=== PATIENT | female | born 1940 | race Caucasian/White ===

== ENCOUNTER 2020-11-17 15:59 | Emergency (ER) | payer MEDICARE ==
[2020-11-17] MEDS ORDERED: HYDROmorphone 0.5 MG/0.5 ML SYRINGE IVP STA (16:59)
[2020-11-17] MEDS ORDERED: ONDANSETRON 4 MG/2 ML VIAL IVP STA (16:59)
[2020-11-17] MEDS ORDERED: SODIUM CHLORIDE 0.9% 1,000 ML IV STA (16:59)
--- NOTE | 2020-11-17 16:59 | ED ---
General Adult HPI <Sharita Castro - Last Filed: 11/17/20 16:55> <Mushtaq Kang - Last Filed: 11/17/20 20:00> - General Stated complaint: Left Side/Back Pain Time Seen by Provider: 11/17/20 16:55 - History of Present Illness Initial comments: 80 year-old female patient presents to the emergency department for evaluation of left flank pain. Started this morning and pain worsened throughout the day. Patient believes the pain is in her kidney. Denies any fall or injury. Denies any nausea, vomiting, constipation, or diarrhea. Denies shortness of breath or chest pain. Did try to take aleve and aspirin without relief. Denies any abdom inal pain in the front. Denies history of similar symptoms. Denies fever or chills. (Sharita Castro) Dictation was produced using [employer] dictation software. please excuse any grammatical, word or spelling errors. This patient was cared for during a federal and state declared state of emergency secondary to Covid 19 Chief Complaint: 80-year-old male presents with acute onset left-sided flank pain History of Present Illness: Patient is a 80-year-old. She has past medical history diabetes and hypertension per she woke this morning with severe episodic left-sided flank pain. She states that it's in her mid to lower thoracic area. Denies any radiation down to her groin. States that her symptoms come on and off unexpectedly. No specific exacerbating or mitigating factors. She has not noticed any changes in her urine. She has any constitutional symptoms. Denies any history of kidney stones. No noticed any paresthesias to the lower ext remities. No saddle anesthesia. The ROS documented in this emergency department record has been reviewed and confirmed by me. Those systems with pertinent positive or negative responses have been documented in the HPI. All other systems are other negative and/or noncontributory. PHYSICAL EXAM: General Impression: Alert and oriented x3, acute distress secondary to pain HEENT: Normocephalic atraumatic, extra-ocular movements intact, pupils equal and reactive to light bilaterally, mucous membranes moist. Cardiovascular: Heart regular rate and rhythm Chest: Able to complete full sentences, no retractions, no tachypnea Abdomen: abdomen soft, non-tender, non-distended, no organomegaly Musculoskeletal: Pulses present and equal in all extremities, no peripheral edema, mild tenderness to palpation over the left CVA area Motor: no focal deficits noted Neurological: CN II-XII grossly intact, no focal motor or sensory deficits noted Skin: Intact with no visualized rashes Psych: Normal affect and mood ED course: 80-year-old female presents to the emergency department for left- sided flank pain. Vital signs upon arrival are within acceptable limits. Laboratory evaluation obtained. CBC unremarkable. Metabolic panel shows sodium 132. Glucose 187. Mild lactic acidosis elevation at 2.3. On the elevated liver enzymes. Urinalysis shows dirty catch and 18 white blood cells. Computed tomography scan of the abdomen and pelvis shows hiatal hernia. No other acute processes noted. No evidence of any acute abnormalities. Patient notified of the hiatal hernia found incidentally. She reports improvement of her symptoms. She reevaluated at bedside at approximately 7:50 PM. She states that she has pain to her left lower back. At this point there is strong clinical suspicion that patient's symptoms are secondary to lower back strain. She has no symptoms at rest reports that her symptoms are worse with movement. She is well- appearing at bedside. She is tolerating oral at bedside. She is agreeable for discharge. She is given prescription for analgesics and muscle relaxants. Patient will be discharged patient told to follow-up with her primary care physician. (Mushtaq Kang) - Related Data Previous Rx's Medication Instructions Recorded Cyclobenzaprine [Flexeril] 5 mg PO TID PRN #24 tablet 11/17/20 oxyCODONE HCL/ACETAMINOPHEN 1 tab PO Q6HR PRN 3 Days #12 tab 11/17/20 [Percocet 5-325 mg] Allergies Allergy/AdvReac Type Severity Reaction Status Date / Time No Known Allergies Allergy Verified 11/17/20 17:03 Review of Systems ROS Other: All systems not noted in ROS Statement are negative. <Sharita Castro - Last Filed: 11/17/20 16:55> ROS Other: All systems not noted in ROS Statement are negative. <Mushtaq Kang - Last Filed: 11/17/20 20:00> ROS Statement: Those systems with pertinent positive or pertinent negative responses have been documented in the HPI. Course Vital Signs 11/17/20 11/17/20 16:57 19:00 Temperature 97.6 F 97.7 F Pulse Rate 81 67 Respiratory 20 18 Rate Blood Pressure 182/72 175/71 O2 Sat by Pulse 100 99 Oximetry Medical Decision Making - Lab Data Result diagrams: 11/17/20 17:21 11/17/20 17:21 <Mushtaq Kang - Last Filed: 11/17/20 20:00> - Lab Data Lab Results 11/17/20 11/17/20 11/17/20 Range/Units 17:21 17:21 17:21 WBC 10.6 (3.8-10.6) k/uL RBC 4.92 (3.80-5.40) m/uL Hgb 12.8 (11.4-16.0) gm/dL Hct 40.2 (34.0-46.0) % MCV 81.8 (80.0-100.0) fL MCH 26.1 (25.0-35.0) pg MCHC 31.9 (31.0-37.0) g/dL RDW 14.2 (11.5-15.5) % Plt Count 374 (150-450) k/uL MPV 7.2 Neutrophils % 67 % Lymphocytes % 20 % Monocytes % 6 % Eosinophils % 2 % Basophils % 1 % Neutrophils # 7.1 (1.3-7.7) k/uL Lymphocytes # 2.2 (1.0-4.8) k/uL Monocytes # 0.7 (0-1.0) k/uL Eosinophils # 0.2 (0-0.7) k/uL Basophils # 0.1 (0-0.2) k/uL Sodium 132 L (137-145) mmol/L Potassium 4.2 (3.5-5.1) mmol/L Chloride 99 (98-107) mmol/L Carbon Dioxide 23 (22-30) mmol/L Anion Gap 10 mmol/L BUN 15 (7-17) mg/dL Creatinine 0.53 (0.52-1.04) mg/dL Est GFR (CKD-EPI)AfAm >90 (>60 ml/min/1.73 sqM) Est GFR (CKD-EPI)NonAf 89 (>60 ml/min/1.73 sqM) Glucose 187 H (74-99) mg/dL Lactic Ac Sepsis Rflx Plasma Lactic Acid Hair 2.3 H* (0.7-2.0) mmol/L Calcium 9.6 (8.4-10.2) mg/dL Total Bilirubin 0.4 (0.2-1.3) mg/dL AST 43 H (14-36) U/L ALT 42 H (4-34) U/L Alkaline Phosphatase 157 H (38-126) U/L Total Protein 8.2 (6.3-8.2) g/dL Albumin 4.1 (3.5-5.0) g/dL Lipase 170 (23-300) U/L Urine Color Urine Appearance (Clear) Urine pH (5.0-8.0) Ur Specific Crowell (1.001-1.035) Urine Protein (Negative) Urine Glucose (UA) (Negative) Urine Ketones (Negative) Urine Blood (Negative) Urine Nitrite (Negative) Urine Bilirubin (Negative) Urine Urobilinogen (<2.0) mg/dL Ur Leukocyte Esterase (Negative) Urine WBC (0-5) /hpf Ur Squamous Epith Cells (0-4) /hpf Amorphous Sediment (None) /hpf Urine Bacteria (None) /hpf Urine Mucus (None) /hpf 11/17/20 11/17/20 Range/Units 17:54 19:36 WBC (3.8-10.6) k/uL RBC (3.80-5.40) m/uL Hgb (11.4-16.0) gm/dL Hct (34.0-46.0) % MCV (80.0-100.0) fL MCH (25.0-35.0) pg MCHC (31.0-37.0) g/dL RDW (11.5-15.5) % Plt Count (150-450) k/uL MPV Neutrophils % % Lymphocytes % % Monocytes % % Eosinophils % % Basophils % % Neutrophils # (1.3-7.7) k/uL Lymphocytes # (1.0-4.8) k/uL Monocytes # (0-1.0) k/uL Eosinophils # (0-0.7) k/uL Basophils # (0-0.2) k/uL Sodium (137-145) mmol/L Potassium (3.5-5.1) mmol/L Chloride (98-107) mmol/L Carbon Dioxide (22-30) mmol/L Anion Gap mmol/L BUN (7-17) mg/dL Creatinine (0.52-1.04) mg/dL Est GFR (CKD-EPI)AfAm (>60 ml/min/1.73 sqM) Est GFR (CKD-EPI)NonAf (>60 ml/min/1.73 sqM) Glucose (74-99) mg/dL Lactic Ac Sepsis Rflx Y Plasma Lactic Acid Hair (0.7-2.0) mmol/L Calcium (8.4-10.2) mg/dL Total Bilirubin (0.2-1.3) mg/dL AST (14-36) U/L ALT (4-34) U/L Alkaline Phosphatase (38-126) U/L Total Protein (6.3-8.2) g/dL Albumin (3.5-5.0) g/dL Lipase (23-300) U/L Urine Color Light Yellow Urine Appearance Cloudy H (Clear) Urine pH 6.5 (5.0-8.0) Ur Specific Crowell 1.011 (1.001-1.035) Urine Protein Negative (Negative) Urine Glucose (UA) Negative (Negative) Urine Ketones Negative (Negative) Urine Blood Negative (Negative) Urine Nitrite Negative (Negative) Urine Bilirubin Negative (Negative) Urine Urobilinogen <2.0 (<2.0) mg/dL Ur Leukocyte Esterase Small H (Negative) Urine WBC 18 H (0-5) /hpf Ur Squamous Epith Cells 17 H (0-4) /hpf Amorphous Sediment Rare H (None) /hpf Urine Bacteria Few H (None) /hpf Urine Mucus Occasional H (None) /hpf Disposition <Sharita Castro - Last Filed: 11/17/20 16:55> Is patient prescribed a controlled substance at d/c from ED?: Yes If prescribed controlled substance>3 days was MAPS reviewed?: Prescribed <3 Days Time of Disposition: 19:57 <Mushtaq Kang - Last Filed: 11/17/20 20:00> Clinical Impression: Back strain Disposition: HOME SELF-CARE Condition: Fair Instructions (If sedation given, give patient instructions): Low Back Strain (ED) Prescriptions: Cyclobenzaprine [Flexeril] 5 mg PO TID PRN #24 tablet PRN Reason: back spasms oxyCODONE HCL/ACETAMINOPHEN [Percocet 5-325 mg] 1 tab PO Q6HR PRN 3 Days #12 tab PRN Reason: Pain Referrals: Esteban Denton DO [Primary Care Provider] - 1-2 days
[2020-11-17 17:37] LABS: HCT 40.2 % (34.0-46.0); HGB 12.8 gm/dL (11.4-16.0); MCH 26.1 pg (25.0-35.0); MCV 81.8 fL (80.0-100.0); RBC 4.92 m/uL (3.80-5.40); WBC 10.6 k/uL (3.8-10.6)
[2020-11-17 17:38] LABS: Basophils # (A) 0.1 k/uL (0-0.2); Basophils % (A) 1 %; Eosinophils # (A) 0.2 k/uL (0-0.7); Eosinophils % (A) 2 %; Lymphocytes # (A) 2.2 k/uL (1.0-4.8); Lymphocytes % (A) 20 %; MCHC 31.9 g/dL (31.0-37.0); Mean Platelet Volume 7.2; Monocytes # (A) 0.7 k/uL (0-1.0); Monocytes % (A) 6 %; Neutrophils # (A) 7.1 k/uL (1.3-7.7); Neutrophils % (A) 67 %; Platelet Count 374 k/uL (150-450); RDW 14.2 % (11.5-15.5)
[2020-11-17 17:56] LABS: ALT 42 U/L (4-34); AST 43 U/L (14-36); African American GFR (CKD) >90 (>60 ml/min/1.73 sqM); Albumin 4.1 g/dL (3.5-5.0); Alkaline Phosphatase 157 U/L (38-126); Anion Gap 10 mmol/L; Blood Urea Nitrogen 15 mg/dL (7-17); Calcium 9.6 mg/dL (8.4-10.2); Carbon Dioxide 23 mmol/L (22-30); Chloride 99 mmol/L (98-107); Glucose 187 mg/dL (74-99); Lipase 170 U/L (23-300); Non-African American GFR(CKD) 89 (>60 ml/min/1.73 sqM); Potassium 4.2 mmol/L (3.5-5.1); Sodium 132 mmol/L (137-145); Total Bilirubin 0.4 mg/dL (0.2-1.3); Total Protein 8.2 g/dL (6.3-8.2)
--- NOTE | 2020-11-17 19:00 | CT ---
EXAMINATION TYPE: CT abdomen pelvis wo con DATE OF EXAM: 11/17/2020 COMPARISON: None HISTORY: Left flank pain starting today. CT DLP: 434.3 mGycm Automated exposure control for dose reduction was used. Images obtained from the diaphragm to the floor the pelvis with no contrast. There is moderate hiatal hernia. Heart size is normal. There is no pleural effusion. Liver spleen moran creas appear intact. The bile ducts are nondilated. There are clips from cholecystectomy. There is no adrenal mass. Kidneys show normal size and contour. There is no hydronephrosis. Ureters a re not dilated. There is no retroperitoneal adenopathy. Bladder distends smoothly. There is no inguin al hernia. There is no mesenteric edema. There is no ascites or free air. There is no bowel obstruction. Lumbar vertebra have normal alignment. There is no compression fracture. Bony pelvis is intact. IMPRESSION: No acute abnormality of the abdomen pelvis. Hiatal hernia. No evidence of renal stone or obstruction.
[2020-11-17 19:03] VITALS: BP 175/71; PULSE 67; RESP 18; TEMP 97.7
[2020-11-17] MEDS ORDERED: LIDOCAINE 5% PATCH TOPICAL STA (19:10)
[2020-11-17 19:47] LABS: Amorphous Sediment,Urine Rare /hpf; Appearance,Urine Cloudy (Clear); Bacteria,Urine Few /hpf; Bilirubin,Urine Negative (Negative); Blood,Urine Negative (Negative); Color,Urine Light Yellow; Glucose,Urine (UA) Negative (Negative); Ketones,Urine Negative (Negative); Leukocyte Esterase,Urine Small (Negative); Mucus,Urine Occasional /hpf; Nitrite,Urine Negative (Negative); PH, Urine 6.5 (5.0-8.0); Protein,Urine Negative (Negative); Specific Gravity,Urine 1.011 (1.001-1.035); Squamous Epithelial Cell,Urine 17 /hpf (0-4); Urobilinogen,Urine <2.0 mg/dL (<2.0); WBC,Urine 18 /hpf (0-5)
[2020-11-17] MEDS ORDERED: oxyCODONE-APAP 5-325MG 1 EACH TAB PO STA (19:58)
== END 2020-11-17 20:27 | disposition home or self-care (01) ==
LOC: EC 15:59
DX: S39.012A Strain of muscle, fascia and tendon of lower back, initial encounter (principal); I10 Essential (primary) hypertension; E11.9 Type 2 diabetes mellitus without complications; X58.XXXA Exposure to other specified factors, initial encounter
CPT/HCPCS: 36415; 80053; 83605; 83690; 85025; 81001; 87086; 74176; 99284; 96374; 96375; J2405; J1170

== ENCOUNTER 2021-03-15 12:06 | Observation (INO) | payer MEDICARE ==
[2021-03-15] MEDS ORDERED: HYDROcodone/APAP 5-325MG 1 EACH TAB PO STA (13:05)
--- NOTE | 2021-03-15 13:35 | XR ---
EXAMINATION TYPE: XR tibia fibula RT, XR ankle complete bilateral DATE OF EXAM: 03/15/2021 CLINICAL HISTORY: pain TECHNIQUE: AP and lateral images of the right tibia and fibula are obtained. 3 views of the bilatera l ankles were also submitted. COMPARISON: None. FINDINGS: Right ankle and right tibia and fibula: Displaced fracture noted of the lateral malleolus with displa cement of 4.6 mm. Displaced fracture of the medial malleolus with displacement of 7 mm. There is disr uption of the ankle mortise. Suspect posterior malleolar fracture as well. The remainder of the right tibia and fibula appear unremarkable with this time. Left ankle: Nondisplaced lateral malleolar fracture. Soft tissue swelling noted. No additional fractu res seen. IMPRESSION: 1. Trimalleolar fracture right ankle with disruption of the ankle mortise. 2. Nondisplaced fracture lateral malleolus on the left.
[2021-03-15] MEDS ORDERED: ACETAMINOPHEN TAB 325 MG TAB PO PRN (14:24)
[2021-03-15] MEDS ORDERED: NALOXONE 0.4 MG/ML 1 ML VIAL IV PRN (14:24)
[2021-03-15] MEDS ORDERED: IBUPROFEN 400 MG TAB PO PRN (14:24)
[2021-03-15] MEDS ORDERED: ONDANSETRON ODT 4 MG TAB PO PRN (14:25)
--- NOTE | 2021-03-15 14:33 | ED ---
Fall HPI - General Source: patient Mode of arrival: wheelchair <Elizabeth Cuba - Last Filed: 03/15/21 15:02> <Chiara Baker - Last Filed: 03/15/21 15:35> - General Chief Complaint: Fall Stated Complaint: Fall Time Seen by Provider: 03/15/21 12:46 - History of Present Illness Initial Comments: Patient is a 80-year-old female presenting to the emergency Department with complaints of right and left ankle pain after she fell prior to arrival. Patient states she was at her house, going down the deck stairs when she missed the last 2-3 stairs. Patient is complaining of right ankle pain, left ankle pain and some mild left and right knee discomfort. Patient states she is unable to ambulate after this fall, she called inside to call her son who brought her into the ER. She did not hit her head, she is not on blood thinners. She denies any chest pain or shortness of breath, no abdominal pain or nausea or vomiting. She did not take anything for pain prior to arrival. She denies any previous surgeries of her lower extremities bilaterally. She has no further complaints. (Elizabeth Cuba) - Related Data Previous Rx's Medication Instructions Recorded Cyclobenzaprine [Flexeril] 5 mg PO TID PRN #24 tablet 11/17/20 oxyCODONE HCL/ACETAMINOPHEN 1 tab PO Q6HR PRN 3 Days #12 tab 11/17/20 [Percocet 5-325 mg] Allergies Allergy/AdvReac Type Severity Reaction Status Date / Time Penicillins Allergy Unknown Verified 03/15/21 12:42 Childhood Review of Systems ROS Other: All systems not noted in ROS Statement are negative. <Elizabeth Cuba - Last Filed: 03/15/21 15:02> ROS Other: All systems not noted in ROS Statement are negative. <Chiara Baekr - Last Filed: 03/15/21 15:35> ROS Statement: Those systems with pertinent positive or pertinent negative responses have been documented in the HPI. Past Medical History Past Medical History: Diabetes Mellitus, Hypertension History of Any Multi-Drug Resistant Organisms: None Reported Past Surgical History: Appendectomy Past Psychological History: No Psychological Hx Reported Smoking Status: Never smoker Past Alcohol Use History: Rare Past Drug Use History: None Reported <Elizabeth Cuba - Last Filed: 03/15/21 15:02> General Exam Limitations: no limitations <Rosa ElenaElizabeth Carrion - Last Filed: 03/15/21 15:02> - General Exam Comments Initial Comments: GENERAL: Patient is well-developed and well-nourished. Patient is nontoxic and in mild distress. HEAD: Atraumatic, normocephalic. No hematoma. EYES: Pupils equal round and reactive to light, extraocular movements intact, sclera anicteric, conjunctiva are normal. Eyelids were unremarkable. ENT: Moist mucous membranes. NECK: Normal range of motion, supple without lymphadenopathy or JVD. No midline tenderness. LUNGS: Unlabored respirations. Breath sounds clear to auscultation bilaterally and equal. No wheezes rales or rhonchi. HEART: Regular rate and rhythm without murmurs, rubs or gallops. ABDOMEN: Soft, nontender, normoactive bowel sounds. No guarding, no rebound. No masses appreciated. : Deferred MUSCULOSKELETAL: Patient has a moderate swelling and pain of the right ankle, decreased range of motion secondary to pain. She is neurovascular intact bilateral lower extremities. Patient has pain to the mid tib-fib. Patient also has pain with palpation of lateral malleolus of the left ankle. She has minimal swelling of his ankle, full active range of motion. She is full active range of motion of both bilateral knees, no swelling of the knees, no deformity seen. No clubbing or cyanosis. NEUROLOGICAL: Patient is alert and oriented x 3. PSYCH: Normal mood, normal affect. SKIN: Warm, Dry, normal turgor. Patient has mild abrasions noted to bilateral anterior knees. She also has a minor abrasion to the right ankle. No active bleeding. (Elizabeth Cuba) Course Vital Signs 03/15/21 12:36 Temperature 97.6 F Pulse Rate 61 Respiratory 18 Rate Blood Pressure 131/63 O2 Sat by Pulse 97 Oximetry Medical Decision Making <Elizabeth Cuba - Last Filed: 03/15/21 15:02> - Lab Data Result diagrams: 03/15/21 14:55 03/15/21 14:55 <Chiara Baker - Last Filed: 03/15/21 15:35> - Medical Decision Making Patient is an 80-year-old female here with right and left ankle pain after she fell down 2-3 steps at her house prior to arrival. She was unable to ambulate afterwards, called inside to call her son. She did not hit her head, she is not on blood thinners. X-rays reveal a trimalar fracture of the right ankle and a nondisplaced lateral malleolus fracture of the left ankle. No other fractures seen. I did discuss case with Dr. Hernández, who agrees to admission overnight for boot on left ankle and possible inpatient rehab. Patient was given a Victoria for pain, she has refused an IV and any stronger pain medicines at this time. Nicci Matthews did come down to splint the right ankle. She agrees to admission overnight. I will consult medicine for preop clearance, preop labs, EKG and chest x-ray were also ordered and are pending at this time. Case discussed with Dr. Baker. (Elizabeth Cuba) - EKG Data EKG Comments: EKG done which is normal sinus rhythm with a ventricular rate of 76. TN interval 154. QRS 76. QTC 447. No acute ST segment elevations or depressions concerning for ischemic changes (Chiara Baker) Disposition Decision Date: 03/15/21 Decision Time: 14:33 <Elizabeth Cuba - Last Filed: 03/15/21 15:02> <Chiara Baker - Last Filed: 03/15/21 15:35> Clinical Impression: Fall, Closed right trimalleolar fracture, Closed fracture of left lateral malleolus Disposition: ADMITTED IP TO THIS HOSP Condition: Stable
[2021-03-15 15:07] LABS: Basophils # (A) 0.1 k/uL (0-0.2); Basophils % (A) 1 %; Eosinophils # (A) 0.2 k/uL (0-0.7); Eosinophils % (A) 1 %; HCT 36.5 % (34.0-46.0); HGB 12.1 gm/dL (11.4-16.0); Lymphocytes # (A) 1.9 k/uL (1.0-4.8); Lymphocytes % (A) 13 %; MCHC 33.3 g/dL (31.0-37.0); MCV 81.2 fL (80.0-100.0); Monocytes # (A) 0.8 k/uL (0-1.0); Monocytes % (A) 5 %; Neutrophils # (A) 11.3 k/uL (1.3-7.7); Neutrophils % (A) 76 %; Platelet Count 373 k/uL (150-450); RBC 4.49 m/uL (3.80-5.40); RDW 14.2 % (11.5-15.5); WBC 14.7 k/uL (3.8-10.6)
--- NOTE | 2021-03-15 15:09 | XR ---
EXAMINATION TYPE: XR chest 2V DATE OF EXAM: 03/15/2021 COMPARISON: NONE HISTORY: Fall TECHNIQUE: Frontal and lateral views of the chest are obtained. FINDINGS: There is no focal air space opacity, pleural effusion, or pneumothorax seen. The cardiac silhouette size is within normal limits. The osseous structures are intact. Moderate hiatal hernia with adjac ent atelectasis. IMPRESSION: 1. No acute cardiopulmonary process. 2. Moderate-sized hiatal hernia.
--- NOTE | 2021-03-15 15:12 | XR ---
EXAMINATION TYPE: XR ankle complete RT DATE OF EXAM: 03/15/2021 CLINICAL HISTORY: Fall, pain, post reduction TECHNIQUE: Frontal, lateral, and oblique views of the right ankle COMPARISON: Right ankle radiograph same day. FINDINGS: Interval placement of overlying casting material which obscures fine bony details. Redemonstration o f trimalleolar fracture with improved anatomic alignment. Diffuse soft tissue swelling of the ankle. IMPRESSION: Redemonstration of trimalleolar fracture with improved anatomic alignment.
[2021-03-15 15:16] LABS: ALT 33 U/L (4-34); AST 41 U/L (14-36); African American GFR (CKD) >90 (>60 ml/min/1.73 sqM); Albumin 3.9 g/dL (3.5-5.0); Alkaline Phosphatase 103 U/L (38-126); Anion Gap 10 mmol/L; Blood Urea Nitrogen 14 mg/dL (7-17); Calcium 9.5 mg/dL (8.4-10.2); Carbon Dioxide 20 mmol/L (22-30); Chloride 104 mmol/L (98-107); Glucose 130 mg/dL (74-99); Non-African American GFR(CKD) 89 (>60 ml/min/1.73 sqM); Potassium 4.4 mmol/L (3.5-5.1); Sodium 134 mmol/L (137-145); Total Bilirubin 0.3 mg/dL (0.2-1.3); Total Protein 7.5 g/dL (6.3-8.2)
[2021-03-15 15:22] LABS: Partial Thromboplastin Time 27.8 sec (22.0-30.0); Prothrombin Time 10.7 sec (9.0-12.0)
[2021-03-15] MEDS: LORazepam 2 MG/ML INJ IV PRN (19:20)
[2021-03-15] MEDS: HYDROcodone/APAP 5-325MG 1 EACH TAB PO PRN (22:22)
[2021-03-16 10:01] LABS: Glucose,Whole Blood 279 mg/dL (75-99)
[2021-03-16] MEDS: HYDROcodone/APAP 5-325MG 1 EACH TAB PO PRN ×2 (10:01→13:54)
[2021-03-16 11:21] LABS: Glucose,Whole Blood 215 mg/dL (75-99)
[2021-03-16] MEDS: INSULIN ASPART (NovoLOG) 100 UNIT/ML VIAL SQ SCH ×3 (11:58→21:32)
--- NOTE | 2021-03-16 12:35 | P.HPOR ---
History of Present Illness H&P Date: 03/15/21 Chief Complaint: Bilateral ankle pain This is an 80-year-old female who presents to the emergency department with bilateral ankle pain on 03/15/2021 after missing a step and falling down the stairs. She denies hitting her head or loss of consciousness. She is otherwise healthy and ambulates independently. We are consulted for orthopedic evaluation for bilateral ankle fracture. Past Medical History Past Medical History: Diabetes Mellitus, Hypertension History of Any Multi-Drug Resistant Organisms: None Reported Past Surgical History: Appendectomy, Cholecystectomy Past Psychological History: No Psychological Hx Reported Smoking Status: Never smoker Past Alcohol Use History: Rare Past Drug Use History: None Reported - Past Family History Father Family Medical History: Cancer Mother History Unknown: Yes Medications and Allergies Home Medications Medication Instructions Recorded Confirmed Type Ascorbic Acid [Vitamin C] 1,000 mg PO DAILY 03/15/21 03/15/21 History Zinc 50 mg PO DAILY 03/15/21 03/15/21 History metFORMIN HCL [Glucophage] 1,000 mg PO BID 03/15/21 03/15/21 History ramipriL [Altace] 5 mg PO DAILY 03/15/21 03/15/21 History HYDROcodone/APAP 5-325MG [[place] 1 - 2 tab PO Q6HR PRN #42 tab 03/16/21 Rx 5-325] Allergies Allergy/AdvReac Type Severity Reaction Status Date / Time Penicillins Allergy Unknown Verified 03/15/21 15:36 Childhood Physical Examination This is a pleasant 80-year-old female in no acute distress. She is alert and oriented 3. Her son and [id number] are present at bedside. Exam of the head and neck reveal no obvious deformity. She has full cervical spine motion without difficulty or pain. Exam the upper extremities is unremarkable. She has full shoulder, elbow, wrist and finger motion bilaterally. Neurovascular status to the upper extremities is intact. Exam of the lower extremities reveals significant swelling to the right ankle with slight deformity noted. There are superficial abrasions to the knee and the anterior ankle. No deep abrasions or lacerations noted. Pedal pulse is +2/4. Exam of the left lower extremity reveals minimal soft tissue swelling. There is minimal pain to palpation about the distal fibula. No deformity to the left ankle. There is an abrasion to the left knee. Pedal pulse to left foot is +2/4. Results X-rays of the right ankle reveal a bimalleolar fracture dislocation. There may be a subtle posterior tibial fracture. X-rays of the left ankle reveal a very subtle Nondisplaced distal fibular fracture. - Labs Labs: Abnormal Lab Results - Last 24 Hours (Table) 03/15/21 03/15/21 03/16/21 Range/Units 14:55 14:55 10:00 WBC 14.7 H (3.8-10.6) k/uL Neutrophils # 11.3 H (1.3-7.7) k/uL Sodium 134 L (137-145) mmol/L Carbon Dioxide 20 L (22-30) mmol/L Glucose 130 H (74-99) mg/dL POC Glucose (mg/dL) 279 H (75-99) mg/dL AST 41 H (14-36) U/L 03/16/21 Range/Units 11:19 WBC (3.8-10.6) k/uL Neutrophils # (1.3-7.7) k/uL Sodium (137-145) mmol/L Carbon Dioxide (22-30) mmol/L Glucose (74-99) mg/dL POC Glucose (mg/dL) 215 H (75-99) mg/dL AST (14-36) U/L H & H 03/15/21 Range/Units 14:55 Hgb 12.1 (11.4-16.0) gm/dL Hct 36.5 (34.0-46.0) % Coagulation 03/15/21 Range/Units 14:55 INR 1.0 (<1.2) Result Diagrams: 03/15/21 14:55 03/15/21 14:55 Assessment and Plan (1) Closed fracture of left lateral malleolus Current Visit: Yes Status: Acute Code(s): S82.62XA - DISP FX OF LATERAL MALLEOLUS OF LEFT FIBULA, INIT SNOMED Code(s): 50751507 (2) Closed right trimalleolar fracture Current Visit: Yes Status: Acute Code(s): S82.851A - DISPLACED TRIMALLEOLAR FRACTURE OF RIGHT LOWER LEG, INIT SNOMED Code(s): 7874832 (3) Fall Current Visit: Yes Status: Acute Code(s): W19.XXXA - UNSPECIFIED FALL, INITIAL ENCOUNTER SNOMED Code(s): 8432824 Plan: The clinical and x-ray findings are discussed with the patient and her family. The right ankle and placed in a well-padded short leg splint. He was ordered for the left ankle. She is to be nonweightbearing to the right lower extremity and may bear weight as tolerated on the left in the boot. It is recommended she either discharge home with family or be transferred to inpatient rehabilitation. We will need to see her back in the office later this week to assess for swelling and possible scheduling of surgery. We would like internal medicine to see her while she is in the hospital for preoperative clearance. She will require open reduction internal fixation of the right ankle.
[2021-03-16] MEDS: lisinopriL 20 MG TAB PO SCH (13:34)
[2021-03-16 17:32] LABS: Glucose,Whole Blood 158 mg/dL (75-99)
[2021-03-16 20:46] LABS: Glucose,Whole Blood 216 mg/dL (75-99)
--- NOTE | 2021-03-16 23:30 | P.CON ---
Consult Note - . Consult date: 03/16/21 Assessment/Plan:: Reason for consult -preop clearance for open reduction internal fixation of the right ankle Ms. Bernal is an 80-year-old female with a past medical history of hypertension, diabetes mellitus coming to the emergency department with a chief complaint of right and left ankle pain after she fell. Patient states that she was at her house trying to go down her stairs when she missed the last 2-3 steps and was unable to ambulate after the fall. She started to have pain in both her ankles, she called her son who brought her to the hospital. Patient states that she did not have any chest pain palpitations or loss of consciousness during this episode. Patient does not have any history of cardiac arrhythmias and she is not on blood thinners. Patient denies having any chest pain or palpitations. No cough or difficulty breathing. No abdominal pain, nausea vomiting or diarrhea. No dysuria or hematuria. She denies having any headaches, visual disturbance, hearing loss or speech abnormalities. In the ER patient had x-rays of both her ankles showing trimalleolar fracture of the right ankle with disruption of ankle mortise and nondisplaced fracture of lateral malleolus on the left. Chest x-ray no acute cardiopulmonary process, moderate-sized hiatal hernia. Patient had labs done showing white count of 14.7, hemoglobin 12.1, platelets 373. Sodium 134, potassium 4.4, chloride 104, bicarb 20, BUN 10, creatinine 0.52. REVIEW OF SYSTEMS: CONSTITUTIONAL: No fever, no malaise, no fatigue. HEENT: No headache, no neck stiffness, no blurring of vision CARDIOVASCULAR: No chest pain, no palpitations PULMONARY: No cough or difficulty in breathing GASTROINTESTINAL: No Abdominal pain nausea vomiting or diarrhea NEUROLOGICAL: No weakness of extremities HEMATOLOGICAL: Denies any bleeding or petechiae. GENITOURINARY: Denies any burning micturition, frequency, or urgency. MUSCULOSKELETAL/RHEUMATOLOGICAL: As per HPI ENDOCRINE: Denies polyuria polydipsia or heat or cold intolerance The rest of the 14-point review of systems is negative. Past Medical History Past Medical History: Diabetes Mellitus, Hypertension History of Any Multi-Drug Resistant Organisms: None Reported Past Surgical History: Appendectomy, Cholecystectomy Past Psychological History: No Psychological Hx Reported Smoking Status: Never smoker Past Alcohol Use History: Rare Past Drug Use History: None Reported - Past Family History Father Family Medical History: Cancer Mother History Unknown: Yes Medications and Allergies Home Medications Medication Instructions Recorded Confirmed Type Ascorbic Acid [Vitamin C] 1,000 mg PO DAILY 03/15/21 03/15/21 History Zinc 50 mg PO DAILY 03/15/21 03/15/21 History metFORMIN HCL [Glucophage] 1,000 mg PO BID 03/15/21 03/15/21 History ramipriL [Altace] 5 mg PO DAILY 03/15/21 03/15/21 History HYDROcodone/APAP 5-325MG [[place] 1 - 2 tab PO Q6HR PRN #42 tab 03/16/21 Rx 5-325] Allergies Allergy/AdvReac Type Severity Reaction Status Date / Time Penicillins Allergy Unknown Verified 03/15/21 15:36 Childhood Physical Exam Vitals: Vital Signs Temp Pulse Pulse Resp BP BP BP 03/16/21 19:30 97.7 F 84 20 144/69 03/16/21 15:55 98 F 74 17 119/58 03/16/21 12:50 98.0 F 83 16 130/58 03/16/21 08:12 98.4 F 97 16 160/67 03/16/21 06:52 76 16 121/61 03/16/21 03:00 85 16 123/55 Pulse Ox 03/16/21 19:30 98 03/16/21 15:55 95 03/16/21 12:50 96 03/16/21 08:12 03/16/21 06:52 98 03/16/21 03:00 99 Intake and Output 03/16/21 03/16/21 03/17/21 14:59 22:59 06:59 Intake Total 300 Output Total 250 Balance 50 Intake: Oral 300 Output: Urine 250 Other: Voiding Method Bedpan Diaper # Voids 2 Weight 61.235 kg PHYSICAL EXAMINATION: GENERAL: patient is lying in bed HEENT: Pupils are round and equally reacting to light. EOMI. No scleral icterus. No conjunctival pallor. CARDIOVASCULAR: S1 and S2 present. PULMONARY: Bilateral breath sounds positive. No wheeze or crackles. ABDOMEN: Soft,non -tender, normal bowel sounds. No guarding or rigidity. MUSCULOSKELETAL: _ tenderness in the bilateral ankle joints EXTREMITIES: Mild edema NEUROLOGICAL: Gross neurological examination did not reveal any focal deficits. SKIN:No rash Results CBC & Chem 7: 08/22/21 14:55 03/15/21 14:55 Labs: Abnormal Lab Results - Last 24 Hours (Table) 03/16/21 03/16/21 03/16/21 Range/Units 10:00 11:19 17:31 POC Glucose (mg/dL) 279 H 215 H 158 H (75-99) mg/dL 03/16/21 Range/Units 20:28 POC Glucose (mg/dL) 216 H (75-99) mg/dL ASSESSMENT Closed right trimalleolar fracture Closed fracture of the left lateral malleolus Status post mechanical fall Hypertension Hyperlipidemia Diabetes PLAN: Patient does not have any significant cardiac history, she has risk factors like hypertension and diabetes but no history of any underlying coronary artery disease. Functional status of the patient before the fall more than 3 METS. She would be low risk candidate for the procedure. She has been restarted on her home blood pressure medications. Will follow up closely for further recommendations depending on the progress of the patient. Thank you for the consultation.
[2021-03-17 07:11] LABS: Glucose,Whole Blood 235 mg/dL (75-99)
[2021-03-17] MEDS: ENOXAPARIN 40 MG/0.4 ML SYRINGE SQ SCH (07:53)
[2021-03-17] MEDS: lisinopriL 20 MG TAB PO SCH (07:53)
[2021-03-17] MEDS: INSULIN ASPART (NovoLOG) 100 UNIT/ML VIAL SQ SCH ×4 (07:54→21:25)
[2021-03-17 09:59] LABS: Appearance,Urine Cloudy (Clear); Bacteria,Urine Many /hpf; Bilirubin,Urine Negative (Negative); Blood,Urine Trace (Negative); Color,Urine Light Yellow; Glucose,Urine (UA) Negative (Negative); Ketones,Urine 1+ (Negative); Leukocyte Esterase,Urine Large (Negative); Mucus,Urine Rare /hpf; Nitrite,Urine Positive (Negative); PH, Urine 5.5 (5.0-8.0); Protein,Urine Negative (Negative); RBC,Urine 14 /hpf (0-5); Specific Gravity,Urine 1.008 (1.001-1.035); Squamous Epithelial Cell,Urine <1 /hpf (0-4); Urobilinogen,Urine <2.0 mg/dL (<2.0); WBC,Urine >182 /hpf (0-5)
--- NOTE | 2021-03-17 10:11 | P.PN ---
Subjective Progress Note Date: 03/17/21 This is an 80-year-old female who is admitted for bilateral ankle fractures. Patient is seen and evaluated at bedside today. Patient states that she is not in any pain today and she denies any new complaints. Patient states that she has been tolerating her boot, but has still been using the commode chair to go to the restroom. Patient states that she has not been able to walk to the restroom yet. Patient states that she does live alone and has 3 steps to get into her house. Objective - Vital Signs Vital signs: Vital Signs Temp 98.2 F 03/17/21 04:45 Pulse 76 03/17/21 04:45 Resp 20 03/17/21 04:45 BP 127/69 03/17/21 04:45 Pulse Ox 98 03/17/21 04:45 Intake & Output 03/16/21 03/17/21 03/17/21 18:59 06:59 18:59 Intake Total 300 480 Output Total 250 Balance 300 230 Weight 61.235 kg Intake: Oral 300 480 Output: Urine 250 Other: Voiding Method Bedpan Diaper # Voids 2 3 - Exam On exam patient is resting comfortably in a chair in no acute distress. Patient is alert and oriented 3. Patient has a boot intact to the left lower extremity and a clean and dry splint to the right lower extremity. Sensation intact. Neurovascular status circulatory status are intact. - Labs CBC & Chem 7: 03/15/21 14:55 03/15/21 14:55 Labs: Abnormal Lab Results - Last 24 Hours (Table) 03/16/21 03/16/21 03/16/21 Range/Units 10:00 11:19 17:31 POC Glucose (mg/dL) 279 H 215 H 158 H (75-99) mg/dL Urine Appearance (Clear) Urine Ketones (Negative) Urine Blood (Negative) Urine Nitrite (Negative) Ur Leukocyte Esterase (Negative) Urine RBC (0-5) /hpf Urine WBC (0-5) /hpf Urine Bacteria (None) /hpf Urine Mucus (None) /hpf 03/16/21 03/17/21 03/17/21 Range/Units 20:28 07:09 08:40 POC Glucose (mg/dL) 216 H 235 H (75-99) mg/dL Urine Appearance Cloudy H (Clear) Urine Ketones 1+ H (Negative) Urine Blood Trace H (Negative) Urine Nitrite Positive H (Negative) Ur Leukocyte Esterase Large H (Negative) Urine RBC 14 H (0-5) /hpf Urine WBC >182 H (0-5) /hpf Urine Bacteria Many H (None) /hpf Urine Mucus Rare H (None) /hpf Assessment and Plan (1) Closed fracture of left lateral malleolus Current Visit: Yes Status: Acute Code(s): S82.62XA - DISP FX OF LATERAL MALLEOLUS OF LEFT FIBULA, INIT SNOMED Code(s): 78429604 (2) Closed right trimalleolar fracture Current Visit: Yes Status: Acute Code(s): S82.851A - DISPLACED TRIMALLEOLAR FRACTURE OF RIGHT LOWER LEG, INIT SNOMED Code(s): 8381814 (3) Fall Current Visit: Yes Status: Acute Code(s): W19.XXXA - UNSPECIFIED FALL, INITIAL ENCOUNTER SNOMED Code(s): 3386635 Plan: 1. Patient is to be nonweightbearing to the right lower extremity. Patient is weightbearing as tolerated to the left lower extremity with her boot. 2. It is discussed with the patient at bedside today that rehab or going home with family are her safest options for discharge. Per physical therapy, the patient was not able to ambulate with a walker yesterday and the patient is still using a commode chair with assistance to use the restroom. At this point, patient is refusing discharge home with family and home care and she is refusing inpatient rehab. I discussed with the patient that we will see how she does with physical therapy today. 3. Anticipate discharge in the next 24-48 hours.
[2021-03-17 12:19] LABS: Glucose,Whole Blood 300 mg/dL (75-99)
[2021-03-17] MEDS: LEVOFLOXACIN 750 MG TAB PO SCH (15:02)
[2021-03-17 17:16] LABS: Glucose,Whole Blood 144 mg/dL (75-99)
[2021-03-17] MEDS: metFORMIN 500 MG TAB PO SCH (17:28)
[2021-03-17 20:34] LABS: Glucose,Whole Blood 158 mg/dL (75-99)
[2021-03-17] MEDS: LORazepam 2 MG/ML INJ IV PRN (21:24)
--- NOTE | 2021-03-17 23:59 | P.PN ---
Subjective Progress Note Date: 03/17/21 Principal diagnosis: Bilateral Ankle fracture Ms. Bernal is an 80-year-old female with a past medical history of hypertension, diabetes mellitus coming to the emergency department with a chief complaint of right and left ankle pain after she fell. Patient states that she was at her house trying to go down her stairs when she missed the last 2-3 steps and was unable to ambulate after the fall. She started to have pain in both her ankles, she called her son who brought her to the hospital. Patient states that she did not have any chest pain palpitations or loss of consciousness during this episode. Patient does not have any history of cardiac arrhythmias and she is not on blood thinners.Patient denies having any chest pain or palpitations. No cough or difficulty breathing. No abdominal pain, nausea vomiting or diarrhea. No dysuria or hematuria. She denies having any headaches, visual disturbance, hearing loss or speech abnormalities. In the ER patient had x-rays of both her ankles showing trimalleolar fracture of the right ankle with disruption of ankle mortise and nondisplaced fracture of lateral malleolus on the left. Chest x-ray no acute cardiopulmonary process, moderate-sized hiatal hernia. Patient had labs done showing white count of 14.7, hemoglobin 12.1, platelets 373. Sodium 134, potassium 4.4, chloride 104, bicarb 20, BUN 10, creatinine 0.52. On 03/17/2021 -patient is seen and examined at bedside. She is sitting up in a chair by the bedside. Patient states that she has pain in both her ankle areas, and mentioned that she will need surgery for her right ankle and left ankle is okay so far. She states that she cannot bear weight on her right lower extremity. She denies having any fevers chills or rigors. No chest pain or palpitations. No cough or difficulty in breathing. Patient's vitals reviewed temperature of 97.7, heart rate 80, respiratory rate 18, blood pressure 92/56 saturating at 97% on room air. On reviewing the patient's labs urine analysis was done that was showing positive nitrites, large leukocyte Estrace and more than 182 WBCs with many bacteria. Patient's medications have been reviewed. Objective - Vital Signs Vital signs: Vital Signs Temp 97.7 F 03/17/21 12:16 Pulse 80 03/17/21 12:16 Resp 18 03/17/21 12:16 BP 92/56 03/17/21 12:16 Pulse Ox 97 03/17/21 12:16 Intake & Output 03/16/21 03/17/21 03/17/21 18:59 06:59 18:59 Intake Total 300 480 120 Output Total 250 Balance 300 230 120 Weight 61.235 kg Intake: Oral 300 480 120 Output: Urine 250 Other: Voiding Method Bedpan Diaper Bedside Commode Diaper Incontinent # Voids 2 3 - Exam PHYSICAL EXAMINATION: GENERAL: patient is lying in bed HEENT: No conjunctival pallor. CARDIOVASCULAR: S1 and S2 present. PULMONARY: Bilateral breath sounds positive. No wheeze or crackles. ABDOMEN: Soft,non -tender, normal bowel sounds. No guarding or rigidity. MUSCULOSKELETAL: tenderness in the bilateral ankle joints Right foot is in a boot EXTREMITIES: Mild edema NEUROLOGICAL: Gross neurological examination did not reveal any focal deficits. SKIN:No rash - Labs CBC & Chem 7: 03/15/21 14:55 03/15/21 14:55 Labs: Abnormal Lab Results - Last 24 Hours (Table) 03/16/21 03/16/21 03/17/21 Range/Units 17:31 20:28 07:09 POC Glucose (mg/dL) 158 H 216 H 235 H (75-99) mg/dL Urine Appearance (Clear) Urine Ketones (Negative) Urine Blood (Negative) Urine Nitrite (Negative) Ur Leukocyte Esterase (Negative) Urine RBC (0-5) /hpf Urine WBC (0-5) /hpf Urine Bacteria (None) /hpf Urine Mucus (None) /hpf 03/17/21 03/17/21 Range/Units 08:40 12:04 POC Glucose (mg/dL) 300 H (75-99) mg/dL Urine Appearance Cloudy H (Clear) Urine Ketones 1+ H (Negative) Urine Blood Trace H (Negative) Urine Nitrite Positive H (Negative) Ur Leukocyte Esterase Large H (Negative) Urine RBC 14 H (0-5) /hpf Urine WBC >182 H (0-5) /hpf Urine Bacteria Many H (None) /hpf Urine Mucus Rare H (None) /hpf Assessment and Plan Assessment: ASSESSMENT Closed right trimalleolar fracture Closed fracture of the left lateral malleolus Status post mechanical fall Hypertension Hyperlipidemia Diabetes PLAN: Patient urine analysis came back positive for leukocyte esterase and nitrites and more than 182 WBCs. Will obtain urine culture. Patient has been empirically started on ceftriaxone. Management of ankle fracture as per primary care team. Continue with DVT prophylaxis. Further recommendations depending on the progress patient.
[2021-03-18 06:08] LABS: HCT 31.7 % (34.0-46.0); HGB 10.5 gm/dL (11.4-16.0); MCV 81.8 fL (80.0-100.0); Mean Platelet Volume 7.2; Platelet Count 312 k/uL (150-450); RBC 3.87 m/uL (3.80-5.40); RDW 14.6 % (11.5-15.5); WBC 9.9 k/uL (3.8-10.6)
[2021-03-18 07:23] LABS: Glucose,Whole Blood 146 mg/dL (75-99)
[2021-03-18 08:19] LABS: Lymphocytes # (M) 1.98 k/uL (1.0-4.8); Monocytes # (M) 0.69 k/uL (0-1.0); Neutrophils # (M) 7.13 k/uL (1.3-7.7); Neutrophils % (M) 72 %; Nucleated Red Blood Cells 0 /100 WBC (0-0); Total Cells Counted 100
[2021-03-18] MEDS: INSULIN ASPART (NovoLOG) 100 UNIT/ML VIAL SQ SCH ×4 (08:19→20:28)
[2021-03-18] MEDS: ENOXAPARIN 40 MG/0.4 ML SYRINGE SQ SCH (08:19)
[2021-03-18] MEDS: ASCORBIC ACID 500 MG TAB PO SCH (08:19)
[2021-03-18] MEDS: lisinopriL 20 MG TAB PO SCH (08:20)
[2021-03-18] MEDS: ZINC SULFATE 220 MG CAP PO SCH (08:20)
[2021-03-18] MEDS: metFORMIN 500 MG TAB PO SCH ×2 (08:20→17:59)
[2021-03-18 10:10] LABS: African American GFR (CKD) 79.6 (60.0-200.0); Anion Gap 8.3 mmol/L (4.00-12.00); BUN/Creat Ratio 12.5 Ratio (12.00-20.00); Calcium 8.7 mg/dL (8.7-10.3); Carbon Dioxide 25.7 mmol/L (21.6-31.8); Non-African American GFR(CKD) 68.7 (60.0-200.0); Potassium 4.1 mmol/L (3.5-5.5)
--- NOTE | 2021-03-18 11:28 | P.DS ---
Providers Date of admission: 03/15/21 14:26 Expected date of discharge: 03/18/21 Attending physician: Deangelo Hernández Consults: 03/15/21 14:24 Consult Physician Urgent Consulting Provider: Hamida Bal Consult Reason/Comments: pre-op clearance Do you want consulting provider notified?: Yes Primary care physician: Grey Morrison - Discharge Diagnosis(es) (1) Closed fracture of left lateral malleolus Current Visit: Yes Status: Acute (2) Closed right trimalleolar fracture Current Visit: Yes Status: Acute (3) Fall Current Visit: Yes Status: Acute Hospital Course: This is an 80-year-old female who presents to the emergency department with bilateral ankle pain on 03/15/2021 after missing a step and falling down the stairs. She denies hitting her head or loss of consciousness. She is otherwise healthy and ambulates independently. We are consulted for orthopedic evaluation for bilateral ankle fracture. The patient is admitted to our service for surgical planning and placement. The patient was seen by internal medicine and cleared for surgery. We're waiting for the swelling to come down before taking her to surgery. The patient was unwilling to discuss discharge to rehabilitation or to her son's home initially. After getting up with physical therapy she has agreed to go to inpatient rehabilitation for assistance. She is to follow-up in our office on 03/20/2021 to evaluate her swelling and possibly schedule surgery for next week. Patient Condition at Discharge: Stable Plan - Discharge Summary Discharge Rx Participant: No New Discharge Prescriptions: New HYDROcodone/APAP 5-325MG [[place] 5-325] 1 - 2 tab PO Q6HR PRN #42 tab PRN Reason: Pain No Action ramipriL [Altace] 5 mg PO DAILY Ascorbic Acid [Vitamin C] 1,000 mg PO DAILY metFORMIN HCL [Glucophage] 1,000 mg PO BID Zinc 50 mg PO DAILY Discharge Medication List Ascorbic Acid [Vitamin C] 1,000 mg PO DAILY 03/15/21 [History] Zinc 50 mg PO DAILY 03/15/21 [History] metFORMIN HCL [Glucophage] 1,000 mg PO BID 03/15/21 [History] ramipriL [Altace] 5 mg PO DAILY 03/15/21 [History] HYDROcodone/APAP 5-325MG [[place] 5-325] 1 - 2 tab PO Q6HR PRN #42 tab 03/16/21 [Rx] Follow up Appointment(s)/Referral(s): Grey Morrison MD [Primary Care Provider] - 1-2 days Deangelo Hernández MD [STAFF PHYSICIAN] - 03/20/21 10:20 am Activity/Diet/Wound Care/Special Instructions: Nonweightbearing right lower cavity. Weightbearing as tolerated in the boot left lower extremity. Follow-up with Dr. Hernández on 03/20/2021 to evaluate for surgery. Discharge Disposition: TRANSFER TO SNF/ECF
[2021-03-18 12:03] LABS: Glucose,Whole Blood 187 mg/dL (75-99)
[2021-03-18 17:45] LABS: Glucose,Whole Blood 168 mg/dL (75-99)
[2021-03-18] MEDS: LEVOFLOXACIN 750 MG TAB PO SCH (17:59)
[2021-03-18 20:16] LABS: Glucose,Whole Blood 143 mg/dL (75-99)
[2021-03-19 07:44] LABS: Glucose,Whole Blood 181 mg/dL (75-99)
[2021-03-19] MEDS: lisinopriL 20 MG TAB PO SCH (08:16)
[2021-03-19] MEDS: ENOXAPARIN 40 MG/0.4 ML SYRINGE SQ SCH (08:16)
[2021-03-19] MEDS: ZINC SULFATE 220 MG CAP PO SCH (08:16)
[2021-03-19] MEDS: ASCORBIC ACID 500 MG TAB PO SCH (08:16)
[2021-03-19] MEDS: metFORMIN 500 MG TAB PO SCH (08:16)
[2021-03-19] MEDS: INSULIN ASPART (NovoLOG) 100 UNIT/ML VIAL SQ SCH ×2 (08:16→13:21)
--- NOTE | 2021-03-19 10:21 | P.PN ---
Subjective Progress Note Date: 03/18/21 Bilateral Ankle fracture Ms. Bernal is an 80-year-old female with a past medical history of hypertens ion, diabetes mellitus coming to the emergency department with a chief complaint of right and left ankle pain after she fell. Patient states that she was at her house trying to go down her stairs when she missed the last 2-3 steps and was unable to ambulate after the fall. She started to have pain in both her ankles, she called her son who brought her to the hospital. Patient states that she did not have any chest pain palpitations or loss of consciousness during this episode. Patient does not have any history of cardiac arrhythmias and she is not on blood thinners.Patient denies having any chest pain or palpitations. No cough or difficulty breathing. No abdominal pain, nausea vomiting or diarrhea. No dysuria or hematuria. She denies having any headaches, visual disturbance, hearing loss or speech abnormalities. In the ER patient had x-rays of both her ankles showing trimalleolar fracture of the right ankle with disruption of ankle mortise and nondisplaced fracture of lateral malleolus on the left. Chest x-ray no acute cardiopulmonary process, moderate-sized hiatal hernia. Patient had labs done showing white count of 14.7, hemoglobin 12.1, platelets 373. Sodium 134, potassium 4.4, chloride 104, bicarb 20, BUN 10, creatinine 0.52. On 03/17/2021 -patient is seen and examined at bedside. She is sitting up in a chair by the bedside. Patient states that she has pain in both her ankle areas, and mentioned that she will need surgery for her right ankle and left ankle is okay so far. She states that she cannot bear weight on her right lower extremity. She denies having any fevers chills or rigors. No chest pain or palpitations. No cough or difficulty in breathing. Patient's vitals reviewed temperature of 97.7, heart rate 80, respiratory rate 18, blood pressure 92/56 saturating at 97% on room air. On reviewing the patient's labs urine analysis was done that was showing positive nitrites, large leukocyte Estrace and more than 182 WBCs with many bacteria. 03/18/2021 Patient is seen in follow-up this morning with no acute overnight issues. Following along closely with orthopedic surgery and plan is for outpatient surgical intervention. Patient awaiting to receive authorization to ECF and social work following closely. Patient's urine cultures preliminary showing gram-negative bacilli and is maintained on Levaquin and will continue. Will follow cultures and change antibiotics if needed once sensitivities are available. Patient's white blood count has normalized and is 9.9 and hemoglobin is 10.5. Sodium is 138 with a potassium of 4.1 and current creatinine is 0.8. Blood sugars elevated slightly and will continue with oral antidiabetic agents and monitor closely. She denies any chest pain or shortness of breath. Patient is afebrile. Is tolerating diet with no reports of nausea or vomiting noted. Patient's medications have been reviewed. Objective - Vital Signs Vital signs: Vital Signs Temp 98.9 F 03/18/21 05:00 Pulse 88 03/18/21 05:00 Resp 16 03/18/21 05:00 BP 111/65 03/18/21 05:00 Pulse Ox 98 03/18/21 05:00 Intake & Output 03/17/21 03/18/21 03/18/21 18:59 06:59 18:59 Intake Total 120 Balance 120 Intake: Oral 120 Other: Voiding Method Bedside Commode Bedside Commode Diaper Diaper Incontinent Incontinent # Voids 3 2 - Exam GENERAL: patient is lying in bed HEENT: No conjunctival pallor. CARDIOVASCULAR: S1 and S2 present. PULMONARY: Bilateral breath sounds positive. No wheeze or crackles. ABDOMEN: Soft,non -tender, normal bowel sounds. No guarding or rigidity. MUSCULOSKELETAL: tenderness in the bilateral ankle joints Right foot is in a boot EXTREMITIES: Mild edema NEUROLOGICAL: Gross neurological examination did not reveal any focal deficits. SKIN:No rash - Labs CBC & Chem 7: 03/18/21 05:29 03/18/21 05:29 Labs: Abnormal Lab Results - Last 24 Hours (Table) 03/17/21 03/17/21 03/17/21 Range/Units 12:04 17:10 20:33 Hgb (11.4-16.0) gm/dL Hct (34.0-46.0) % POC Glucose (mg/dL) 300 H 144 H 158 H (75-99) mg/dL 03/18/21 03/18/21 Range/Units 05:29 07:12 Hgb 10.5 L (11.4-16.0) gm/dL Hct 31.7 L (34.0-46.0) % POC Glucose (mg/dL) 146 H (75-99) mg/dL Microbiology - Last 24 Hours (Table) 03/17/21 08:36 Urine Culture - Preliminary Urine,Voided Assessment and Plan Assessment: Closed right trimalleolar fracture Closed fracture of the left lateral malleolus Status post mechanical fall Hypertension Hyperlipidemia Diabetes Full code PLAN: Patient had urinalysis done which was preliminary showing gram-negative bacilli and awaiting finalization. Patient is on Levaquin and will continue with an oral course on discharge and follow-up on the culture sensitivities. Patient is scheduled to go to ECF for continued PT/OT therapy with outpatient follow-up with orthopedics as discussed. Will continue to follow along during h ospitalization. Management of ankle fracture as per primary care team. Continue with DVT prophylaxis. Further recommendations depending on the progress patient.
[2021-03-19 11:27] LABS: Glucose,Whole Blood 176 mg/dL (75-99)
[2021-03-19 12:15] VITALS: BP 101/59; PULSE 100; RESP 17; TEMP 97.9
--- NOTE | 2021-03-19 15:14 | P.PN ---
Subjective Progress Note Date: 03/19/21 Bilateral Ankle fracture Ms. Bernal is an 80-year-old female with a past medical history of hypertens ion, diabetes mellitus coming to the emergency department with a chief complaint of right and left ankle pain after she fell. Patient states that she was at her house trying to go down her stairs when she missed the last 2-3 steps and was unable to ambulate after the fall. She started to have pain in both her ankles, she called her son who brought her to the hospital. Patient states that she did not have any chest pain palpitations or loss of consciousness during this episode. Patient does not have any history of cardiac arrhythmias and she is not on blood thinners.Patient denies having any chest pain or palpitations. No cough or difficulty breathing. No abdominal pain, nausea vomiting or diarrhea. No dysuria or hematuria. She denies having any headaches, visual disturbance, hearing loss or speech abnormalities. In the ER patient had x-rays of both her ankles showing trimalleolar fracture of the right ankle with disruption of ankle mortise and nondisplaced fracture of lateral malleolus on the left. Chest x-ray no acute cardiopulmonary process, moderate-sized hiatal hernia. Patient had labs done showing white count of 14.7, hemoglobin 12.1, platelets 373. Sodium 134, potassium 4.4, chloride 104, bicarb 20, BUN 10, creatinine 0.52. On 03/17/2021 -patient is seen and examined at bedside. She is sitting up in a chair by the bedside. Patient states that she has pain in both her ankle areas, and mentioned that she will need surgery for her right ankle and left ankle is okay so far. She states that she cannot bear weight on her right lower extremity. She denies having any fevers chills or rigors. No chest pain or palpitations. No cough or difficulty in breathing. Patient's vitals reviewed temperature of 97.7, heart rate 80, respiratory rate 18, blood pressure 92/56 saturating at 97% on room air. On reviewing the patient's labs urine analysis was done that was showing positive nitrites, large leukocyte Estrace and more than 182 WBCs with many bacteria. 03/18/2021 Patient is seen in follow-up this morning with no acute overnight issues. Following along closely with orthopedic surgery and plan is for outpatient surgical intervention. Patient awaiting to receive authorization to [facility] and social work following closely. Patient's urine cultures preliminary showing gram-negative bacilli and is maintained on Levaquin and will continue. Will follow cultures and change antibiotics if needed once sensitivities are available. Patient's white blood count has normalized and is 9.9 and hemoglobin is 10.5. Sodium is 138 with a potassium of 4.1 and current creatinine is 0.8. Blood sugars elevated slightly and will continue with oral antidiabetic agents and monitor closely. She denies any chest pain or shortness of breath. Patient is afebrile. Is tolerating diet with no reports of nausea or vomiting noted. 03/19/2021 H and is seen and evaluated in follow-up this morning currently sitting up in the chair with no acute overnight issues noted. Patient has received authorization for [facility] [place] and will be going there today. [facility] services discharging the patient. Patient's urine cultures preliminary showing gram-negative bacilli and will continue with Levaquin and prescription sent with patient to [facility]. Discussed with the patient along with liaison for [facility] and will follow cultures and make adjustments as needed if cultures finalize. Called microbiology lab in [facility] there stated cultures will likely be finalized this evening after 8 PM sometime. Will continue to follow the cultures and make adjustments as needed. Patient denies any burning or dysuria with urination and has been voiding with no difficulties. She remains afebrile and white count has normalized to 9.9. Review of systems: Constitutional: No reports of fatigue, fever, or chills Cardiovascular: No reports of chest pain or palpitations Respiratory: No reports of shortness of breath or cough GI: No reports of nausea, vomiting, or diarrhea : No reports of dysuria or retention Neurovascular: Reports generalized weakness and inability to ambulate given recent fractures Patient's medications have been reviewed. Objective - Vital Signs Vital signs: Vital Signs Temp 97.7 F 03/19/21 05:00 Pulse 92 03/19/21 08:00 Resp 16 03/19/21 08:00 BP 135/54 03/19/21 05:00 Pulse Ox 100 03/19/21 05:00 Intake & Output 03/18/21 03/19/21 03/19/21 18:59 06:59 18:59 Intake Total 840 960 240 Balance 840 960 240 Intake: Oral 840 960 240 Other: Voiding Method Bedside Commode Bedside Commode Bedside Commode Diaper Diaper Diaper Incontinent Incontinent Incontinent # Voids 2 2 - Exam GENERAL: patient is sitting up in the chair with bilateral lower extremities elevated HEENT: No conjunctival pallor. CARDIOVASCULAR: S1 and S2 present. PULMONARY: Bilateral breath sounds positive. No wheeze or crackles. ABDOMEN: Soft, non-tender, normal bowel sounds. No guarding or rigidity. MUSCULOSKELETAL: tenderness in the bilateral ankle joints Right foot is in a boot EXTREMITIES: Mild edema NEUROLOGICAL: Gross neurological examination did not reveal any focal deficits. SKIN:No rash - Labs CBC & Chem 7: 03/18/21 05:29 03/18/21 05:29 Labs: Abnormal Lab Results - Last 24 Hours (Table) 03/18/21 03/18/21 03/18/21 Range/Units 11:45 17:43 20:15 POC Glucose (mg/dL) 187 H 168 H 143 H (75-99) mg/dL 03/19/21 Range/Units 07:43 POC Glucose (mg/dL) 181 H (75-99) mg/dL Microbiology - Last 24 Hours (Table) 03/17/21 08:36 Urine Culture - Preliminary Urine,Voided Gram Neg Bacilli Assessment and Plan Assessment: Closed right trimalleolar fracture Closed fracture of the left lateral malleolus Status post mechanical fall Hypertension Hyperlipidemia Diabetes Full code PLAN: Patient had urinalysis done which was preliminary showing gram-negative bacilli and awaiting finalization. Patient is on Levaquin and will continue with an oral course on discharge and follow-up on the culture sensitivities. Discussed this with the patient along with the liaison for [facility] and will make necessary changes to antibiotics once cultures have finalized this evening. Patient Is going to [facility] [place] today has follow-up appointment with orthopedics outpatient to discuss surgical intervention. Will continue to follow along during hospitalization. Management of ankle fracture as per primary care team. Continue with DVT prophylaxis. Further recommendations depending on the progress patient. Thank you for this consultation.
== END 2021-03-19 14:02 ==
LOC: EC 12:06 → INTOOBSV 14:26 → 6NMEDSUR 14:26 → OBSVTOIN 14:26 → 6NMEDSUR 15:42 → 1SOBS 03-16 07:53 → 5NMEDONC 03-16 15:44 → UNDODISIN 03-19 14:02
PROVIDERS: ADMIT Orthopaedic Surgery; ATTEND Orthopaedic Surgery
DX: S82.65XA Nondisplaced fracture of lateral malleolus of left fibula, initial encounter for closed fracture (principal); S82.851A Displaced trimalleolar fracture of right lower leg, initial encounter for closed fracture; W10.9XXA Fall (on) (from) unspecified stairs and steps, initial encounter; I10 Essential (primary) hypertension; E11.9 Type 2 diabetes mellitus without complications; K44.9 Diaphragmatic hernia without obstruction or gangrene; R32 Unspecified urinary incontinence; E78.5 Hyperlipidemia, unspecified; N39.0 Urinary tract infection, site not specified; B96.20 Unspecified Escherichia coli [E. coli] as the cause of diseases classified elsewhere; Z90.49 Acquired absence of other specified parts of digestive tract; Z98.890 Other specified postprocedural states; Z80.9 Family history of malignant neoplasm, unspecified; Z79.84 Long term (current) use of oral hypoglycemic drugs; Z79.899 Other long term (current) drug therapy; Z88.0 Allergy status to penicillin
CPT/HCPCS: 96376; 96372 ×3; 29515; 96374; 99285; 36415; 93005; 97530; 97162; 97166; 80053; 80048; 85025 ×2; 85610; 85730; 81001; 87086; 87077; 87186; 73610 ×2; 73590; 71046; G0378 ×7; J2060 ×2; J1650 ×3

== ENCOUNTER 2021-03-23 12:39 | Day surgery (SDC) | payer MEDICARE ==
[2021-03-20 13:02] VITALS: BMI 23.0
[2021-03-23 13:33] LABS: Glucose,Whole Blood 139 mg/dL (75-99)
[2021-03-23] MEDS ORDERED: ONDANSETRON 4 MG/2 ML VIAL ONE (13:37)
[2021-03-23] MEDS ORDERED: LACTATED RINGERS 1,000 ML IV ONE ×2 (13:39→16:39)
[2021-03-23] MEDS ORDERED: DEXAMETHASONE SOD PHOSPHATE 4 MG/ML 1 ML VIAL IVP ONE (13:40)
[2021-03-23] MEDS ORDERED: MIDAZOLAM 2 MG/2 ML VIAL IVP ONE (14:06)
[2021-03-23] MEDS ORDERED: SUCCINYLCHOLINE CHLORIDE 100 MG/5 ML SYR IV ONE (14:54)
[2021-03-23] MEDS ORDERED: LIDOCAINE 1% INJ 10MG/ML (20 ML MDV) ONE (14:54)
[2021-03-23] MEDS ORDERED: ROPIVACAINE 5 MG/ML 30 ML VIAL ONE (14:54)
[2021-03-23] MEDS ORDERED: fentaNYL (PF) 50 MCG/ML 2 ML AMP ONE (14:54)
[2021-03-23] MEDS ORDERED: PROPOFOL 10 MG/ML 20 ML VIAL IV ONE (14:54)
[2021-03-23] MEDS ORDERED: ROCURONIUM 10 MG/ML (5 ML VIAL) IV ONE (14:54)
[2021-03-23] MEDS ORDERED: CLINDAMYCIN 600 MG in SODIUM CHLORIDE 0.9% 1,000 ML IRRIGATION ONE (15:47)
--- NOTE | 2021-03-23 16:39 | P.OP ---
Date of Procedure: 03/23/21 Procedure(s) Performed: PREOPERATIVE DIAGNOSES: 1. Right ankle lateral and medial malleolus fracture POSTOPERATIVE DIAGNOSES: 1. Right ankle lateral and medial malleolus fracture; 2. Severe osteoporosis; 3. Poor quality soft tissue PROCEDURES PERFORMED: 1. Right ankle lateral malleolus fracture open reduction and internal fixation. 2. Right ankle medial malleolus fracture open reduction and internal fixation ANESTHESIA: detention deputy: Nicci Matthews PA-C (assistance with exposure, hemostasis, retraction, fixation, closure, dressing, splint) COMPLICATIONS: None ESTIMATED BLOOD LOSS: Less than 10 mL. TOURNIQUET: approximately 70 minutes DISPOSITION: To post-anesthesia care unit INDICATIONS: The patient is a 80-year-old female, who presents to the operating room today for fixation of ankle fracture. The right ankle fracture is a bimalleolar fracture, with a fracture of the lateral malleolus that is high enough to produce talar instability. Her left ankle is also fractured with a Chan A lateral malleolus isolated fracture. Her initial ER xrays of her right ankle show severe displacement of the talus relative to the plafond. The ankle has since been reduced but is still in need of operative fixation. I have discussed these issues with the patient, who wishes to proceed with the operative plan. I have explained the details of this surgery thoroughly and also explained the potential risks and complications. These are inclusive of, but not limited to: bleeding, infection, scarring, discomfort, blood vessel and nerve damage, stiffness, weakness, need for further surgery, failure to relieve symptoms, persistence or worsening of problems, , and other risks. The patient is aware of these risks and agrees to proceed with surgery. The consent form has been signed. PROCEDURE: After appropriate consent was obtained, the patient was taken to the operating room and placed supine on the operating table. General anesthesia was initiated. The ankle was removed from the splint and examined for any signs of significant fracture blisters or swelling that would prevent continuation of the surgery. Skin appeared healthy and intact, swellling was moderate but not excessive. Old healed fracture blister was present medially with no drainage, good skin condition. The limb was prepped and draped in the usual aseptic fashion with ChloraPrep, and the patient was given IV antibiotics. The tourniquet was then inflated to 250 mmHg after careful exsanguination of the limb. Time out was called, confirming patient identity, side, procedure, and administration of antibiotics. Incision was created laterally, centered over the distal fibular fracture site, for a length of approximately 4 inches. The incision was carried down through skin and into subcutaneous tissues, and note was made of poor quality soft tissue. Because of this, sharp dissection creating full-thickness anterior and posterior flaps were created to preserve vascularity of the soft tissues. The peroneal muscles were retracted posteriorly. The fracture site was exposed with subperiosteal dissection for as much exposure of the bone as was necessary. Fracture hematoma was minimally evacuated but preserved as much as possible to enhance fracture healing. The interior of the fracture site was cleansed with irrigation. The fracture was minimally comminuted and oblique in orientation, but of very poor quality such that the bone was spongy to palpation. The fractu re was mobilized using manual manipulation and reduction was accomplished using a bone clamp, which was also used to secure the fracture. Anatomic reduction was accomplished. An interfragmentary screw perpendicular to the oblique fracture site was attempted to be placed but did not have good purchase in the bone and was removed as it did not add to stability of the fracture site. A precontoured fibular plate from [employer] was selected for size and side. The plate was placed laterally on the fibula and C-arm imaging was used to confirm proper placement. The proximal holes were filled with fully threaded 3.5 mm cortical screws. Distal holes were filled with 5 2.7 mm locking screws. No evidence of joint penetration on the C-arm views was noted. Next, the medial malleolus was evaluated and treated. An incision was created for approximately 1.5 inches on the medial aspect of the ankle, and carried down through skin sharply and then bluntly using a dissecting scissor down to fascia and periosteum. Once again, deficient soft tissues of poor quality were noted. The fracture fragment, although comminuted, was able to be mobilized and secured with a [id number] reduction forceps. Subsequently 2 guide pins were placed across the fracture site and several adjustments were made of these guide pins so that the position was perfect on C-arm imaging. The outer cortex was reamed, and appropriately sized 4.0 cannulated cancellous screws with washers and long threads were inserted over the guide pins until they were fully deployed. Final C-arm images were then taken, showing anatomic alignment of the mortise and medial malleolar fracture site. The fracture was noted to be in anatomic position and stress testing under C-arm imaging showed no significant migration, shift, or tilt of the talus with external rotation stress, hindfoot inversion or eversion. Screw lengths were noted to be appropriate and the incision was then irrigated thoroughly using normal saline. Tourniquet was deflated and hemostasis was obtained using electrocautery. The fascia and subcutaneous tissues were closed in one layer closure with 2-0 Vicryl suture. Skin was closed with stu on the lateral side, and with sutures on the medial side. Sterile dressing was applied and well padded, well molded short leg splint was applied with the ankle in neutral. Patient tolerated the procedure well and taken to recovery room in stable condition. Sponge and needle counts were correct.
[2021-03-23] MEDS ORDERED: HYDROmorphone 0.5 MG/0.5 ML SYRINGE IVP PRN ×2 (16:47)
[2021-03-23] MEDS ORDERED: HYDROmorphone 0.2 MG/1 ML SYRINGE IVP PRN (16:47)
[2021-03-23] MEDS ORDERED: SENNOSIDES-DOCUSATE SODIUM 1 EACH TAB PO PRN (16:47)
[2021-03-23 17:17] LABS: Glucose,Whole Blood 129 mg/dL (75-99)
[2021-03-23] MEDS ORDERED: HYDROcodone/APAP 5-325MG 1 EACH TAB PO PRN (18:21)
--- NOTE | 2021-03-23 18:51 | P.ANPRN ---
Procedure Note - Anesthesia - Nerve Block Performed Right Popliteal Single Time Out Performed: Yes Date of Procedure: 03/23/21 Procedure Start Time: 14:06 Procedure Stop Time: 14:14 Location of Patient: PreOp Indication: Acute Post-Operative Pain, Requested by Surgeon Sedation Type: Sedate with meaningful contact maintained Preparation: Sterile Prep Position: Left Lateral Needle Types: Pajunk Needle Gauge: 21 Ultrasound used to visualize needle placement: Yes Ultrasound used to observe medication spread: Yes Blood Aspirated: No Pain Paresthesia on Injection Noted: No Resistance on Injection: Normal Image Stored and Saved: Yes Events: Uneventful and Well Tolerated (Ropivacaine 0.5% 20 mL)
--- NOTE | 2021-03-23 18:52 | P.ANPRN ---
Procedure Note - Anesthesia - Nerve Block Performed Right Adductor Canal Single Time Out Performed: Yes Date of Procedure: 03/23/21 Procedure Start Time: 14:15 Procedure Stop Time: 14:20 Location of Patient: PreOp Indication: Acute Post-Operative Pain, Requested by Surgeon Sedation Type: Sedate with meaningful contact maintained Preparation: Sterile Prep Position: Supine Needle Types: Pajunk Needle Gauge: 21 Ultrasound used to visualize needle placement: Yes Ultrasound used to observe medication spread: Yes Blood Aspirated: No Pain Paresthesia on Injection Noted: No Resistance on Injection: Normal Image Stored and Saved: Yes Events: Uneventful and Well Tolerated (Ropivacaine 0.5% 20 mL)
--- NOTE | 2021-03-23 19:15 | XR ---
EXAMINATION TYPE: XR ankle limited RT DATE OF EXAM: 03/23/2021 COMPARISON: NONE HISTORY: Surgery TECHNIQUE: 3 views FINDINGS: Fluoroscopic images were obtained and show plate with screws fixing the distal fibula. Ther e are 2 screws fixing the medial malleolus. Fragments are in good position. Ankle mortise is anatomic . IMPRESSION: Internal fixation. No complicating process seen.
[2021-03-23 21:56] LABS: Glucose,Whole Blood 211 mg/dL (75-99)
[2021-03-23] MEDS: INSULIN ASPART (NovoLOG) 100 UNIT/ML VIAL SQ SCH (22:15)
[2021-03-23] MEDS: LACTATED RINGERS 1,000 ML IV SCH (22:16)
[2021-03-23] MEDS: HYDROcodone/APAP 5-325MG 1 EACH TAB PO PRN (23:19)
[2021-03-24] MEDS: LACTATED RINGERS 1,000 ML IV SCH ×2 (04:16→15:41)
[2021-03-24 08:33] LABS: Glucose,Whole Blood 176 mg/dL (75-99)
--- NOTE | 2021-03-24 08:46 | FL ---
Fluoroscopy HISTORY: Ankle fracture 14 seconds fluoroscopy time supplied to the referring clinician. 3 intraoperative C-arm images docum ent the procedure. See dictated report from orthopedic surgery.
[2021-03-24] MEDS: ASPIRIN 81 MG PO SCH (08:49)
[2021-03-24] MEDS: ENOXAPARIN 40 MG/0.4 ML SYRINGE SQ SCH (08:49)
[2021-03-24] MEDS: INSULIN ASPART (NovoLOG) 100 UNIT/ML VIAL SQ SCH ×4 (08:49→21:59)
[2021-03-24] MEDS: HYDROcodone/APAP 5-325MG 1 EACH TAB PO PRN ×3 (09:01→21:58)
--- NOTE | 2021-03-24 10:34 | P.CONS ---
History of Present Illness - Reason for Consult Consult date: 03/24/21 Medical management - Chief Complaint Status post right ankle malleus fracture ORIF - History of Present Illness Patient is a 80-year-old female with a known history of hypertension, diabetes type 2 insulin-dependent, and recent fall on 03/13/2021 with a fracture to bilateral ankles and cast to right foot, recent UTI on antibiotics in the form of Levaquin was admitted to the hospital for open reduction internal fixation of the right ankle bimalleolar fracture. Patient tolerated the procedure. Postoperatively blood pressure is in 150s. Otherwise patient denied any complaints of chest pain or shortness of breath. No headache or dizziness or lightheadedness. Review of Systems Constitutional: Patient denies any fever or chills . No generalized weakness or weight loss. Abdomen: Patient denied nausea vomiting and diarrhea and abdominal pain. Cardiovascular: Patient denies any chest pain or short of breath no palpitations. Respiratory: patient denied any cough is from production. No shortness of breath Neurologic: Patient denied any numbness or tingling headache. Musculoskeletal: Patient denies any complaints of joint swelling or deformity. Skin: Negative Psychiatric: Negative Endocrine: No heat or cold intolerance. No recent weight gain. Genitourinary: No dysuria or hematuria. All other 14 point ROS negative except the above Past Medical History Past Medical History: Cancer, Diabetes Mellitus, Hypertension Additional Past Medical History / Comment(s): fall 03/15/21 fx apryl ankles-has cast on rt foot, UTI-on antibiotics, hx skin cancer History of Any Multi-Drug Resistant Organisms: None Reported Past Surgical History: Appendectomy, Cholecystectomy Additional Past Surgical History / Comment(s): removal of skin cancer Past Anesthesia/Blood Transfusion Reactions: No Reported Reaction Past Psychological History: No Psychological Hx Reported Smoking Status: Never smoker Past Alcohol Use History: Rare Past Drug Use History: None Reported - Past Family History Father Family Medical History: Cancer Mother History Unknown: Yes Medications and Allergies Home Medications Medication Instructions Recorded Confirmed Type Ascorbic Acid [Vitamin C] 1,000 mg PO DAILY 03/15/21 03/20/21 History metFORMIN HCL [Glucophage] 1,000 mg PO BID 03/15/21 03/20/21 History Enoxaparin [Lovenox] 40 mg SQ DAILY each 03/19/21 03/20/21 Rx Ibuprofen [Motrin] 400 mg PO Q6HR PRN tab 03/19/21 03/20/21 Rx Acetaminophen [Acetaminophen ER] 650 mg PO Q8HR PRN 03/20/21 03/20/21 History INSULIN ASPART (NovoLOG) [NovoLOG 0 unit SQ ACHS PRN 03/20/21 03/20/21 History (formulary)] Zinc Sulfate [Orazinc] 220 mg PO DAILY 03/20/21 03/20/21 History ramipriL [Altace] 5 mg PO DAILY 03/20/21 03/20/21 History Aspirin [Adult Low Dose Aspirin EC] 81 mg PO DAILY #1 tablet. 03/23/21 Rx HYDROcodone/APAP 5-325MG [Purdy 1 tab PO Q6HR PRN #42 tab 03/23/21 Rx 5-325] Sennosides-Docusate Sodium 1 tab PO BID #60 tablet 03/23/21 Rx [Senokot-S] Cefuroxime Axetil [Ceftin] 500 mg PO BID 6 Days #12 tab 03/24/21 Rx Allergies Allergy/AdvReac Type Severity Reaction Status Date / Time Penicillins Allergy Unknown Verified 03/23/21 13:23 Childhood Physical Exam Vitals: Vital Signs Temp Pulse Pulse Resp BP Pulse Ox 03/24/21 08:00 97.6 F 59 L 18 109/58 97 03/24/21 02:00 98.3 F 68 16 99/48 95 03/23/21 19:34 90 18 109/61 97 03/23/21 19:17 98.2 F 83 18 156/68 97 03/23/21 19:03 79 153/69 03/23/21 18:48 84 149/61 03/23/21 18:34 89 145/80 03/23/21 17:45 68 16 151/67 97 03/23/21 17:32 68 16 152/67 97 03/23/21 17:16 71 16 146/67 96 03/23/21 17:00 71 16 151/69 96 03/23/21 16:48 97.5 F L 83 14 155/68 96 03/23/21 14:21 92 16 145/63 99 03/23/21 13:35 96.9 F L 105 H 16 157/67 96 Intake and Output 03/23/21 03/24/21 03/24/21 22:59 06:59 14:59 Intake Total 101.5 1640 Output Total 10 Balance 91.5 1640 Intake: IV 101.5 Intake, IV Titration 1300 Amount Lactated Ringers 1,000 ml 1200 @ 100 mls/hr IV .Q10H JUAN CARLOS Rx#:[id number] ceFAZolin 2 gm In Sodium 100 Chloride 0.9% 50 ml @ 100 mls/hr IVPB Q8HR JUAN CARLOS Rx# :[id number] Oral 340 Output: Estimated Blood Loss 10 Other: # Voids 3 Weight 58.967 kg PHYSICAL EXAMINATION: Patient is lying in the bed comfortably, no acute distress, awake alert and oriented.. HEENT: Normocephalic. Neck is supple. Pupils reactive. Nostrils clear. Oral cavity is moist. Neck reveals no JVD, carotid bruits, or thyromegaly. CHEST EXAMINATION: Trachea is central. Symmetrical expansion. Lung nogueira clear to auscultation and percussion. CARDIAC: Normal S1, S2 with no gallops. No murmurs ABDOMEN: Soft. Bowel sounds normal. No organomegaly. No abdominal bruits. Extremities: reveal no edema. No clubbing or cyanosis Neurologically awake, alert, oriented x3 with well-coordinated movements. No focal deficits noted Skin: No rash or skin lesions. Psychiatric: Coperative. Nonsuicidal Musculoskeletal: No joint swelling or deformity. RT ankle cast. Results Labs: Abnormal Lab Results - Last 24 Hours (Table) 03/23/21 03/23/21 03/23/21 Range/Units 13:32 17:14 21:55 POC Glucose (mg/dL) 139 H 129 H 211 H (75-99) mg/dL 03/24/21 Range/Units 08:32 POC Glucose (mg/dL) 176 H (75-99) mg/dL Assessment and Plan Assessment: Status post mechanical fall on 03/13/2021 Bimalleolar fracture status post ORIF on 03/23/2021 Hypertension. Currently patient is hypotensive. Diabetes type 2 [id number] A1 C 7.1 History of recent UTI was on Levaquin. DVT prophylaxis on Lovenox Plan: Patient will be continued on current pain management, bowel regimen and limit narcotic pain medication use due to hypotension. Continue with insulin sliding scale for blood sugar control. Blood pressure medications will be on hold. Patient had recent urinary tract infection and cultures growing E. coli resistant to Levaquin. Will add ceftriaxone while in the hospital and can be changed to Ceftin upon discharge. We'll continue to follow closely and further recommendations based on the clinical course. Thank you for your consult. Time with Patient: Greater than 30
[2021-03-24 11:24] LABS: Glucose,Whole Blood 120 mg/dL (75-99)
--- NOTE | 2021-03-24 11:37 | P.DS ---
Providers Expected date of discharge: 03/24/21 Attending physician: Deangelo Hernández Consults: 03/23/21 16:47 Consult Physician Routine Consulting Provider: Hamida Bal Consult Reason/Comments: medical management Do you want consulting provider notified?: Yes Primary care physician: Gery Morrison [facility] Course: This is a 80-year-old female with a history of bimalleolar fracture of the right ankle. After discussion and consideration patient elects to proceed with ORIF of the right ankle. The patient is seen preoperatively by Dr. Hernández and medically cleared for surgery by internal medicine. Patient is admitted to [facility] on 03/23/2021 for ORIF of the right ankle. The procedure is performed without complication or sequelae. The patient is doing well postoperatively. Labs and vital signs are stable on day of discharge. On day of discharge patient's splint is clean, dry and intact. Capillary refill is normal at less than 2 seconds. The toes of the right foot are warm and well perfused. Neurovascular status to the right lower extremity is intact. Patient is discharged to rehab in good condition. Please see med rec for accurate list of home medications. Plan - Discharge Summary Discharge Rx Participant: No New Discharge Prescriptions: New Aspirin [Adult Low Dose Aspirin EC] 81 mg PO DAILY #1 tablet. HYDROcodone/APAP 5-325MG [[place] 5-325] 1 tab PO Q6HR PRN #42 tab PRN Reason: Pain Sennosides-Docusate Sodium [Senokot-S] 1 tab PO BID #60 tablet No Action Ascorbic Acid [Vitamin C] 1,000 mg PO DAILY Levofloxacin [Levaquin] 750 mg PO DAILY@1600 7 Days #7 tab Zinc Sulfate [Orazinc] 220 mg PO DAILY Acetaminophen [Acetaminophen ER] 650 mg PO Q8HR PRN PRN Reason: Pain INSULIN ASPART (NovoLOG) [NovoLOG (formulary)] 0 unit SQ ACHS PRN PRN Reason: Blood Sugar - High metFORMIN HCL [Glucophage] 1,000 mg PO BID Enoxaparin [Lovenox] 40 mg SQ DAILY each Ibuprofen [Motrin] 400 mg PO Q6HR PRN tab PRN Reason: Mild Pain Or Fever > 100.5 HYDROcodone/APAP 5-325MG [[place] 5-325] 1 each PO Q4HR PRN #10 tab PRN Reason: Moderate Pain ramipriL [Altace] 5 mg PO DAILY Discharge Medication List Ascorbic Acid [Vitamin C] 1,000 mg PO DAILY 03/15/21 [History] metFORMIN HCL [Glucophage] 1,000 mg PO BID 03/15/21 [History] Enoxaparin [Lovenox] 40 mg SQ DAILY each 03/19/21 [Rx] HYDROcodone/APAP 5-325MG [[place] 5-325] 1 each PO Q4HR PRN #10 tab 03/19/21 [Rx] Ibuprofen [Motrin] 400 mg PO Q6HR PRN tab 03/19/21 [Rx] Levofloxacin [Levaquin] 750 mg PO DAILY@1600 7 Days #7 tab 03/19/21 [Rx] Acetaminophen [Acetaminophen ER] 650 mg PO Q8HR PRN 03/20/21 [History] INSULIN ASPART (NovoLOG) [NovoLOG (formulary)] 0 unit SQ ACHS PRN 03/20/21 [History] Zinc Sulfate [Orazinc] 220 mg PO DAILY 03/20/21 [History] ramipriL [Altace] 5 mg PO DAILY 03/20/21 [History] Aspirin [Adult Low Dose Aspirin EC] 81 mg PO DAILY #1 tablet. 03/23/21 [Rx] HYDROcodone/APAP 5-325MG [[place] 5-325] 1 tab PO Q6HR PRN #42 tab 03/23/21 [Rx] Sennosides-Docusate Sodium [Senokot-S] 1 tab PO BID #60 tablet 03/23/21 [Rx] Follow up Appointment(s)/Referral(s): Nicci Matthews, RASHARD [PHYSICIAN [employer] OPERATOR] - 04/09/21 1:45 pm [facility] Velasco, [NON-STAFF] - As Needed Activity/Diet/Wound Care/Special Instructions: Keep splint intact RLE, Boot for LLE Toe touch wt bearing RLE, Wt bearing as tolerated LLE in boot w walker. Discharge Disposition: TRANSFER TO SNF/ECF
[2021-03-24 12:53] LABS: Hemoglobin A1C 7.1 % (4.0-6.0)
[2021-03-24 16:53] LABS: Glucose,Whole Blood 166 mg/dL (75-99)
[2021-03-24 20:28] LABS: Glucose,Whole Blood 97 mg/dL (75-99)
[2021-03-24 20:33] VITALS: RESP 16
[2021-03-25] MEDS: LACTATED RINGERS 1,000 ML IV SCH (02:02)
[2021-03-25] MEDS: HYDROcodone/APAP 5-325MG 1 EACH TAB PO PRN (03:17)
[2021-03-25 07:11] LABS: Glucose,Whole Blood 111 mg/dL (75-99)
[2021-03-25] MEDS: INSULIN ASPART (NovoLOG) 100 UNIT/ML VIAL SQ SCH (07:14)
[2021-03-25] MEDS: ENOXAPARIN 40 MG/0.4 ML SYRINGE SQ SCH (08:02)
[2021-03-25] MEDS: ASPIRIN 81 MG PO SCH (08:02)
[2021-03-25 09:18] VITALS: BP 138/62; PULSE 82; TEMP 97.7
== END 2021-03-25 11:10 ==
LOC: OR 12:39 → 4SSUR 16:48 → OR 03-25 11:10
PROVIDERS: ATTEND Orthopaedic Surgery
DX: S82.841A Displaced bimalleolar fracture of right lower leg, initial encounter for closed fracture (principal); W17.89XA Other fall from one level to another, initial encounter; I10 Essential (primary) hypertension; E11.9 Type 2 diabetes mellitus without complications; Z88.0 Allergy status to penicillin; Z79.899 Other long term (current) drug therapy; Z79.4 Long term (current) use of insulin
CPT/HCPCS: 97530 ×2; 97162; 97166; 64447; 64445; 76942; 83036; 73600; 27814; C1713 ×2; J2250; J1100; J0690 ×2; J2405; J2001; J1650 ×2; J0696 ×2; J3010; J2795; J0330; J2704

== ENCOUNTER 2021-11-07 20:55 | Emergency (ER) | payer MEDICARE ==
[2021-11-07 21:48] VITALS: TEMP 97.9
--- NOTE | 2021-11-07 22:39 | ED ---
General Adult HPI - General Chief complaint: Back Pain/Injury Stated complaint: Back Pain Time Seen by Provider: 11/07/21 22:28 Source: patient, RN notes reviewed, old records reviewed Mode of arrival: wheelchair - History of Present Illness Initial comments: 81-year-old female presents emergency room with complaints of left posterior rib pain. Patient states that the wind caught the car door yesterday hitting her in the back causing her to fall forward onto the ground. She denies any other injuries. She states that it is painful to touch but pain is relieved after they gave her Motrin today. She denies any chest pain, no difficulty in breathing, no fevers nausea vomiting or diarrhea. -: days(s) (1) Location: back (left lower back) Severity scale (1-10): 10 Improves with: medication (motrin) Worsens with: movement, other (palpation) Associated Symptoms: denies other symptoms Treatments Prior to Arrival: NSAID - Related Data Home Medications Medication Instructions Recorded Confirmed Ascorbic Acid [Vitamin C] 1,000 mg PO DAILY 03/15/21 03/20/21 metFORMIN HCL [Glucophage] 1,000 mg PO BID 03/15/21 03/20/21 Acetaminophen [Acetaminophen ER] 650 mg PO Q8HR PRN 03/20/21 03/20/21 INSULIN ASPART (NovoLOG) [NovoLOG 0 unit SQ ACHS PRN 03/20/21 03/20/21 (formulary)] Zinc Sulfate [Orazinc] 220 mg PO DAILY 03/20/21 03/20/21 ramipriL [Altace] 5 mg PO DAILY 03/20/21 03/20/21 Previous Rx's Medication Instructions Recorded Enoxaparin [Lovenox] 40 mg SQ DAILY each 03/19/21 Ibuprofen [Motrin] 400 mg PO Q6HR PRN tab 03/19/21 Aspirin [Adult Low Dose Aspirin EC] 81 mg PO DAILY #1 tablet. 03/23/21 HYDROcodone/APAP 5-325MG [[place] 1 tab PO Q6HR PRN #42 tab 03/23/21 5-325] Sennosides-Docusate Sodium 1 tab PO BID #60 tablet 03/23/21 [Senokot-S] Cefuroxime Axetil [Ceftin] 500 mg PO BID 6 Days #12 tab 03/24/21 Allergies Allergy/AdvReac Type Severity Reaction Status Date / Time Penicillins Allergy Unknown Verified 11/07/21 21:49 Childhood Review of Systems ROS Statement: Those systems with pertinent positive or pertinent negative responses have been documented in the HPI. ROS Other: All systems not noted in ROS Statement are negative. Past Medical History Past Medical History: Cancer, Diabetes Mellitus, Hypertension Additional Past Medical History / Comment(s): fall 03/15/21 fx apryl ankles-has cast on rt foot, UTI-on antibiotics, hx skin cancer History of Any Multi-Drug Resistant Organisms: None Reported Past Surgical History: Appendectomy, Cholecystectomy Additional Past Surgical History / Comment(s): removal of skin cancer Past Anesthesia/Blood Transfusion Reactions: No Reported Reaction Past Psychological History: No Psychological Hx Reported Smoking Status: Never smoker Past Alcohol Use History: Rare Past Drug Use History: None Reported - Past Family History Father Family Medical History: Cancer Mother History Unknown: Yes General Exam General appearance: alert, in no apparent distress Head exam: Present: atraumatic Neck exam: Present: full ROM. Absent: tenderness, meningismus Respiratory exam: Present: normal lung sounds bilaterally. Absent: respiratory distress, wheezes, rales, rhonchi, stridor, chest wall tenderness, accessory muscle use, decreased breath sounds Cardiovascular Exam: Present: regular rate. Absent: normal heart sounds Extremities exam: Present: normal capillary refill. Absent: pedal edema Back exam: Present: normal inspection, full ROM, tenderness (Left posterior ribs). Absent: CVA tenderness (R), CVA tenderness (L), vertebral tenderness, rash noted Neurological exam: Present: alert, oriented X3 Psychiatric exam: Present: normal affect, normal mood Skin exam: Present: warm, dry, intact, normal color. Absent: cyanosis, diaphoretic, petechiae, pallor Course Vital Signs 11/07/21 11/08/21 11/08/21 21:42 00:01 00:41 Temperature 97.9 F Pulse Rate 82 84 Respiratory 19 18 Rate Blood Pressure 199/86 192/87 178/84 O2 Sat by Pulse 99 95 Oximetry Medical Decision Making - Medical Decision Making Chest x-ray negative. Lungs sounds to auscultation. Vital signs are stable. This is likely musculoskeletal pain. She was given a Lidoderm patch directed to continue the Motrin as it did relieve her pain today. Patient's family members are agreeable with this plan of care. She was directed to follow up with her primary care doctor and return to the emergency room with any new or concerning symptoms. Disposition Clinical Impression: Musculoskeletal pain Disposition: HOME SELF-CARE Condition: Good Instructions (If sedation given, give patient instructions): Musculoskeletal Pain (ED) Additional Instructions: Continue taking Motrin and/or Tylenol as needed for pain. You can also use warm compresses. Follow-up with the primary care doctor next week. Return to the emergency room with any new or concerning symptoms. Is patient prescribed a controlled substance at d/c from ED?: No Referrals: Grey Morrison MD [Primary Care Provider] - 1-2 days Time of Disposition: 23:53
--- NOTE | 2021-11-07 23:33 | XR ---
EXAMINATION TYPE: XR chest 2V DATE OF EXAM: 11/07/2021 COMPARISON: 03/15/2021 HISTORY: Posterior rib pain TECHNIQUE: 2 views FINDINGS: There is large hiatal hernia. Lungs are clear. No heart failure. Heart and mediastinum are within normal limits. There is no pleural effusion. Bony thorax is intact. IMPRESSION: No active cardiopulmonary disease. Hiatal hernia. No change.
[2021-11-07] MEDS ORDERED: LIDOCAINE 5% PATCH TOPICAL SCH (23:45)
[2021-11-08 00:46] VITALS: BP 178/84; PULSE 84; RESP 18
== END 2021-11-08 00:46 | disposition home or self-care (01) ==
LOC: EC 20:55
DX: R07.81 Pleurodynia (principal); M54.50 Low back pain, unspecified; I10 Essential (primary) hypertension; E11.9 Type 2 diabetes mellitus without complications; Z88.0 Allergy status to penicillin; Z79.899 Other long term (current) drug therapy; Z79.84 Long term (current) use of oral hypoglycemic drugs; Z79.4 Long term (current) use of insulin; W18.30XA Fall on same level, unspecified, initial encounter
CPT/HCPCS: 71046; 99283

== ENCOUNTER 2022-02-05 14:04 | Emergency (ER) | payer MEDICARE ==
[2022-02-05 14:12] VITALS: RESP 18; TEMP 97.9
[2022-02-05] MEDS ORDERED: SODIUM CHLORIDE 0.9% 1,000 ML IV STA (14:35)
[2022-02-05] MEDS ORDERED: PROCHLORPERAZINE INJ 10 MG/2 ML VIAL IVP STA (14:37)
[2022-02-05 14:51] LABS: Basophils # (A) 0.1 k/uL (0-0.2); Basophils % (A) 1 %; Eosinophils # (A) 0.1 k/uL (0-0.7); Eosinophils % (A) 2 %; HCT 36.7 % (34.0-46.0); HGB 11.4 gm/dL (11.4-16.0); Hypochromasia Slight; Lymphocytes # (A) 1.5 k/uL (1.0-4.8); Lymphocytes % (A) 18 %; MCH 24.9 pg (25.0-35.0); MCV 80.2 fL (80.0-100.0); Mean Platelet Volume 7.2; Monocytes # (A) 0.5 k/uL (0-1.0); Monocytes % (A) 5 %; Neutrophils % (A) 71 %; Platelet Count 364 k/uL (150-450); RBC 4.57 m/uL (3.80-5.40); RDW 13.9 % (11.5-15.5); WBC 8.4 k/uL (3.8-10.6)
[2022-02-05 15:16] LABS: ALT 70 U/L (4-34); AST 55 U/L (14-36); African American GFR (CKD) >90 (>60 ml/min/1.73 sqM); Albumin 4.1 g/dL (3.5-5.0); Alkaline Phosphatase 265 U/L (38-126); Anion Gap 10 mmol/L; Blood Urea Nitrogen 15 mg/dL (7-17); Calcium 9.2 mg/dL (8.4-10.2); Carbon Dioxide 23 mmol/L (22-30); Chloride 102 mmol/L (98-107); Glucose 278 mg/dL (74-99); Lipase 228 U/L (23-300); Non-African American GFR(CKD) 83 (>60 ml/min/1.73 sqM); Potassium 4.2 mmol/L (3.5-5.1); Sodium 135 mmol/L (137-145); Total Bilirubin 0.4 mg/dL (0.2-1.3); Total Protein 8.4 g/dL (6.3-8.2)
--- NOTE | 2022-02-05 15:24 | XR ---
EXAMINATION TYPE: XR chest 2V DATE OF EXAM: 02/05/2022 3:15 PM COMPARISON: Chest radiographs from 11/07/2021 TECHNIQUE: XR chest 2V Frontal and lateral views of the chest. CLINICAL INDICATION:Female, 81 years old with history of neck pain, n/v; FINDINGS: Lungs/Pleura: There is no evidence of pleural effusion, focal consolidation, or pneumothorax. Pulmonary vascularity: Unremarkable. Heart/mediastinum: There is a large hiatal hernia. Musculoskeletal: No acute osseous pathology. IMPRESSION: 1. No acute cardiopulmonary disease/process. 2. Large hiatal hernia.
--- NOTE | 2022-02-05 16:27 | CT ---
EXAMINATION TYPE: CT abdomen pelvis w con CT DLP: 977.7 mGycm, Automated exposure control for dose reduction was used. DATE OF EXAM: 02/05/2022 4:15 PM COMPARISON: CT abdomen pelvis 11/17/2020 CLINICAL INDICATION:Female, 81 years old with history of distention, n/v; Abdominal distention, nause a and vomiting. TECHNIQUE: Axial CT of the abdomen and pelvis . Sagittal and coronal reformats were created on a [employer] workstation. Contrast used:100ml mL of Isovue 300 with IV Contrast, Oral contrast used: without Oral Contrast FINDINGS: LOWER CHEST: There is a large hiatal hernia which is similar to prior on 11/17/2020. ABDOMEN LIVER: Unremarkable GALLBLADDER AND BILE DUCTS: Gallbladder is surgically absent with mild intrahepatic and extra hepatic biliary dilatation likely physiologic and a postcholecystectomy change. No evidence of choledocholit hiasis. PANCREAS: Unremarkable. SPLEEN: Unremarkable. ADRENAL GLANDS: Unremarkable. KIDNEYS AND URETERS: No evidence of hydronephrosis or renal calculus. The ureters are unremarkable. PELVIS BLADDER: Unremarkable REPRODUCTIVE: The uterus is surgically absent. ABDOMEN & PELVIS STOMACH AND BOWEL: A forementioned large hiatal hernia with majority of the stomach within the hiatal hernia. Scattered diverticula are noted throughout the colon. No evidence of bowel obstruction. PERITONEUM: No evidence of pneumoperitoneum or free fluid. VASCULATURE: No evidence of aortic aneurysm. Atherosclerosis of the arterial vasculature. MUSCULOSKELETAL: No acute osseous abnormalities. Multilevel disc degeneration changes throughout the spine with mild levoscoliosis. Multilevel disc bulging present. LYMPH NODES: No gross evidence for lymphadenopathy. SOFT TISSUE/ABDOMINAL WALL: Unremarkable IMPRESSION: 1. No evidence for acute abdominal process. 2. Large hiatal hernia with the majority of the stomach and the mediastinum. This is unchanged from p rior. 3. Colonic diverticulosis. 4. Mild biliary ductal dilatation similar to prior likely postcholecystectomy physiology.
--- NOTE | 2022-02-05 16:39 | ED ---
General Adult HPI - General Chief complaint: Nausea/Vomiting/Diarrhea Stated complaint: Neck Pain Time Seen by Provider: 02/05/22 14:07 Source: patient Mode of arrival: EMS Limitations: no limitations - History of Present Illness Initial comments: Patient is an 81-year-old female with a past medical history significant for hypertension and [id number] type 2 diabetes mellitus who presents to the emergency department for evaluation of neck pain, nausea, and vomiting. Patient states after she ate breakfast she experienced left-sided neck pain, nausea, and vomiting. Patient denies injury to the neck and is adamant that she did not wake up with the neck pain. Patient denies any pain, numbness, or tingling down the left arm. Patient states during the first episode of vomiting she experienced sweating. States she has vomited several times since this morning, nonbloody. Reports last bowel movement this morning, normal shape and consistency, nonbloody. She denies back pain, chest pain, palpitations, lightheadedness, dizziness, shortness of breath, abdominal pain, diarrhea, and burning with urination. Patient denies history of hyperlipidemia, coronary artery disease, stroke, and heart attack. She denies family history of cardiac disease. Denies past and current use of tobacco. Patient has history of appendectomy and cholecystectomy. Patient received morphine and Zofran in the ambulance. - Related Data Home Medications Medication Instructions Recorded Confirmed Ascorbic Acid [Vitamin C] 1,000 mg PO DAILY 03/15/21 02/05/22 metFORMIN HCL [Glucophage] 1,000 mg PO BID 03/15/21 02/05/22 Melatonin 1 mg PO HS 02/05/22 02/05/22 Zinc 50 mg PO DAILY 02/05/22 02/05/22 ramipriL [Altace] 2.5 mg PO BID 02/05/22 02/05/22 Previous Rx's Medication Instructions Recorded Ibuprofen [Motrin] 600 mg PO Q8HR PRN #9 tab 02/05/22 Lidocaine 5% Patch [Lidoderm] 1 patch TOPICAL DAILY #7 patch 02/05/22 Ondansetron Odt [Zofran Odt] 4 mg PO Q8HR PRN #12 tab 02/05/22 Allergies Allergy/AdvReac Type Severity Reaction Status Date / Time Penicillins Allergy Unknown Verified 02/05/22 14:37 Childhood Review of Systems ROS Statement: Those systems with pertinent positive or pertinent negative responses have been documented in the HPI. ROS Other: All systems not noted in ROS Statement are negative. Past Medical History Past Medical History: Cancer, Diabetes Mellitus, Hypertension Additional Past Medical History / Comment(s): fall 03/15/21 fx apryl ankles-has cast on rt foot, UTI-on antibiotics, hx skin cancer History of Any Multi-Drug Resistant Organisms: None Reported Past Surgical History: Appendectomy, Cholecystectomy Additional Past Surgical History / Comment(s): removal of skin cancer Past Anesthesia/Blood Transfusion Reactions: No Reported Reaction Past Psychological History: No Psychological Hx Reported Smoking Status: Never smoker Past Alcohol Use History: Rare Past Drug Use History: None Reported - Past Family History Father Family Medical History: Cancer Mother History Unknown: Yes General Exam Limitations: no limitations General appearance: alert, in no apparent distress Eye exam: Present: normal appearance, PERRL, EOMI. Absent: scleral icterus, conjunctival injection, periorbital swelling Neck exam: Present: normal inspection, tenderness (left paravertebral ). Absent: meningismus, lymphadenopathy Respiratory exam: Present: normal lung sounds bilaterally. Absent: respiratory distress, wheezes, rales, rhonchi, stridor GI/Abdominal exam: Present: distended (mild ), normal bowel sounds. Absent: tenderness, guarding, rebound, rigid Neurological exam: Present: alert, oriented X3, CN II-XII intact Psychiatric exam: Present: normal affect, normal mood Skin exam: Present: warm, dry, intact, normal color. Absent: rash Course Vital Signs 02/05/22 02/05/22 14:05 17:57 Temperature 97.9 F Pulse Rate 88 84 Respiratory 18 18 Rate Blood Pressure 134/88 130/81 O2 Sat by Pulse 97 96 Oximetry EKG Findings - EKG Comments: EKG Findings:: EKG taken at 14:08. Sinus rhythm with first-degree AV block, No ST segment or T-wave abnormalities. Ventricular rate 85. NC interval 2:15. QRS duration 82. QTC 428 Medical Decision Making - Medical Decision Making This is an 81-year-old female who presents with neck pain, nausea, and vomiting. Thorough history and examination were performed. Patient is well-appearing. Vitals stable. Patient given morphine and Zofran in the ambulance. States her pain is controlled however she is still very nauseous. The left paravertebral neck muscles are tender to palpation. There is no bony tenderness. The abdomen is mildly distended however there is no tenderness with deep palpation of all 4 quadrants. Patient continues to deny chest pain and shortness of breath. With patient's age and history of hyperlipidemia and diabetes, I will obtain a full cardiac workup as well as CT of the abdomen and pelvis with contrast. Patient given Compazine. Laboratory studies significant for mildly elevated liver enzymes. AST at 55, ALT at 70, alk phos at 265, likely due to consistent vomiting. Troponin is within normal limits. Other laboratory studies are unremarkable. EKG shows sinus rhythm with first-degree AV block, no ST segment or T-wave abnormalities. Chest x-ray is negative for acute cardiopulmonary process. It does show a large hiatal hernia which has been noted on previous imaging. CT of the abdomen and pelvis shows no evidence for acute abdominal process. Patient did not have any episodes of vomiting in the emergency department. Acute coronary process has been ruled out with negative EKG and troponin. On reevaluation patient states her pain and nausea are controlled. At this time there no diagnostic studies to explain patient's symptoms. She will be discharged with a short course of Motrin for her neck pain as well as lidocaine patches. I'll also send her home with Zofran for nausea. She is instructed to follow-up with her primary care provider in one to 2 days. Return parameters discussed. Patient and her daughter verbalize understanding and are agreeable to this plan. Dr. Gonzales is my attending. - Lab Data Result diagrams: 02/05/22 14:40 02/05/22 14:40 Lab Results 02/05/22 02/05/22 02/05/22 Range/Units 14:40 14:40 14:40 WBC 8.4 (3.8-10.6) k/uL RBC 4.57 (3.80-5.40) m/uL Hgb 11.4 (11.4-16.0) gm/dL Hct 36.7 (34.0-46.0) % MCV 80.2 (80.0-100.0) fL MCH 24.9 L (25.0-35.0) pg MCHC 31.0 (31.0-37.0) g/dL RDW 13.9 (11.5-15.5) % Plt Count 364 (150-450) k/uL MPV 7.2 Neutrophils % 71 % Lymphocytes % 18 % Monocytes % 5 % Eosinophils % 2 % Basophils % 1 % Neutrophils # 6.0 (1.3-7.7) k/uL Lymphocytes # 1.5 (1.0-4.8) k/uL Monocytes # 0.5 (0-1.0) k/uL Eosinophils # 0.1 (0-0.7) k/uL Basophils # 0.1 (0-0.2) k/uL Hypochromasia Slight Sodium 135 L (137-145) mmol/L Potassium 4.2 (3.5-5.1) mmol/L Chloride 102 (98-107) mmol/L Carbon Dioxide 23 (22-30) mmol/L Anion Gap 10 mmol/L BUN 15 (7-17) mg/dL Creatinine 0.63 (0.52-1.04) mg/dL Est GFR (CKD-EPI)AfAm >90 (>60 ml/min/1.73 sqM) Est GFR (CKD-EPI)NonAf 83 (>60 ml/min/1.73 sqM) Glucose 278 H (74-99) mg/dL Plasma Lactic Acid Hair (0.7-2.0) mmol/L Calcium 9.2 (8.4-10.2) mg/dL Total Bilirubin 0.4 (0.2-1.3) mg/dL AST 55 H (14-36) U/L ALT 70 H (4-34) U/L Alkaline Phosphatase 265 H (38-126) U/L Troponin I <0.012 (0.000-0.034) ng/mL Total Protein 8.4 H (6.3-8.2) g/dL Albumin 4.1 (3.5-5.0) g/dL Lipase 228 (23-300) U/L 02/05/22 Range/Units 15:00 WBC (3.8-10.6) k/uL RBC (3.80-5.40) m/uL Hgb (11.4-16.0) gm/dL Hct (34.0-46.0) % MCV (80.0-100.0) fL MCH (25.0-35.0) pg MCHC (31.0-37.0) g/dL RDW (11.5-15.5) % Plt Count (150-450) k/uL MPV Neutrophils % % Lymphocytes % % Monocytes % % Eosinophils % % Basophils % % Neutrophils # (1.3-7.7) k/uL Lymphocytes # (1.0-4.8) k/uL Monocytes # (0-1.0) k/uL Eosinophils # (0-0.7) k/uL Basophils # (0-0.2) k/uL Hypochromasia Sodium (137-145) mmol/L Potassium (3.5-5.1) mmol/L Chloride (98-107) mmol/L Carbon Dioxide (22-30) mmol/L Anion Gap mmol/L BUN (7-17) mg/dL Creatinine (0.52-1.04) mg/dL Est GFR (CKD-EPI)AfAm (>60 ml/min/1.73 sqM) Est GFR (CKD-EPI)NonAf (>60 ml/min/1.73 sqM) Glucose (74-99) mg/dL Plasma Lactic Acid Hair 1.5 (0.7-2.0) mmol/L Calcium (8.4-10.2) mg/dL Total Bilirubin (0.2-1.3) mg/dL AST (14-36) U/L ALT (4-34) U/L Alkaline Phosphatase (38-126) U/L Troponin I (0.000-0.034) ng/mL Total Protein (6.3-8.2) g/dL Albumin (3.5-5.0) g/dL Lipase (23-300) U/L Disposition Clinical Impression: Neck pain, Nausea and vomiting Disposition: HOME SELF-CARE Condition: Good Instructions (If sedation given, give patient instructions): Acute Nausea and Vomiting (ED), Acute Neck Pain (ED) Additional Instructions: Take Zofran as directed for nausea. Take Motrin prescribed or [id number] Tylenol for neck pain. You can also apply the lidocaine patches over the left neck. Warm compress will also help symptoms. Follow-up with primary care prov ider in one to 2 days. Return to the emergency department if you experience new, concerning, or worsening symptoms. Prescriptions: Lidocaine 5% Patch [Lidoderm] 1 patch TOPICAL DAILY #7 patch Ibuprofen [Motrin] 600 mg PO Q8HR PRN #9 tab PRN Reason: Pain Ondansetron Odt [Zofran Odt] 4 mg PO Q8HR PRN #12 tab PRN Reason: Nausea Is patient prescribed a controlled substance at d/c from ED?: No Referrals: Grey Morrison MD [Primary Care Provider] - 1-2 days Time of Disposition: 16:42
[2022-02-05 17:58] VITALS: BP 130/81; PULSE 84
== END 2022-02-05 17:59 | disposition home or self-care (01) ==
LOC: EC 14:04
DX: R11.2 Nausea with vomiting, unspecified (principal); M54.2 Cervicalgia; I10 Essential (primary) hypertension; E11.9 Type 2 diabetes mellitus without complications; Z88.0 Allergy status to penicillin; Z79.899 Other long term (current) drug therapy; Z79.84 Long term (current) use of oral hypoglycemic drugs; Z79.82 Long term (current) use of aspirin
CPT/HCPCS: 36415; 93005; 80053; 83605; 83690; 84484; 85025; 71046; 74177; 99284; 96374; 96361; J0780; Q9967

== ENCOUNTER 2022-04-04 21:23 | Observation (INO) | payer MEDICARE ==
[2022-04-04] MEDS ORDERED: MORPHINE SULFATE 4 MG/ML SYRINGE IVP STA (22:29)
[2022-04-04] MEDS ORDERED: SODIUM CHLORIDE 0.9% 500 ML 500 ML IV STA (22:29)
--- NOTE | 2022-04-04 22:29 | ED ---
Fall HPI - General Chief Complaint: Fall Stated Complaint: Fall Time Seen by Provider: 04/04/22 21:36 Source: patient, EMS, RN notes reviewed, old records reviewed Mode of arrival: EMS Limitations: no limitations - History of Present Illness Initial Comments: This is a 81-year-old female to the emergency department for evaluation of fall. Patient had a fall from standing prior to arriving here in the ER. Follows mechanical in nature bedroom she fell backwards hit her head she does have laceration to her head with bleeding. Not really complaining of any current neck pain no loss of consciousness also complaining of some back pain. Patient is on blood thinners. 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 Place Fall Occurred: home Loss of Consciousness: none Prolonged Down Time?: no Symptoms Prior to Fall: none Location: head, back, pelvis Severity: moderate Severity scale (1-10): 3 Quality: sharp Context: tripped/slipped Associated Symptoms: denies - Related Data Home Medications Medication Instructions Recorded Confirmed Ascorbic Acid [Vitamin C] 1,000 mg PO DAILY 03/15/21 02/05/22 metFORMIN HCL [Glucophage] 1,000 mg PO BID 03/15/21 02/05/22 Melatonin 1 mg PO HS 02/05/22 02/05/22 Zinc 50 mg PO DAILY 02/05/22 02/05/22 ramipriL [Altace] 2.5 mg PO BID 02/05/22 02/05/22 Previous Rx's Medication Instructions Recorded Ibuprofen [Motrin] 600 mg PO Q8HR PRN #9 tab 02/05/22 Lidocaine 5% Patch [Lidoderm] 1 patch TOPICAL DAILY #7 patch 02/05/22 Ondansetron Odt [Zofran Odt] 4 mg PO Q8HR PRN #12 tab 02/05/22 Allergies Allergy/AdvReac Type Severity Reaction Status Date / Time No Known Allergies Allergy Verified 04/04/22 22:23 Review of Systems ROS Statement: Those systems with pertinent positive or pertinent negative responses have been documented in the HPI. ROS Other: All systems not noted in ROS Statement are negative. Past Medical History Past Medical History: Cancer, Diabetes Mellitus, Hypertension Additional Past Medical History / Comment(s): fall 03/15/21 fx apryl ankles-has cast on rt foot, UTI-on antibiotics, hx skin cancer History of Any Multi-Drug Resistant Organisms: None Reported Past Surgical History: Appendectomy, Cholecystectomy Additional Past Surgical History / Comment(s): removal of skin cancer Past Anesthesia/Blood Transfusion Reactions: No Reported Reaction Past Psychological History: No Psychological Hx Reported Smoking Status: Never smoker Past Alcohol Use History: Rare Past Drug Use History: None Reported - Past Family History Father Family Medical History: Cancer Mother History Unknown: Yes General Exam Limitations: no limitations General appearance: alert, in no apparent distress Head exam: Present: normocephalic, normal inspection. Absent: atraumatic (Laceration to occiput) Eye exam: Present: normal appearance, PERRL, EOMI. Absent: scleral icterus, conjunctival injection, periorbital swelling ENT exam: Present: normal exam, mucous membranes moist Neck exam: Present: normal inspection. Absent: tenderness, meningismus, lymphadenopathy Respiratory exam: Present: normal lung sounds bilaterally. Absent: respiratory distress, wheezes, rales, rhonchi, stridor Cardiovascular Exam: Present: regular rate, normal rhythm, normal heart sounds. Absent: systolic murmur, diastolic murmur, rubs, gallop, clicks GI/Abdominal exam: Present: soft, normal bowel sounds. Absent: distended, tenderness, guarding, rebound, rigid Extremities exam: Present: normal inspection, full ROM, normal capillary refill. Absent: tenderness, pedal edema, joint swelling, calf tenderness Back exam: Present: normal inspection Neurological exam: Present: alert, oriented X3, CN II-XII intact Psychiatric exam: Present: normal affect, normal mood Skin exam: Present: warm, dry, intact, normal color. Absent: rash Course Vital Signs 04/04/22 04/05/22 04/05/22 21:25 01:36 02:22 Temperature 98.3 F Pulse Rate 96 92 85 Respiratory 16 16 16 Rate Blood Pressure 202/104 164/65 150/65 O2 Sat by Pulse 95 95 96 Oximetry - Reevaluation(s) Reevaluation #1: 04/04/22 22:45 Medical record is reviewed Reevaluation #2: 04/05/22 00:37 Patient family informed results questions answered Reevaluation #3: 04/05/22 00:37 Patient's pain is well-controlled she's having difficulty tolerating cleaning of dried blood in her hair Reevaluation #4: 04/05/22 After clearing of scalp we did found no laceration just abrasion, no laceration for repair - Consultations Consultation #1: Spoke with sound physicians were agree to admission Medical Decision Making - Medical Decision Making 81 female to the emergency department status post fall patient has followed bleeding from posterior occiput. No other acute injury. Patient does not fill comfortable with discharge home and she feels unsteady on her feet. We will send lab tests admission of this patient for monitoring, family does not feel comfortable patient going home alone - Lab Data Result diagrams: 04/05/22 01:36 04/05/22 01:36 - EKG Data -: EKG Interpreted by Me (EKG shows A. fib with RVR 108 QRS 89 QTC 427) - Radiology Data Radiology results: report reviewed (CT brain C-spine chest pelvis and lumbar spine x-ray negative for traumatic injury), image reviewed Disposition Clinical Impression: Fall, Occipital scalp laceration, Weakness, Anxiety Disposition: ADMITTED IP TO THIS HOSP Condition: Fair Is patient prescribed a controlled substance at d/c from ED?: No Time of Disposition: 00:40
--- NOTE | 2022-04-04 22:48 | CT ---
EXAMINATION TYPE: CT brain shasha elizondo DATE OF EXAM: 04/04/2022 COMPARISON: None HISTORY: fall, head & neck pain, lacs to posterior scalp CT DLP: 1361.9 mGycm Automated exposure control for dose reduction was used. Images of the brain and cervical spine obtained with no contrast. There is cerebral cortical atrophy. There is no mass effect or midline shift. No sign of intracranial hemorrhage. There is occipital scalp hematoma on the left side of midline. The calvarium is intact. Skull base is intact. The cervical vertebra have normal alignment. No compression fracture. Disc spaces are fairly normal. Facet joints are intact. There is mild hypertrophic facet arthropathy. Prevertebral soft tissues are intact. The skull base is intact. IMPRESSION: Cerebral atrophy. No acute intracranial abnormality. Occipital scalp hematoma. Negative CT scan cervical spine. No fracture.
--- NOTE | 2022-04-04 22:49 | XR ---
EXAMINATION TYPE: XR chest 1V DATE OF EXAM: 04/04/2022 COMPARISON: 02/05/2022 HISTORY: Fall. Pain TECHNIQUE: FINDINGS: Heart is normal. Lungs are clear of infiltrate. There is large hiatal hernia. Thoracic aort a is atheromatous. No pleural effusion or pneumothorax. There are chest leads. IMPRESSION: No active cardiopulmonary disease. No change.
--- NOTE | 2022-04-04 22:50 | XR ---
EXAMINATION TYPE: XR pelvis AP view DATE OF EXAM: 04/04/2022 COMPARISON: NONE HISTORY: Pain TECHNIQUE: Single view FINDINGS: Pelvic ring is intact. Proximal femurs and hip joints are intact. Sacroiliac joints are nor mal. IMPRESSION: Negative pelvis xray exam. No fracture.
--- NOTE | 2022-04-04 22:51 | XR ---
EXAMINATION TYPE: XR lumbar spine 2 or 3V DATE OF EXAM: 04/04/2022 COMPARISON: NONE HISTORY: Back pain TECHNIQUE: 3 views FINDINGS: There is mild lumbar levoscoliosis. Abdominal aorta is atheromatous. There is some mild vac uum disc and disc space narrowing from L3 to S1. No compression fracture. IMPRESSION: Spondylotic changes. No fracture seen.
[2022-04-05] MEDS ORDERED: diphenhydrAMINE 50 MG/ML 1 ML VIAL IVP STA (00:34)
[2022-04-05] MEDS ORDERED: SODIUM CHLORIDE 0.9% 1,000 ML IV STA (00:34)
[2022-04-05] MEDS ORDERED: LORazepam 2 MG/ML INJ IV STA (00:34)
[2022-04-05] MEDS ORDERED: NALOXONE 0.4 MG/ML 1 ML VIAL IV PRN (00:35)
[2022-04-05] MEDS ORDERED: ONDANSETRON 4 MG/2 ML VIAL IVP PRN (00:35)
[2022-04-05] MEDS ORDERED: KETOROLAC 15 MG/ML 1 ML VIAL IVP STA (00:35)
[2022-04-05] MEDS: SODIUM CHLORIDE 0.9% 1,000 ML IV SCH ×3 (01:30→15:52)
[2022-04-05 01:59] LABS: Basophils # (A) 0.1 k/uL (0-0.2); Basophils % (A) 1 %; Eosinophils # (A) 0.1 k/uL (0-0.7); Eosinophils % (A) 1 %; HCT 32.6 % (34.0-46.0); HGB 10.1 gm/dL (11.4-16.0); Hypochromasia Slight; Lymphocytes % (A) 15 %; MCHC 30.9 g/dL (31.0-37.0); MCV 77.8 fL (80.0-100.0); Mean Platelet Volume 7.4; Monocytes # (A) 0.9 k/uL (0-1.0); Monocytes % (A) 6 %; Neutrophils # (A) 10.4 k/uL (1.3-7.7); Neutrophils % (A) 76 %; Platelet Count 336 k/uL (150-450); RBC 4.19 m/uL (3.80-5.40); RDW 14.2 % (11.5-15.5); WBC 13.7 k/uL (3.8-10.6)
[2022-04-05 02:10] LABS: ALT 45 U/L (4-34); AST 40 U/L (14-36); African American GFR (CKD) >90 (>60 ml/min/1.73 sqM); Albumin 3.7 g/dL (3.5-5.0); Alkaline Phosphatase 247 U/L (38-126); Anion Gap 10 mmol/L; Blood Urea Nitrogen 11 mg/dL (7-17); Calcium 8.9 mg/dL (8.4-10.2); Carbon Dioxide 22 mmol/L (22-30); Chloride 102 mmol/L (98-107); Creatine Kinase 30 U/L (30-135); Glucose 224 mg/dL (74-99); Magnesium 1.8 mg/dL (1.6-2.3); Non-African American GFR(CKD) 82 (>60 ml/min/1.73 sqM); Phosphorus 3.7 mg/dL (2.5-4.5); Sodium 134 mmol/L (137-145); Total Bilirubin 0.3 mg/dL (0.2-1.3); Total Protein 7.6 g/dL (6.3-8.2)
[2022-04-05] MEDS ORDERED: DILTIAZEM 5 MG/ML 5 ML VIAL IVP STA (03:07)
[2022-04-05] MEDS ORDERED: cefTRIAXone IN SWFI 1,000 MG/10 ML SYRINGE IVP STA (03:21)
--- NOTE | 2022-04-05 04:06 | P.HPIM ---
History of Present Illness H&P Date: 04/05/22 The patient is an 81-year-old female with a PMH of type II DM and hypertension, resident of [facility] who was brought into the emergency room after a fall. The patient was reportedly in her usual state of health and was trying to get up from a seated position when she reportedly fell, hitting the back of her head. The patient was given 25 mg of by mouth Benadryl in the emergency room, and at time of interview was somnolent, and unable to answer questions. The patient reportedly was unable to recall the episode and could not state if she may have lost consciousness. She was able to press her medical alert bracelet, at which time the staff came into her room at [facility] and activated EMS. In the emergency room a CT brain revealed an occipital scalp hematoma but chest x-ray unremarkable, pelvis x-ray unremarkable, and lumbar spine x-ray also unremarkable. EKG revealed A. fib with RVR at 108 bpm. Laboratory evaluation was remarkable for WBC count 13.7, hemoglobin 10.1, glucose 224, AST 40, ALT 45, and alkaline phosphatase 247. Attempted to contact family via number provided in the chart with no response. Review of systems: Unable to obtain Physical examination: General: non toxic, no distress, appears at stated age, normal weight Derm: Left occipital laceration 3 cm without active bleeding, warm Head: Normocephalic, symmetric Eyes: EOMI, no lid lag, anicteric sclera, pupils equal round reactive to light ENT: Nose and ears atraumatic Neck: No cervical lymphadenopathy, trachea midline, supple Mouth: no lip lesion, mucus membranes moist Cardiovascular: Irregularly, no murmur, positive dorsalis pedis pulse bilateral, no edema Lungs: CTA bilateral, no rhonchi, no rales, no accessory muscle use Abdominal: soft, nontender to palpation, no guarding Ext: No gross muscle atrophy, no contractures, moving all extremities Neuro: No gross focal neuro deficits strength at least 3 out of 5 in all extremities Psych: Somnolent, not answering any questions but able to follow basic directions with vigorous stimulation Assessment/plan Fall with occipital laceration, unknown loss of consciousness -Cardiac monitoring -Fall precautions -Echocardiogram Newly diagnosed A. fib -Cardiology consult -Cardiac monitoring Leukocytosis -No obvious signs of infection at this time -Follow-up UA -Patient received ceftriaxone 1 g in the emergency room Microcytic anemia, lower than baseline -Check anemia panel studies Abnormal LFTs -Unclear etiology -Monitor for now Chronic conditions: Type II DM, hypertension -Insulin sliding scale and blood glucose monitoring -Continue with home meds once confirmed DVT prophylaxis -Heparin subcu The patient is admitted with an anticipated [] than 2 midnight stay for evaluation of []. CODE STATUS: Full Code Discussed with: Patient Anticipated discharge date: [] Anticipated discharge place: Home Past Medical History Past Medical History: Cancer, Diabetes Mellitus, Hypertension Additional Past Medical History / Comment(s): fall 03/15/21 fx apryl ankles-has cast on rt foot, UTI-on antibiotics, hx skin cancer History of Any Multi-Drug Resistant Organisms: None Reported Past Surgical History: Appendectomy, Cholecystectomy Additional Past Surgical History / Comment(s): removal of skin cancer Past Anesthesia/Blood Transfusion Reactions: No Reported Reaction Past Psychological History: No Psychological Hx Reported Smoking Status: Never smoker Past Alcohol Use History: Rare Past Drug Use History: None Reported - Past Family History Father Family Medical History: Cancer Mother History Unknown: Yes Additional Family Medical History / Comment(s): Unable to obtain due to altered mentation Medications and Allergies Home Medications Medication Instructions Recorded Confirmed Type Ascorbic Acid [Vitamin C] 1,000 mg PO DAILY 03/15/21 02/05/22 History metFORMIN HCL [Glucophage] 1,000 mg PO BID 03/15/21 02/05/22 History Ibuprofen [Motrin] 600 mg PO Q8HR PRN #9 tab 02/05/22 Rx Lidocaine 5% Patch [Lidoderm] 1 patch TOPICAL DAILY #7 patch 02/05/22 Rx Melatonin 1 mg PO HS 02/05/22 02/05/22 History Ondansetron Odt [Zofran Odt] 4 mg PO Q8HR PRN #12 tab 02/05/22 Rx Zinc 50 mg PO DAILY 02/05/22 02/05/22 History ramipriL [Altace] 2.5 mg PO BID 02/05/22 02/05/22 History Allergies Allergy/AdvReac Type Severity Reaction Status Date / Time No Known Allergies Allergy Verified 04/04/22 22:23 Physical Exam Vitals: Vital Signs Temp Pulse Resp BP Pulse Ox 04/05/22 03:36 97.6 F 98 14 151/82 95 04/05/22 02:22 85 16 150/65 96 04/05/22 01:36 92 16 164/65 95 04/04/22 21:25 98.3 F 96 16 202/104 95 Intake and Output 04/04/22 04/04/22 04/05/22 14:59 22:59 06:59 Other: Weight 58.967 kg Results CBC & Chem 7: 04/05/22 01:36 04/05/22 01:36 Labs: Abnormal Lab Results - Last 24 Hours (Table) 04/05/22 04/05/22 Range/Units 01:36 01:36 WBC 13.7 H (3.8-10.6) k/uL Hgb 10.1 L (11.4-16.0) gm/dL Hct 32.6 L (34.0-46.0) % MCV 77.8 L (80.0-100.0) fL MCH 24.0 L (25.0-35.0) pg MCHC 30.9 L (31.0-37.0) g/dL Neutrophils # 10.4 H (1.3-7.7) k/uL Sodium 134 L (137-145) mmol/L Glucose 224 H (74-99) mg/dL AST 40 H (14-36) U/L ALT 45 H (4-34) U/L Alkaline Phosphatase 247 H (38-126) U/L
[2022-04-05 06:16] LABS: Glucose,Whole Blood 176 mg/dL (70-110)
[2022-04-05] MEDS: HEPARIN SODIUM,PORCINE/PF 5,000 UNIT/0.5 ML SYRINGE SQ SCH ×3 (08:04→20:17)
[2022-04-05] MEDS: INSULIN ASPART (NovoLOG) 100 UNIT/ML VIAL SQ SCH ×4 (08:04→20:44)
[2022-04-05] MEDS ORDERED: lisinopriL 20 MG TAB PO SCH (09:00)
[2022-04-05 09:28] LABS: Amorphous Sediment,Urine Many /hpf; Appearance,Urine Cloudy (Clear); Bacteria,Urine Moderate /hpf; Bilirubin,Urine Negative (Negative); Blood,Urine Negative (Negative); Color,Urine Light Yellow; Glucose,Urine (UA) 1+ (Negative); Ketones,Urine Negative (Negative); Leukocyte Esterase,Urine Moderate (Negative); Mucus,Urine Rare /hpf; Nitrite,Urine Negative (Negative); Protein,Urine Negative (Negative); Specific Gravity,Urine 1.008 (1.001-1.035); Squamous Epithelial Cell,Urine 2 /hpf (0-4); Urobilinogen,Urine <2.0 mg/dL (<2.0); WBC,Urine 10 /hpf (0-5)
--- NOTE | 2022-04-05 09:42 | P.CRDCN ---
History of Present Illness Consult date: 04/05/22 History of present illness: HISTORY OF PRESENT ILLNESS: This is a 81-year-old female with a past medical history significant for hypertension and diabetes. 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 We have been asked to see the patient in consultation for atrial fibrillation. Patient examined at the bedside. Patient presented to the emergency room after sustaining a fall at home. According to previous documentation it appears that the patient's fall was mechanical in nature. However the patient states she does not remember falling and it is possible that the patient had a syncopal episode. The patient did have some bleeding to the back of her head. Patient denies chest pain or pressure. She denies shortness of breath. She denies palpitations. She denies dizziness or lightheadedness. Telemetry reveals sinus rhythm with PVCs. * EKG reveals multifocal atrial tachycardia * Chest xray negative for acute process * Laboratory data: WBC 13.7. Hemoglobin 10.1. Platelet count 336. Sodium 134. Potassium 4.0. BUN 11. Creatinine 0.66. Magnesium 1.8. * Current home cardiac medications include ramipril 5 mg daily. REVIEW OF SYSTEMS: At the time of my exam: CONSTITUTIONAL: Denies fever or chills. HEENT: Denies blurred vision, vision changes, or eye pain. Denies hemoptysis CARDIOVASCULAR: Denies chest pain. Denies orthopnea. Denies PND. Denies palpitations RESPIRATORY: Denies shortness of breath. GASTROINTESTINAL: Denies abdominal pain. Denies nausea or vomiting. HEMATOLOGIC: Denies bleeding disorders. GENITOURINARY: Denies any blood in urine. SKIN: Denies pruitis. Denies rash. PHYSICAL EXAM: VITAL SIGNS: Reviewed. GENERAL: Well-developed in no acute distress. HEENT: Head is normocephalic. Pupils are equal, round. Sclerae anicteric. Mucous membranes of the mouth are moist. Neck supple. No JVD or thyromegaly LUNGS: Respirations even and unlabored. Lungs essentially clear to auscultation bilaterally. HEART: Regular rate and rhythm. S1 and S2 heard. ABDOMEN: Soft. Nondistended. Nontender. EXTREMITIES: Normal range of motion. No clubbing or cyanosis. Peripheral pulses intact. No lower extremity edema NEUROLOGIC: Awake and alert. Oriented x 3. ASSESSMENT: S/P fall versus syncope Hypertension Diabetes PLAN: EKG consistent with multifocal atrial tachycardia. Bedside telemetry reveals sinus mechanism with PACs No atrial fibrillation noted Resume home cardiac medications Continue telemetry monitoring Check TSH Obtain 2-D echo to assess cardiac structure and function Further recommendations pain patient's course Nurse practitioner note has been reviewed by physician. Signing provider agrees with the documented findings, assessment, and plan of care. Past Medical History Past Medical History: Cancer, Diabetes Mellitus, Hypertension Additional Past Medical History / Comment(s): fall 03/15/21 fx apryl ankles-has cast on rt foot, UTI-on antibiotics, hx skin cancer History of Any Multi-Drug Resistant Organisms: None Reported Past Surgical History: Appendectomy, Cholecystectomy Additional Past Surgical History / Comment(s): removal of skin cancer Past Anesthesia/Blood Transfusion Reactions: No Reported Reaction Past Psychological History: No Psychological Hx Reported Smoking Status: Never smoker Past Alcohol Use History: Rare Past Drug Use History: None Reported - Past Family History Father Family Medical History: Cancer Mother History Unknown: Yes Additional Family Medical History / Comment(s): Unable to obtain due to altered mentation Medications and Allergies Home Medications Medication Instructions Recorded Confirmed Type Ascorbic Acid [Vitamin C] 1,000 mg PO DAILY 03/15/21 04/05/22 History metFORMIN HCL [Glucophage] 1,000 mg PO BID 03/15/21 04/05/22 History Melatonin 1 mg PO HS 02/05/22 04/05/22 History Zinc 50 mg PO DAILY 02/05/22 04/05/22 History ramipriL 5 mg PO DAILY 04/05/22 04/05/22 History Allergies Allergy/AdvReac Type Severity Reaction Status Date / Time No Known Allergies Allergy Verified 04/05/22 07:20 Physical Exam Vitals: Vital Signs Temp Pulse Resp BP Pulse Ox 04/05/22 06:08 97.9 F 88 17 131/74 95 04/05/22 03:36 97.6 F 98 14 151/82 95 04/05/22 02:22 85 16 150/65 96 04/05/22 01:36 92 16 164/65 95 04/04/22 21:25 98.3 F 96 16 202/104 95 Intake and Output 04/04/22 04/05/22 04/05/22 22:59 06:59 14:59 Other: Weight 58.967 kg Results 04/05/22 01:36 09/12/22 01:36 Cardiac Enzymes 04/05/22 Range/Units 01:36 AST 40 H (14-36) U/L CBC 04/05/22 Range/Units 01:36 WBC 13.7 H (3.8-10.6) k/uL RBC 4.19 (3.80-5.40) m/uL Hgb 10.1 L (11.4-16.0) gm/dL Hct 32.6 L (34.0-46.0) % Plt Count 336 (150-450) k/uL Comprehensive Metabolic Panel 04/05/22 Range/Units 01:36 Sodium 134 L (137-145) mmol/L Potassium 4.0 (3.5-5.1) mmol/L Chloride 102 (98-107) mmol/L Carbon Dioxide 22 (22-30) mmol/L BUN 11 (7-17) mg/dL Creatinine 0.66 (0.52-1.04) mg/dL Glucose 224 H (74-99) mg/dL Calcium 8.9 (8.4-10.2) mg/dL AST 40 H (14-36) U/L ALT 45 H (4-34) U/L Alkaline Phosphatase 247 H (38-126) U/L Total Protein 7.6 (6.3-8.2) g/dL Albumin 3.7 (3.5-5.0) g/dL Current Medications Generic Name Dose Route Start Last Admin Trade Name Freq PRN Reason Stop Dose Admin Heparin Sodium (Porcine) 5,000 unit 04/05/22 08:00 04/05/22 08:04 Heparin Sodium,Porcine/Pf 5,000 Unit/0.5 Ml Syringe SQ 5,000 unit Q8HR JUAN CARLOS Administration Sodium Chloride 1,000 mls @ 130 mls/hr 04/05/22 00:45 04/05/22 09:27 Saline 0.9% IV 130 mls/hr .[id number] JUAN CARLOS Administration Insulin Aspart 0 unit 04/05/22 07:30 04/05/22 08:04 Insulin Aspart (Novolog) 100 Unit/Ml Vial SQ 1 unit ACHS JUAN CARLOS Administration Protocol Lisinopril 20 mg 04/05/22 09:00 04/05/22 09:26 Lisinopril 20 Mg Tab PO 20 mg DAILY JUAN CARLOS Administration Morphine Sulfate 4 mg 04/05/22 00:35 Morphine Sulfate 4 Mg/Ml Syringe IV Q4HR PRN Severe Pain (Scale 7 to 10) Naloxone HCl 0.2 mg 04/05/22 00:35 Naloxone 0.4 Mg/Ml 1 Ml Vial IV Q2M PRN Opioid Reversal Ondansetron HCl 4 mg 04/05/22 00:35 Ondansetron 4 Mg/2 Ml Vial IVP Q8HR PRN Nausea And Vomiting Intake and Output 04/04/22 04/05/22 04/05/22 22:59 06:59 14:59 Other: Weight 58.967 kg 04/05/22 01:36 04/05/22 01:36
[2022-04-05 10:06] LABS: % Iron Saturation 4.34 (12.00-45.00); Ferritin 20.2 ng/mL (10.0-291.0)
--- NOTE | 2022-04-05 12:00 | CA ---
Transthoracic Echo Report Name: Lindsay Bernal Age: 81 Gender: F : 1940 Exam Date: 04/05/2022 09:40 Exam Location: [facility] Ht (in): 62 Wt (lb): 130 Ordering Physician: Jalen Echeverria MD Attending/Referring Phys: Heel Lining Paster Abbie Guerra RDCS Procedure CPT: Indications: Fall, possible LOC Cardiac Hx: Technical Quality: Good Contrast 1: Total Dose (mL): Contrast 2: Total Dose (mL): MEASUREMENTS (Male / Female) Normal Values 2D ECHO LV Diastolic Diameter PLAX 3.6 cm 4.2 - 5.9 / 3.9 - 5.3 cm LV Systolic Diameter PLAX 2.4 cm IVS Diastolic Thickness 0.9 cm 0.6 - 1.0 / 0.6 - 0.9 cm LVPW Diastolic Thickness 1.0 cm 0.6 - 1.0 / 0.6 - 0.9 cm LV Relative Wall Thickness 0.5 RV Internal Dim ED PLAX 2.5 cm LA Systolic Diameter LX 2.7 cm 3.0 - 4.0 / 2.7 - 3.8 cm LA Volume 64.9 cm??? 18 - 58 / 22 - 52 cm??? M-MODE Aortic Root Diameter MM 3.0 cm MV E Point Septal Separation 0.8 cm AV Cusp Separation MM 1.8 cm DOPPLER AV Peak Velocity 128.7 cm/s AV Peak Gradient 6.6 mmHg MV Area PHT 3.4 cm??? Mitral E Point Velocity 123.6 cm/s Mitral A Point Velocity 146.2 cm/s Mitral E to A Ratio 0.8 MV Deceleration Time 220.7 ms MV E' Velocity 4.7 cm/s Mitral E to MV E' Ratio 26.4 FINDINGS Left Ventricle Left ventricular ejection fraction is estimated at 55-60 %. Left ventricular cavity size normal. Left ventricular wall thickness normal. Right Ventricle Normal right ventricular size and function. Unable to estimate the right ventricular systolic pressure no TR Right Atrium Normal right atrial size. Left Atrium Moderately increased left atrial volume. Mildly increased left atrial area. No evidence for an atrial septal defect. Mitral Valve Mitral valve thickened. Mitral annular calcification. Trace to mild mitral regurgitation. Aortic Valve Trileaflet aortic valve. No aortic valve stenosis or regurgitation. Tricuspid Valve Structurally normal tricuspid valve. Pulmonic Valve Structurally normal pulmonic valve. Trace pulmonic regurgitation. Pericardium Normal pericardium. No pericardial effusion. Aorta Normal size aortic root and proximal ascending aorta. CONCLUSIONS Normal LV size with normal LV systolic function, ejection fraction greater than 55% Previewed by: Dr. Vazquez Jeffries MD (Electronically Signed) Final Date: 05 April 2022 11:59
[2022-04-05 12:09] LABS: Glucose,Whole Blood 82 mg/dL (70-110)
[2022-04-05] MEDS: MORPHINE SULFATE 4 MG/ML SYRINGE IV PRN (15:52)
--- NOTE | 2022-04-05 16:53 | P.PN ---
Subjective Progress Note Date: 04/05/22 Hospital course: Patient is a very pleasant 81-year-old female with a past medical history of hypertension and type 2 diabetes mellitus. She resides at [facility] and was brought to the emergency department with reports of weakness and fall. Patient reports that she was feeling a little weak and upon standing fell backward very hard and hit the back of her head and her bottom on her hardwood floors resulting in a small laceration to left occipital region Patient reports she remembers event and remembers trying to get herself up but was unable due to feeling weak. She denies having any dizziness, lightheadedness, changes in vision, palpitations, shortness of breath, or experiencing any numbness/tingling/weakness prior to or after the fall and hitting her head. Patient denies having any loss of consciousness. She reports she wears a medical bracelet and alerted the staff that she needed assistance and EMS was called. Patient underwent full evaluation in the emergency department. CBC revealed mild leukocytosis with WBC count of 13.7 and macrocytic microchromic anemia with hemoglobin at 10.1. CMP revealing hyponatremia with sodium of 134, elevated AST of 40, ALT 45, alkaline phosphatase of 247. CT head and cervical spine were negative. Chest x-ray negative for acute cardiopulmonary process. Pelvis x-ray negative for acute process. X-ray lumbar spine revealing spondylitic changes negative for acute process. An EKG was completed revealing A. fib with RVR at 108 beats per minute. Patient does not have history of atrial fibrillation. Patient was admitted under our services with consultation to cardiology. Urinalysis was completed positive for 10 WBCs, however patient denies any urinary complaints at this time. Physical exam: Vital signs reviewed and stable. General: Nontoxic, no distress and appears stated age. Derm: Skin warm and dry, normal coloration for ethnicity. Head: Atraumatic, normocephalic and symmetric. Eyes: EOMs intact, no lid lag, and anicteric sclera Mouth: no lip lesions, mucus membranes moist Cardiovascular: regular rate and rhythm with normal S1S2, no murmur, positive posterior tibial pulses bilaterally, and cap refill < 2 seconds. Lungs: Respirations even, regular, and unlabored on room air. Lungs CTA apryl aterally, no rhonchi, no rales, no wheezing, and no accessory muscle usage. Abdominal: soft, nontender to palpation, no guarding, no appreciable organomegaly Ext: ROM intact. No gross muscle atrophy, no edema, no contractures Neuro: Speech clear, face symmetrical and CN II-XII grossly intact with no noted focal neuro deficits Psych: Alert and oriented to person, place, time, and situation. Appropriate and pleasant affect. Assessment and Plan of Care: Fall with occipital laceration, patient denies loss of consciousness, however it is on clear -Cardiac monitoring -Fall precautions -Echocardiogram Newly diagnosed A. fib with RVR -Cardiology consult -Echocardiogram -Cardiac monitoring Leukocytosis -No obvious signs of infection at this time -Follow-up UA -Patient received ceftriaxone 1 g in the emergency room Microcytic anemia, lower than baseline -Check anemia panel studies Abnormal LFTs -Unclear etiology -Monitor for now -Family reporting Covid outbreak at patient's living facility, Covid PCR to be obtained Hypertension Monitor vital signs and continue daily medication regimen with Ramipril Diabetes mellitus -Hold metformin in place patient on glycemic protocol with NovoLog sliding scale. CODE STATUS: Full code DVT prophylaxis: Heparin Discussed with: Patient and RN Anticipated discharge date: 1-[address]: Home A total of 33 minutes was spent on the care of this complex patient more than 50% of the time was spent in counseling and care coordination. Objective - Vital Signs Vital signs: Vital Signs Temp 97.9 F 04/05/22 06:08 Pulse 88 04/05/22 06:08 Resp 17 04/05/22 06:08 BP 131/74 04/05/22 06:08 Pulse Ox 95 04/05/22 06:08 FiO2 Intake & Output 04/04/22 04/05/22 04/05/22 18:59 06:59 18:59 Weight 58.967 kg - Labs CBC & Chem 7: 04/05/22 01:36 04/05/22 01:36 Labs: Abnormal Lab Results - Last 24 Hours (Table) 04/05/22 04/05/22 04/05/22 Range/Units 01:36 01:36 06:13 WBC 13.7 H (3.8-10.6) k/uL Hgb 10.1 L (11.4-16.0) gm/dL Hct 32.6 L (34.0-46.0) % MCV 77.8 L (80.0-100.0) fL MCH 24.0 L (25.0-35.0) pg MCHC 30.9 L (31.0-37.0) g/dL Neutrophils # 10.4 H (1.3-7.7) k/uL Sodium 134 L (137-145) mmol/L Glucose 224 H (74-99) mg/dL POC Glucose (mg/dL) 176 H (70-110) mg/dL AST 40 H (14-36) U/L ALT 45 H (4-34) U/L Alkaline Phosphatase 247 H (38-126) U/L
[2022-04-05 17:29] LABS: Glucose,Whole Blood 251 mg/dL (70-110)
[2022-04-05 20:25] LABS: Glucose,Whole Blood 193 mg/dL (70-110)
[2022-04-06] MEDS: SODIUM CHLORIDE 0.9% 1,000 ML IV SCH ×4 (00:45→20:58)
[2022-04-06 07:07] LABS: Glucose,Whole Blood 121 mg/dL (70-110)
[2022-04-06] MEDS: INSULIN ASPART (NovoLOG) 100 UNIT/ML VIAL SQ SCH ×4 (07:11→20:57)
[2022-04-06] MEDS: lisinopriL 20 MG TAB PO SCH ×2 (08:56→21:02)
[2022-04-06] MEDS: HEPARIN SODIUM,PORCINE/PF 5,000 UNIT/0.5 ML SYRINGE SQ SCH ×2 (08:56→16:31)
[2022-04-06] MEDS: MORPHINE SULFATE 4 MG/ML SYRINGE IV PRN ×2 (09:13→16:31)
--- NOTE | 2022-04-06 09:32 | P.PN ---
Subjective Progress Note Date: 04/06/22 HISTORY OF PRESENT ILLNESS: This is a 81-year-old female with a past medical history significant for hypertension and diabetes. 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 We have been asked to see the patient in consultation for atrial fibrillation. Patient examined at the bedside. Patient presented to the emergency room after sustaining a fall at home. According to previous documentation it appears that the patient's fall was mechanical in nature. However the patient states she does not remember falling and it is possible that the patient had a syncopal episode. The patient did have some bleeding to the back of her head. Patient denies chest pain or pressure. She denies shortness of breath. She denies palpitations. She denies dizziness or lightheadedness. Telemetry reveals sinus rhythm with PVCs. * EKG reveals multifocal atrial tachycardia * Chest xray negative for acute process * Laboratory data: WBC 13.7. Hemoglobin 10.1. Platelet count 336. Sodium 134. Potassium 4.0. BUN 11. Creatinine 0.66. Magnesium 1.8. * Current home cardiac medications include ramipril 5 mg daily. 04/06/2022 Patient examined this morning at the bedside. Patient denies chest pain or pressure. She denies shortness of breath. Echocardiogram completed revealing ejection fraction 55-60% with trace to mild mitral regurgitation. Patient's blood pressure this morning 152/56. PHYSICAL EXAM: VITAL SIGNS: Reviewed. GENERAL: Well-developed in no acute distress. HEENT: Head is normocephalic. Pupils are equal, round. Sclerae anicteric. Mucous membranes of the mouth are moist. Neck supple. No JVD or thyromegaly LUNGS: Respirations even and unlabored. Lungs essentially clear to auscultation bilaterally. HEART: Regular rate and rhythm. S1 and S2 heard. ABDOMEN: Soft. Nondistended. Nontender. EXTREMITIES: Normal range of motion. No clubbing or cyanosis. Peripheral pulses intact. No lower extremity edema NEUROLOGIC: Awake and alert. Oriented x 3. ASSESSMENT: S/P fall versus syncope Hypertension Diabetes Multifocal atrial tachycardia PLAN: Continue current cardiac medications Increase lisinopril to 20 mg twice a day while inpatient. Upon discharge, increase patient's ramipril to 10 mg daily Patient is currently stable from a cardiac standpoint with no further inpatient recommendations from a cardiology perspective We will sign off. Please reconsult if needed. Nurse practitioner note has been reviewed by physician. Signing provider agrees with the documented findings, assessment, and plan of care. Objective - Vital Signs Vital signs: Vital Signs Temp 99.1 F 04/06/22 07:43 Pulse 77 04/06/22 07:43 Resp 16 04/06/22 07:43 BP 152/56 04/06/22 07:43 Pulse Ox 96 04/06/22 07:43 FiO2 Intake & Output 04/05/22 04/06/22 04/06/22 18:59 06:59 18:59 Intake Total 498 Balance 498 Weight 58.967 kg Intake: Oral 498 Other: Voiding Method Bedside Commode # Voids 1 3 - Labs CBC & Chem 7: 04/05/22 01:36 04/05/22 01:36 Labs: Abnormal Lab Results - Last 24 Hours (Table) 04/05/22 04/05/22 04/05/22 Range/Units 01:36 17:27 20:23 POC Glucose (mg/dL) 251 H 193 H (70-110) mg/dL Iron 21 L (50-170) ug/dL TIBC 482 H (228-460) ug/dL % Saturation 4.34 L (12.00-45.00) 04/06/22 Range/Units 07:06 POC Glucose (mg/dL) 121 H (70-110) mg/dL Iron (50-170) ug/dL TIBC (228-460) ug/dL % Saturation (12.00-45.00)
[2022-04-06 11:25] LABS: Glucose,Whole Blood 149 mg/dL (70-110)
[2022-04-06] MEDS: FERROUS SULFATE 325 MG TAB PO SCH (12:40)
[2022-04-06 17:32] LABS: Glucose,Whole Blood 120 mg/dL (70-110)
--- NOTE | 2022-04-06 17:32 | P.PN ---
Subjective Progress Note Date: 04/06/22 Hospital course: Patient is a very pleasant 81-year-old female with a past medical history of hypertension and type 2 diabetes mellitus. She resides at [facility] and was brought to the emergency department with reports of weakness and fall. Patient reports that she was feeling a little weak and upon standing fell backward very hard and hit the back of her head and her bottom on her hardwood floors resulting in a small laceration to left occipital region Patient reports she remembers event and remembers trying to get herself up but was unable due to feeling weak. She denies having any dizziness, lightheadedness, changes in vision, palpitations, shortness of breath, or experiencing any numbness/tingling/weakness prior to or after the fall and hitting her head. Patient denies having any loss of consciousness. She reports she wears a medical bracelet and alerted the staff that she needed assistance and EMS was called. Patient underwent full evaluation in the emergency department. CBC revealed mild leukocytosis with WBC count of 13.7 and macrocytic microchromic anemia with hemoglobin at 10.1. CMP revealing hyponatremia with sodium of 134, elevated AST of 40, ALT 45, alkaline phosphatase of 247. CT head and cervical spine were negative. Chest x-ray negative for acute cardiopulmonary process. Pelvis x-ray negative for acute process. X-ray lumbar spine revealing spondylitic changes negative for acute process. An EKG was completed revealing multifocal atrial tachycardia at 108 beats per minute. Patient does not have history of atrial fibrillation. Patient was admitted under our services with consultation to cardiology. Urinalysis was completed positive for 10 WBCs, however patient denies any urinary complaints at this time. Echocardiogram caren wing preserved EF of 55% and no reported structural or valvular abnormalities. Cardiology evaluating and increased patient's lisinopril to 20 mg twice daily otherwise reporting patient medically stable from cardiac standpoint. Patient evaluated by physical therapy and they are recommending patient discharged to subacute rehab as she has a high risk for falls and exhibiting difficulty with transfers requiring assistance for most ADLs. Case management currently working on insurance authorization and placement. Physical exam: Patient seen and fully evaluated at bedside this morning. She remains having difficulties with transfers and generalized weakness with ambulation and completing ADLs. Occupational therapy recommending placement in subacute rehab upon discharge and patient in agreement at this time. Case management was notified in making arrangements for placement in obtaining insurance authorization. Otherwise patient reports mild headache but denies having any other complaints at this time. Vital signs reviewed and stable. General: Nontoxic, no distress and appears stated age. Derm: Skin warm and dry, normal coloration for ethnicity. Small laceration to his sacral region of head, not requiring repair no active bleeding. Head: Atraumatic, normocephalic and symmetric. Eyes: EOMs intact, no lid lag, and anicteric sclera Mouth: no lip lesions, mucus membranes moist Cardiovascular: regular rate and rhythm with normal S1S2, no murmur, positive posterior tibial pulses bilaterally, and cap refill < 2 seconds. Lungs: Respirations even, regular, and unlabored on room air. Lungs CTA bilaterally, no rhonchi, no rales, no wheezing, and no accessory muscle usage. Abdominal: soft, nontender to palpation, no guarding, no appreciable organomegaly Ext: ROM intact. No gross muscle atrophy, no edema, no contractures Neuro: Speech clear, face symmetrical and CN II-XII grossly intact with no noted focal neuro deficits Psych: Alert and oriented to person, place, time, and situation. Appropriate and pleasant affect. Assessment and Plan of Care: Fall with occipital laceration, patient denies loss of consciousness, however it is on clear -Cardiac monitoring -Fall precautions -Echocardiogram Multifocal atrial tachycardia -Cardiology consult -Echocardiogram -Cardiac monitoring Leukocytosis -No obvious signs of infection at this time -Urinalysis positive for 10 WBCs however patient asymptomatic to urinary complaints. -Patient received ceftriaxone 1 g in the emergency room Iron deficiency anemia -Iron 21, TIBC 482, iron saturation 4.34. -Patient started on ferrous sulfate 325 mg daily. Abnormal LFTs -Unclear etiology -Monitor for now Hypertension Monitor vital signs and continue daily medication regimen with Ramipril (ramipril supplemented with lisinopril secondary to hospital availability) Diabetes mellitus -Hold metformin in place patient on glycemic protocol with NovoLog sliding scale. CODE STATUS: Full code DVT prophylaxis: Heparin Discussed with: Patient and RN Anticipated discharge date: Pending insurance authorization and acceptance to facility Anticipated discharge place: half-way facility A total of 35minutes was spent on the care of this complex patient more than 50% of the time was spent in counseling and care coordination. Objective - Vital Signs Vital signs: Vital Signs Temp 98.3 F 04/06/22 11:46 Pulse 67 04/06/22 11:46 Resp 16 04/06/22 13:45 BP 119/64 04/06/22 11:46 Pulse Ox 95 04/06/22 11:46 FiO2 Intake & Output 04/05/22 04/06/22 04/06/22 18:59 06:59 18:59 Intake Total 498 Balance 498 Weight 58.967 kg Intake: Oral 498 Other: Voiding Method Bedside Commode Bedside Commode # Voids 1 3 - Labs CBC & Chem 7: 04/05/22 01:36 04/05/22 01:36 Labs: Abnormal Lab Results - Last 24 Hours (Table) 04/05/22 04/06/22 04/06/22 Range/Units 20:23 07:06 11:24 POC Glucose (mg/dL) 193 H 121 H 149 H (70-110) mg/dL
[2022-04-06 20:53] LABS: Glucose,Whole Blood 118 mg/dL (70-110)
[2022-04-07] MEDS: HEPARIN SODIUM,PORCINE/PF 5,000 UNIT/0.5 ML SYRINGE SQ SCH ×4 (01:12→21:02)
[2022-04-07 07:12] LABS: Glucose,Whole Blood 120 mg/dL (70-110)
[2022-04-07] MEDS: INSULIN ASPART (NovoLOG) 100 UNIT/ML VIAL SQ SCH ×4 (07:19→20:59)
[2022-04-07] MEDS: lisinopriL 20 MG TAB PO SCH ×2 (07:40→20:19)
[2022-04-07] MEDS: SODIUM CHLORIDE 0.9% 1,000 ML IV SCH ×2 (07:46→16:31)
[2022-04-07] MEDS: SODIUM FERRIC GLUCONAT-SUCROSE 125 MG in SODIUM CHLORIDE 0.9% 100 ML IVPB ONE ×2 (08:36→09:56)
[2022-04-07] MEDS: HYDROcodone/APAP 5-325MG 1 EACH TAB PO PRN ×2 (08:40→20:19)
[2022-04-07 10:40] LABS: HGB 8.9 g/dL (12.0-15.0); MCH 24.1 pg (27.0-32.0); MCHC 30.7 g/dL (32.0-37.0); MCV 78.6 fL (80.0-97.0); Mean Platelet Volume 9.9 fL (9.5-12.2); NRBC Per 100 WBC 0 /100 WBCS (0.0-0.0); Platelet Count 284 X 10*3/uL (140-440); RBC 3.69 X 10*6/uL (4.10-5.20); RDW 14.6 % (11.5-14.5); WBC 8.32 X 10*3/uL (4.50-10.00)
[2022-04-07 11:01] LABS: African American GFR (CKD) 97.7 (60.0-200.0); Albumin 3.2 g/dL (3.8-4.9); Albumin/Globulin Ratio 0.91 (1.60-3.17); Blood Urea Nitrogen 9.6 mg/dL (9.0-27.0); Calcium 8.5 mg/dL (8.7-10.3); Globulin 3.5 g/dL (1.6-3.3); Magnesium 2.1 mg/dL (1.5-2.4); Non-African American GFR(CKD) 84.3 (60.0-200.0); Potassium 3.8 mmol/L (3.5-5.5); Total Bilirubin 0.4 mg/dL (0.30-1.20); Total Protein 6.7 g/dL (6.2-8.2)
[2022-04-07 12:19] LABS: Glucose,Whole Blood 149 mg/dL (70-110)
[2022-04-07] MEDS: FERROUS SULFATE 325 MG TAB PO SCH (12:44)
[2022-04-07 17:09] LABS: Glucose,Whole Blood 157 mg/dL (70-110)
--- NOTE | 2022-04-07 18:21 | P.PN ---
Subjective Progress Note Date: 04/07/22 (delayed charting seen at 1030) Patient is an 81-year-old female with hypertension, GERD and type 2 diabetes mellitus who was brought to the emergency department with reports of weakness and fall. In the emergency department she underwent an extensive evaluation. Laboratory analysis revealed white blood cell count 13.7, hemoglobin 10.1, sodium 134, AST 40, ALT 45, alkaline phosphatase 247. CT head and cervical spine were negative. Chest x-ray negative for acute cardiopulmonary process. P kanika x-ray negative for acute process. X-ray lumbar spine revealing spondylitic changes negative for acute process. An EKG demonstrated multifocal atrial tachycardia. He was placed in observation and cardiology was consulted. Echocardiogram showing preserved EF of 55% and no reported structural or valvular abnormalities. Cardiology evaluated the patient and increased her blood pressure medications and felt as this was cardiac stable at this time.. Patient evaluated by physical therapy and they are recommending patient discharged to subacute rehab as she has a high risk for falls and exhibiting difficulty with transfers requiring assistance for most ADLs. Patient did progress well during her hospital stay. Per therapy she seems very apprehensive to walk. Patient seen and examined at bedside. She reports some dizziness when standing up. She overall reports a mild headache and feeling slightly woozy or more confused than baseline. She denies any pain in her lower extremities, chest pain, or shortness of breath. She is scared about falling again. I asked if I could discuss her care with her son and she said of course, "he is my everything." She adamantly denies any blood in her stool or urine. She denies any dark tarry stools. General: nontoxic, no distress, appears at stated age Derm: warm, dry Head: atraumatic, normocephalic, symmetric Eyes: EOMI, no lid lag, anicteric sclera Mouth: no lip lesion, mucus membranes moist Cardiovascular: S1S2 reg, no murmur, positive posterior tibial pulse bilateral, Lungs: CTA bilateral, no rhonchi, no rales , no accessory muscle use Abdominal: soft, nontender to palpation, no guarding, no appreciable organomegaly Ext: no gross muscle atrophy, no edema, no contractures Neuro: CN II-XI grossly intact, no focal neuro deficits Psych: Alert, oriented to self and situation, struggles with date but is oriented to year and month. Assessment and Plan of Care: Recurrent falls with occipital laceration Postconcussive syndrome -Difficult to rule out syncopal event. Echocardiogram within normal limits. Check orthostatic vitals -Fall precautions Multifocal atrial tachycardia -Cardiology recommendations appreciated. No additional workup warranted. Hypertensive urgency on arrival - Blood pressure is better controlled -Continue current therapy Iron deficiency anemia -Iron 21, TIBC 482, iron saturation 4.34. -Due to patient's iron saturation of 4.34% and ferritin of 20.2 I recommended 2 doses of IV iron prior to discharge. Diabetes mellitus -Hold metformin in place patient on glycemic protocol with NovoLog sliding scale. Abnormal LFTs, resolved Leukocytosis, resolved I called her son Esteban who is her decision maker. We had a lengthy discussion. He is increasing care services at [facility] and was like her to go there and not to correction facility. This seems very reasonable she will have 24-hour supervision and be moved into the assisted living side. We discussed having home health and PT and OT come out to the house. He is in agreement with this plan of care. We discussed that she has extremely low ferritin which means iron stores. I discussed that he should follow this up with Dr. Morrison she does not have any current signs of bleeding. CODE STATUS: Full code DVT prophylaxis: Heparin Discussed with: Patient and RN Anticipated discharge date: Pending insurance authorization and acceptance to facility Anticipated discharge place: group home facility A total of 35minutes was spent on the care of this complex patient more than 50% of the time was spent in counseling and care coordination. Objective - Vital Signs Vital signs: Vital Signs Temp 98.3 F 04/07/22 11:27 Pulse 73 04/07/22 11:27 Resp 18 04/07/22 11:27 BP 123/42 04/07/22 11:27 Pulse Ox 97 04/07/22 11:27 FiO2 Intake & Output 04/06/22 04/07/22 04/07/22 18:59 06:59 18:59 Intake Total 236 Balance 236 Intake: Oral 236 Other: Voiding Method Bedside Commode Bedside Commode Bedside Commode # Voids 5 2 1 - Labs CBC & Chem 7: 04/07/22 06:45 04/07/22 06:45 Labs: Abnormal Lab Results - Last 24 Hours (Table) 04/06/22 04/07/22 04/07/22 Range/Units 20:51 06:45 06:45 RBC 3.69 L (4.10-5.20) X 10*6/uL Hgb 8.9 L (12.0-15.0) g/dL Hct 29.0 L (37.2-46.3) % MCV 78.6 L (80.0-97.0) fL MCH 24.1 L (27.0-32.0) pg MCHC 30.7 L (32.0-37.0) g/dL RDW 14.6 H (11.5-14.5) % Sodium 133 L (135-145) mmol/L Glucose 114 H (70-110) mg/dL POC Glucose (mg/dL) 118 H (70-110) mg/dL Calcium 8.5 L (8.7-10.3) mg/dL Alkaline Phosphatase 213 H (41-126) U/L Albumin 3.2 L (3.8-4.9) g/dL Globulin 3.5 H (1.6-3.3) g/dL Albumin/Globulin Ratio 0.91 L (1.60-3.17) g/dL 04/07/22 04/07/22 04/07/22 Range/Units 07:11 12:16 17:07 RBC (4.10-5.20) X 10*6/uL Hgb (12.0-15.0) g/dL Hct (37.2-46.3) % MCV (80.0-97.0) fL MCH (27.0-32.0) pg MCHC (32.0-37.0) g/dL RDW (11.5-14.5) % Sodium (135-145) mmol/L Glucose (70-110) mg/dL POC Glucose (mg/dL) 120 H 149 H 157 H (70-110) mg/dL Calcium (8.7-10.3) mg/dL Alkaline Phosphatase (41-126) U/L Albumin (3.8-4.9) g/dL Globulin (1.6-3.3) g/dL Albumin/Globulin Ratio (1.60-3.17) g/dL
[2022-04-07 20:27] VITALS: RESP 17
[2022-04-07 20:50] LABS: Glucose,Whole Blood 252 mg/dL (70-110)
[2022-04-08] MEDS ORDERED: MELATONIN 5 MG TABLET PO PRN
[2022-04-08] MEDS: lisinopriL 20 MG TAB PO SCH (07:46)
[2022-04-08] MEDS: HEPARIN SODIUM,PORCINE/PF 5,000 UNIT/0.5 ML SYRINGE SQ SCH (07:46)
[2022-04-08 07:48] LABS: Glucose,Whole Blood 170 mg/dL (70-110)
[2022-04-08] MEDS ORDERED: SODIUM FERRIC GLUCONAT-SUCROSE 125 MG in SODIUM CHLORIDE 0.9% 100 ML IVPB ONE (08:00)
[2022-04-08 08:42] VITALS: BP 107/58; PULSE 82; TEMP 97.8
[2022-04-08] MEDS: INSULIN ASPART (NovoLOG) 100 UNIT/ML VIAL SQ SCH ×2 (08:47→13:37)
[2022-04-08 12:29] LABS: Glucose,Whole Blood 159 mg/dL (70-110)
--- NOTE | 2022-04-08 14:31 | P.DS ---
Providers Date of admission: 04/05/22 00:35 Expected date of discharge: 04/08/22 Attending physician: Jalen Echeverria MD Primary care physician: Grey Morrison Hospital Course: Discharge Diagnosis: Recurrent falls with occipital laceration Postconcussive syndrome Multifocal atrial tachycardia Hypertensive urgency on arrival Iron deficiency anemia Diabetes mellitus Abnormal LFTs, resolved Leukocytosis, resolved Hospital Course: Patient is an 81-year-old female with hypertension, GERD and type 2 diabetes mellitus who was brought to the emergency department with reports of weakness and fall. In the emergency department she underwent an extensive evaluation. Laboratory analysis revealed white blood cell count 13.7, hemoglobin 10.1, sodium 134, AST 40, ALT 45, alkaline phosphatase 247. CT head and cervical spine were negative. Chest x-ray negative for acute cardiopulmonary process. Pelvis x-ray negative for acute process. X-ray lumbar spine revealing spondylitic changes negative for acute process. An EKG demonstrated multifocal atrial tachycardia. He was placed in observation and cardiology was consulted. Echocardiogram showing preserved EF of 55% and no reported structural or valvular abnormalities. Cardiology evaluated the patient and increased her blood pressure medications and felt as this was cardiac stable at this time. Patient evaluated by physical therapy and they recommneded 24/7 care. Patient did progress well during her hospital stay. Per therapy she seems very apprehensive to walk. I spoke with her son Esteban and he increased care services at [facility]. She will have 24-hour supervision and be moved into the assisted living side. She will have home PT and OT. I discussed that he should follow this up with Dr. Morrison as she has severe iron deficiency anemia and does not have any current signs of bleeding. She received IV iron X 2 during her hospital stay. She will follow-up with Dr. Morrison next week. Patient seen and examined at bedside. She is worried about falling at home. Her daughter in law is at bedside. We went over her home plan, and it appears that patient feels better about this plan. She does have some mild back pain and some COTTER and difficult sleeping. Vital signs reviewed and stable. General: nontoxic, no distress, appears at stated age Derm: warm, dry Head: atraumatic, normocephalic, symmetric Eyes: EOMI, no lid lag, anicteric sclera Mouth: no lip lesion, mucus membranes moist Cardiovascular: S1S2 reg, no murmur, positive posterior tibial pulse bilateral, Lungs: CTA bilateral, no rhonchi, no rales , no accessory muscle use Ext: no gross muscle atrophy, trace edema, no contractures Neuro: CN II-XI grossly intact, no focal neuro deficits Psych: Alert, oriented, appropriate affect A total of 45 minutes of time were spent preparing this complex discharge summary. Patient was discharged on 04/07/22. Patient Condition at Discharge: Fair Plan - Discharge Summary Discharge Rx Participant: No New Discharge Prescriptions: New Ferrous Sulfate [Iron (65 MG Elemental)] 325 mg PO W/LUNCH #30 tab ramipriL 10 mg PO DAILY #30 cap Continue Ascorbic Acid [Vitamin C] 1,000 mg PO DAILY Melatonin 1 mg PO HS metFORMIN HCL [Glucophage] 1,000 mg PO BID Zinc 50 mg PO DAILY Discontinued ramipriL 5 mg PO DAILY Discharge Medication List Ascorbic Acid [Vitamin C] 1,000 mg PO DAILY 03/15/21 [History] metFORMIN HCL [Glucophage] 1,000 mg PO BID 03/15/21 [History] Melatonin 1 mg PO HS 02/05/22 [History] Zinc 50 mg PO DAILY 02/05/22 [History] Ferrous Sulfate [Iron (65 MG Elemental)] 325 mg PO W/LUNCH #30 tab 04/08/22 [Rx] ramipriL 10 mg PO DAILY #30 cap 04/08/22 [Rx] Follow up Appointment(s)/Referral(s): Grey Morrison MD [Primary Care Provider] - 1-2 days [facility] [REFERRING] - 1 Week Patient Instructions/Handouts: Fall Prevention for Older Adults (ED), Head Injury (ED), Abrasion (ED) Activity/Diet/Wound Care/Special Instructions: Activity: as tolerated Diet: Carb consistent Wound Care: [] Special Instructions: I recommend repeat ferritin level in 6 week (Iron stores lab) Discharge Disposition: HOME WITH HOME HEALTH SERVICES
== END 2022-04-08 13:58 | disposition home health service (06) ==
LOC: EC 21:23 → EEVIPCON 04-05 00:35 → 6NMEDSUR 04-05 00:35
PROVIDERS: ADMIT Internal Medicine; ATTEND Internal Medicine
DX: S01.01XA Laceration without foreign body of scalp, initial encounter (principal); W18.30XA Fall on same level, unspecified, initial encounter; Y92.009 Unspecified place in unspecified non-institutional (private) residence as the place of occurrence of the external cause; F41.9 Anxiety disorder, unspecified; R53.1 Weakness; E11.9 Type 2 diabetes mellitus without complications; I10 Essential (primary) hypertension; I48.91 Unspecified atrial fibrillation; D72.829 Elevated white blood cell count, unspecified; D50.9 Iron deficiency anemia, unspecified; R94.5 Abnormal results of liver function studies; I47.1 Supraventricular tachycardia; F07.81 Postconcussional syndrome; R29.6 Repeated falls; I16.0 Hypertensive urgency; Z85.828 Personal history of other malignant neoplasm of skin; Z90.49 Acquired absence of other specified parts of digestive tract; Z79.84 Long term (current) use of oral hypoglycemic drugs; Z79.899 Other long term (current) drug therapy; Z20.822 Contact with and (suspected) exposure to COVID-19
CPT/HCPCS: 96365; 96366; 96372 ×5; 96361; 96375 ×2; 99285; 93005; 93306; 97116; 97530 ×2; 97163; 97535; 97166; 80053 ×2; 84443; 82728; 82550; 83540; 83550; 83735 ×2; 84100; 85025; 85027; 81001; 87635; 72100; 72170; 71045; 72125; 70450; G0378 ×4; J2270 ×3; J1200; J0696; J2916 ×2; J1885; J1644 ×4

== ENCOUNTER 2022-04-25 08:39 | Emergency (ER) | payer MEDICARE ==
[2022-04-25] MEDS ORDERED: SODIUM CHLORIDE 0.9% 1,000 ML IV STA (08:51)
[2022-04-25 08:52] VITALS: RESP 18; TEMP 97.9
[2022-04-25] MEDS ORDERED: DIPH,PERTUS(ACELL)TETVAC-LF 0.5 ML VIAL IM ONE (08:55)
[2022-04-25] MEDS ORDERED: ACETAMINOPHEN TAB 500 MG TAB PO STA (08:55)
--- NOTE | 2022-04-25 09:21 | ED ---
General Adult HPI - General Chief complaint: Syncope Stated complaint: Fall Time Seen by Provider: 04/25/22 08:43 Source: patient, EMS, RN notes reviewed, old records reviewed Mode of arrival: EMS Limitations: no limitations - History of Present Illness Initial comments: 81-year-old female with fall, likely syncopal episode. Patient was in her chair, stood and momentarily passed out. She did hit the left side of her head and had a ear injury according to EMS. The patient denies anticoagulation. She denies any preceding symptoms. She complains only of pain in the left ear. No extremity pain. No chest pain. No abdominal pain. - Related Data Home Medications Medication Instructions Recorded Confirmed Ascorbic Acid [Vitamin C] 1,000 mg PO DAILY 03/15/21 04/05/22 metFORMIN HCL [Glucophage] 1,000 mg PO BID 03/15/21 04/05/22 Melatonin 1 mg PO HS 02/05/22 04/05/22 Zinc 50 mg PO DAILY 02/05/22 04/05/22 Previous Rx's Medication Instructions Recorded Ferrous Sulfate [Iron (65 MG 325 mg PO W/LUNCH #30 tab 04/08/22 Elemental)] ramipriL 10 mg PO DAILY #30 cap 04/08/22 Cephalexin [Keflex] 500 mg PO QID 5 Days #20 cap 04/25/22 Allergies Allergy/AdvReac Type Severity Reaction Status Date / Time No Known Allergies Allergy Verified 04/25/22 08:52 Review of Systems ROS Statement: Those systems with pertinent positive or pertinent negative responses have been documented in the HPI. ROS Other: All systems not noted in ROS Statement are negative. Past Medical History Past Medical History: Cancer, Diabetes Mellitus, GERD/Reflux, Hypertension Additional Past Medical History / Comment(s): NIDDM type II, skin cancer with removal, UTIs. History of Any Multi-Drug Resistant Organisms: None Reported Past Surgical History: Appendectomy, Cholecystectomy, Orthopedic Surgery Additional Past Surgical History / Comment(s): R ankle ORIF, removal of skin cancer Past Anesthesia/Blood Transfusion Reactions: No Reported Reaction Past Psychological History: No Psychological Hx Reported Smoking Status: Never smoker Past Alcohol Use History: None Reported Past Drug Use History: None Reported - Past Family History Father Family Medical History: Cancer Additional Family Medical History / Comment(s): Myasthenia gravis Mother History Unknown: Yes Family Medical History: No Reported History Additional Family Medical History / Comment(s): Mother was healthy General Exam Limitations: no limitations General appearance: alert, in no apparent distress Head exam: Present: atraumatic, normocephalic Eye exam: Present: normal appearance, PERRL ENT exam: Present: other (Left ear superficial laceration 1 cm in length) Neck exam: Present: normal inspection. Absent: tenderness, meningismus Respiratory exam: Present: normal lung sounds bilaterally. Absent: respiratory distress, wheezes Cardiovascular Exam: Present: regular rate, normal rhythm GI/Abdominal exam: Present: soft. Absent: distended, tenderness Extremities exam: Present: normal inspection, normal capillary refill Neurological exam: Present: alert, oriented X3. Absent: motor sensory deficit Psychiatric exam: Present: normal affect, normal mood Skin exam: Present: warm, dry Course Vital Signs 04/25/22 04/25/22 08:44 11:53 Temperature 97.9 F Pulse Rate 76 64 Respiratory 18 18 Rate Blood Pressure 136/68 139/60 O2 Sat by Pulse 100 98 Oximetry EKG Findings - EKG Comments: EKG Findings:: EKG: Sinus rhythm rate of 78, CA interval 197, QRS duration 82, QTC 42, and no ST segment elevation. Procedures - Laceration Laceration #1 Consent Obtained: verbal consent Indication: laceration Site: other Size (cm): 1 Description: linear, avulsion Depth: [id number] Anesthetic Used: lidocaine 1% Anesthesia Technique: local infiltration Amount (mls): 3 Pre-repair: wound explored, irrigated extensively Type of Sutures: nylon Size of Sutures: 6-0 Number of Sutures: 3 Technique: simple, interrupted Patient Tolerated Procedure: well Additional Comments: 1 cm laceration on the left ear which does have involvement in the auricular cartilage Laceration #2 Consent Obtained: verbal consent Indication: laceration Site: scalp Size (cm): 1 Description: stellate Depth: simple, single layer Anesthetic Used: lidocaine 1% Anesthesia Technique: local infiltration Amount (mls): 2 Pre-repair: wound explored Type of Sutures: nylon Size of Sutures: 6-0 Number of Sutures: 1 Technique: simple, interrupted Patient Tolerated Procedure: well Additional Comments: 1 cm stellate laceration on the mastoid process left side Medical Decision Making - Medical Decision Making 81-year-old female from the assisted living facility status post fall likely syncopal episode. Patient is in sinus rhythm. She has stable vitals upon arrival. She has IVs head trauma with laceration to the left ear. Her tetanus is updated. Her laceration is repaired including both the left year and mastoid process. Head CT is negative for intracranial hemorrhage. Her laboratory testing is stable. She'll be covered on prophylactic antibiotics for the laceration. She is very eager for discharge. - Lab Data Result diagrams: 04/25/22 09:41 04/25/22 09:41 Lab Results 04/25/22 04/25/22 04/25/22 Range/Units 09:41 09:41 09:41 WBC 6.6 (3.8-10.6) k/uL RBC 4.41 (3.80-5.40) m/uL Hgb 11.6 (11.4-16.0) gm/dL Hct 35.1 (34.0-46.0) % MCV 79.5 L (80.0-100.0) fL MCH 26.2 (25.0-35.0) pg MCHC 33.0 (31.0-37.0) g/dL RDW 16.5 H (11.5-15.5) % Plt Count 320 (150-450) k/uL MPV 7.5 Neutrophils % 58 % Lymphocytes % 28 % Monocytes % 7 % Eosinophils % 3 % Basophils % 1 % Neutrophils # 3.8 (1.3-7.7) k/uL Lymphocytes # 1.8 (1.0-4.8) k/uL Monocytes # 0.5 (0-1.0) k/uL Eosinophils # 0.2 (0-0.7) k/uL Basophils # 0.1 (0-0.2) k/uL Anisocytosis Slight PT 11.1 (9.0-12.0) sec INR 1.0 (<1.2) APTT 31.1 H (22.0-30.0) sec Sodium 130 L (137-145) mmol/L Potassium 4.7 (3.5-5.1) mmol/L Chloride 97 L (98-107) mmol/L Carbon Dioxide 21 L (22-30) mmol/L Anion Gap 12 mmol/L BUN 16 (7-17) mg/dL Creatinine 0.78 (0.52-1.04) mg/dL Est GFR (CKD-EPI)AfAm 82 (>60 ml/min/1.73 sqM) Est GFR (CKD-EPI)NonAf 71 (>60 ml/min/1.73 sqM) Glucose 120 H (74-99) mg/dL Calcium 9.2 (8.4-10.2) mg/dL Magnesium 1.6 (1.6-2.3) mg/dL Total Bilirubin 0.7 (0.2-1.3) mg/dL AST 44 H (14-36) U/L ALT 29 (4-34) U/L Alkaline Phosphatase 189 H (38-126) U/L Troponin I (0.000-0.034) ng/mL Total Protein 7.9 (6.3-8.2) g/dL Albumin 4.1 (3.5-5.0) g/dL 04/25/22 Range/Units 09:41 WBC (3.8-10.6) k/uL RBC (3.80-5.40) m/uL Hgb (11.4-16.0) gm/dL Hct (34.0-46.0) % MCV (80.0-100.0) fL MCH (25.0-35.0) pg MCHC (31.0-37.0) g/dL RDW (11.5-15.5) % Plt Count (150-450) k/uL MPV Neutrophils % % Lymphocytes % % Monocytes % % Eosinophils % % Basophils % % Neutrophils # (1.3-7.7) k/uL Lymphocytes # (1.0-4.8) k/uL Monocytes # (0-1.0) k/uL Eosinophils # (0-0.7) k/uL Basophils # (0-0.2) k/uL Anisocytosis PT (9.0-12.0) sec INR (<1.2) APTT (22.0-30.0) sec Sodium (137-145) mmol/L Potassium (3.5-5.1) mmol/L Chloride (98-107) mmol/L Carbon Dioxide (22-30) mmol/L Anion Gap mmol/L BUN (7-17) mg/dL Creatinine (0.52-1.04) mg/dL Est GFR (CKD-EPI)AfAm (>60 ml/min/1.73 sqM) Est GFR (CKD-EPI)NonAf (>60 ml/min/1.73 sqM) Glucose (74-99) mg/dL Calcium (8.4-10.2) mg/dL Magnesium (1.6-2.3) mg/dL Total Bilirubin (0.2-1.3) mg/dL AST (14-36) U/L ALT (4-34) U/L Alkaline Phosphatase (38-126) U/L Troponin I <0.012 (0.000-0.034) ng/mL Total Protein (6.3-8.2) g/dL Albumin (3.5-5.0) g/dL Disposition Clinical Impression: Fall, Laceration, Syncope due to orthostatic hypotension Disposition: HOME SELF-CARE Condition: Fair Instructions (If sedation given, give patient instructions): Laceration (ED), Care For Your Stitches (DC), Concussion (ED) Additional Instructions: Please have sutures removed in approximately 7 days. Prescriptions: Cephalexin [Keflex] 500 mg PO QID 5 Days #20 cap Is patient prescribed a controlled substance at d/c from ED?: No Referrals: Grey Morrison MD [Primary Care Provider] - 1-2 days Time of Disposition: 12:30
[2022-04-25 09:49] LABS: Anisocytosis Slight; Basophils # (A) 0.1 k/uL (0-0.2); Basophils % (A) 1 %; Eosinophils # (A) 0.2 k/uL (0-0.7); Eosinophils % (A) 3 %; HCT 35.1 % (34.0-46.0); HGB 11.6 gm/dL (11.4-16.0); Lymphocytes # (A) 1.8 k/uL (1.0-4.8); Lymphocytes % (A) 28 %; MCH 26.2 pg (25.0-35.0); MCV 79.5 fL (80.0-100.0); Mean Platelet Volume 7.5; Monocytes # (A) 0.5 k/uL (0-1.0); Monocytes % (A) 7 %; Neutrophils # (A) 3.8 k/uL (1.3-7.7); Neutrophils % (A) 58 %; Platelet Count 320 k/uL (150-450); RBC 4.41 m/uL (3.80-5.40); RDW 16.5 % (11.5-15.5); WBC 6.6 k/uL (3.8-10.6)
[2022-04-25 10:02] LABS: Calcium 9.2 mg/dL (8.4-10.2); Total Bilirubin 0.7 mg/dL (0.2-1.3)
[2022-04-25 10:04] LABS: Potassium 4.7 mmol/L (3.5-5.1)
[2022-04-25 10:05] LABS: Albumin 4.1 g/dL (3.5-5.0); Magnesium 1.6 mg/dL (1.6-2.3); Total Protein 7.9 g/dL (6.3-8.2)
[2022-04-25 10:12] LABS: Partial Thromboplastin Time 31.1 sec (22.0-30.0); Prothrombin Time 11.1 sec (9.0-12.0)
--- NOTE | 2022-04-25 10:49 | XR ---
EXAMINATION TYPE: XR chest 2V DATE OF EXAM: 04/25/2022 10:20 AM COMPARISON: Chest radiographs from 04/05/2022 TECHNIQUE: XR chest 2V Frontal and lateral views of the chest. CLINICAL INDICATION:Female, 81 years old with history of syncope; FINDINGS: Lungs/Pleura: There is no evidence of pleural effusion, focal consolidation, or pneumothorax. Pulmonary vascularity: Unremarkable. Heart/mediastinum: Cardiomediastinal silhouette is unremarkable. Musculoskeletal: No acute osseous pathology. Other: Hiatal hernia present. IMPRESSION: No acute cardiopulmonary disease/process. No significant change from prior.
--- NOTE | 2022-04-25 11:18 | CT ---
EXAMINATION TYPE: CT brain cspine wo con CT DLP: 1239.2 mGycm, Automated exposure control for dose reduction was used. DATE OF EXAM: 04/25/2022 10:20 AM COMPARISON: CT C-spine 04/04/2022. CLINICAL INDICATION:Female, 81 years old with history of fall; Fall TECHNIQUE: Brain: Multiple axial CT images of the brain were obtained without IV contrast. Cspine: Axial CT images from the skull base to the inferior aspect of T2 we obtained without intraven ous contrast. Coronal and sagittal reformatted images were also reviewed. FINDINGS: Brain: Extra-axial spaces: No abnormal extra-axial fluid collections. Ventricular system: Within normal limits Cerebral parenchyma: No acute intraparenchymal hemorrhage or mass effect. The cruz-white junction is well differentiated. Scattered hypoattenuating areas are seen within the white matter. Cerebellum: Unremarkable. Mass effect: No evidence of midline shift. Intracranial vasculature: Atherosclerotic calcifications of the intracranial vessels. Soft tissues: Normal. Calvarium/osseous structures: No depressed skull fracture. Paranasal sinuses and mastoid air cells: Clear. Visualized orbits: Orbital contents are intact. Cervical spine: Fracture: Irregular contour to the T1 superior endplate anteriorly may be new. Osseous structures: Multilevel degenerative disc disease changes with endplate spurring and disc oste ophyte complex's. Vertebral alignment: Within normal limits. Spinal canal/Neural Foramina: No evidence of significant spinal canal narrowing. No evidence for sign ificant neural foraminal stenosis. Neck soft tissues: Prevertebral soft tissues are within normal limits. Other: The airway is patent. The lung apices are clear. IMPRESSION: 1. No acute intracranial process. 2. Irregular contour to T1 superior endplate pronounced anteriorly. Correlate with point tenderness and MRI for acute fracture. 3. Mild multilevel degenerative disc disease. 4. Scattered nonspecific white matter changes.
[2022-04-25 11:54] VITALS: BP 139/60; PULSE 64
[2022-04-25] MEDS ORDERED: LIDOCAINE 1% INJ 10MG/ML (20 ML MDV) SQ ONE (12:03)
== END 2022-04-25 12:58 | disposition home or self-care (01) ==
LOC: EC 08:39
DX: S01.312A Laceration without foreign body of left ear, initial encounter (principal); E11.9 Type 2 diabetes mellitus without complications; I10 Essential (primary) hypertension; I95.1 Orthostatic hypotension; W19.XXXA Unspecified fall, initial encounter
CPT/HCPCS: 36415; 93005; 80053; 83735; 84484; 85025; 85610; 85730; 71046; 72125; 70450; 12013; 99285; 96360; J2001

== ENCOUNTER 2022-05-20 19:50 | Observation (INO) | payer MEDICARE ==
--- NOTE | 2022-05-20 20:34 | ED ---
General Adult HPI - General Chief complaint: Chest Pain Stated complaint: Chest Pain Time Seen by Provider: 05/20/22 19:58 Source: patient, EMS, RN notes reviewed, old records reviewed Mode of arrival: EMS Limitations: no limitations - History of Present Illness Initial comments: 81-year-old female presents for evaluation of shoulder pain, jaw pain and vomiting. Patient had apparently left dinner at a restaurant and became acutely ill, vomiting multiple times. She had pain radiating to her jaw and bilateral shoulders. There was some burning right upper chest pain as well. Patient's symptoms have completely resolved at the time my evaluation. No chest pain, no abdominal pain, no nausea. She has no prior history of cardiac disease. No preceding symptoms. - Related Data Home Medications Medication Instructions Recorded Confirmed metFORMIN HCL [Glucophage] 1,000 mg PO BID@0800,199903/15/21 05/20/22 Cholecalciferol [Vitamin D3 (25 25 mcg PO DAILY@0800 05/20/22 05/20/22 Mcg = 1000 Iu)] Cyanocobalamin/Cobamamide [Vitamin 1 tab SUBLINGUAL DAILY@0805/20/22 05/20/22 B-12 5,000 Mcg Tab Sl] Ferrous Sulfate [Iron (65 MG 325 mg PO DAILY@0800 05/20/22 05/20/22 Elemental)] Ibuprofen [Motrin] 600 mg PO Q8HR PRN 05/20/22 05/20/22 Melatonin 2mg Gummies 4 mg PO HS@0800 05/20/22 05/20/22 ramipriL 10 mg PO DAILY@0800 05/20/22 05/20/22 Allergies Allergy/AdvReac Type Severity Reaction Status Date / Time No Known Allergies Allergy Verified 05/20/22 22:41 Review of Systems ROS Statement: Those systems with pertinent positive or pertinent negative responses have been documented in the HPI. ROS Other: All systems not noted in ROS Statement are negative. Past Medical History Past Medical History: Cancer, Diabetes Mellitus, GERD/Reflux, Hypertension Additional Past Medical History / Comment(s): NIDDM type II, skin cancer with removal, UTIs. History of Any Multi-Drug Resistant Organisms: None Reported Past Surgical History: Appendectomy, Cholecystectomy, Orthopedic Surgery Additional Past Surgical History / Comment(s): R ankle ORIF, removal of skin cancer Past Anesthesia/Blood Transfusion Reactions: No Reported Reaction Past Psychological History: No Psychological Hx Reported Smoking Status: Never smoker Past Alcohol Use History: None Reported Past Drug Use History: None Reported - Past Family History Father Family Medical History: Cancer Additional Family Medical History / Comment(s): Myasthenia gravis Mother History Unknown: Yes Family Medical History: No Reported History Additional Family Medical History / Comment(s): Mother was healthy General Exam Limitations: no limitations General appearance: alert, in no apparent distress Head exam: Present: atraumatic, normocephalic Eye exam: Present: normal appearance, PERRL ENT exam: Present: normal exam Neck exam: Present: normal inspection. Absent: tenderness, meningismus Respiratory exam: Present: normal lung sounds bilaterally. Absent: respiratory distress, wheezes Cardiovascular Exam: Present: regular rate, normal rhythm GI/Abdominal exam: Present: soft. Absent: distended, tenderness, guarding Extremities exam: Present: normal inspection, normal capillary refill Neurological exam: Present: alert. Absent: motor sensory deficit Psychiatric exam: Present: normal affect, normal mood Skin exam: Present: warm, dry, intact. Absent: cyanosis, diaphoretic Course Vital Signs 05/20/22 05/20/22 05/21/22 19:52 23:42 04:00 Temperature 97.0 F L 97.0 F L 97.7 F Pulse Rate 100 87 75 Respiratory 18 18 14 Rate Blood Pressure 174/65 164/70 131/56 O2 Sat by Pulse 98 99 96 Oximetry 05/21/22 06:27 Temperature Pulse Rate 67 Respiratory 16 Rate Blood Pressure 173/69 O2 Sat by Pulse 97 Oximetry - Reevaluation(s) Reevaluation #1: 05/20/22 22:09 Patient chest pain-free. EKG Findings - EKG Comments: EKG Findings:: EKG: Sinus rhythm rate of 94, DE interval 179, QRS duration 77, QTC [address] segment elevation. Medical Decision Making - Medical Decision Making 81 yo female presenting for evaluation of chest pain. Patient had typical features. No prior history of ACS. EKG is sinus rhythm. Chest x-ray is clear. There was difficulty establishing IV and laboratory testing is delayed. Given the patient's risk factors she will be kept in observation. Laboratory testing will be followed up by the admitting physician Dr. Echeverria who is aware. - Lab Data Result diagrams: 05/21/22 08:42 05/21/22 08:42 Lab Results 05/20/22 05/20/22 05/20/22 Range/Units 21:45 21:47 21:47 WBC 14.3 H (3.8-10.6) k/uL RBC 4.10 (3.80-5.40) m/uL Hgb 11.1 L (11.4-16.0) gm/dL Hct 34.1 (34.0-46.0) % MCV 83.3 (80.0-100.0) fL MCH 27.0 (25.0-35.0) pg MCHC 32.4 (31.0-37.0) g/dL RDW 16.5 H (11.5-15.5) % Plt Count 304 (150-450) k/uL MPV 8.7 Neutrophils % 84 % Lymphocytes % 8 % Monocytes % 5 % Eosinophils % 0 % Basophils % 1 % Neutrophils # 12.1 H (1.3-7.7) k/uL Lymphocytes # 1.2 (1.0-4.8) k/uL Monocytes # 0.6 (0-1.0) k/uL Eosinophils # 0.1 (0-0.7) k/uL Basophils # 0.1 (0-0.2) k/uL Anisocytosis Slight Sodium 137 (137-145) mmol/L Potassium 3.7 (3.5-5.1) mmol/L Chloride 107 (98-107) mmol/L Carbon Dioxide 18 L (22-30) mmol/L Anion Gap 12 mmol/L BUN 26 H (7-17) mg/dL Creatinine 0.80 (0.52-1.04) mg/dL Est GFR (CKD-EPI)AfAm 79 (>60 ml/min/1.73 sqM) Est GFR (CKD-EPI)NonAf 69 (>60 ml/min/1.73 sqM) Glucose 270 H (74-99) mg/dL Calcium 8.6 (8.4-10.2) mg/dL Magnesium 1.6 (1.6-2.3) mg/dL Total Bilirubin 0.3 (0.2-1.3) mg/dL AST 45 H (14-36) U/L ALT 42 H (4-34) U/L Alkaline Phosphatase 138 H (38-126) U/L Troponin I <0.012 (0.000-0.034) ng/mL Total Protein 6.6 (6.3-8.2) g/dL Albumin 3.4 L (3.5-5.0) g/dL Lipase 247 (23-300) U/L Disposition Clinical Impression: Chest pain Disposition: ADMITTED IP TO THIS HOSP Condition: Stable Is patient prescribed a controlled substance at d/c from ED?: No Time of Disposition: 22:09
--- NOTE | 2022-05-20 20:58 | XR ---
EXAMINATION: XR chest 2V DATE AND TIME: 05/20/2022 8:28 PM CLINICAL INDICATION: PHH; Chest Pain TECHNIQUE: Departmental protocol COMPARISON: 04/25/2022 FINDINGS: Lungs: The lungs are clear. Pleural spaces: The pleural spaces are negative. Mediastinum: The cardiac silhouette is not enlarged. The intrathoracic stomach is redemonstrated, sli ghtly larger than the prior study. Other: The The skeletal structures and soft tissues are negative for acute findings. IMPRESSION: 1. No definite acute process. 2. Intrathoracic stomach.
[2022-05-20] MEDS ORDERED: SODIUM CHLORIDE 0.9% 1,000 ML IV ONE (21:55)
[2022-05-20] MEDS ORDERED: NALOXONE 0.4 MG/ML 1 ML VIAL IV PRN (22:06)
[2022-05-20 22:07] LABS: Anisocytosis Slight; Basophils # (A) 0.1 k/uL (0-0.2); Basophils % (A) 1 %; Eosinophils # (A) 0.1 k/uL (0-0.7); Eosinophils % (A) 0 %; HCT 34.1 % (34.0-46.0); HGB 11.1 gm/dL (11.4-16.0); Lymphocytes # (A) 1.2 k/uL (1.0-4.8); Lymphocytes % (A) 8 %; MCHC 32.4 g/dL (31.0-37.0); MCV 83.3 fL (80.0-100.0); Mean Platelet Volume 8.7; Monocytes # (A) 0.6 k/uL (0-1.0); Monocytes % (A) 5 %; Neutrophils # (A) 12.1 k/uL (1.3-7.7); Neutrophils % (A) 84 %; Platelet Count 304 k/uL (150-450); RDW 16.5 % (11.5-15.5); WBC 14.3 k/uL (3.8-10.6)
[2022-05-20 22:16] LABS: Albumin 3.4 g/dL (3.5-5.0); Calcium 8.6 mg/dL (8.4-10.2); Magnesium 1.6 mg/dL (1.6-2.3); Potassium 3.7 mmol/L (3.5-5.1); Total Bilirubin 0.3 mg/dL (0.2-1.3); Total Protein 6.6 g/dL (6.3-8.2)
[2022-05-20 23:11] LABS: Partial Thromboplastin Time 26.3 sec (22.0-30.0)
[2022-05-20] MEDS: SODIUM CHLORIDE 0.9% 1,000 ML IV SCH (23:30)
--- NOTE | 2022-05-21 01:29 | P.HPIM ---
History of Present Illness H&P Date: 05/20/22 The patient is an 81-year-old female with a PMH of hypertension and type II DM, resident of [facility] who presents to the emergency room with complaints of chest discomfort. The patient reports that earlier tonight after she had dinner at a local restaurant, she developed severe nausea with 15-20 episodes of nonbloody emesis. She reports that at around the same time, she also discomfort involving her chest, bilateral shoulders, and up into her neck and jaw, burning and sharp in nature, 5 out of 10 on maximal intensity, lasting for up to an hour, with some associated shortness of breath. She reports that the pain had resolved by the time she arrived at the emergency room. She reported feeling at her baseline at the time of interview. She denied fever, chills, lower extremity swelling, or lower extremity pain. Chest x-ray in the emergency room revealed an intrathoracic stomach, slightly larger than prior study. EKG reveals sinus rhythm with PVCs at 94 bpm. laboratory evaluation was remarkable for leukocytosis of 14.3, troponin less than 0.012, AST 45, ALT 40, alk phos 138, glucose 270. Review of systems: Pertinent positives and negatives as discussed in HPI, a complete review of systems was performed and all other systems are negative. Physical examination: General: non toxic, no distress, appears at stated age, normal weight Derm: no unusual rashes/lesions, warm Head: atraumatic, normocephalic, symmetric Eyes: EOMI, no lid lag, anicteric sclera, pupils equal round reactive to light ENT: Nose and ears atraumatic Neck: No cervical lymphadenopathy, trachea midline, supple Mouth: no lip lesion, mucus membranes moist Cardiovascular: S1S2 reg, no murmur, positive dorsalis pedis pulse bilateral, no edema Lungs: CTA bilateral, no rhonchi, no rales, no accessory muscle use Abdominal: soft, nontender to palpation, no guarding Ext: muscle strength 5 out of 5 in all 4 extremities grossly, no gross muscle atrophy, no contractures, Neuro: CN II-XI grossly intact, no gross focal neuro deficits Psych: Alert, oriented, appropriate affect Assessment/plan Chest, shoulder, and neck discomfort following emesis -Likely secondary to multiple episodes of vomiting in setting of severe hiatal hernia -Symptoms resolved -Conservative measures with PPIs and antacids as needed Abnormal LFTs -Likely secondary to multiple episodes of vomiting -Monitor for now Leukocytosis -No signs of active infection at this time -Likely secondary to acute distress or Chronic conditions: Type II DM, hypertension -Continue with home meds DVT prophylaxis -Heparin subcu The patient is admitted with an anticipated less than 2 midnight stay for evaluation of chest pain CODE STATUS: Full Code Discussed with: Patient Anticipated discharge date: in am Anticipated discharge place: Home Past Medical History Past Medical History: Cancer, Diabetes Mellitus, GERD/Reflux, Hypertension Additional Past Medical History / Comment(s): NIDDM type II, skin cancer with removal, UTIs. History of Any Multi-Drug Resistant Organisms: None Reported Past Surgical History: Appendectomy, Cholecystectomy, Orthopedic Surgery Additional Past Surgical History / Comment(s): R ankle ORIF, removal of skin cancer Past Anesthesia/Blood Transfusion Reactions: No Reported Reaction Past Psychological History: No Psychological Hx Reported Smoking Status: Never smoker Past Alcohol Use History: None Reported Past Drug Use History: None Reported - Past Family History Father Family Medical History: Cancer Additional Family Medical History / Comment(s): Myasthenia gravis Mother History Unknown: Yes Family Medical History: No Reported History Additional Family Medical History / Comment(s): Mother was healthy Medications and Allergies Home Medications Medication Instructions Recorded Confirmed Type metFORMIN HCL [Glucophage] 1,000 mg PO BID@08,199903/15/21 05/20/22 History Cholecalciferol [Vitamin D3 (25 25 mcg PO DAILY@0800 05/20/22 05/20/22 History Mcg = 1000 Iu)] Cyanocobalamin/Cobamamide [Vitamin 1 tab SUBLINGUAL DAILY@0805/20/22 05/20/22 History B-12 5,000 Mcg Tab Sl] Ferrous Sulfate [Iron (65 MG 325 mg PO DAILY@0800 05/20/22 05/20/22 History Elemental)] Ibuprofen [Motrin] 600 mg PO Q8HR PRN 05/20/22 05/20/22 History Melatonin 2mg Gummies 4 mg PO HS@0800 05/20/22 05/20/22 History ramipriL 10 mg PO DAILY@0800 05/20/22 05/20/22 History Allergies Allergy/AdvReac Type Severity Reaction Status Date / Time No Known Allergies Allergy Verified 05/20/22 22:41 Physical Exam Vitals: Vital Signs Temp Pulse Resp BP Pulse Ox 05/20/22 19:52 97.0 F L 100 18 174/65 98 Intake and Output 05/20/22 05/20/22 05/21/22 14:59 22:59 06:59 Other: Weight 56.699 kg Results CBC & Chem 7: 05/20/22 21:47 05/20/22 21:47 Labs: Abnormal Lab Results - Last 24 Hours (Table) 05/20/22 05/20/22 Range/Units 21:47 21:47 WBC 14.3 H (3.8-10.6) k/uL Hgb 11.1 L (11.4-16.0) gm/dL RDW 16.5 H (11.5-15.5) % Neutrophils # 12.1 H (1.3-7.7) k/uL Carbon Dioxide 18 L (22-30) mmol/L BUN 26 H (7-17) mg/dL Glucose 270 H (74-99) mg/dL AST 45 H (14-36) U/L ALT 42 H (4-34) U/L Alkaline Phosphatase 138 H (38-126) U/L Albumin 3.4 L (3.5-5.0) g/dL
[2022-05-21] MEDS ORDERED: PANTOPRAZOLE 40 MG TABLET PO STA (07:48)
[2022-05-21 07:52] LABS: Glucose,Whole Blood 112 mg/dL (70-110)
[2022-05-21] MEDS ORDERED: lisinopriL 20 MG TAB PO SCH (08:00)
[2022-05-21] MEDS ORDERED: HEPARIN SODIUM,PORCINE/PF 5,000 UNIT/0.5 ML SYRINGE SQ SCH (08:00)
[2022-05-21 08:44] VITALS: BP 142/63; PULSE 66; RESP 14; TEMP 98
[2022-05-21 09:02] LABS: Anisocytosis Slight; HCT 34.5 % (34.0-46.0); HGB 11.2 gm/dL (11.4-16.0); Hypochromasia Slight; MCH 27.4 pg (25.0-35.0); MCHC 32.6 g/dL (31.0-37.0); Mean Platelet Volume 7.8; Platelet Count 280 k/uL (150-450); RDW 16.5 % (11.5-15.5); WBC 6.6 k/uL (3.8-10.6)
[2022-05-21 09:10] LABS: AST 43 U/L (14-36); African American GFR (CKD) 84 (>60 ml/min/1.73 sqM); Albumin 3.7 g/dL (3.5-5.0); Albumin/Globulin Ratio 1.1; Anion Gap 9 mmol/L; Blood Urea Nitrogen 22 mg/dL (7-17); Calcium 8.8 mg/dL (8.4-10.2); Carbon Dioxide 23 mmol/L (22-30); Chloride 107 mmol/L (98-107); Globulin 3.4 g/dL; Glucose 148 mg/dL (74-99); Non-African American GFR(CKD) 73 (>60 ml/min/1.73 sqM); Potassium 3.6 mmol/L (3.5-5.1); Sodium 139 mmol/L (137-145); Total Bilirubin 0.5 mg/dL (0.2-1.3); Total Protein 7.1 g/dL (6.3-8.2)
[2022-05-21 09:15] LABS: ALT 47 U/L (4-34); Alkaline Phosphatase 143 U/L (38-126)
[2022-05-21] MEDS: INSULIN ASPART (NovoLOG) 100 UNIT/ML VIAL SQ SCH ×2 (09:31→12:55)
--- NOTE | 2022-05-21 09:55 | P.DS ---
Providers Date of admission: 05/20/22 22:06 Expected date of discharge: 05/21/22 Attending physician: Jalen Echeverria MD Primary care physician: Grey Morrison Hospital Course: Discharge Diagnosis: Noncardiac chest discomfort related to emesis Gastroenteritis, suspect food related Abnormal LFTs Leukocytosis, resolved Type II DM, hypertension Hospital Course: The patient is an 81-year-old female with hypertension, GERD and type II DM, resident of [facility] who presented to the emergency room with complaints of chest discomfort and several episode of vomiting. Chest x-ray in the emergency room revealed an intrathoracic stomach, slightly larger than prior study. EKG reveals sinus rhythm with PVCs at 94 bpm. laboratory evaluation was remarkable for leukocytosis of 14.3, troponin less than 0.012, AST 45, ALT 40, alk phos 138, glucose 270. She was monitored overnight. Her troponins remained negative. Her nausea and vomiting remained abated. She was able to tolerate a diet. She is determined stable for discharge home. Follow-up: Dr. Fermin in 1-2 days. She was told to use [id number] Tums or Pepcid should she have acid reflux after this event. We discussed that she has a hiatal hernia which may need to be followed. Patient seen and examined at bedside. No additional chest pain, nausea, vomiting, tolerating diet. Vital signs reviewed and stable. General: nontoxic, no distress, appears at stated age Derm: warm, dry Head: atraumatic, normocephalic, symmetric Eyes: EOMI, no lid lag, anicteric sclera Mouth: no lip lesion, mucus membranes moist Cardiovascular: S1S2 reg, no murmur, positive posterior tibial pulse bilateral, Lungs: CTA bilateral, no rhonchi, no rales , no accessory muscle use Abdominal: soft, nontender to palpation, no guarding, no appreciable organomegaly Ext: no gross muscle atrophy, no edema, no contractures Neuro: CN II-XI grossly intact, no focal neuro deficits Psych: Alert, oriented, appropriate affect A total of 25 minutes of time were spent preparing this complex discharge summary. Patient was discharged on 05/21/22. Patient Condition at Discharge: Stable Plan - Discharge Summary New Discharge Prescriptions: Continue Ibuprofen [Motrin] 600 mg PO Q8HR PRN PRN Reason: Pain Or Fever > 100.5 Melatonin 2mg Gummies 4 mg PO HS@0800 Ferrous Sulfate [Iron (65 MG Elemental)] 325 mg PO DAILY@0800 Cyanocobalamin/Cobamamide [Vitamin B-12 5,000 Mcg Tab Sl] 1 tab SUBLINGUAL DAILY@0800 metFORMIN HCL [Glucophage] 1,000 mg PO BID@ Cholecalciferol [Vitamin D3 (25 Mcg = 1000 Iu)] 25 mcg PO DAILY@0800 ramipriL 10 mg PO DAILY@0800 Discharge Medication List metFORMIN HCL [Glucophage] 1,000 mg PO BID@799,199903/15/21 [History] Cholecalciferol [Vitamin D3 (25 Mcg = 1000 Iu)] 25 mcg PO DAILY@0800 05/20/22 [History] Cyanocobalamin/Cobamamide [Vitamin B-12 5,000 Mcg Tab Sl] 1 tab SUBLINGUAL DAILY@0800 05/20/22 [History] Ferrous Sulfate [Iron (65 MG Elemental)] 325 mg PO DAILY@0800 05/20/22 [History] Ibuprofen [Motrin] 600 mg PO Q8HR PRN 05/20/22 [History] Melatonin 2mg Gummies 4 mg PO HS@0800 05/20/22 [History] ramipriL 10 mg PO DAILY@0800 05/20/22 [History] Follow up Appointment(s)/Referral(s): Grey Morrison MD [Primary Care Provider] - 1-2 days Patient Instructions/Handouts: Hiatal Hernia (DC) Activity/Diet/Wound Care/Special Instructions: Activity: as tolerated Diet: regular Special Instructions: You may have some heartburn for a few days after this episode. You can take over the counter tums or pepcid to help if needed. You do have a hiatal hernia which can be monitored with your primary doctor (a hernia where some of your stomach elevates into the area that contains your lungs). Discharge Disposition: HOME SELF-CARE
[2022-05-21] MEDS: SODIUM CHLORIDE 0.9% 1,000 ML IV SCH (12:33)
== END 2022-05-21 13:00 | disposition home or self-care (01) ==
LOC: EC 19:50 → 6NMEDSUR 22:06
PROVIDERS: ADMIT Internal Medicine; ATTEND Internal Medicine
DX: R07.89 Other chest pain (principal); K52.9 Noninfective gastroenteritis and colitis, unspecified; R79.89 Other specified abnormal findings of blood chemistry; E11.9 Type 2 diabetes mellitus without complications; K21.9 Gastro-esophageal reflux disease without esophagitis; I10 Essential (primary) hypertension; K44.9 Diaphragmatic hernia without obstruction or gangrene; Z90.49 Acquired absence of other specified parts of digestive tract; Z79.84 Long term (current) use of oral hypoglycemic drugs; Z79.899 Other long term (current) drug therapy; Z80.9 Family history of malignant neoplasm, unspecified; Z85.828 Personal history of other malignant neoplasm of skin
CPT/HCPCS: 96360; 99285; 36415; 93005; 80053 ×2; 83690; 83735; 84484 ×2; 85025; 85027; 85610; 85730; 71046; G0378 ×2

== ENCOUNTER 2023-03-27 12:17 | Inpatient (IN) | payer MEDICARE ==
[2023-03-27] MEDS ORDERED: SODIUM CHLORIDE 0.9% 1,000 ML IV STA (12:25)
[2023-03-27] MEDS ORDERED: KETOROLAC 15 MG/ML 1 ML VIAL IVP STA (12:26)
--- NOTE | 2023-03-27 12:44 | ED ---
Weakness HPI - General Chief complaint: Weakness Stated complaint: Weakness Time Seen by Provider: 03/27/23 12:19 Source: patient, family, EMS, RN notes reviewed Mode of arrival: EMS Limitations: physical limitation - History of Present Illness Initial comments: This is an 82-year-old female who presents to the emergency department for generalized weakness. Patient states that she feels generally ill and unwell, and has so for the last 1-2 days. Describes generalized body aches and weakness as being her most prominent symptoms. When asked about chest pain, she states that she does have chest pain, however she has pain everywhere and does not bel ieve that this is specific to her chest. She does report associated coughing and congestion as well. Unsure if there have been any sick contacts. Her family states that she is usually unhappy about going to the hospital, but was willing to this time. She is somewhat slow to respond, but is alert and oriented 4. After her family arrived, they said that she's been having frequent falls over the last couple of weeks as well. They also state that she seems to have declined by about 25% just from yesterday to today, which greatly concerned them. Patient has been continuing to refuse to go to the hospital until today, at which time she put up less of a fight and her son subsequently called EMS. Her son does note that she was recently treated for a UTI, but cannot recall which antibiotic she was on. She did require 2 antibiotics, as the first one was not shown to be strong enough, and the patient refused to go in for a recheck after completion of the second antibiotic. MD Complaint: generalized weakness - Related Data Home Medications Medication Instructions Recorded Confirmed metFORMIN HCL [Glucophage] 1,000 mg PO BID 03/15/21 03/27/23 Cholecalciferol [Vitamin D3 (25 25 mcg PO DAILY 05/20/22 03/27/23 Mcg = 1000 Iu)] Ferrous Sulfate [Iron (65 MG 325 mg PO DAILY 05/20/22 03/27/23 Elemental)] Ibuprofen [Motrin] 600 mg PO BID PRN 05/20/22 03/27/23 ramipriL 10 mg PO DAILY 05/20/22 03/27/23 Allergies Allergy/AdvReac Type Severity Reaction Status Date / Time Penicillins Allergy Unknown Verified 03/27/23 14:02 Childhood Review of Systems ROS Statement: Those systems with pertinent positive or pertinent negative responses have been documented in the HPI. ROS Other: All systems not noted in ROS Statement are negative. Past Medical History Past Medical History: Cancer, Diabetes Mellitus, GERD/Reflux, Hypertension Additional Past Medical History / Comment(s): NIDDM type II, skin cancer with removal, UTIs. History of Any Multi-Drug Resistant Organisms: None Reported Past Surgical History: Appendectomy, Cholecystectomy, Orthopedic Surgery Additional Past Surgical History / Comment(s): R ankle ORIF, removal of skin cancer Past Anesthesia/Blood Transfusion Reactions: No Reported Reaction Past Psychological History: No Psychological Hx Reported Smoking Status: Never smoker Past Alcohol Use History: None Reported Past Drug Use History: None Reported - Past Family History Father Family Medical History: Cancer Additional Family Medical History / Comment(s): Myasthenia gravis Mother History Unknown: Yes Family Medical History: No Reported History Additional Family Medical History / Comment(s): Mother was healthy General Exam Limitations: physical limitation General appearance: alert, in no apparent distress Head exam: Present: atraumatic, normocephalic, normal inspection Respiratory exam: Present: normal lung sounds bilaterally. Absent: respiratory distress, wheezes, rales, rhonchi, stridor Cardiovascular Exam: Present: regular rate, normal rhythm, normal heart sounds. Absent: systolic murmur, diastolic murmur, rubs, gallop, clicks Neurological exam: Present: alert, oriented X3, CN II-XII intact Psychiatric exam: Present: normal affect, normal mood Skin exam: Present: warm, dry, intact, normal color. Absent: rash Course Vital Signs 03/27/23 03/27/23 03/27/23 12:22 13:30 14:34 Temperature 96.6 F L Pulse Rate 84 80 82 Respiratory 18 18 18 Rate Blood Pressure 128/54 142/49 152/53 O2 Sat by Pulse 97 98 98 Oximetry 03/27/23 03/27/23 16:00 17:00 Temperature Pulse Rate 87 86 Respiratory 18 18 Rate Blood Pressure 110/73 113/41 O2 Sat by Pulse 97 98 Oximetry Medical Decision Making - Medical Decision Making This is an 82-year-old female who presents to the emergency department for generalized weakness. Was pt. sent in by a medical professional or institution? @ -No Did you speak to anyone other than the patient for history? @ -EMS provided the information with regards to the weakness, and that she usually does not like to come to hospitals. Her family provided the information about frequent falls and recently being treated for a UTI. Did you review nursing and triage notes? @ -Yes, and I agree, it is accurate with regards to the patient's symptoms. Were old charts reviewed? @ -No Differential Diagnosis? @ -Differential Weakness: Hypoglycemia, shock, sepsis, hyponatremia, anemia, infection, NC, ETOH, adverse medicine reaction, overdose, stroke, this is not meant to be an all-inclusive list. EKG interpreted by me (3pts min.)? @ -EKG interpreted by me demonstrating the following: Sinus rhythm. Ventricular rate 83 beats per minute, UT interval 201 ms, QRS duration 98 ms, QTC 392 ms. -EKG was repeated at 1455 due to the sueding machine tender reading possible atrial fibrillation, this revealed sinus tachycardia with frequent PVCs. Ventricular rate 100 beats per minute, UT interval 181 ms, QRS duration 87 ms, QTC 380 ms. X-rays interpreted by me (1pt min.)? @ -Chest x-ray obtained, my interpretation identifies no localized consolidations or infiltrates. CT interpreted by me (1pt min.)? @ -Not obtained U/S interpreted by me (1pt. min.)? @ -Not obtained What testing was considered but not performed? (CT, X-rays, U/S, labs)? Why? @ -None What meds were considered but not given? Why? @ -None Did you discuss the management of the patient with other professionals? @ -Yes, Dr. Barreto, nephrology, who advised 1g of calcium gluconate, an additional ampule of bicarb, and starting a D5 drip with 150mL of sodium bicarb (3 amps) at a rate of 150 mL/hr. I then spoke with Dr. Cadet, who accepts the patient for admission. Did you reconcile home meds? @ -No Was smoking cessation discussed for >3mins.? @ -No Was critical care preformed (if so, how long)? @ -No Were there social determinants of health that impacted care today? How? (Homelessness, low income, unemployed, alcoholism, drug addiction, transportation, low edu. Level, literacy, decrease access to med. care, senior care, rehab)? @ -No Was there de-escalation of care discussed even if they declined? (Discuss DNR or withdrawal of care, Hospice)? @ -No What co-morbidities impacted this encounter? (DM, HTN, Smoking, COPD, CAD, Cancer, CVA, Hep., AIDS, mental health diagnosis, sleep apnea, morbid obesity)? @ -DM, HTN Was patient admitted / discharged? @ -Admitted. Lab work obtained revealing leukocytosis and multiple electrolyte irregularities including hyperkalemia with a potassium of 6.3, Na of 124, and a CO2 <5. Patient is also in acute renal failure with a creatinine of 5.72. Patient has no history of renal failure in the past. Troponin is also elevated, likely secondary to the findings above. Chest x-ray reveals no acute process. Of note, patient had been given 15mg of Toradol for body aches, which was administered before blood work returned. This would not have been given had her blood work resulted beforehand. After receiving these results, venous blood gas, a serum osmolality, and creatinine kinase were added onto her blood work and the CK and serum osmolality were found to be only mildly elevated. Harper catheter was also initiated and urinalysis was suggestive of infection. 1g of Ceftriaxone was administered. Urine and blood cultures were obtained. Per nursing staff, her urine had the appearance of "pea soup". Patient initially given a hyperkalemia cocktail consisting of insulin, sodium bicarb, and Lokelma. I spoke with nephrology, who also advised 1gm of calcium gluconate, an additional ampule of bicarb, and starting her on a D5 drip with 150 mL of sodium bicarb at a rate of 150 mL/hr, with plan to repeat her BMP 2 hours after medication is administered. The medications were subsequently ordered along with a repeat BMP ordered for 2 hours later. Patient admitted to medicine for further management. Nephrology listed as consult. Undiagnosed new problem with uncertain prognosis? @ -None Drug Therapy requiring intensive monitoring for toxicity (Heparin, Nitro, Insulin, Cardizem)? @ -None Were any procedures done? @ -None Diagnosis/symptom? @ -Hyperkalemia, hypocarbia, weakness, acute renal failure, UTI Acute, or Chronic, or Acute on Chronic? @ -Acute Uncomplicated (without systemic symptoms) or Complicated (systemic symptoms)? @ -Complicated Side effects of treatment? @ -None Exacerbation, Progression, or Severe Exacerbation] @ -Not applicable Poses a threat to life or bodily function? @ -Yes This case was discussed in detail with the attending ED physician, Dr. Kang. Presentation, findings, and treatment plan discussed in detail as well. - Lab Data Result diagrams: 03/27/23 12:41 03/27/23 16:43 Lab Results 03/27/23 03/27/23 03/27/23 Range/Units 12:25 12:41 12:41 WBC 13.7 H (3.8-10.6) k/uL RBC 4.65 (3.80-5.40) m/uL Hgb 13.4 (11.4-16.0) gm/dL Hct 39.6 (34.0-46.0) % MCV 85.2 (80.0-100.0) fL MCH 28.7 (25.0-35.0) pg MCHC 33.7 (31.0-37.0) g/dL RDW 13.1 (11.5-15.5) % Plt Count 328 (150-450) k/uL MPV 8.0 Neutrophils % 85 % Lymphocytes % 9 % Monocytes % 4 % Eosinophils % 0 % Basophils % 0 % Neutrophils # 11.6 H (1.3-7.7) k/uL Lymphocytes # 1.2 (1.0-4.8) k/uL Monocytes # 0.5 (0-1.0) k/uL Eosinophils # 0.0 (0-0.7) k/uL Basophils # 0.1 (0-0.2) k/uL PT 10.2 (9.0-12.0) sec INR 1.0 (<1.2) APTT 34.3 H (22.0-30.0) sec VBG pH (7.31-7.41) VBG pCO2 (37-51) mmHg VBG HCO3 (24-28) mmol/L Sodium (137-145) mmol/L Potassium (3.5-5.1) mmol/L Chloride (98-107) mmol/L Carbon Dioxide (22-30) mmol/L Anion Gap mmol/L BUN (7-17) mg/dL Creatinine (0.52-1.04) mg/dL Est GFR (CKD-EPI)AfAm (>60 ml/min/1.73 sqM) Est GFR (CKD-EPI)NonAf (>60 ml/min/1.73 sqM) Glucose (74-99) mg/dL Osmolality (280-301) mosm/kg Plasma Lactic Acid Hair (0.7-2.0) mmol/L Calcium (8.4-10.2) mg/dL Magnesium (1.6-2.3) mg/dL Total Bilirubin (0.2-1.3) mg/dL AST (14-36) U/L ALT (4-34) U/L Alkaline Phosphatase (38-126) U/L Creatine Kinase (30-135) U/L Troponin I (0.000-0.034) ng/mL Total Protein (6.3-8.2) g/dL Albumin (3.5-5.0) g/dL Urine Appearance Turbid H (Clear) Urine RBC >182 H (0-5) /hpf Urine WBC >182 H (0-5) /hpf Urine WBC Clumps Many H (None) /hpf Urine Bacteria Few H (None) /hpf Influenza Type A (PCR) (Not Detectd) Influenza Type B (PCR) (Not Detectd) RSV (PCR) (Not Detectd) SARS-CoV-2 (PCR) (Not Detectd) 03/27/23 03/27/23 03/27/23 Range/Units 12:41 12:41 12:41 WBC (3.8-10.6) k/uL RBC (3.80-5.40) m/uL Hgb (11.4-16.0) gm/dL Hct (34.0-46.0) % MCV (80.0-100.0) fL MCH (25.0-35.0) pg MCHC (31.0-37.0) g/dL RDW (11.5-15.5) % Plt Count (150-450) k/uL MPV Neutrophils % % Lymphocytes % % Monocytes % % Eosinophils % % Basophils % % Neutrophils # (1.3-7.7) k/uL Lymphocytes # (1.0-4.8) k/uL Monocytes # (0-1.0) k/uL Eosinophils # (0-0.7) k/uL Basophils # (0-0.2) k/uL PT (9.0-12.0) sec INR (<1.2) APTT (22.0-30.0) sec VBG pH (7.31-7.41) VBG pCO2 (37-51) mmHg VBG HCO3 (24-28) mmol/L Sodium 124 L (137-145) mmol/L Potassium 6.3 H* (3.5-5.1) mmol/L Chloride 99 (98-107) mmol/L Carbon Dioxide <5 L* (22-30) mmol/L Anion Gap mmol/L BUN 92 H (7-17) mg/dL Creatinine 5.72 H (0.52-1.04) mg/dL Est GFR (CKD-EPI)AfAm 7 (>60 ml/min/1.73 sqM) Est GFR (CKD-EPI)NonAf 6 (>60 ml/min/1.73 sqM) Glucose 185 H (74-99) mg/dL Osmolality (280-301) mosm/kg Plasma Lactic Acid Hair 2.0 (0.7-2.0) mmol/L Calcium 9.0 (8.4-10.2) mg/dL Magnesium 2.0 (1.6-2.3) mg/dL Total Bilirubin 0.4 (0.2-1.3) mg/dL AST 25 (14-36) U/L ALT 16 (4-34) U/L Alkaline Phosphatase 111 (38-126) U/L Creatine Kinase (30-135) U/L Troponin I 0.067 H* (0.000-0.034) ng/mL Total Protein 7.6 (6.3-8.2) g/dL Albumin 3.8 (3.5-5.0) g/dL Urine Appearance (Clear) Urine RBC (0-5) /hpf Urine WBC (0-5) /hpf Urine WBC Clumps (None) /hpf Urine Bacteria (None) /hpf Influenza Type A (PCR) (Not Detectd) Influenza Type B (PCR) (Not Detectd) RSV (PCR) (Not Detectd) SARS-CoV-2 (PCR) (Not Detectd) 03/27/23 03/27/23 03/27/23 Range/Units 12:41 12:48 16:43 WBC (3.8-10.6) k/uL RBC (3.80-5.40) m/uL Hgb (11.4-16.0) gm/dL Hct (34.0-46.0) % MCV (80.0-100.0) fL MCH (25.0-35.0) pg MCHC (31.0-37.0) g/dL RDW (11.5-15.5) % Plt Count (150-450) k/uL MPV Neutrophils % % Lymphocytes % % Monocytes % % Eosinophils % % Basophils % % Neutrophils # (1.3-7.7) k/uL Lymphocytes # (1.0-4.8) k/uL Monocytes # (0-1.0) k/uL Eosinophils # (0-0.7) k/uL Basophils # (0-0.2) k/uL PT (9.0-12.0) sec INR (<1.2) APTT (22.0-30.0) sec VBG pH (7.31-7.41) VBG pCO2 (37-51) mmHg VBG HCO3 (24-28) mmol/L Sodium 129 L (137-145) mmol/L Potassium 4.9 (3.5-5.1) mmol/L Chloride 98 (98-107) mmol/L Carbon Dioxide 12 L (22-30) mmol/L Anion Gap 19 mmol/L BUN 93 H (7-17) mg/dL Creatinine 4.99 H (0.52-1.04) mg/dL Est GFR (CKD-EPI)AfAm 9 (>60 ml/min/1.73 sqM) Est GFR (CKD-EPI)NonAf 7 (>60 ml/min/1.73 sqM) Glucose 62 L (74-99) mg/dL Osmolality 302 H (280-301) mosm/kg Plasma Lactic Acid Hair (0.7-2.0) mmol/L Calcium 8.7 (8.4-10.2) mg/dL Magnesium 1.8 (1.6-2.3) mg/dL Total Bilirubin (0.2-1.3) mg/dL AST (14-36) U/L ALT (4-34) U/L Alkaline Phosphatase (38-126) U/L Creatine Kinase 172 H (30-135) U/L Troponin I (0.000-0.034) ng/mL Total Protein (6.3-8.2) g/dL Albumin (3.5-5.0) g/dL Urine Appearance (Clear) Urine RBC (0-5) /hpf Urine WBC (0-5) /hpf Urine WBC Clumps (None) /hpf Urine Bacteria (None) /hpf Influenza Type A (PCR) Not Detected (Not Detectd) Influenza Type B (PCR) Not Detected (Not Detectd) RSV (PCR) Not Detected (Not Detectd) SARS-CoV-2 (PCR) Not Detected (Not Detectd) 03/27/23 Range/Units 17:30 WBC (3.8-10.6) k/uL RBC (3.80-5.40) m/uL Hgb (11.4-16.0) gm/dL Hct (34.0-46.0) % MCV (80.0-100.0) fL MCH (25.0-35.0) pg MCHC (31.0-37.0) g/dL RDW (11.5-15.5) % Plt Count (150-450) k/uL MPV Neutrophils % % Lymphocytes % % Monocytes % % Eosinophils % % Basophils % % Neutrophils # (1.3-7.7) k/uL Lymphocytes # (1.0-4.8) k/uL Monocytes # (0-1.0) k/uL Eosinophils # (0-0.7) k/uL Basophils # (0-0.2) k/uL PT (9.0-12.0) sec INR (<1.2) APTT (22.0-30.0) sec VBG pH 7.48 H (7.31-7.41) VBG pCO2 15 L* (37-51) mmHg VBG HCO3 11 L (24-28) mmol/L Sodium (137-145) mmol/L Potassium (3.5-5.1) mmol/L Chloride (98-107) mmol/L Carbon Dioxide (22-30) mmol/L Anion Gap mmol/L BUN (7-17) mg/dL Creatinine (0.52-1.04) mg/dL Est GFR (CKD-EPI)AfAm (>60 ml/min/1.73 sqM) Est GFR (CKD-EPI)NonAf (>60 ml/min/1.73 sqM) Glucose (74-99) mg/dL Osmolality (280-301) mosm/kg Plasma Lactic Acid Hair (0.7-2.0) mmol/L Calcium (8.4-10.2) mg/dL Magnesium (1.6-2.3) mg/dL Total Bilirubin (0.2-1.3) mg/dL AST (14-36) U/L ALT (4-34) U/L Alkaline Phosphatase (38-126) U/L Creatine Kinase (30-135) U/L Troponin I (0.000-0.034) ng/mL Total Protein (6.3-8.2) g/dL Albumin (3.5-5.0) g/dL Urine Appearance (Clear) Urine RBC (0-5) /hpf Urine WBC (0-5) /hpf Urine WBC Clumps (None) /hpf Urine Bacteria (None) /hpf Influenza Type A (PCR) (Not Detectd) Influenza Type B (PCR) (Not Detectd) RSV (PCR) (Not Detectd) SARS-CoV-2 (PCR) (Not Detectd) - Radiology Data Radiology results: report reviewed, image reviewed Disposition Clinical Impression: Hyperkalemia, Hypocarbia, Weakness, Acute kidney failure, UTI (urinary tract infection) Disposition: ADMITTED IP TO THIS HOSP
[2023-03-27 12:54] LABS: Basophils # (A) 0.1 k/uL (0-0.2); Basophils % (A) 0 %; Eosinophils % (A) 0 %; HCT 39.6 % (34.0-46.0); HGB 13.4 gm/dL (11.4-16.0); Lymphocytes # (A) 1.2 k/uL (1.0-4.8); Lymphocytes % (A) 9 %; MCH 28.7 pg (25.0-35.0); MCHC 33.7 g/dL (31.0-37.0); MCV 85.2 fL (80.0-100.0); Monocytes # (A) 0.5 k/uL (0-1.0); Monocytes % (A) 4 %; Neutrophils # (A) 11.6 k/uL (1.3-7.7); Neutrophils % (A) 85 %; Platelet Count 328 k/uL (150-450); RBC 4.65 m/uL (3.80-5.40); RDW 13.1 % (11.5-15.5); WBC 13.7 k/uL (3.8-10.6)
[2023-03-27 13:09] LABS: Partial Thromboplastin Time 34.3 sec (22.0-30.0); Prothrombin Time 10.2 sec (9.0-12.0)
[2023-03-27 13:10] LABS: ALT 16 U/L (4-34); AST 25 U/L (14-36); African American GFR (CKD) 7 (>60 ml/min/1.73 sqM); Albumin 3.8 g/dL (3.5-5.0); Alkaline Phosphatase 111 U/L (38-126); Blood Urea Nitrogen 92 mg/dL (7-17); Chloride 99 mmol/L (98-107); Glucose 185 mg/dL (74-99); Non-African American GFR(CKD) 6 (>60 ml/min/1.73 sqM); Sodium 124 mmol/L (137-145); Total Bilirubin 0.4 mg/dL (0.2-1.3); Total Protein 7.6 g/dL (6.3-8.2)
--- NOTE | 2023-03-27 13:26 | XR ---
EXAMINATION TYPE: XR chest 2V DATE OF EXAM: 03/27/2023 1:21 PM COMPARISON: Chest radiographs from 05/20/2022 TECHNIQUE: XR chest 2V Frontal and lateral views of the chest. CLINICAL INDICATION:Female, 82 years old with history of Weakness; FINDINGS: Lungs/Pleura: There is flattening of the diaphragm with increased lucency of the lungs. No evidence o f pneumothorax, pleural effusion or focal consolidation. Pulmonary vascularity: Unremarkable. Heart/mediastinum: Cardiomediastinal silhouette is unremarkable. Atherosclerotic calcifications are seen in the aorta. Musculoskeletal: No acute osseous pathology. Other findings: Large hiatal hernia. IMPRESSION: 1. No acute cardiopulmonary disease/process. 2. COPD changes. 3. Large hiatal hernia.
[2023-03-27 13:28] LABS: Potassium 6.3 mmol/L (3.5-5.1)
[2023-03-27 13:29] LABS: Carbon Dioxide <5 mmol/L (22-30)
[2023-03-27] MEDS ORDERED: INSULIN REGULAR 100 UNIT/ML VIAL (IV) IV ONE (13:40)
[2023-03-27] MEDS ORDERED: SODIUM ZIRCONIUM CYCLOSILICATE 10 GM PACKET PO ONE (13:40)
[2023-03-27] MEDS ORDERED: SODIUM BICARB 8.4% 50 ML SYR (1 MEQ/ML) IV ONE (13:40)
[2023-03-27] MEDS ORDERED: DEXTROSE 50% SYRINGE 50 ML IVP ONE (13:40)
[2023-03-27] MEDS ORDERED: DEXTROSE 10% IN WATER 500 ML in EMPTY BAG 1 BAG IV SCH (13:45)
[2023-03-27] MEDS ORDERED: CALCIUM GLUCONATE IN NACL 1 GM in SALINE 1 100ML.BAG IVPB ONE (13:51)
[2023-03-27] MEDS ORDERED: SODIUM BICARB 8.4% 50 ML SYR (1 MEQ/ML) IV STA (13:51)
[2023-03-27] MEDS ORDERED: ACETAMINOPHEN TAB 325 MG TAB PO PRN (14:15)
[2023-03-27] MEDS ORDERED: ONDANSETRON 4 MG/2 ML VIAL IVP PRN (14:15)
[2023-03-27] MEDS ORDERED: NALOXONE 0.4 MG/ML 1 ML VIAL IV PRN (14:15)
[2023-03-27 14:43] LABS: Bacteria,Urine Few /hpf; RBC,Urine >182 /hpf (0-5); WBC,Urine >182 /hpf (0-5)
[2023-03-27 14:45] LABS: Appearance,Urine Turbid (Clear)
[2023-03-27] MEDS: DEXTROSE 5% IN WATER 1,000 ML with SODIUM BICARB (1 MEQ/ML) 150 ML IV SCH ×2 (15:16→23:01)
[2023-03-27 15:27] LABS: Creatine Kinase 172 U/L (30-135)
[2023-03-27] MEDS ORDERED: cefTRIAXone IN SWFI 1,000 MG/10 ML SYRINGE IVP STA (15:31)
[2023-03-27 17:24] LABS: African American GFR (CKD) 9 (>60 ml/min/1.73 sqM); Anion Gap 19 mmol/L; Blood Urea Nitrogen 93 mg/dL (7-17); Calcium 8.7 mg/dL (8.4-10.2); Carbon Dioxide 12 mmol/L (22-30); Chloride 98 mmol/L (98-107); Glucose 62 mg/dL (74-99); Magnesium 1.8 mg/dL (1.6-2.3); Non-African American GFR(CKD) 7 (>60 ml/min/1.73 sqM); Potassium 4.9 mmol/L (3.5-5.1); Sodium 129 mmol/L (137-145)
[2023-03-27] MEDS: HYDROcodone/APAP 5-325MG 1 EACH TAB PO PRN (17:24)
[2023-03-27 17:56] LABS: VBG PH 7.48 (7.31-7.41)
[2023-03-27 18:49] LABS: Glucose,Whole Blood 118 mg/dL (70-110)
[2023-03-27 20:09] LABS: Glucose,Whole Blood 97 mg/dL (70-110)
--- NOTE | 2023-03-27 20:38 | P.HPIM ---
History of Present Illness H&P Date: 03/27/23 Chief Complaint: Weakness 82-year-old female who presents to the emergency department for generalized weakness. Patient states that she feels generally ill and unwell, and has so for the last 1-2 days. Describes generalized body aches and weakness as being her most prominent symptoms. When asked about chest pain, she states that she does have chest pain, however she has pain everywhere and does not believe that this is specific to her chest. She does report associated coughing and congestion as well. Unsure if there have been any sick contacts. Her family states that she is usually unhappy about going to the hospital, but was willing to this time. She is somewhat slow to respond, but is alert and oriented 4. After her family arrived, they said that she's been having frequent falls over the last couple of weeks as well. They also state that she seems to have declined by about 25% just from yesterday to today, which greatly concerned them. Patient has been continuing to refuse to go to the hospital until today, at which time she put up less of a fight and her son subsequently called EMS. Her son does note that she was recently treated for a UTI, but cannot recall which antibiotic she was on. She did require 2 antibiotics, as the first one was not shown to be strong enough, and the patient refused to go in for a recheck after completion of the second antibiotic. EKG interpreted by me demonstrating the following: Sinus rhythm. Ventricular ra te 83 beats per minute, CT interval 201 ms, QRS duration 98 ms, QTC 392 ms. EKG was repeated at 1455 due to the monitor and storage bin tender reading possible atrial fibrillation, this revealed sinus tachycardia with frequent PVCs. Ventricular rate 100 beats per minute, CT interval 181 ms, QRS duration 87 ms, QTC 380 ms. Chest x-ray obtained- no localized consolidations or infiltrates. Lab work obtained revealing leukocytosis and multiple electrolyte irregularities including hyperkalemia with a potassium of 6.3, Na of 124, and a CO2 <5. Patient is also in acute renal failure with a creatinine of 5.72. Troponin is also elevated, likely secondary to the findings above. CK and serum osmolality were found to be only mildly elevated. Harper catheter was also initiated and urinalysis was suggestive of infection. 1g of Ceftriaxone was administered. Urine and blood cultures were obtained. Per nursing staff, her urine had the appearance of "pea soup". Patient initially given a hyperkalemia cocktail consisting of insulin, sodium bicarb, and Lokelma; nephrology, also advised 1gm of calcium gluconate, an additional ampule of bicarb, and starting her on a D5 drip with 150 mL of sodium bicarb at a rate of 150 mL/hr, with plan to repeat her BMP 2 hours after medication is administered. Review of Systems REVIEW OF SYSTEMS: CONSTITUTIONAL: No fever, no malaise, no fatigue. HEENT: No recent visual problems or hearing problems. Denied any sore throat. CARDIOVASCULAR: No chest pain, orthopnea, PND, no palpitations, no syncope. PULMONARY: No shortness of breath, no cough, no hemoptysis. GASTROINTESTINAL: No diarrhea, no nausea, no vomiting, no abdominal pain. NEUROLOGICAL: No headaches, no weakness, no numbness. HEMATOLOGICAL: Denies any bleeding or petechiae. GENITOURINARY: Denies any burning micturition, frequency, or urgency. MUSCULOSKELETAL/RHEUMATOLOGICAL: Denies any joint pain, swelling, or any muscle pain. ENDOCRINE: Denies any polyuria or polydipsia. The rest of the 14-point review of systems is negative. ROS unobtainable: due to mental status Past Medical History Past Medical History: Cancer, Diabetes Mellitus, GERD/Reflux, Hypertension Additional Past Medical History / Comment(s): NIDDM type II, skin cancer with removal, UTIs. History of Any Multi-Drug Resistant Organisms: None Reported Past Surgical History: Appendectomy, Cholecystectomy, Orthopedic Surgery Additional Past Surgical History / Comment(s): R ankle ORIF, removal of skin cancer Past Anesthesia/Blood Transfusion Reactions: No Reported Reaction Past Psychological History: No Psychological Hx Reported Smoking Status: Never smoker Past Alcohol Use History: None Reported Past Drug Use History: None Reported - Past Family History Father Family Medical History: Cancer Additional Family Medical History / Comment(s): Myasthenia gravis Mother History Unknown: Yes Family Medical History: No Reported History Additional Family Medical History / Comment(s): Mother was healthy Medications and Allergies Home Medications Medication Instructions Recorded Confirmed Type metFORMIN HCL [Glucophage] 1,000 mg PO BID 03/15/21 03/27/23 History Cholecalciferol [Vitamin D3 (25 25 mcg PO DAILY 05/20/22 03/27/23 History Mcg = 1000 Iu)] Ferrous Sulfate [Iron (65 MG 325 mg PO DAILY 05/20/22 03/27/23 History Elemental)] Ibuprofen [Motrin] 600 mg PO BID PRN 05/20/22 03/27/23 History ramipriL 10 mg PO DAILY 05/20/22 03/27/23 History Allergies Allergy/AdvReac Type Severity Reaction Status Date / Time Penicillins Allergy Unknown Verified 03/27/23 14:02 Childhood Physical Exam Vitals: Vital Signs Temp Pulse Resp BP Pulse Ox 03/27/23 12:22 96.6 F L 84 18 128/54 97 Intake and Output 03/26/23 03/27/23 03/27/23 22:59 06:59 14:59 Other: Weight 51.71 kg General appearance: alert, in no apparent distress Head exam: Present: atraumatic, normocephalic, normal inspection Respiratory exam: Present: normal lung sounds bilaterally. Absent: respiratory distress, wheezes, rales, rhonchi, stridor Cardiovascular Exam: Present: regular rate, normal rhythm, normal heart sounds. Absent: systolic murmur, diastolic murmur, rubs, gallop, clicks Neurological exam: Present: alert, oriented X3, CN II-XII intact Psychiatric exam: Present: normal affect, normal mood Skin exam: Present: warm, dry, intact, normal color. Absent: rash Results CBC & Chem 7: 03/27/23 12:41 03/27/23 17:26 Labs: Abnormal Lab Results - Last 24 Hours (Table) 03/27/23 03/27/23 03/27/23 Range/Units 12:41 12:41 12:41 WBC 13.7 H (3.8-10.6) k/uL Neutrophils # 11.6 H (1.3-7.7) k/uL APTT 34.3 H (22.0-30.0) sec Sodium 124 L (137-145) mmol/L Potassium 6.3 H* (3.5-5.1) mmol/L Carbon Dioxide <5 L* (22-30) mmol/L BUN 92 H (7-17) mg/dL Creatinine 5.72 H (0.52-1.04) mg/dL Glucose 185 H (74-99) mg/dL Troponin I (0.000-0.034) ng/mL 03/27/23 Range/Units 12:41 WBC (3.8-10.6) k/uL Neutrophils # (1.3-7.7) k/uL APTT (22.0-30.0) sec Sodium (137-145) mmol/L Potassium (3.5-5.1) mmol/L Carbon Dioxide (22-30) mmol/L BUN (7-17) mg/dL Creatinine (0.52-1.04) mg/dL Glucose (74-99) mg/dL Troponin I 0.067 H* (0.000-0.034) ng/mL Assessment and Plan Assessment: 1. Acute renal failure; patient has been placed on IV fluid hydration with D5 water with 1 50 mL of sodium bicarbonate at a rate of 1 50 mL an hour; and a strict MISAEL's, daily weights, renal function and electrolytes; avoid nephrotoxins and hypotension 2. Critical hyperkalemia; hyperkalemia cocktail consisting of insulin, sodium bicarbonate, calcium gluconate envelope, was administered in ED; we will monitor electrolytes closely 3. UTI; patient received Rocephin 1 g IV in ED; we will continue current dose; further recommendations once urine and blood cultures are available 4. Metabolic acidosis; patient received 1 amp of bicarbonate and has been placed on D5 drip with 150 mils of sodium bicarbonate at rate of 1 50 mL per hour; monitor basic metabolic panel closely 5. Elevated troponin; likely related to acute renal failure/UTI/sepsis; we will trend troponin and monitor EKG 6. Diabetes mellitus type 2; patient takes Glucophage 1000 mg twice a day; we will place on hold and start patient on Accu-Cheks every before meals and at bedtime with insulin sliding scale while inpatient 7. Hypertension; patient takes ramipril 10 mg daily; we will hold given acute renal failure; add IV hydralazine to be used when necessary DVT prophylaxis; SCDs/subcu heparin CODE STATUS; full code
[2023-03-27] MEDS: INSULIN ASPART (NovoLOG) 100 UNIT/ML VIAL SQ SCH (23:01)
[2023-03-28 01:48] LABS: Glucose,Whole Blood 127 mg/dL (70-110)
[2023-03-28 06:11] LABS: Glucose,Whole Blood 171 mg/dL (70-110)
[2023-03-28] MEDS: INSULIN ASPART (NovoLOG) 100 UNIT/ML VIAL SQ SCH ×4 (06:33→20:20)
[2023-03-28] MEDS: DEXTROSE 5% IN WATER 1,000 ML with SODIUM BICARB (1 MEQ/ML) 150 ML IV SCH (06:34)
[2023-03-28 10:04] LABS: Basophils % (A) 1 %; Eosinophils # (A) 0.1 k/uL (0-0.7); Eosinophils % (A) 2 %; HCT 31.2 % (34.0-46.0); HGB 11.1 gm/dL (11.4-16.0); Lymphocytes # (A) 1.5 k/uL (1.0-4.8); Lymphocytes % (A) 18 %; MCH 28.9 pg (25.0-35.0); MCHC 35.5 g/dL (31.0-37.0); MCV 81.3 fL (80.0-100.0); Mean Platelet Volume 7.9; Monocytes # (A) 0.6 k/uL (0-1.0); Monocytes % (A) 7 %; Neutrophils # (A) 5.6 k/uL (1.3-7.7); Neutrophils % (A) 70 %; Platelet Count 256 k/uL (150-450); RBC 3.83 m/uL (3.80-5.40); RDW 12.8 % (11.5-15.5); WBC 8.1 k/uL (3.8-10.6)
[2023-03-28 10:20] LABS: African American GFR (CKD) 11 (>60 ml/min/1.73 sqM); Anion Gap 11 mmol/L; Blood Urea Nitrogen 88 mg/dL (7-17); Calcium 7.8 mg/dL (8.4-10.2); Carbon Dioxide 23 mmol/L (22-30); Chloride 93 mmol/L (98-107); Glucose 144 mg/dL (74-99); Magnesium 1.6 mg/dL (1.6-2.3); Non-African American GFR(CKD) 10 (>60 ml/min/1.73 sqM); Potassium 3.5 mmol/L (3.5-5.1); Sodium 127 mmol/L (137-145)
[2023-03-28 10:21] LABS: African American GFR (CKD) 12 (>60 ml/min/1.73 sqM); Anion Gap 11 mmol/L; Blood Urea Nitrogen 89 mg/dL (7-17); Calcium 7.8 mg/dL (8.4-10.2); Carbon Dioxide 23 mmol/L (22-30); Chloride 93 mmol/L (98-107); Glucose 142 mg/dL (74-99); Magnesium 1.6 mg/dL (1.6-2.3); Non-African American GFR(CKD) 10 (>60 ml/min/1.73 sqM); Potassium 3.5 mmol/L (3.5-5.1); Sodium 127 mmol/L (137-145)
[2023-03-28] MEDS ORDERED: POTASSIUM CHLORIDE ER 20 MEQ TAB.ER PO STA (10:32)
--- NOTE | 2023-03-28 10:35 | P.NPCON ---
History of Present Illness - Reason for Consult acute renal failure - History of Present Illness Reason for consultation: Acute kidney injury History of present illness: Patient is a 82-year-old female seen in consultation for acute kidney injury. Patient's baseline creatinine is near 0.8 from April 2022 and was elevated at 5.7 to this admission. It is down to 3.83 today. Potassium was elevated at 6.3 and is down to 3.5 today. Patient was severely acidotic with bicarb level of less than 5 and is up to 23 today. She is currently maintained on bicarb drip. Urine output documented as 550 mL. Patient is a poor historian. She doesn't really recall why she is in the hospital. States oral intake has been poor. She does admit to taking Motrin as needed for pain. She was also on lisinopril as well as metformin which are both currently held. Blood pressures controlled. She denies vomiting or diarrhea. No edema. No chest pain or shortness of breath. Chest x-ray showed large hiatal hernia no acute cardiopulmonary process. Vital signs are stable. General: No acute distress. HEENT: Head exam is unremarkable. LUNGS: No audible rhonchi or wheezes. HEART: Rate and Rhythm are regular. ABDOMEN: Nontender. EXTREMITITES: No edema. Past Medical History Past Medical History: Cancer, Diabetes Mellitus, GERD/Reflux, Hypertension Additional Past Medical History / Comment(s): NIDDM type II, skin cancer with removal, UTIs. History of Any Multi-Drug Resistant Organisms: None Reported Past Surgical History: Appendectomy, Cholecystectomy, Orthopedic Surgery Additional Past Surgical History / Comment(s): R ankle ORIF, removal of skin cancer Past Anesthesia/Blood Transfusion Reactions: No Reported Reaction Smoking Status: Never smoker - Past Family History Father Family Medical History: Cancer Additional Family Medical History / Comment(s): Myasthenia gravis Mother History Unknown: Yes Family Medical History: No Reported History Additional Family Medical History / Comment(s): Mother was healthy Medications and Allergies Home Medications Medication Instructions Recorded Confirmed Type metFORMIN HCL [Glucophage] 1,000 mg PO BID 03/15/21 03/27/23 History Cholecalciferol [Vitamin D3 (25 25 mcg PO DAILY 05/20/22 03/27/23 History Mcg = 1000 Iu)] Ferrous Sulfate [Iron (65 MG 325 mg PO DAILY 05/20/22 03/27/23 History Elemental)] Ibuprofen [Motrin] 600 mg PO BID PRN 05/20/22 03/27/23 History ramipriL 10 mg PO DAILY 05/20/22 03/27/23 History Allergies Allergy/AdvReac Type Severity Reaction Status Date / Time Penicillins Allergy Unknown Verified 03/27/23 14:02 Childhood Physical Exam Vitals: Vital Signs Temp Pulse Pulse Pulse Resp BP BP 03/28/23 08:15 97.8 F 78 18 102/46 03/28/23 04:00 97.9 F 66 18 113/66 03/28/23 02:00 71 16 03/27/23 23:20 71 16 104/56 03/27/23 20:00 98.2 F 84 18 101/47 03/27/23 18:20 97.5 F L 76 16 94/36 03/27/23 17:00 86 18 113/41 03/27/23 16:00 87 18 110/73 03/27/23 14:34 82 18 152/53 03/27/23 13:30 80 18 142/49 03/27/23 12:22 96.6 F L 84 18 128/54 Pulse Ox 03/28/23 08:15 98 03/28/23 04:00 97 03/28/23 02:00 03/27/23 23:20 97 03/27/23 20:00 99 03/27/23 18:20 99 03/27/23 17:00 98 03/27/23 16:00 97 03/27/23 14:34 98 03/27/23 13:30 98 03/27/23 12:22 97 Intake and Output 03/27/23 03/28/23 03/28/23 22:59 06:59 14:59 Intake Total 110 Output Total 300 250 Balance -300 -250 110 Intake: Oral 110 Output: Urine 300 250 Other: Voiding Method Indwelling Catheter Indwelling Catheter Weight 51.71 kg 52.163 kg Results - Lab Results Most recent lab results Calcium 7.8 mg/dL (8.4-10.2) L 03/28/23 09:24 Calcium 7.8 mg/dL (8.4-10.2) L 03/28/23 09:24 Magnesium 1.6 mg/dL (1.6-2.3) 03/28/23 09:24 Magnesium 1.6 mg/dL (1.6-2.3) 03/28/23 09:24 03/28/23 09:24 03/28/23 09:24 Assessment and Plan Plan: Assessment: 1. Acute kidney injury secondary to ATN secondary to hypovolemia, further worsened with the use of NSAIDs and MICHELLE inhibitor. Creatinine 5.7-1 admission and is 3.83 today. Recent creatinine near 0.8 from April 2022. 2. Metabolic acidosis secondary to acute kidney injury and metformin. Improved. 3. Hyponatremia, hypovolemic and also component of poor solute intake. 4. Hyperkalemia secondary to acute kidney injury, acidosis, NSAIDs and MICHELLE inhibitor. Improved. 5. Diabetes mellitus. 6. UTI on antibiotics. Plan: Stop bicarb drip. Start normal saline at 75 mL an hour. 1200 mL free water restriction. Encourage oral intake. Check renal ultrasound. Avoid nephrotoxins. Follow cultures. Continue to monitor renal function and urine output. Thank you for the consultation. I will continue to follow the patient with you during her hospital stay.
[2023-03-28 11:20] LABS: Glucose,Whole Blood 177 mg/dL (70-110)
--- NOTE | 2023-03-28 11:48 | US ---
EXAMINATION TYPE: US kidneys/renal and bladder DATE OF EXAM: 03/28/2023 COMPARISON: NONE CLINICAL INDICATION: Female, 82 years old with history of fuentes; EXAM MEASUREMENTS: Right Kidney: 9.2 x 5.5 x 5.2 cm Left Kidney: 11.0 x 5.7 x 3.9 cm Right Kidney: No obstructive uropathy or renal contrast. Cortical medullary definition maintained. Left Kidney: No obstructive uropathy or renal contrast. Cortical medullary Bladder: Harper catheter in place. IMPRESSION: 1. No evidence for obstructive uropathy. 2. Cortical medullary differentiation is maintained.
[2023-03-28] MEDS: SODIUM CHLORIDE 0.9% 1,000 ML IV SCH (12:22)
--- NOTE | 2023-03-28 14:51 | P.CRDCN ---
History of Present Illness Consult date: 03/28/23 History of present illness: History of Present Illness: The patient is an 82-year-old female who presented with symptoms of progressive weakness, nausea and vomiting and not feeling well. Cardiology consultation was requested for evidence of atrial fibrillation. I am not able to the dictated history from the patient but she says that she's feeling ill. She has some vague symptoms of chest discomfort as well as dyspnea. She has occasional palpitation. On presentation she was noted to have significant worsening of her renal function. Apparently she has not been doing well for the last few weeks until she came into the hospital. On presentation she was in sinus mechanism subsequently sinus mechanism with PACs and now in atrial fibrillation with rapid ventricle response. She had mild troponin elevation. She has a prior history of hypertension and diabetes. During an admission in March [id number] she was in sinus mechanism with multifocal atrial tachycardia but not atrial fibrillation. On admission her potassium was 6.3, creatinine 5.72 and her troponin 0.067. Her peak troponin is 0.088 and her most recent creatinine is 3.83. Medications: Ramipril 10 mg daily, metformin 1 g twice a day, ibuprofen, iron Review of Systems: Respiratory: She has dyspnea on exertion but no recent wheezing GI: She has nausea and vomiting but no abdominal pain : No hematuria or dysuria. Nervous System: No stroke or seizure. Physical Examination: 82-year-old female with appears to be acutely ill ,Blood pressure 102/50, Heart rate 70 Head: Normocephalic. Eyes: Sclerae nonicteric. Neck: Good carotid upstroke, no bruit, no jugular venous distention. Lungs: Clear to auscultation. Heart: Irregular rate and rhythm, S1-S2, no S3, no rub. Systolic ejection murmur. Abdomen: Soft nontender, positive bowel sounds no organomegaly. Extremities: No edema, intact distal pulses. Labs: Today potassium 3.5, hemoglobin 11.1, BUN 89, creatinine 3.83, troponin 0.088. Pro-calcitonin 0.27 chest x-ray with evidence of large hiatal hernia with no infiltrate EKG: Sinus mechanism rate of 83 with early repolarization changes, EKG daily shows atrial fibrillation with rapid ventricular response Impression: 1. Acute renal injury, patient had normal renal function in April 2022 2. Atrial fibrillation, new onset, could be related to the electrolytes and metabolic imbalance 3. Troponin elevation, probably representing type II event in the setting of acute renal failure 4. History of hypertension 5. History of diabetes Plan: 1. Start IV heparin 2. IV Cardizem 3. Obtain an echocardiogram with Doppler 4. Obtain TSH 5. Follow renal functions 6. Depending on her progress further recommendations will be made, thank you for this consult we will follow with you. Past Medical History Past Medical History: Cancer, Diabetes Mellitus, GERD/Reflux, Hypertension Additional Past Medical History / Comment(s): NIDDM type II, skin cancer with removal, UTIs. History of Any Multi-Drug Resistant Organisms: None Reported Past Surgical History: Appendectomy, Cholecystectomy, Orthopedic Surgery Additional Past Surgical History / Comment(s): R ankle ORIF, removal of skin cancer Past Anesthesia/Blood Transfusion Reactions: No Reported Reaction Smoking Status: Never smoker - Past Family History Father Family Medical History: Cancer Additional Family Medical History / Comment(s): Myasthenia gravis Mother History Unknown: Yes Family Medical History: No Reported History Additional Family Medical History / Comment(s): Mother was healthy Medications and Allergies Home Medications Medication Instructions Recorded Confirmed Type metFORMIN HCL [Glucophage] 1,000 mg PO BID 03/15/21 03/27/23 History Cholecalciferol [Vitamin D3 (25 25 mcg PO DAILY 05/20/22 03/27/23 History Mcg = 1000 Iu)] Ferrous Sulfate [Iron (65 MG 325 mg PO DAILY 05/20/22 03/27/23 History Elemental)] Ibuprofen [Motrin] 600 mg PO BID PRN 05/20/22 03/27/23 History ramipriL 10 mg PO DAILY 05/20/22 03/27/23 History Allergies Allergy/AdvReac Type Severity Reaction Status Date / Time Penicillins Allergy Unknown Verified 03/27/23 14:02 Childhood Physical Exam Vitals: Vital Signs Temp Pulse Pulse Pulse Resp BP BP 03/28/23 08:15 97.8 F 78 18 102/46 03/28/23 04:00 97.9 F 66 18 113/66 03/28/23 02:00 71 16 03/27/23 23:20 71 16 104/56 03/27/23 20:00 98.2 F 84 18 101/47 03/27/23 18:20 97.5 F L 76 16 94/36 03/27/23 17:00 86 18 113/41 03/27/23 16:00 87 18 110/73 Pulse Ox 03/28/23 08:15 98 03/28/23 04:00 97 03/28/23 02:00 03/27/23 23:20 97 03/27/23 20:00 99 03/27/23 18:20 99 03/27/23 17:00 98 03/27/23 16:00 97 Intake and Output 03/27/23 03/28/23 03/28/23 22:59 06:59 14:59 Intake Total 110 Output Total 300 250 200 Balance -300 -250 -90 Intake: Oral 110 Output: Urine 300 250 200 Other: Voiding Method Indwelling Catheter Indwelling Catheter Indwelling Catheter Weight 51.71 kg 52.163 kg Results 03/28/23 09:24 03/28/23 09:24 Cardiac Enzymes 03/28/23 Range/Units 09:24 Troponin I 0.088 H* (0.000-0.034) ng/mL CBC 03/28/23 Range/Units 09:24 WBC 8.1 (3.8-10.6) k/uL RBC 3.83 (3.80-5.40) m/uL Hgb 11.1 L (11.4-16.0) gm/dL Hct 31.2 L (34.0-46.0) % Plt Count 256 (150-450) k/uL Comprehensive Metabolic Panel 03/27/23 03/27/23 03/28/23 Range/Units 16:43 17:26 09:24 Sodium 129 L 127 L (137-145) mmol/L Potassium 4.9 4.9 3.5 (3.5-5.1) mmol/L Chloride 98 93 L (98-107) mmol/L Carbon Dioxide 12 L 23 (22-30) mmol/L BUN 93 H 88 H (7-17) mg/dL Creatinine 4.99 H 3.99 H (0.52-1.04) mg/dL Glucose 62 L 144 H (74-99) mg/dL Calcium 8.7 7.8 L (8.4-10.2) mg/dL 03/28/23 Range/Units 09:24 Sodium 127 L (137-145) mmol/L Potassium 3.5 (3.5-5.1) mmol/L Chloride 93 L (98-107) mmol/L Carbon Dioxide 23 (22-30) mmol/L BUN 89 H (7-17) mg/dL Creatinine 3.83 H (0.52-1.04) mg/dL Glucose 142 H (74-99) mg/dL Calcium 7.8 L (8.4-10.2) mg/dL Current Medications Generic Name Dose Route Start Last Admin Trade Name Freq PRN Reason Stop Dose Admin Acetaminophen 650 mg 03/27/23 14:15 Acetaminophen Tab 325 Mg Tab PO Q6HR PRN Mild Pain or Fever > 100.5 Hydrocodone Bitart/Acetaminophen 1 each 03/27/23 14:15 03/27/23 17:24 Hydrocodone/Apap 5-325mg 1 Each Tab PO 1 each Q4HR PRN Administration Moderate Pain (Scale 4 to 6) Heparin Sodium (Porcine) 5,000 unit 03/28/23 21:00 Heparin Sodium,Porcine 5,000 Unit/Ml 1 Ml Vial SQ Q12HR JUAN CARLOS Sodium Chloride 1,000 mls @ 75 mls/hr 03/28/23 10:45 03/28/23 12:22 Saline 0.9% IV 75 mls/hr .[id number] JUAN CARLOS Administration Ceftriaxone Sodium 1 gm/ 50 mls @ 100 mls/hr 03/28/23 13:00 Sodium Chloride IVPB Q12HR JUAN CARLOS Protocol Insulin Aspart 0 unit 03/27/23 21:00 03/28/23 12:22 Insulin Aspart (Novolog) 100 Unit/Ml Vial SQ 04/03/23 21:01 1 unit ACHS JUAN CARLOS Administration Protocol Loratadine 10 mg 03/28/23 13:00 Loratadine 10 Mg Tab PO DAILY JUAN CARLOS Naloxone HCl 0.2 mg 03/27/23 14:15 Naloxone 0.4 Mg/Ml 1 Ml Vial IV Q2M PRN Opioid Reversal Ondansetron HCl 4 mg 03/27/23 14:15 Ondansetron 4 Mg/2 Ml Vial IVP Q8HR PRN Nausea And Vomiting Intake and Output 03/27/23 03/28/23 03/28/23 22:59 06:59 14:59 Intake Total 110 Output Total 300 250 200 Balance -300 -250 -90 Intake: Oral 110 Output: Urine 300 250 200 Other: Voiding Method Indwelling Catheter Indwelling Catheter Indwelling Catheter Weight 51.71 kg 52.163 kg 03/28/23 09:24 03/28/23 09:24
[2023-03-28] MEDS ORDERED: HEPARIN SODIUM 1,000 UN/ML (10ML VL) IV ONE (14:52)
[2023-03-28] MEDS ORDERED: HEPARIN SODIUM 1,000 UN/ML (10ML VL) IV PRN (14:52)
[2023-03-28] MEDS ORDERED: DILTIAZEM DRIP BOLUS FROM BAG 1 MG SOLN IV ONE (14:54)
[2023-03-28] MEDS ORDERED: HEPARIN SOD,PORK IN 0.45% NACL 25,000 UNIT in 0.45% NACL 1 250ML.BAG IV SCH (15:00)
[2023-03-28] MEDS ORDERED: DILTIAZEM 125 MG in SODIUM CHLORIDE 0.9% 100 ML IV SCH (15:00)
[2023-03-28] MEDS: METOPROLOL TARTRATE 25 MG TAB PO SCH ×2 (16:10→20:23)
[2023-03-28] MEDS: LORATADINE 10 MG TAB PO SCH (16:12)
[2023-03-28 16:18] LABS: Basophils # (A) 0.1 k/uL (0-0.2); Basophils % (A) 1 %; Eosinophils # (A) 0.1 k/uL (0-0.7); Eosinophils % (A) 1 %; HCT 33.3 % (34.0-46.0); HGB 11.8 gm/dL (11.4-16.0); Lymphocytes % (A) 11 %; MCHC 35.5 g/dL (31.0-37.0); MCV 81.8 fL (80.0-100.0); Mean Platelet Volume 8.2; Monocytes # (A) 0.6 k/uL (0-1.0); Monocytes % (A) 6 %; Neutrophils # (A) 7.9 k/uL (1.3-7.7); Neutrophils % (A) 81 %; Platelet Count 252 k/uL (150-450); RBC 4.07 m/uL (3.80-5.40); RDW 12.7 % (11.5-15.5); WBC 9.8 k/uL (3.8-10.6)
[2023-03-28 16:23] LABS: Partial Thromboplastin Time 29.4 sec (22.0-30.0); Prothrombin Time 10.3 sec (9.0-12.0)
[2023-03-28 16:26] LABS: Magnesium 1.6 mg/dL (1.6-2.3)
[2023-03-28 16:32] LABS: Glucose,Whole Blood 145 mg/dL (70-110)
[2023-03-28 19:56] LABS: Glucose,Whole Blood 126 mg/dL (70-110)
[2023-03-28] MEDS ORDERED: HEPARIN SODIUM,PORCINE 5,000 UNIT/ML 1 ML VIAL SQ SCH (21:00)
--- NOTE | 2023-03-28 23:19 | P.CONS ---
History of Present Illness - Reason for Consult Consult date: 03/28/23 - History of Present Illness Patient is a 82-year-old female with a past medical history significant for diabetes mellitus reflux hypertension history of skin cancer and UTI presenting to the hospital yesterday afternoon for evaluation of generalized weakness apparently the patient has not been feeling well for the last day or 2 before presentation to the hospital and has been complaining of generalized body aches and weakness patient denies having any headache no chest pain shortness of breath or cough no nausea no vomiting no abdominal pain or any diarrhea patient on presentation to the hospital was afebrile and a fever has been recorded subsequently patient did have a white count of 13.7 with a left shift BUN/creatinine has been elevated liver enzymes are normal urine has been positive influenza RSV and COVID testing was negative patient did have a chest x-ray no acute cardiopulmonary disease process COPD changes patient did have a abdominal bladder ultrasound no evidence for obstructive uropathy patient currently on ceftriaxone infectious disease was consulted for further management of antibiotic therapy Past Medical History Past Medical History: Cancer, Diabetes Mellitus, GERD/Reflux, Hypertension Additional Past Medical History / Comment(s): NIDDM type II, skin cancer with removal, UTIs. History of Any Multi-Drug Resistant Organisms: None Reported Past Surgical History: Appendectomy, Cholecystectomy, Orthopedic Surgery Additional Past Surgical History / Comment(s): R ankle ORIF, removal of skin cancer Past Anesthesia/Blood Transfusion Reactions: No Reported Reaction Smoking Status: Never smoker - Past Family History Father Family Medical History: Cancer Additional Family Medical History / Comment(s): Myasthenia gravis Mother History Unknown: Yes Family Medical History: No Reported History Additional Family Medical History / Comment(s): Mother was healthy Medications and Allergies Home Medications Medication Instructions Recorded Confirmed Type metFORMIN HCL [Glucophage] 1,000 mg PO BID 03/15/21 03/27/23 History Cholecalciferol [Vitamin D3 (25 25 mcg PO DAILY 05/20/22 03/27/23 History Mcg = 1000 Iu)] Ferrous Sulfate [Iron (65 MG 325 mg PO DAILY 05/20/22 03/27/23 History Elemental)] Ibuprofen [Motrin] 600 mg PO BID PRN 05/20/22 03/27/23 History ramipriL 10 mg PO DAILY 05/20/22 03/27/23 History Allergies Allergy/AdvReac Type Severity Reaction Status Date / Time Penicillins Allergy Unknown Verified 03/27/23 14:02 Childhood Physical Exam Vitals: Vital Signs Temp Pulse Pulse Pulse Resp BP BP 03/28/23 12:20 97.9 F 89 16 93/52 03/28/23 08:15 97.8 F 78 18 102/46 03/28/23 04:00 97.9 F 66 18 113/66 03/28/23 02:00 71 16 03/27/23 23:20 71 16 104/56 03/27/23 20:00 98.2 F 84 18 101/47 03/27/23 18:20 97.5 F L 76 16 94/36 03/27/23 17:00 86 18 113/41 03/27/23 16:00 87 18 110/73 Pulse Ox 03/28/23 12:20 96 03/28/23 08:15 98 03/28/23 04:00 97 03/28/23 02:00 03/27/23 23:20 97 03/27/23 20:00 99 03/27/23 18:20 99 03/27/23 17:00 98 03/27/23 16:00 97 Intake and Output 03/28/23 03/28/23 03/28/23 06:59 14:59 22:59 Intake Total 110 Output Total 250 200 Balance -250 -90 Intake: Oral 110 Output: Urine 250 200 Other: Voiding Method Indwelling Catheter Indwelling Catheter Weight 52.163 kg Results CBC & Chem 7: 03/29/23 03:23 03/29/23 03:23 Labs: Abnormal Lab Results - Last 24 Hours (Table) 03/27/23 03/27/23 03/27/23 Range/Units 12:41 16:43 17:30 Hgb (11.4-16.0) gm/dL Hct (34.0-46.0) % VBG pH 7.48 H (7.31-7.41) VBG pCO2 15 L* (37-51) mmHg VBG HCO3 11 L (24-28) mmol/L Sodium 129 L (137-145) mmol/L Chloride (98-107) mmol/L Carbon Dioxide 12 L (22-30) mmol/L BUN 93 H (7-17) mg/dL Creatinine 4.99 H (0.52-1.04) mg/dL Glucose 62 L (74-99) mg/dL POC Glucose (mg/dL) (70-110) mg/dL Osmolality 302 H (280-301) mosm/kg Calcium (8.4-10.2) mg/dL Troponin I (0.000-0.034) ng/mL Procalcitonin (0.02-0.09) ng/mL 03/27/23 03/28/23 03/28/23 Range/Units 18:47 01:47 06:10 Hgb (11.4-16.0) gm/dL Hct (34.0-46.0) % VBG pH (7.31-7.41) VBG pCO2 (37-51) mmHg VBG HCO3 (24-28) mmol/L Sodium (137-145) mmol/L Chloride (98-107) mmol/L Carbon Dioxide (22-30) mmol/L BUN (7-17) mg/dL Creatinine (0.52-1.04) mg/dL Glucose (74-99) mg/dL POC Glucose (mg/dL) 118 H 127 H 171 H (70-110) mg/dL Osmolality (280-301) mosm/kg Calcium (8.4-10.2) mg/dL Troponin I (0.000-0.034) ng/mL Procalcitonin (0.02-0.09) ng/mL 03/28/23 03/28/23 03/28/23 Range/Units 09:24 09:24 09:24 Hgb 11.1 L (11.4-16.0) gm/dL Hct 31.2 L (34.0-46.0) % VBG pH (7.31-7.41) VBG pCO2 (37-51) mmHg VBG HCO3 (24-28) mmol/L Sodium (137-145) mmol/L Chloride (98-107) mmol/L Carbon Dioxide (22-30) mmol/L BUN (7-17) mg/dL Creatinine (0.52-1.04) mg/dL Glucose (74-99) mg/dL POC Glucose (mg/dL) (70-110) mg/dL Osmolality (280-301) mosm/kg Calcium (8.4-10.2) mg/dL Troponin I 0.088 H* (0.000-0.034) ng/mL Procalcitonin 0.27 H (0.02-0.09) ng/mL 03/28/23 03/28/23 03/28/23 Range/Units 09:24 09:24 11:16 Hgb (11.4-16.0) gm/dL Hct (34.0-46.0) % VBG pH (7.31-7.41) VBG pCO2 (37-51) mmHg VBG HCO3 (24-28) mmol/L Sodium 127 L 127 L (137-145) mmol/L Chloride 93 L 93 L (98-107) mmol/L Carbon Dioxide (22-30) mmol/L BUN 88 H 89 H (7-17) mg/dL Creatinine 3.99 H 3.83 H (0.52-1.04) mg/dL Glucose 144 H 142 H (74-99) mg/dL POC Glucose (mg/dL) 177 H (70-110) mg/dL Osmolality (280-301) mosm/kg Calcium 7.8 L 7.8 L (8.4-10.2) mg/dL Troponin I (0.000-0.034) ng/mL Procalcitonin (0.02-0.09) ng/mL Assessment and Plan Plan: 1patient present hospitalized weakness no energy did have some urinary symptoms of decreased urine output along with some burning positive UA concerning for symptomatic UTI likely from middle gram-negative pathogen. 2patient with renal insufficiency and high risk of nephrotoxicity ultrasound was negative for any obstructive uropathy. 3patient to continue Rocephin 1 g daily while waiting for the culture to finalize. We will follow on clinical condition and cultures to further adjust medication if needed Thank you for this consultation we will follow the patient along with you Dictation was produced using [employer] dictation software. please excuse any grammatical, word or spelling errors. Time with Patient: Greater than 30
[2023-03-29] MEDS: SODIUM CHLORIDE 0.9% 1,000 ML IV SCH ×3 (00:01→21:49)
[2023-03-29 03:39] LABS: Basophils % (A) 0 %; Eosinophils % (A) 0 %; HCT 30.9 % (34.0-46.0); HGB 10.5 gm/dL (11.4-16.0); Lymphocytes # (A) 2.1 k/uL (1.0-4.8); Lymphocytes % (A) 28 %; MCH 28.5 pg (25.0-35.0); MCV 83.8 fL (80.0-100.0); Mean Platelet Volume 8.1; Monocytes # (A) 0.6 k/uL (0-1.0); Monocytes % (A) 9 %; Neutrophils # (A) 4.5 k/uL (1.3-7.7); Neutrophils % (A) 60 %; Platelet Count 208 k/uL (150-450); RBC 3.69 m/uL (3.80-5.40); WBC 7.5 k/uL (3.8-10.6)
[2023-03-29 03:47] LABS: Prothrombin Time 10.7 sec (9.0-12.0)
[2023-03-29 03:52] LABS: African American GFR (CKD) 22 (>60 ml/min/1.73 sqM); Anion Gap 8 mmol/L; Blood Urea Nitrogen 73 mg/dL (7-17); Calcium 7.9 mg/dL (8.4-10.2); Carbon Dioxide 23 mmol/L (22-30); Chloride 97 mmol/L (98-107); Glucose 101 mg/dL (74-99); Magnesium 1.5 mg/dL (1.6-2.3); Non-African American GFR(CKD) 19 (>60 ml/min/1.73 sqM); Potassium 3.2 mmol/L (3.5-5.1); Sodium 128 mmol/L (137-145)
[2023-03-29 06:32] LABS: Glucose,Whole Blood 118 mg/dL (70-110)
[2023-03-29] MEDS: INSULIN ASPART (NovoLOG) 100 UNIT/ML VIAL SQ SCH ×4 (06:32→21:13)
[2023-03-29] MEDS: METOPROLOL TARTRATE 25 MG TAB PO SCH ×2 (08:10→19:37)
[2023-03-29] MEDS: LORATADINE 10 MG TAB PO SCH (08:10)
[2023-03-29] MEDS ORDERED: POTASSIUM CHLORIDE ER 20 MEQ TAB.ER PO STA (09:26)
--- NOTE | 2023-03-29 09:28 | P.PN ---
Subjective Patient is seen in follow-up for acute kidney injury. Renal function is improving. Receiving IV fluids. Oral intake fair. No vomiting or diarrhea. Hemodynamic is stable. Vital signs are stable. General: No acute distress. HEENT: Head exam is unremarkable. LUNGS: No rhonchi or wheezes. HEART: Rate and Rhythm are regular. ABDOMEN: Nontender. EXTREMITITES: No edema. Objective - Vital Signs Vital signs: Vital Signs Temp 97.9 F 03/29/23 03:48 Pulse 60 03/29/23 08:18 Resp 19 03/29/23 03:48 BP 131/56 03/29/23 03:48 Pulse Ox 96 03/29/23 03:48 FiO2 Intake & Output 03/28/23 03/29/23 03/29/23 18:59 06:59 18:59 Intake Total 110 51.435 240 Output Total 200 825 Balance -90 -773.565 240 Intake: Intake, IV Titration 51.435 Amount Heparin Sod,Pork in 0.45% 51.435 NaCl 25,000 unit In 0.45 % NaCl 1 250ml.bag @ 12 UNITS/KG/HR 6.26 mls/hr IV .Q24H [facility] Rx#: [id number] Oral 110 240 Output: Urine 200 825 Other: Voiding Method Indwelling Catheter Indwelling Catheter Indwelling Catheter - Labs CBC & Chem 7: 03/29/23 03:23 03/29/23 03:23 Labs: Abnormal Lab Results - Last 24 Hours (Table) 03/28/23 03/28/23 03/28/23 Range/Units 09:24 09:24 09:24 RBC (3.80-5.40) m/uL Hgb 11.1 L (11.4-16.0) gm/dL Hct 31.2 L (34.0-46.0) % Neutrophils # (1.3-7.7) k/uL APTT (22.0-30.0) sec Sodium (137-145) mmol/L Potassium (3.5-5.1) mmol/L Chloride (98-107) mmol/L BUN (7-17) mg/dL Creatinine (0.52-1.04) mg/dL Glucose (74-99) mg/dL POC Glucose (mg/dL) (70-110) mg/dL Calcium (8.4-10.2) mg/dL Magnesium (1.6-2.3) mg/dL Troponin I 0.088 H* (0.000-0.034) ng/mL Procalcitonin 0.27 H (0.02-0.09) ng/mL 03/28/23 03/28/23 03/28/23 Range/Units 09:24 09:24 11:16 RBC (3.80-5.40) m/uL Hgb (11.4-16.0) gm/dL Hct (34.0-46.0) % Neutrophils # (1.3-7.7) k/uL APTT (22.0-30.0) sec Sodium 127 L 127 L (137-145) mmol/L Potassium (3.5-5.1) mmol/L Chloride 93 L 93 L (98-107) mmol/L BUN 88 H 89 H (7-17) mg/dL Creatinine 3.99 H 3.83 H (0.52-1.04) mg/dL Glucose 144 H 142 H (74-99) mg/dL POC Glucose (mg/dL) 177 H (70-110) mg/dL Calcium 7.8 L 7.8 L (8.4-10.2) mg/dL Magnesium (1.6-2.3) mg/dL Troponin I (0.000-0.034) ng/mL Procalcitonin (0.02-0.09) ng/mL 03/28/23 03/28/23 03/28/23 Range/Units 15:16 16:31 19:54 RBC (3.80-5.40) m/uL Hgb (11.4-16.0) gm/dL Hct 33.3 L (34.0-46.0) % Neutrophils # 7.9 H (1.3-7.7) k/uL APTT (22.0-30.0) sec Sodium (137-145) mmol/L Potassium (3.5-5.1) mmol/L Chloride (98-107) mmol/L BUN (7-17) mg/dL Creatinine (0.52-1.04) mg/dL Glucose (74-99) mg/dL POC Glucose (mg/dL) 145 H 126 H (70-110) mg/dL Calcium (8.4-10.2) mg/dL Magnesium (1.6-2.3) mg/dL Troponin I (0.000-0.034) ng/mL Procalcitonin (0.02-0.09) ng/mL 03/28/23 03/29/23 03/29/23 Range/Units 20:29 03:23 03:23 RBC 3.69 L (3.80-5.40) m/uL Hgb 10.5 L (11.4-16.0) gm/dL Hct 30.9 L (34.0-46.0) % Neutrophils # (1.3-7.7) k/uL APTT >200.0 H* (22.0-30.0) sec Sodium 128 L (137-145) mmol/L Potassium 3.2 L (3.5-5.1) mmol/L Chloride 97 L (98-107) mmol/L BUN 73 H (7-17) mg/dL Creatinine 2.29 H (0.52-1.04) mg/dL Glucose 101 H (74-99) mg/dL POC Glucose (mg/dL) (70-110) mg/dL Calcium 7.9 L (8.4-10.2) mg/dL Magnesium 1.5 L (1.6-2.3) mg/dL Troponin I (0.000-0.034) ng/mL Procalcitonin (0.02-0.09) ng/mL 03/29/23 03/29/23 Range/Units 03:23 06:30 RBC (3.80-5.40) m/uL Hgb (11.4-16.0) gm/dL Hct (34.0-46.0) % Neutrophils # (1.3-7.7) k/uL APTT 41.0 H (22.0-30.0) sec Sodium (137-145) mmol/L Potassium (3.5-5.1) mmol/L Chloride (98-107) mmol/L BUN (7-17) mg/dL Creatinine (0.52-1.04) mg/dL Glucose (74-99) mg/dL POC Glucose (mg/dL) 118 H (70-110) mg/dL Calcium (8.4-10.2) mg/dL Magnesium (1.6-2.3) mg/dL Troponin I (0.000-0.034) ng/mL Procalcitonin (0.02-0.09) ng/mL Microbiology - Last 24 Hours (Table) 03/27/23 16:40 Blood Culture - Preliminary Blood 03/27/23 16:55 Blood Culture - Preliminary Blood Assessment and Plan Plan: Assessment: 1. Acute kidney injury secondary to ATN secondary to hypovolemia, further worsened with the use of NSAIDs and MICHELLE inhibitor. Creatinine 5.72 admission and is 2.29 today. Recent creatinine near 0.8 from April 2022. No hydronephrosis noted on kidney ultrasound. 2. Metabolic acidosis secondary to acute kidney injury and metformin. Improved. 3. Hyponatremia, hypovolemic and also component of poor solute intake. 4. Hyperkalemia secondary to acute kidney injury, acidosis, NSAIDs and MCIHELLE inhibitor. Resolved. Now hypokalemic. 5. Diabetes mellitus. 6. UTI on antibiotics. 7. A. fib with RVR. On IV heparin. On metoprolol. Cardiology following. Plan: Maintain IV fluids. Replace potassium. Replace magnesium. 1200 mL free water restriction. Encourage oral intake. Avoid nephrotoxins. Follow-up cultures. Continue to monitor renal function and urine output. Follow-up echocardiogram.
[2023-03-29] MEDS: MAGNESIUM SULFATE-D5W PMX 1 GM in DEXTROSE/WATER 1 100ML.BAG IVPB SCH ×2 (09:40→10:54)
[2023-03-29] MEDS: APIXABAN 2.5 MG TABLET PO SCH ×2 (10:53→19:37)
[2023-03-29 11:53] LABS: Glucose,Whole Blood 162 mg/dL (70-110)
--- NOTE | 2023-03-29 12:19 | CDI ---
Documentation Clarification Form Date: 03/29/2023 12:00:41 PM From: Johana Ken RN CCDS Phone: [phone] Admit Date: 03/27/2023 05:42:00 PM Patient Name: Lindsay Bernal Visit Number: [id number] Discharge Date: ATTENTION: The Clinical Documentation Specialists (CDI) and [facility] Coding Staff appreciate your assistance in clarifying documentation. Please respond to the clarification below the line at the bottom and electronically sign. The CDI & [facility] Coding staff will review the response and follow-up if needed. Please note: Queries are made part of the Legal Health Record. If you have any questions, please contact the author of this message via ITS. Dr. Sheldon Beltran MD Type 2 Event is documented 03/28/2023, Cardiology consult. Additional clarification is requested. Patient History/Risk Factors: 82-year-old female presents to the ED with progressive weakness, nausea and vomiting. The patient has vague symptoms of chest discomfort as well as dyspnea. Medical History: DM2, HTN and skin cancer. 03/28, Cardiology consult. Clinical Indicators: Cardiology consult, 03/28: Troponin elevation, probably representing type II event in the setting of acute renal failure. Troponin, 03/27: 0.067 Creatinine, 03/27: 5.72 EKG Results, 03/27: Sinus Tachycardia with Frequent Supraventricular premature Complexes, ST Deviation and moderate T-wave abnormality, consider lateral ischemia. ST Deviation and Moderate T wave Abnormality, consider inferior ischemia Treatment: 03/27 0.9NS 1L bolus; 03/27 Sodium Bicarbonate IV 50ml x 2; 03/28 0.9NS IV 75cc/hr; 1200ml free water restriction; Avoid nephrotoxins; Renal ultrasound, monitor renal function and urine output and discontinue Sodium Bicarbonate Please clarify the Type 2 Event, if known: [xx ] Type 2 SD in the setting of acute renal failure [ ] Type 2 SD due to other (please specify ) [ ] Unable to determine [ ] Other Condition, please specify (Template Last Revised: September 2020) MTDD
[2023-03-29] MEDS ORDERED: Magnesium Replacement Protocol 1 EACH MISC MISCELLANE PRN (13:32)
--- NOTE | 2023-03-29 13:36 | P.PN ---
Subjective Progress Note Date: 03/29/23 82-year-old female who presents to the emergency department for generalized weakness. Patient states that she feels generally ill and unwell, and has so for the last 1-2 days. Describes generalized body aches and weakness as being her most prominent symptoms. When asked about chest pain, she states that she does have chest pain, however she has pain everywhere and does not believe that this is specific to her chest. She does report associated coughing and congestion as well. Unsure if there have been any sick contacts. Her family states that she is usually unhappy about going to the hospital, but was willing to this time. She is somewhat slow to respond, but is alert and oriented 4. After her family arrived, they said that she's been having frequent falls over the last couple of weeks as well. They also state that she seems to have declined by about 25% just from yesterday to today, which greatly concerned them. Patient has been continuing to refuse to go to the hospital until today, at which time she put up less of a fight and her son subsequently called EMS. Her son does note that she was recently treated for a UTI, but cannot recall which antibiotic she was on. She did require 2 antibiotics, as the first one was not shown to be strong enough, and the patient refused to go in for a recheck after completion of the second antibiotic. EKG interpreted by me demonstrating the following: Sinus rhythm. Ventricular rate 83 beats per minute, TX interval 201 ms, QRS duration 98 ms, QTC 392 ms. EKG was repeated at 1455 due to the monitor technician reading possible atrial fibrillation, this revealed sinus tachycardia with frequent PVCs. Ventricular rate 100 beats per minute, TX interval 181 ms, QRS duration 87 ms, QTC 380 ms. Chest x-ray obtained- no localized consolidations or infiltrates. Lab work obtained revealing leukocytosis and multiple electrolyte irregularities including hyperkalemia with a potassium of 6.3, Na of 124, and a CO2 <5. Patient is also in acute renal failure with a creatinine of 5.72. Troponin is also elevated, likely secondary to the findings above. CK and serum osmolality were found to be only mildly elevated. Harper catheter was also initiated and urinalysis was suggestive of infection. 1g of Ceftriaxone was administered. Urine and blood cultures were obtained. Per nursing staff, her urine had the appearance of "pea soup". Patient initially given a hyperkalemia cocktail consisting of insulin, sodium bicarb, and Lokelma; nephrology, also advised 1gm of calcium gluconate, an additional ampule of bicarb, and starting her on a D5 drip with 150 mL of sodium bicarb at a rate of 150 mL/hr, with plan to repeat her BMP 2 hours after medication is administered. 03/29. Patient seen and examined. Patient complaining of lethargy. Potassium 3.2, magnesium 1.5, replacement ordered REVIEW OF SYSTEMS: CONSTITUTIONAL: No fever, no malaise,. CARDIOVASCULAR: No chest pain, no palpitations, no syncope. PULMONARY: No shortness of breath, no cough, GASTROINTESTINAL: No diarrhea, no nausea, no vomiting, no abdominal pain. NEUROLOGICAL: No headaches, no weakness, PHYSICAL EXAMINATION: GENERAL: The patient is alert and oriented x3, not in any acute distress. Ill- looking HEENT: Pupils are round and equally reacting to light. EOMI. No scleral icterus. No conjunctival pallor. Normocephalic, atraumatic. No pharyngeal erythema. No thyromegaly. CARDIOVASCULAR: S1 and S2 present. No murmurs, rubs, or gallops. PULMONARY: Chest is clear to auscultation, no wheezing or crackles. ABDOMEN: Soft, nontender, nondistended, normoactive bowel sounds. No palpable organomegaly. MUSCULOSKELETAL: No joint swelling or deformity. EXTREMITIES: No cyanosis, clubbing, or pedal edema. NEUROLOGICAL: Gross neurological examination did not reveal any focal deficits. SKIN: No rashes. Assessment and plan Acute renal failure Critical hyperkalemia UTI Metabolic acidosis Elevated troponin Diabetes mellitus type 2 Hypertension Monitor vital signs Monitor CBC Monitor CMP Follow-up blood cultures follow-up urine cultures Continue IV fluids Replace electrolytes. Continue IV Rocephin ID following Nephrology following Labs and medication were reviewed.. Continue same treatment. Continue with symptomatic treatment. Resume home medication. Monitor labs and vitals. DVT and GI prophylaxis. Further recommendations as per clinical course of the patient Dictation was produced using [employer] dictation software. please excuse any grammatical, word or spelling errors. Objective - Vital Signs Vital signs: Vital Signs Temp 97.3 F L 03/29/23 11:32 Pulse 52 L 03/29/23 11:32 Resp 16 03/29/23 11:32 BP 112/62 03/29/23 11:32 Pulse Ox 98 03/29/23 11:32 FiO2 Intake & Output 03/28/23 03/29/23 03/29/23 18:59 06:59 18:59 Intake Total 110 51.435 1003.727 Output Total 200 825 Balance -90 -307.794 6581.727 Intake: Intake, IV Titration 51.435 43.727 Amount Heparin Sod,Pork in 0.45% 51.435 43.727 NaCl 25,000 unit In 0.45 % NaCl 1 250ml.bag @ 12 UNITS/KG/HR 6.26 mls/hr IV .Q24H [facility] Rx#: [id number] Oral 110 960 Output: Urine 200 825 Other: Voiding Method Indwelling Catheter Indwelling Catheter Indwelling Catheter - Labs CBC & Chem 7: 03/29/23 03:23 03/29/23 03:23 Labs: Abnormal Lab Results - Last 24 Hours (Table) 03/28/23 03/28/23 03/28/23 Range/Units 09:24 15:16 16:31 RBC (3.80-5.40) m/uL Hgb (11.4-16.0) gm/dL Hct 33.3 L (34.0-46.0) % Neutrophils # 7.9 H (1.3-7.7) k/uL APTT (22.0-30.0) sec Sodium (137-145) mmol/L Potassium (3.5-5.1) mmol/L Chloride (98-107) mmol/L BUN (7-17) mg/dL Creatinine (0.52-1.04) mg/dL Glucose (74-99) mg/dL POC Glucose (mg/dL) 145 H (70-110) mg/dL Calcium (8.4-10.2) mg/dL Magnesium (1.6-2.3) mg/dL Procalcitonin 0.27 H (0.02-0.09) ng/mL 03/28/23 03/28/23 03/29/23 Range/Units 19:54 20:29 03:23 RBC (3.80-5.40) m/uL Hgb (11.4-16.0) gm/dL Hct (34.0-46.0) % Neutrophils # (1.3-7.7) k/uL APTT >200.0 H* (22.0-30.0) sec Sodium 128 L (137-145) mmol/L Potassium 3.2 L (3.5-5.1) mmol/L Chloride 97 L (98-107) mmol/L BUN 73 H (7-17) mg/dL Creatinine 2.29 H (0.52-1.04) mg/dL Glucose 101 H (74-99) mg/dL POC Glucose (mg/dL) 126 H (70-110) mg/dL Calcium 7.9 L (8.4-10.2) mg/dL Magnesium 1.5 L (1.6-2.3) mg/dL Procalcitonin (0.02-0.09) ng/mL 03/29/23 03/29/23 03/29/23 Range/Units 03:23 03:23 06:30 RBC 3.69 L (3.80-5.40) m/uL Hgb 10.5 L (11.4-16.0) gm/dL Hct 30.9 L (34.0-46.0) % Neutrophils # (1.3-7.7) k/uL APTT 41.0 H (22.0-30.0) sec Sodium (137-145) mmol/L Potassium (3.5-5.1) mmol/L Chloride (98-107) mmol/L BUN (7-17) mg/dL Creatinine (0.52-1.04) mg/dL Glucose (74-99) mg/dL POC Glucose (mg/dL) 118 H (70-110) mg/dL Calcium (8.4-10.2) mg/dL Magnesium (1.6-2.3) mg/dL Procalcitonin (0.02-0.09) ng/mL 03/29/23 03/29/23 Range/Units 11:32 11:50 RBC (3.80-5.40) m/uL Hgb (11.4-16.0) gm/dL Hct (34.0-46.0) % Neutrophils # (1.3-7.7) k/uL APTT 83.2 H (22.0-30.0) sec Sodium (137-145) mmol/L Potassium (3.5-5.1) mmol/L Chloride (98-107) mmol/L BUN (7-17) mg/dL Creatinine (0.52-1.04) mg/dL Glucose (74-99) mg/dL POC Glucose (mg/dL) 162 H (70-110) mg/dL Calcium (8.4-10.2) mg/dL Magnesium (1.6-2.3) mg/dL Procalcitonin (0.02-0.09) ng/mL Microbiology - Last 24 Hours (Table) 03/27/23 16:40 Blood Culture - Preliminary Blood 03/27/23 16:55 Blood Culture - Preliminary Blood
[2023-03-29] MEDS ORDERED: MAGNESIUM SULFATE-D5W PMX 1 GM in DEXTROSE/WATER 1 100ML.BAG IVPB SCH (13:45)
--- NOTE | 2023-03-29 14:05 | P.PN ---
Subjective HISTORY OF PRESENT ILLNESS: The patient is an 82-year-old female who presented with symptoms of progressive weakness, nausea and vomiting and not feeling well. Cardiology consultation was requested for evidence of atrial fibrillation. I am not able to the dictated history from the patient but she says that she's feeling ill. She has some vague symptoms of chest discomfort as well as dyspnea. She has occasional palpi tation. On presentation she was noted to have significant worsening of her renal function. Apparently she has not been doing well for the last few weeks until she came into the hospital. On presentation she was in sinus mechanism subsequently sinus mechanism with PACs and now in atrial fibrillation with rapid ventricle response. She had mild troponin elevation. She has a prior history of hypertension and diabetes. During an admission in March [id number] she was in sinus mechanism with multifocal atrial tachycardia but not atrial fibrillation. On admission her potassium was 6.3, creatinine 5.72 and her troponin 0.067. Her peak troponin is 0.088 and her most recent creatinine is 3.83. Medications: Ramipril 10 mg daily, metformin 1 g twice a day, ibuprofen, iron 03/29/2023 Patient examined this morning at the bedside. Patient denies chest pain or pressure. She denies shortness of breath. She still continues to report weakness. Telemetry reveals sinus mechanism with a heart rate in the 50s. She remains on IV heparin. Blood pressure is stable. Creatinine today 2.29. PHYSICAL EXAM: VITAL SIGNS: Reviewed. GENERAL: Well-developed in no acute distress. NECK: Supple. No JVD or thyromegaly LUNGS: Respirations even and unlabored. Lungs essentially clear to auscultation bilaterally. HEART: Regular rate and rhythm. S1 and S2 heard. EXTREMITIES: Normal range of motion. No clubbing or cyanosis. Peripheral pulses intact. No lower extremity edema ASSESSMENT: Generalized weakness, nausea, and vomiting New-onset paroxysmal atrial for relation, currently maintaining sinus mechanism Abnormal troponins, likely secondary to acute kidney injury, no evidence of acute coronary syndrome Hypertension Diabetes PLAN: Discontinue IV heparin Begin Eliquis 2.5mg BID Continue current dose of metoprolol tartrate Continue telemetry monitoring Patient is currently stable from a cardiac perspective 2-D echo has been ordered. Await results. If no significant abnormalities noted on echocardiogram, no further workup from a cardiology standpoint is necessary Further recommendations pending patient course Nurse practitioner note has been reviewed by physician. Signing provider agrees with the documented findings, assessment, and plan of care. Objective - Vital Signs Vital signs: Vital Signs Temp 97.3 F L 03/29/23 11:32 Pulse 52 L 03/29/23 11:32 Resp 16 03/29/23 11:32 BP 112/62 03/29/23 11:32 Pulse Ox 98 03/29/23 11:32 FiO2 Intake & Output 03/28/23 03/29/23 03/29/23 18:59 06:59 18:59 Intake Total 110 51.435 1123.727 Output Total 200 825 Balance -90 -925.042 8438.727 Intake: Intake, IV Titration 51.435 43.727 Amount Heparin Sod,Pork in 0.45% 51.435 43.727 NaCl 25,000 unit In 0.45 % NaCl 1 250ml.bag @ 12 UNITS/KG/HR 6.26 mls/hr IV .Q24H [facility] Rx#: [id number] Oral 110 1080 Output: Urine 200 825 Other: Voiding Method Indwelling Catheter Indwelling Catheter Indwelling Catheter - Labs CBC & Chem 7: 03/29/23 03:23 03/29/23 03:23 Labs: Abnormal Lab Results - Last 24 Hours (Table) 03/28/23 03/28/23 03/28/23 Range/Units 15:16 16:31 19:54 RBC (3.80-5.40) m/uL Hgb (11.4-16.0) gm/dL Hct 33.3 L (34.0-46.0) % Neutrophils # 7.9 H (1.3-7.7) k/uL APTT (22.0-30.0) sec Sodium (137-145) mmol/L Potassium (3.5-5.1) mmol/L Chloride (98-107) mmol/L BUN (7-17) mg/dL Creatinine (0.52-1.04) mg/dL Glucose (74-99) mg/dL POC Glucose (mg/dL) 145 H 126 H (70-110) mg/dL Calcium (8.4-10.2) mg/dL Magnesium (1.6-2.3) mg/dL 03/28/23 03/29/23 03/29/23 Range/Units 20:29 03: 03:23 RBC 3.69 L (3.80-5.40) m/uL Hgb 10.5 L (11.4-16.0) gm/dL Hct 30.9 L (34.0-46.0) % Neutrophils # (1.3-7.7) k/uL APTT >200.0 H* (22.0-30.0) sec Sodium 128 L (137-145) mmol/L Potassium 3.2 L (3.5-5.1) mmol/L Chloride 97 L (98-107) mmol/L BUN 73 H (7-17) mg/dL Creatinine 2.29 H (0.52-1.04) mg/dL Glucose 101 H (74-99) mg/dL POC Glucose (mg/dL) (70-110) mg/dL Calcium 7.9 L (8.4-10.2) mg/dL Magnesium 1.5 L (1.6-2.3) mg/dL 03/29/23 03/29/23 03/29/23 Range/Units 03:23 06:30 11:32 RBC (3.80-5.40) m/uL Hgb (11.4-16.0) gm/dL Hct (34.0-46.0) % Neutrophils # (1.3-7.7) k/uL APTT 41.0 H 83.2 H (22.0-30.0) sec Sodium (137-145) mmol/L Potassium (3.5-5.1) mmol/L Chloride (98-107) mmol/L BUN (7-17) mg/dL Creatinine (0.52-1.04) mg/dL Glucose (74-99) mg/dL POC Glucose (mg/dL) 118 H (70-110) mg/dL Calcium (8.4-10.2) mg/dL Magnesium (1.6-2.3) mg/dL 03/29/23 Range/Units 11:50 RBC (3.80-5.40) m/uL Hgb (11.4-16.0) gm/dL Hct (34.0-46.0) % Neutrophils # (1.3-7.7) k/uL APTT (22.0-30.0) sec Sodium (137-145) mmol/L Potassium (3.5-5.1) mmol/L Chloride (98-107) mmol/L BUN (7-17) mg/dL Creatinine (0.52-1.04) mg/dL Glucose (74-99) mg/dL POC Glucose (mg/dL) 162 H (70-110) mg/dL Calcium (8.4-10.2) mg/dL Magnesium (1.6-2.3) mg/dL Microbiology - Last 24 Hours (Table) 03/27/23 16:40 Blood Culture - Preliminary Blood 03/27/23 16:55 Blood Culture - Preliminary Blood
[2023-03-29 16:10] LABS: Glucose,Whole Blood 172 mg/dL (70-110)
[2023-03-29 20:07] LABS: Glucose,Whole Blood 98 mg/dL (70-110)
[2023-03-29] MEDS: HYDROcodone/APAP 5-325MG 1 EACH TAB PO PRN (21:49)
[2023-03-30 06:03] LABS: Glucose,Whole Blood 113 mg/dL (70-110)
[2023-03-30] MEDS: INSULIN ASPART (NovoLOG) 100 UNIT/ML VIAL SQ SCH ×4 (06:07→20:55)
--- NOTE | 2023-03-30 08:19 | P.PN ---
Subjective Progress Note Date: 03/29/23 Principal diagnosis: UTI Patient is a 82-year-old female with a past medical history significant for diabetes mellitus reflux hypertension history of skin cancer and UTI presenting to the hospital for evaluation of generalized weakness, patient also have a positive UA urinary symptoms concerning for symptomatic aortic infection. On today's evaluation that is 03/29/2023, patient is afebrile she is breathing comfortably on room air denies any chest pain shortness of breath cough abdominal pain or diarrhea feeling slightly better. Patient was normalized to 7.5 creatinine is 2.29 abdominal ultrasound was negative for obstructive uropathy blood cultures pending unfortunately no urine culture ordered. Objective - Vital Signs Vital signs: Vital Signs Temp 97.9 F 03/29/23 03:48 Pulse 60 03/29/23 08:18 Resp 19 03/29/23 03:48 BP 131/56 03/29/23 03:48 Pulse Ox 96 03/29/23 03:48 FiO2 Intake & Output 03/28/23 03/29/23 03/29/23 18:59 06:59 18:59 Intake Total 110 51.435 960 Output Total 200 825 Balance -90 -773.565 960 Intake: Intake, IV Titration 51.435 Amount Heparin Sod,Pork in 0.45% 51.435 NaCl 25,000 unit In 0.45 % NaCl 1 250ml.bag @ 12 UNITS/KG/HR 6.26 mls/hr IV .Q24H [facility] Rx#: [id number] Oral 110 960 Output: Urine 200 825 Other: Voiding Method Indwelling Catheter Indwelling Catheter Indwelling Catheter - Exam GENERAL DESCRIPTION: Elderly female lying in bed in no distress RESPIRATORY SYSTEM: Unlabored breathing , decreased breath sounds at bases HEART: S1 S2 regular rate and rhythm ,no loud murmurs ABDOMEN: Soft , no tenderness EXTREMITIES: No edema feet - Labs CBC & Chem 7: 03/29/23 03:23 03/29/23 03:23 Labs: Abnormal Lab Results - Last 24 Hours (Table) 03/28/23 03/28/23 03/28/23 Range/Units 09:24 11:16 15:16 RBC (3.80-5.40) m/uL Hgb (11.4-16.0) gm/dL Hct 33.3 L (34.0-46.0) % Neutrophils # 7.9 H (1.3-7.7) k/uL APTT (22.0-30.0) sec Sodium (137-145) mmol/L Potassium (3.5-5.1) mmol/L Chloride (98-107) mmol/L BUN (7-17) mg/dL Creatinine (0.52-1.04) mg/dL Glucose (74-99) mg/dL POC Glucose (mg/dL) 177 H (70-110) mg/dL Calcium (8.4-10.2) mg/dL Magnesium (1.6-2.3) mg/dL Procalcitonin 0.27 H (0.02-0.09) ng/mL 03/28/23 03/28/23 03/28/23 Range/Units 16:31 19:54 20:29 RBC (3.80-5.40) m/uL Hgb (11.4-16.0) gm/dL Hct (34.0-46.0) % Neutrophils # (1.3-7.7) k/uL APTT >200.0 H* (22.0-30.0) sec Sodium (137-145) mmol/L Potassium (3.5-5.1) mmol/L Chloride (98-107) mmol/L BUN (7-17) mg/dL Creatinine (0.52-1.04) mg/dL Glucose (74-99) mg/dL POC Glucose (mg/dL) 145 H 126 H (70-110) mg/dL Calcium (8.4-10.2) mg/dL Magnesium (1.6-2.3) mg/dL Procalcitonin (0.02-0.09) ng/mL 03/29/23 03/29/23 03/29/23 Range/Units 03:23 03:23 03:23 RBC 3.69 L (3.80-5.40) m/uL Hgb 10.5 L (11.4-16.0) gm/dL Hct 30.9 L (34.0-46.0) % Neutrophils # (1.3-7.7) k/uL APTT 41.0 H (22.0-30.0) sec Sodium 128 L (137-145) mmol/L Potassium 3.2 L (3.5-5.1) mmol/L Chloride 97 L (98-107) mmol/L BUN 73 H (7-17) mg/dL Creatinine 2.29 H (0.52-1.04) mg/dL Glucose 101 H (74-99) mg/dL POC Glucose (mg/dL) (70-110) mg/dL Calcium 7.9 L (8.4-10.2) mg/dL Magnesium 1.5 L (1.6-2.3) mg/dL Procalcitonin (0.02-0.09) ng/mL 03/29/23 Range/Units 06:30 RBC (3.80-5.40) m/uL Hgb (11.4-16.0) gm/dL Hct (34.0-46.0) % Neutrophils # (1.3-7.7) k/uL APTT (22.0-30.0) sec Sodium (137-145) mmol/L Potassium (3.5-5.1) mmol/L Chloride (98-107) mmol/L BUN (7-17) mg/dL Creatinine (0.52-1.04) mg/dL Glucose (74-99) mg/dL POC Glucose (mg/dL) 118 H (70-110) mg/dL Calcium (8.4-10.2) mg/dL Magnesium (1.6-2.3) mg/dL Procalcitonin (0.02-0.09) ng/mL Microbiology - Last 24 Hours (Table) 03/27/23 16:40 Blood Culture - Preliminary Blood 03/27/23 16:55 Blood Culture - Preliminary Blood Assessment and Plan (1) UTI (urinary tract infection) Current Visit: Yes Status: Acute Code(s): N39.0 - URINARY TRACT INFECTION, SITE NOT SPECIFIED SNOMED Code(s): 39115077 Plan: 1patient present hospitalized weakness no energy did have some urinary symptoms of decreased urine output along with some burning positive UA concerning for symptomatic UTI likely from middle gram-negative pathogen. 2patient with renal insufficiency and high risk of nephrotoxicity ultrasound was negative for any obstructive uropathy. 3we will repeat a UA and culture. 4patient to continue with the Rocephin 1 g daily and monitor clinical course closely Dictation was produced using [employer] software. please excuse any grammatical, word or spelling errors.
[2023-03-30 08:46] LABS: HCT 34.5 % (34.0-46.0); HGB 11.4 gm/dL (11.4-16.0); MCH 28.6 pg (25.0-35.0); MCV 86.6 fL (80.0-100.0); Mean Platelet Volume 8.1; Platelet Count 194 k/uL (150-450); RBC 3.98 m/uL (3.80-5.40); WBC 12.4 k/uL (3.8-10.6)
[2023-03-30] MEDS: MAGNESIUM OXIDE 400 MG TAB PO SCH (09:16)
[2023-03-30] MEDS: HYDROcodone/APAP 5-325MG 1 EACH TAB PO PRN (09:16)
[2023-03-30] MEDS: LORATADINE 10 MG TAB PO SCH (09:16)
[2023-03-30] MEDS: METOPROLOL TARTRATE 25 MG TAB PO SCH ×2 (09:16→21:04)
[2023-03-30] MEDS: APIXABAN 2.5 MG TABLET PO SCH ×2 (09:16→21:04)
[2023-03-30 09:46] LABS: ALT 14 U/L (4-34); AST 24 U/L (14-36); African American GFR (CKD) 57 (>60 ml/min/1.73 sqM); Albumin 2.7 g/dL (3.5-5.0); Alkaline Phosphatase 97 U/L (38-126); Anion Gap 6 mmol/L; Blood Urea Nitrogen 43 mg/dL (7-17); Calcium 8.3 mg/dL (8.4-10.2); Carbon Dioxide 21 mmol/L (22-30); Chloride 104 mmol/L (98-107); Glucose 111 mg/dL (74-99); Magnesium 1.8 mg/dL (1.6-2.3); Non-African American GFR(CKD) 50 (>60 ml/min/1.73 sqM); Potassium 3.5 mmol/L (3.5-5.1); Sodium 131 mmol/L (137-145); Total Bilirubin 0.4 mg/dL (0.2-1.3); Total Protein 5.9 g/dL (6.3-8.2)
[2023-03-30] MEDS ORDERED: POTASSIUM CHLORIDE ER 20 MEQ TAB.ER PO STA (11:06)
--- NOTE | 2023-03-30 11:07 | P.PN ---
Subjective Patient is seen in follow-up for acute kidney injury. Renal function is improving. Receiving IV fluids. Oral intake fair. No vomiting or diarrhea. Hemodynamically stable. On room air. Vital signs are stable. General: No acute distress. HEENT: Head exam is unremarkable. LUNGS: No rhonchi or wheezes. HEART: Rate and Rhythm are regular. ABDOMEN: Nontender. EXTREMITITES: No edema. Objective - Vital Signs Vital signs: Vital Signs Temp 97.3 F L 03/30/23 07:35 Pulse 63 03/30/23 07:35 Resp 18 03/30/23 07:35 BP 157/66 03/30/23 07:35 Pulse Ox 97 03/30/23 07:35 FiO2 Intake & Output 03/29/23 03/30/23 03/30/23 18:59 06:59 18:59 Intake Total 1523.727 240 Output Total 450 475 Balance 1073.727 -475 240 Intake: Intake, IV Titration 43.727 Amount Heparin Sod,Pork in 0.45% 43.727 NaCl 25,000 unit In 0.45 % NaCl 1 250ml.bag @ 12 UNITS/KG/HR 6.26 mls/hr IV .Q24H [facility] Rx#: [id number] Oral 1480 240 Output: Urine 450 475 Other: Voiding Method Indwelling Catheter Indwelling Catheter Indwelling Catheter - Labs CBC & Chem 7: 03/30/23 08:16 03/30/23 08:16 Labs: Abnormal Lab Results - Last 24 Hours (Table) 03/29/23 03/29/23 03/29/23 Range/Units 11:32 11:50 16:09 WBC (3.8-10.6) k/uL APTT 83.2 H (22.0-30.0) sec Sodium (137-145) mmol/L Carbon Dioxide (22-30) mmol/L BUN (7-17) mg/dL Glucose (74-99) mg/dL POC Glucose (mg/dL) 162 H 172 H (70-110) mg/dL Calcium (8.4-10.2) mg/dL Total Protein (6.3-8.2) g/dL Albumin (3.5-5.0) g/dL 03/30/23 03/30/23 03/30/23 Range/Units 06:02 08:16 08:16 WBC 12.4 H (3.8-10.6) k/uL APTT (22.0-30.0) sec Sodium 131 L (137-145) mmol/L Carbon Dioxide 21 L (22-30) mmol/L BUN 43 H (7-17) mg/dL Glucose 111 H (74-99) mg/dL POC Glucose (mg/dL) 113 H (70-110) mg/dL Calcium 8.3 L (8.4-10.2) mg/dL Total Protein 5.9 L (6.3-8.2) g/dL Albumin 2.7 L (3.5-5.0) g/dL Microbiology - Last 24 Hours (Table) 03/27/23 16:40 Blood Culture - Preliminary Blood 03/27/23 16:55 Blood Culture - Preliminary Blood Assessment and Plan Plan: Assessment: 1. Acute kidney injury secondary to ATN secondary to hypovolemia, further worsened with the use of NSAIDs and MICHELLE inhibitor. Creatinine 5.72 admission and is 1.04 today. Recent creatinine near 0.8 from April 2022. No hydronephrosis noted on kidney ultrasound. 2. Metabolic acidosis secondary to acute kidney injury and metformin. Improved. 3. Hyponatremia, hypovolemic and also component of poor solute intake. Better. 4. Hyperkalemia secondary to acute kidney injury, acidosis, NSAIDs and MICHELLE inhibitor. Resolved. Now hypokalemic. 5. Diabetes mellitus. 6. UTI on antibiotics. 7. A. fib with RVR. On anticoagulation and metoprolol. Cardiology following. Plan: Maintain IV fluids. 1200 mL free water restriction. Encouraged oral intake. Avoid nephrotoxins. Follow-up cultures. Continue to monitor renal function and urine output. Follow-up echocardiogram.
[2023-03-30 11:26] LABS: Glucose,Whole Blood 120 mg/dL (70-110)
[2023-03-30] MEDS: SODIUM CHLORIDE 0.9% 1,000 ML IV SCH (11:43)
[2023-03-30 11:44] LABS: Appearance,Urine Turbid (Clear); Bilirubin,Urine Negative (Negative); Blood,Urine Large (Negative); Color,Urine Yellow; Glucose,Urine (UA) Trace (Negative); Hyaline Casts,Urine 60 /lpf (0-2); Ketones,Urine 1+ (Negative); Leukocyte Esterase,Urine Large (Negative); Nitrite,Urine Negative (Negative); PH, Urine 5.5 (5.0-8.0); Protein,Urine 2+ (Negative); RBC,Urine 165 /hpf (0-5); Urobilinogen,Urine <2.0 mg/dL (<2.0); WBC,Urine >182 /hpf (0-5)
[2023-03-30 12:04] LABS: Specific Gravity,Urine 1.014 (1.001-1.035)
--- NOTE | 2023-03-30 12:28 | P.PN ---
Subjective HISTORY OF PRESENT ILLNESS: The patient is an 82-year-old female who presented with symptoms of progressive weakness, nausea and vomiting and not feeling well. Cardiology consultation was requested for evidence of atrial fibrillation. I am not able to the dictated history from the patient but she says that she's feeling ill. She has some vague symptoms of chest discomfort as well as dyspnea. She has occasional palpi tation. On presentation she was noted to have significant worsening of her renal function. Apparently she has not been doing well for the last few weeks until she came into the hospital. On presentation she was in sinus mechanism subsequently sinus mechanism with PACs and now in atrial fibrillation with rapid ventricle response. She had mild troponin elevation. She has a prior history of hypertension and diabetes. During an admission in March [id number] she was in sinus mechanism with multifocal atrial tachycardia but not atrial fibrillation. On admission her potassium was 6.3, creatinine 5.72 and her troponin 0.067. Her peak troponin is 0.088 and her most recent creatinine is 3.83. Medications: Ramipril 10 mg daily, metformin 1 g twice a day, ibuprofen, iron 03/29/2023 Patient examined this morning at the bedside. Patient denies chest pain or pressure. She denies shortness of breath. She still continues to report weakness. Telemetry reveals sinus mechanism with a heart rate in the 50s. She remains on IV heparin. Blood pressure is stable. Creatinine today 2.29. 03/30/2023 Patient examined this morning at the bedside. Patient states she is feeling unwell this morning. She reports having some epigastric pain. Patient also reports generalized weakness. She has not been out of bed yet. She continues to have an indwelling urinary catheter. Telemetry reveals sinus mechanism with a rate in the 60s. Dr. Bernal looked at preliminary echo which revealed preserved LV systolic function. PHYSICAL EXAM: VITAL SIGNS: Reviewed. GENERAL: Well-developed in no acute distress. NECK: Supple. No JVD or thyromegaly LUNGS: Respirations even and unlabored. Lungs essentially clear to auscultation bilaterally. HEART: Regular rate and rhythm. S1 and S2 heard. EXTREMITIES: Normal range of motion. No clubbing or cyanosis. Peripheral pulses intact. No lower extremity edema ASSESSMENT: Generalized weakness, nausea, and vomiting New-onset paroxysmal atrial fibrillation, currently maintaining sinus mechanism Abnormal troponins, likely secondary to acute kidney injury, no evidence of acute coronary syndrome Hypertension Diabetes PLAN: Recommend PT/OT eval and discontinuing indwelling urinary catheter Continue current cardiac medications Patient is currently stable from a cardiac perspective with no further inpatient recommendations We will sign off. Please reconsult if needed. Nurse practitioner note has been reviewed by physician. Signing provider agrees with the documented findings, assessment, and plan of care. Objective - Vital Signs Vital signs: Vital Signs Temp 97.3 F L 03/30/23 11:14 Pulse 51 L 03/30/23 11:14 Resp 18 03/30/23 11:14 BP 111/49 03/30/23 11:14 Pulse Ox 96 03/30/23 11:14 FiO2 Intake & Output 03/29/23 03/30/23 03/30/23 18:59 06:59 18:59 Intake Total 1523.727 240 Output Total 450 475 250 Balance 1073.727 -475 -10 Intake: Intake, IV Titration 43.727 Amount Heparin Sod,Pork in 0.45% 43.727 NaCl 25,000 unit In 0.45 % NaCl 1 250ml.bag @ 12 UNITS/KG/HR 6.26 mls/hr IV .Q24H [facility] Rx#: [id number] Oral 1480 240 Output: Urine 450 475 250 Other: Voiding Method Indwelling Catheter Indwelling Catheter Indwelling Catheter - Labs CBC & Chem 7: 03/30/23 08:16 03/30/23 08:16 Labs: Abnormal Lab Results - Last 24 Hours (Table) 03/29/23 03/30/23 03/30/23 Range/Units 16:09 06:02 08:16 WBC (3.8-10.6) k/uL Sodium 131 L (137-145) mmol/L Carbon Dioxide 21 L (22-30) mmol/L BUN 43 H (7-17) mg/dL Glucose 111 H (74-99) mg/dL POC Glucose (mg/dL) 172 H 113 H (70-110) mg/dL Calcium 8.3 L (8.4-10.2) mg/dL Total Protein 5.9 L (6.3-8.2) g/dL Albumin 2.7 L (3.5-5.0) g/dL Urine Appearance (Clear) Urine Protein (Negative) Urine Glucose (UA) (Negative) Urine Ketones (Negative) Urine Blood (Negative) Ur Leukocyte Esterase (Negative) Urine RBC (0-5) /hpf Urine WBC (0-5) /hpf Urine WBC Clumps (None) /hpf Hyaline Casts (0-2) /lpf 03/30/23 03/30/23 03/30/23 Range/Units 08:16 10:55 11:24 WBC 12.4 H (3.8-10.6) k/uL Sodium (137-145) mmol/L Carbon Dioxide (22-30) mmol/L BUN (7-17) mg/dL Glucose (74-99) mg/dL POC Glucose (mg/dL) 120 H (70-110) mg/dL Calcium (8.4-10.2) mg/dL Total Protein (6.3-8.2) g/dL Albumin (3.5-5.0) g/dL Urine Appearance Turbid H (Clear) Urine Protein 2+ H (Negative) Urine Glucose (UA) Trace H (Negative) Urine Ketones 1+ H (Negative) Urine Blood Large H (Negative) Ur Leukocyte Esterase Large H (Negative) Urine RBC 165 H (0-5) /hpf Urine WBC >182 H (0-5) /hpf Urine WBC Clumps Many H (None) /hpf Hyaline Casts 60 H (0-2) /lpf Microbiology - Last 24 Hours (Table) 03/27/23 16:40 Blood Culture - Preliminary Blood 03/27/23 16:55 Blood Culture - Preliminary Blood
--- NOTE | 2023-03-30 12:33 | P.PN ---
Subjective Progress Note Date: 03/30/23 82-year-old female who presents to the emergency department for generalized weakness. Patient states that she feels generally ill and unwell, and has so for the last 1-2 days. Describes generalized body aches and weakness as being her most prominent symptoms. When asked about chest pain, she states that she does have chest pain, however she has pain everywhere and does not believe that this is specific to her chest. She does report associated coughing and congestion as well. Unsure if there have been any sick contacts. Her family states that she is usually unhappy about going to the hospital, but was willing to this time. She is somewhat slow to respond, but is alert and oriented 4. After her family arrived, they said that she's been having frequent falls over the last couple of weeks as well. They also state that she seems to have declined by about 25% just from yesterday to today, which greatly concerned them. Patient has been continuing to refuse to go to the hospital until today, at which time she put up less of a fight and her son subsequently called EMS. Her son does note that she was recently treated for a UTI, but cannot recall which antibiotic she was on. She did require 2 antibiotics, as the first one was not shown to be strong enough, and the patient refused to go in for a recheck after completion of the second antibiotic. EKG interpreted by me demonstrating the following: Sinus rhythm. Ventricular rate 83 beats per minute, ME interval 201 ms, QRS duration 98 ms, QTC 392 ms. EKG was repeated at 1455 due to the surveillance monitor reading possible atrial fibrillation, this revealed sinus tachycardia with frequent PVCs. Ventricular rate 100 beats per minute, ME interval 181 ms, QRS duration 87 ms, QTC 380 ms. Chest x-ray obtained- no localized consolidations or infiltrates. Lab work obtained revealing leukocytosis and multiple electrolyte irregularities including hyperkalemia with a potassium of 6.3, Na of 124, and a CO2 <5. Patient is also in acute renal failure with a creatinine of 5.72. Troponin is also elevated, likely secondary to the findings above. CK and serum osmolality were found to be only mildly elevated. Harper catheter was also initiated and urinalysis was suggestive of infection. 1g of Ceftriaxone was administered. Urine and blood cultures were obtained. Per nursing staff, her urine had the appearance of "pea soup". Patient initially given a hyperkalemia cocktail consisting of insulin, sodium bicarb, and Lokelma; nephrology, also advised 1gm of calcium gluconate, an additional ampule of bicarb, and starting her on a D5 drip with 150 mL of sodium bicarb at a rate of 150 mL/hr, with plan to repeat her BMP 2 hours after medication is administered. 03/29. Patient seen and examined. Patient complaining of lethargy. Potassium 3.2, magnesium 1.5, replacement ordered 03/30. Patient seen and examined. Blood work labs showed WBC 12.4, hemoglobin 11.4, platelet count 194, sodium 139, BUN 43, creatinine 1.04. Vital signs stable REVIEW OF SYSTEMS: CONSTITUTIONAL: No fever, no malaise,. Complaining of lethargy and weakness CARDIOVASCULAR: No chest pain, no palpitations, no syncope. PULMONARY: No shortness of breath, no cough, GASTROINTESTINAL: No diarrhea, no nausea, no vomiting, no abdominal pain. NEUROLOGICAL: No headaches, no weakness, PHYSICAL EXAMINATION: GENERAL: The patient is alert and oriented x3, not in any acute distress. Ill- looking HEENT: Pupils are round and equally reacting to light. EOMI. No scleral icterus. No conjunctival pallor. Normocephalic, atraumatic. No pharyngeal erythema. No thyromegaly. CARDIOVASCULAR: S1 and S2 present. No murmurs, rubs, or gallops. PULMONARY: Chest is clear to auscultation, no wheezing or crackles. ABDOMEN: Soft, nontender, nondistended, normoactive bowel sounds. No palpable organomegaly. MUSCULOSKELETAL: No joint swelling or deformity. EXTREMITIES: No cyanosis, clubbing, or pedal edema. NEUROLOGICAL: Gross neurological examination did not reveal any focal deficits. SKIN: No rashes. Assessment and plan Acute renal failure Critical hyperkalemia UTI Metabolic acidosis Elevated troponin Diabetes mellitus type 2 Hypertension Monitor vital signs Monitor CBC Monitor CMP Follow-up blood cultures follow-up urine cultures Continue IV fluids Started on Eliquis Continue IV Rocephin ID following Nephrology following Cardiology signed off PT and OT following Labs and medication were reviewed.. Continue same treatment. Continue with symptomatic treatment. Resume home medication. Monitor labs and vitals. DVT and GI prophylaxis. Further recommendations as per clinical course of the patient Dictation was produced using dragon dictation software. please excuse any grammatical, word or spelling errors. Objective - Vital Signs Vital signs: Vital Signs Temp 97.3 F L 03/30/23 07:35 Pulse 63 03/30/23 07:35 Resp 18 03/30/23 07:35 BP 157/66 03/30/23 07:35 Pulse Ox 97 03/30/23 07:35 FiO2 Intake & Output 03/29/23 03/30/23 03/30/23 18:59 06:59 18:59 Intake Total 1523.727 240 Output Total 450 475 Balance 1073.727 -475 240 Intake: Intake, IV Titration 43.727 Amount Heparin Sod,Pork in 0.45% 43.727 NaCl 25,000 unit In 0.45 % NaCl 1 250ml.bag @ 12 UNITS/KG/HR 6.26 mls/hr IV .[facility] Rx#: [id number] Oral 1480 240 Output: Urine 450 475 Other: Voiding Method Indwelling Catheter Indwelling Catheter Indwelling Catheter - Labs CBC & Chem 7: 03/30/23 08:16 03/30/23 08:16 Labs: Abnormal Lab Results - Last 24 Hours (Table) 03/29/23 03/29/23 03/29/23 Range/Units 11:32 11:50 16:09 WBC (3.8-10.6) k/uL APTT 83.2 H (22.0-30.0) sec Sodium (137-145) mmol/L Carbon Dioxide (22-30) mmol/L BUN (7-17) mg/dL Glucose (74-99) mg/dL POC Glucose (mg/dL) 162 H 172 H (70-110) mg/dL Calcium (8.4-10.2) mg/dL Total Protein (6.3-8.2) g/dL Albumin (3.5-5.0) g/dL 03/30/23 03/30/23 03/30/23 Range/Units 06:02 08:16 08:16 WBC 12.4 H (3.8-10.6) k/uL APTT (22.0-30.0) sec Sodium 131 L (137-145) mmol/L Carbon Dioxide 21 L (22-30) mmol/L BUN 43 H (7-17) mg/dL Glucose 111 H (74-99) mg/dL POC Glucose (mg/dL) 113 H (70-110) mg/dL Calcium 8.3 L (8.4-10.2) mg/dL Total Protein 5.9 L (6.3-8.2) g/dL Albumin 2.7 L (3.5-5.0) g/dL Microbiology - Last 24 Hours (Table) 03/27/23 16:40 Blood Culture - Preliminary Blood 03/27/23 16:55 Blood Culture - Preliminary Blood
--- NOTE | 2023-03-30 12:47 | CT ---
EXAMINATION TYPE: CT cervical spine wo con CT DLP: 350.2 mGycm, Automated exposure control for dose reduction was used. DATE OF EXAM: 03/30/2023 12:36 PM COMPARISON: CT brain C-spine 04/25/2022, 04/04/2022. CLINICAL INDICATION:Female, 82 years old with history of Neck pain;recent fall; PHH, Neck pain, recen t fall TECHNIQUE: Axial CT images from the skull base to the inferior aspect of T2 we obtained without intra venous contrast. Coronal and sagittal reformatted images were also reviewed. FINDINGS: Fracture: No acute fracture. Increased sclerosis with vertebral body height loss centrally of previou sly seen T3 vertebral body compression fracture. No retropulsion. There is approximately 20% height l oss centrally. Osseous structures: Multilevel degenerative disc disease with disc space narrowing and endplate scler osis. Multilevel facet arthropathy. Vertebral alignment: Stable grade 1 anterolisthesis of C3 and C4. Spinal canal/Neural Foramina: Eccentric left disc bulge at C5-C6 with mild effacement of the anterior thecal sac and mild left neural foraminal stenosis. Facet joint uncovertebral joint arthropathy scat tered throughout the cervical spine with varying degrees of neural foraminal stenosis. Neck soft tissues: Prevertebral soft tissues are within normal limits. Other: The airway is patent. Partial visualization of bilateral pleural effusions with associated ate lectasis. Mild bilateral carotid bulb calcifications. IMPRESSION: 1. No evidence of acute cervical spine fracture. 2. Increase sclerosis and vertebral body central height loss of the T3 vertebral body from prior comp ression fracture with approximately 20% height loss centrally. No retropulsion. 3. Mild multilevel degenerative disease most pronounced at C5-C6 with mild central canal and left rea ral foraminal stenosis. 4. Partial visualization of bilateral pleural effusions.
--- NOTE | 2023-03-30 12:57 | CA ---
Transthoracic Echo Report Name: Lindsay Bernal Age: 82 Gender: F : 1940 Exam Date: 03/29/2023 14:33 Exam Location: [facility] Ht (in): 64 Wt (lb): 115 Ordering Physician: Sheldon Beltran MD ([id number]) Attending/Referring Phys: Bridge Attacher Mary Wall [facility] Procedure CPT: Indications: afib Cardiac Hx: Technical Quality: Fair Contrast 1: Total Dose (mL): Contrast 2: Total Dose (mL): MEASUREMENTS (Male / Female) Normal Values 2D ECHO LV Diastolic Diameter PLAX 3.8 cm 4.2 - 5.9 / 3.9 - 5.3 cm LV Systolic Diameter PLAX 2.8 cm IVS Diastolic Thickness 1.0 cm 0.6 - 1.0 / 0.6 - 0.9 cm LVPW Diastolic Thickness 0.8 cm 0.6 - 1.0 / 0.6 - 0.9 cm LV Relative Wall Thickness 0.5 LVOT Diameter 2.0 cm M-MODE Aortic Root Diameter MM 2.6 cm LA Systolic Diameter MM 3.8 cm LA Ao Ratio MM 1.4 AV Cusp Separation MM 1.4 cm DOPPLER AV Peak Velocity 124.9 cm/s AV Peak Gradient 6.2 mmHg AV Mean Velocity 96.3 cm/s AV Mean Gradient 3.9 mmHg AV Velocity Time Integral 32.4 cm LVOT Peak Velocity 102.9 cm/s LVOT Peak Gradient 4.2 mmHg LVOT Velocity Time Integral 25.6 cm LVOT Stroke Volume 83.9 cm??? LVOT Stroke Volume Index 54.2 ml/m??? LVOT Cardiac Index 2793.5 cm???/min???m??? AV Area Cont Eq vti 2.6 cm??? AV Area Cont Eq pk 2.7 cm??? Mitral E Point Velocity 103.1 cm/s Mitral A Point Velocity 113.9 cm/s Mitral E to A Ratio 0.9 MV Deceleration Time 246.1 ms LV E' Lateral Velocity 4.2 cm/s Mitral E to LV E' Lateral Ratio 24.5 LV E' Septal Velocity 5.1 cm/s Mitral E to LV E' Septal Ratio 20.4 Right Atrial Pressure 3.0 mmHg FINDINGS Left Ventricle Normal Left ventricular size, wall thickness, systolic function with no obvious regional wall motion abnormalities. Left ventricular ejection fraction is estimated at 60-65%. Right Ventricle Normal right ventricular size. Right Atrium Normal right atrial size. Left Atrium Severe left atrial dilatation. Mitral Valve Mitral valve thickened. Moderate mitral annular calcification. Mild mitral regurgitation. Aortic Valve Trileaflet aortic valve. Aortic valve sclerosis. No aortic valve stenosis or regurgitation. Tricuspid Valve Structurally normal tricuspid valve. No tricuspid regurgitation. Pulmonic Valve Pulmonic valve not well visualized. No pulmonic regurgitation. Pericardium No pericardial effusion. Echo free space anterior to the right ventricle likely represents a fat pad. Aorta Normal size aortic root. CONCLUSIONS Left ventricular ejection fraction is estimated at 60-65%. No obvious regional wall motion abnormalities. No significant valvular heart disease No significant difference when compared to prior echo from 2021 Previewed by: Dr Alfa Vora (Electronically Signed) Final Date: 30 March 2023 12:56
[2023-03-30 16:43] LABS: Glucose,Whole Blood 121 mg/dL (70-110)
[2023-03-30 20:41] LABS: Glucose,Whole Blood 142 mg/dL (70-110)
--- NOTE | 2023-03-30 21:26 | P.PN ---
Subjective Progress Note Date: 03/28/23 82-year-old female who presents to the emergency department for generalized weakness. Patient states that she feels generally ill and unwell, and has so for the last 1-2 days. Describes generalized body aches and weakness as being her most prominent symptoms. When asked about chest pain, she states that she does have chest pain, however she has pain everywhere and does not believe that this is specific to her chest. She does report associated coughing and congestion as well. Unsure if there have been any sick contacts. Her family states that she is usually unhappy about going to the hospital, but was willing to this time. She is somewhat slow to respond, but is alert and oriented 4. After her family arrived, they said that she's been having frequent falls over the last couple of weeks as well. They also state that she seems to have declined by about 25% just from yesterday to today, which greatly concerned them. Patient has been continuing to refuse to go to the hospital until today, at which time she put up less of a fight and her son subsequently called EMS. Her son does note that she was recently treated for a UTI, but cannot recall which antibiotic she was on. She did require 2 antibiotics, as the first one was not shown to be strong enough, and the patient refused to go in for a recheck after completion of the second antibiotic. EKG interpreted by me demonstrating the following: Sinus rhythm. Ventricular rate 83 beats per minute, MD interval 201 ms, QRS duration 98 ms, QTC 392 ms. EKG was repeated at 1455 due to the hospital monitor reading possible atrial fibrillation, this revealed sinus tachycardia with frequent PVCs. Ventricular rate 100 beats per minute, MD interval 181 ms, QRS duration 87 ms, QTC 380 ms. Chest x-ray obtained- no localized consolidations or infiltrates. Lab work obtained revealing leukocytosis and multiple electrolyte irregularities including hyperkalemia with a potassium of 6.3, Na of 124, and a CO2 <5. Patient is also in acute renal failure with a creatinine of 5.72. Troponin is also elevated, likely secondary to the findings above. CK and serum osmolality were found to be only mildly elevated. Harper catheter was also initiated and urinalysis was suggestive of infection. 1g of Ceftriaxone was administered. Urine and blood cultures were obtained. Per nursing staff, her urine had the appearance of "pea soup". Patient initially given a hyperkalemia cocktail consisting of insulin, sodium bicarb, and Lokelma; nephrology, also advised 1gm of calcium gluconate, an additional ampule of bicarb, and starting her on a D5 drip with 150 mL of sodium bicarb at a rate of 150 mL/hr, with plan to repeat her BMP 2 hours after medication is administered. Objective - Vital Signs Vital signs: Vital Signs Temp 97.8 F 03/28/23 08:15 Pulse 78 03/28/23 08:15 Resp 18 03/28/23 08:15 BP 102/46 03/28/23 08:15 Pulse Ox 98 03/28/23 08:15 FiO2 Intake & Output 03/27/23 03/28/23 03/28/23 18:59 06:59 18:59 Intake Total 110 Output Total 550 200 Balance -550 -90 Weight 51.71 kg 52.163 kg Intake: Oral 110 Output: Urine 550 200 Other: Voiding Method Indwelling Catheter Indwelling Catheter - Exam General appearance: alert, in no apparent distress Head exam: Present: atraumatic, normocephalic, normal inspection Respiratory exam: Present: normal lung sounds bilaterally. Absent: respiratory distress, wheezes, rales, rhonchi, stridor Cardiovascular Exam: Present: regular rate, normal rhythm, normal heart sounds. Absent: systolic murmur, diastolic murmur, rubs, gallop, clicks Neurological exam: Present: alert, oriented X3, CN II-XII intact Psychiatric exam: Present: normal affect, normal mood Skin exam: Present: warm, dry, intact, normal color. Absent: rash - Labs CBC & Chem 7: 03/30/23 08:16 03/30/23 08:16 Labs: Abnormal Lab Results - Last 24 Hours (Table) 03/27/23 03/27/23 03/27/23 Range/Units 12:41 16:43 17:30 Hgb (11.4-16.0) gm/dL Hct (34.0-46.0) % VBG pH 7.48 H (7.31-7.41) VBG pCO2 15 L* (37-51) mmHg VBG HCO3 11 L (24-28) mmol/L Sodium 129 L (137-145) mmol/L Chloride (98-107) mmol/L Carbon Dioxide 12 L (22-30) mmol/L BUN 93 H (7-17) mg/dL Creatinine 4.99 H (0.52-1.04) mg/dL Glucose 62 L (74-99) mg/dL POC Glucose (mg/dL) (70-110) mg/dL Osmolality 302 H (280-301) mosm/kg Calcium (8.4-10.2) mg/dL Creatine Kinase 172 H (30-135) U/L Troponin I (0.000-0.034) ng/mL Procalcitonin (0.02-0.09) ng/mL 03/27/23 03/28/23 03/28/23 Range/Units 18:47 01:47 06:10 Hgb (11.4-16.0) gm/dL Hct (34.0-46.0) % VBG pH (7.31-7.41) VBG pCO2 (37-51) mmHg VBG HCO3 (24-28) mmol/L Sodium (137-145) mmol/L Chloride (98-107) mmol/L Carbon Dioxide (22-30) mmol/L BUN (7-17) mg/dL Creatinine (0.52-1.04) mg/dL Glucose (74-99) mg/dL POC Glucose (mg/dL) 118 H 127 H 171 H (70-110) mg/dL Osmolality (280-301) mosm/kg Calcium (8.4-10.2) mg/dL Creatine Kinase (30-135) U/L Troponin I (0.000-0.034) ng/mL Procalcitonin (0.02-0.09) ng/mL 03/28/23 03/28/23 03/28/23 Range/Units 09:24 09:24 09:24 Hgb 11.1 L (11.4-16.0) gm/dL Hct 31.2 L (34.0-46.0) % VBG pH (7.31-7.41) VBG pCO2 (37-51) mmHg VBG HCO3 (24-28) mmol/L Sodium (137-145) mmol/L Chloride (98-107) mmol/L Carbon Dioxide (22-30) mmol/L BUN (7-17) mg/dL Creatinine (0.52-1.04) mg/dL Glucose (74-99) mg/dL POC Glucose (mg/dL) (70-110) mg/dL Osmolality (280-301) mosm/kg Calcium (8.4-10.2) mg/dL Creatine Kinase (30-135) U/L Troponin I 0.088 H* (0.000-0.034) ng/mL Procalcitonin 0.27 H (0.02-0.09) ng/mL 03/28/23 03/28/23 03/28/23 Range/Units 09:24 09:24 11:16 Hgb (11.4-16.0) gm/dL Hct (34.0-46.0) % VBG pH (7.31-7.41) VBG pCO2 (37-51) mmHg VBG HCO3 (24-28) mmol/L Sodium 127 L 127 L (137-145) mmol/L Chloride 93 L 93 L (98-107) mmol/L Carbon Dioxide (22-30) mmol/L BUN 88 H 89 H (7-17) mg/dL Creatinine 3.99 H 3.83 H (0.52-1.04) mg/dL Glucose 144 H 142 H (74-99) mg/dL POC Glucose (mg/dL) 177 H (70-110) mg/dL Osmolality (280-301) mosm/kg Calcium 7.8 L 7.8 L (8.4-10.2) mg/dL Creatine Kinase (30-135) U/L Troponin I (0.000-0.034) ng/mL Procalcitonin (0.02-0.09) ng/mL Assessment and Plan Assessment: 1. Acute renal failure; patient has been placed on IV fluid hydration with D5 water with 1 50 mL of sodium bicarbonate at a rate of 1 50 mL an hour; and a strict MISAEL's, daily weights, renal function and electrolytes; avoid nephrotoxins and hypotension 2. Critical hyperkalemia; hyperkalemia cocktail consisting of insulin, sodium bicarbonate, calcium gluconate envelope, was administered in ED; we will monitor electrolytes closely 3. UTI; patient received Rocephin 1 g IV in ED; we will continue current dose; further recommendations once urine and blood cultures are available 4. Metabolic acidosis; patient received 1 amp of bicarbonate and has been placed on D5 drip with 150 mils of sodium bicarbonate at rate of 1 50 mL per hour; monitor basic metabolic panel closely 5. Elevated troponin; likely related to acute renal failure/UTI/sepsis; we will trend troponin and monitor EKG 6. Diabetes mellitus type 2; patient takes Glucophage 1000 mg twice a day; we will place on hold and start patient on Accu-Cheks every before meals and at bedtime with insulin sliding scale while inpatient 7. Hypertension; patient takes ramipril 10 mg daily; we will hold given acute renal failure; add IV hydralazine to be used when necessary DVT prophylaxis; SCDs/subcu heparin CODE STATUS; full code
[2023-03-31] MEDS: HYDROcodone/APAP 5-325MG 1 EACH TAB PO PRN ×2 (01:48→21:13)
[2023-03-31] MEDS: SODIUM CHLORIDE 0.9% 1,000 ML IV SCH (03:51)
[2023-03-31] MEDS: METOPROLOL TARTRATE 25 MG TAB PO SCH ×2 (05:48→20:44)
[2023-03-31 06:23] LABS: Glucose,Whole Blood 105 mg/dL (70-110)
[2023-03-31] MEDS: INSULIN ASPART (NovoLOG) 100 UNIT/ML VIAL SQ SCH ×4 (06:23→20:41)
[2023-03-31] MEDS ORDERED: DILTIAZEM ORAL 60 MG TAB PO STA (07:02)
[2023-03-31] MEDS: APIXABAN 2.5 MG TABLET PO SCH ×2 (08:27→20:44)
[2023-03-31] MEDS: MAGNESIUM OXIDE 400 MG TAB PO SCH (08:27)
[2023-03-31] MEDS: LORATADINE 10 MG TAB PO SCH (08:27)
[2023-03-31 09:26] LABS: HCT 35.2 % (34.0-46.0); HGB 11.8 gm/dL (11.4-16.0); MCH 28.9 pg (25.0-35.0); MCHC 33.4 g/dL (31.0-37.0); MCV 86.4 fL (80.0-100.0); Mean Platelet Volume 9.6; Platelet Count 196 k/uL (150-450); RBC 4.08 m/uL (3.80-5.40); RDW 12.8 % (11.5-15.5); WBC 13.3 k/uL (3.8-10.6)
[2023-03-31 09:35] LABS: ALT 16 U/L (4-34); AST 23 U/L (14-36); African American GFR (CKD) 84 (>60 ml/min/1.73 sqM); Albumin 2.6 g/dL (3.5-5.0); Alkaline Phosphatase 111 U/L (38-126); Anion Gap 8 mmol/L; Blood Urea Nitrogen 31 mg/dL (7-17); Calcium 8.6 mg/dL (8.4-10.2); Carbon Dioxide 21 mmol/L (22-30); Chloride 106 mmol/L (98-107); Glucose 119 mg/dL (74-99); Non-African American GFR(CKD) 73 (>60 ml/min/1.73 sqM); Potassium 3.7 mmol/L (3.5-5.1); Sodium 135 mmol/L (137-145); Total Bilirubin 0.5 mg/dL (0.2-1.3); Total Protein 5.6 g/dL (6.3-8.2)
--- NOTE | 2023-03-31 10:26 | P.PN ---
Subjective Patient is seen in follow-up for acute kidney injury. Renal function is back to baseline. Receiving IV fluids. Oral intake fair. No vomiting or diarrhea. Hemodynamically stable. On room air. Family present at bedside. Vital signs are stable. General: No acute distress. HEENT: Head exam is unremarkable. LUNGS: No rhonchi or wheezes. HEART: Rate and Rhythm are regular. ABDOMEN: Nontender. EXTREMITITES: No edema. Objective - Vital Signs Vital signs: Vital Signs Temp 98.0 F 03/31/23 08:26 Pulse 74 03/31/23 08:26 Resp 16 03/31/23 08:26 BP 131/60 03/31/23 03:56 Pulse Ox 95 03/31/23 08:26 FiO2 Intake & Output 03/30/23 03/31/23 03/31/23 18:59 06:59 18:59 Intake Total 240 180 Output Total 250 400 Balance -10 -400 180 Intake: Oral 240 180 Output: Urine 250 400 Other: Voiding Method Indwelling Catheter Indwelling Catheter - Labs CBC & Chem 7: 03/31/23 08:00 03/31/23 08:00 Labs: Abnormal Lab Results - Last 24 Hours (Table) 03/30/23 03/30/23 03/30/23 Range/Units 10:55 11:24 16:42 WBC (3.8-10.6) k/uL Sodium (137-145) mmol/L Carbon Dioxide (22-30) mmol/L BUN (7-17) mg/dL Glucose (74-99) mg/dL POC Glucose (mg/dL) 120 H 121 H (70-110) mg/dL Total Protein (6.3-8.2) g/dL Albumin (3.5-5.0) g/dL Urine Appearance Turbid H (Clear) Urine Protein 2+ H (Negative) Urine Glucose (UA) Trace H (Negative) Urine Ketones 1+ H (Negative) Urine Blood Large H (Negative) Ur Leukocyte Esterase Large H (Negative) Urine RBC 165 H (0-5) /hpf Urine WBC >182 H (0-5) /hpf Urine WBC Clumps Many H (None) /hpf Hyaline Casts 60 H (0-2) /lpf 03/30/23 03/31/23 03/31/23 Range/Units 20:40 08:00 08:00 WBC 13.3 H (3.8-10.6) k/uL Sodium 135 L (137-145) mmol/L Carbon Dioxide 21 L (22-30) mmol/L BUN 31 H (7-17) mg/dL Glucose 119 H (74-99) mg/dL POC Glucose (mg/dL) 142 H (70-110) mg/dL Total Protein 5.6 L (6.3-8.2) g/dL Albumin 2.6 L (3.5-5.0) g/dL Urine Appearance (Clear) Urine Protein (Negative) Urine Glucose (UA) (Negative) Urine Ketones (Negative) Urine Blood (Negative) Ur Leukocyte Esterase (Negative) Urine RBC (0-5) /hpf Urine WBC (0-5) /hpf Urine WBC Clumps (None) /hpf Hyaline Casts (0-2) /lpf Microbiology - Last 24 Hours (Table) 03/27/23 16:40 Blood Culture - Preliminary Blood 03/27/23 16:55 Blood Culture - Preliminary Blood Assessment and Plan Plan: Assessment: 1. Acute kidney injury secondary to ATN secondary to hypovolemia, further worsened with the use of NSAIDs and MICHELLE inhibitor. Creatinine 5.72 admission and is 0.76 today. No hydronephrosis noted on kidney ultrasound. 2. Metabolic acidosis secondary to acute kidney injury and metformin. Also from IVFs. 3. Hyponatremia, hypovolemic and also component of poor solute intake. Better. 4. Hyperkalemia secondary to acute kidney injury, acidosis, NSAIDs and MICHELLE inhibitor. Resolved. Became hypokalemic and potassium was replaced. 5. Diabetes mellitus. 6. UTI on antibiotics. 7. A. fib with RVR. On anticoagulation and metoprolol. Cardiology following. Plan: Maintain free water restriction. Encouraged oral intake. Avoid nephrotoxins. Continue to monitor renal function and urine output. Preserved EF noted on Echo. Hep-Lock IV fluids. Check chest x-ray.
--- NOTE | 2023-03-31 10:57 | P.PN ---
Subjective HISTORY OF PRESENT ILLNESS: The patient is an 82-year-old female who presented with symptoms of progressive weakness, nausea and vomiting and not feeling well. Cardiology consultation was requested for evidence of atrial fibrillation. I am not able to the dictated history from the patient but she says that she's feeling ill. She has some vague symptoms of chest discomfort as well as dyspnea. She has occasional palpi tation. On presentation she was noted to have significant worsening of her renal function. Apparently she has not been doing well for the last few weeks until she came into the hospital. On presentation she was in sinus mechanism subsequently sinus mechanism with PACs and now in atrial fibrillation with rapid ventricle response. She had mild troponin elevation. She has a prior history of hypertension and diabetes. During an admission in March [id number] she was in sinus mechanism with multifocal atrial tachycardia but not atrial fibrillation. On admission her potassium was 6.3, creatinine 5.72 and her troponin 0.067. Her peak troponin is 0.088 and her most recent creatinine is 3.83. Medications: Ramipril 10 mg daily, metformin 1 g twice a day, ibuprofen, iron 03/29/2023 Patient examined this morning at the bedside. Patient denies chest pain or pressure. She denies shortness of breath. She still continues to report weakness. Telemetry reveals sinus mechanism with a heart rate in the 50s. She remains on IV heparin. Blood pressure is stable. Creatinine today 2.29. 03/30/2023 Patient examined this morning at the bedside. Patient states she is feeling unwell this morning. She reports having some epigastric pain. Patient also reports generalized weakness. She has not been out of bed yet. She continues to have an indwelling urinary catheter. Telemetry reveals sinus mechanism with a rate in the 60s. Dr. Bernal looked at preliminary echo which revealed preserved LV systolic function. 03/31/2023 Cardiology was reconsulted secondary to patient going into A. fib with RVR this morning. Patient was given a one-time dose of oral Cardizem. She has converted to sinus mechanism this morning. The patient denies feeling any palpitations. She denies chest pain or pressure. She denies shortness of breath. She states that she feels "blah" today. PHYSICAL EXAM: VITAL SIGNS: Reviewed. GENERAL: Well-developed in no acute distress. NECK: Supple. No JVD or thyromegaly LUNGS: Respirations even and unlabored. Lungs essentially clear to auscultation bilaterally. HEART: Regular rate and rhythm. S1 and S2 heard. EXTREMITIES: Normal range of motion. No clubbing or cyanosis. Peripheral pulses intact. No lower extremity edema ASSESSMENT: Generalized weakness, nausea, and vomiting New-onset paroxysmal atrial fibrillation, currently maintaining sinus mechanism Abnormal troponins, likely secondary to acute kidney injury, no evidence of acute coronary syndrome Hypertension Diabetes PLAN: Continue current cardiac medications Continue current dose of metoprolol as patient is mildly bradycardic when she is in sinus mechanism Add amiodarone 400 mg twice a day. Decrease to 200 mg twice a day after 1 week. Further recommendations pending patient's course Nurse practitioner note has been reviewed by physician. Signing provider agrees with the documented findings, assessment, and plan of care. Objective - Vital Signs Vital signs: Vital Signs Temp 98.0 F 03/31/23 08:26 Pulse 74 03/31/23 08:26 Resp 16 03/31/23 08:26 BP 131/60 03/31/23 03:56 Pulse Ox 95 03/31/23 08:26 FiO2 Intake & Output 03/30/23 03/31/23 03/31/23 18:59 06:59 18:59 Intake Total 240 180 Output Total 250 400 Balance -10 -400 180 Intake: Oral 240 180 Output: Urine 250 400 Other: Voiding Method Indwelling Catheter Indwelling Catheter - Labs CBC & Chem 7: 03/31/23 08:00 03/31/23 08:00 Labs: Abnormal Lab Results - Last 24 Hours (Table) 03/30/23 03/30/23 03/30/23 Range/Units 10:55 11:24 16:42 WBC (3.8-10.6) k/uL Sodium (137-145) mmol/L Carbon Dioxide (22-30) mmol/L BUN (7-17) mg/dL Glucose (74-99) mg/dL POC Glucose (mg/dL) 120 H 121 H (70-110) mg/dL Total Protein (6.3-8.2) g/dL Albumin (3.5-5.0) g/dL Urine Appearance Turbid H (Clear) Urine Protein 2+ H (Negative) Urine Glucose (UA) Trace H (Negative) Urine Ketones 1+ H (Negative) Urine Blood Large H (Negative) Ur Leukocyte Esterase Large H (Negative) Urine RBC 165 H (0-5) /hpf Urine WBC >182 H (0-5) /hpf Urine WBC Clumps Many H (None) /hpf Hyaline Casts 60 H (0-2) /lpf 03/30/23 03/31/23 03/31/23 Range/Units 20:40 08:00 08:00 WBC 13.3 H (3.8-10.6) k/uL Sodium 135 L (137-145) mmol/L Carbon Dioxide 21 L (22-30) mmol/L BUN 31 H (7-17) mg/dL Glucose 119 H (74-99) mg/dL POC Glucose (mg/dL) 142 H (70-110) mg/dL Total Protein 5.6 L (6.3-8.2) g/dL Albumin 2.6 L (3.5-5.0) g/dL Urine Appearance (Clear) Urine Protein (Negative) Urine Glucose (UA) (Negative) Urine Ketones (Negative) Urine Blood (Negative) Ur Leukocyte Esterase (Negative) Urine RBC (0-5) /hpf Urine WBC (0-5) /hpf Urine WBC Clumps (None) /hpf Hyaline Casts (0-2) /lpf Microbiology - Last 24 Hours (Table) 03/27/23 16:40 Blood Culture - Preliminary Blood 03/27/23 16:55 Blood Culture - Preliminary Blood
[2023-03-31 11:30] LABS: Glucose,Whole Blood 203 mg/dL (70-110)
--- NOTE | 2023-03-31 11:55 | CDI ---
Documentation Clarification Form Date: 03/31/2023 11:17:58 AM From: Johana Ken RN CCDS Phone: [phone] Admit Date: 03/27/2023 05:42:00 PM Patient Name: Lindsay Bernal Visit Number: [id number] Discharge Date: ATTENTION: The Clinical Documentation Specialists (CDI) and [facility] Coding Staff appreciate your assistance in clarifying documentation. Please respond to the clarification below the line at the bottom and electronically sign. The CDI & [facility] Coding staff will review the response and follow-up if needed. Please note: Queries are made part of the Legal Health Record. If you have any questions, please contact the author of this message via ITS. Dr. Bernarda Flores, Sepsis is documented in the H&P, 03/27 and Medicine note 03/28, but is not noted in subsequent documentation. Clarification is requested. History/Risk Factors: 82-year-old female presents to the ED with generalized weakness, body aches and frequent falls. The patient was recently treated for UTI. Was treated with two rounds of antibiotics, unsure of which antibiotics. 03/27, H&P. Clinical Indicators: VSS: B/P 128/54; HR 84; Temp 96.6 F Axillary; RR 18; SpO2 97% room air LABS, 03/27: Wbc 13.7; Neutrophils 11.6 UA, 03/27: Appearance Turbid; RBC >182; WBC >182; WBC Clumps - many; Bacteria - few 03/27, H&P: Urinalysis was suggestive of infection. Treatment: IV fluids: 03/27 0.9ns 1L IV; Antibiotics: 03/27 Rocephin IVP x 1; 03/28 Ceftriaxone IVPB Q12HR Please clarify if the Sepsis is: [ y ] Sepsis confirmed, remains under treatment [ ] Sepsis confirmed, resolved [ ] Sepsis ruled out [ ] Other condition, please specify [ ] Unable to determine SIRS Criteria: 2 or more of the following may indicate SIRS Temperature < 96.8F (36C) or > 101.0F (38.3C) Heart Rate > 90 bpm Respiratory Rate > 20 breaths/min or PaCO2 < 32 mmHg White Blood Cell Count > 12,000 or < 4,000 cells/mm3 or > 10% bands (Template Last Revised: September 2020) MTDD
[2023-03-31] MEDS: AMIODARONE 200 MG TAB PO SCH ×2 (11:56→20:44)
--- NOTE | 2023-03-31 12:53 | P.PN ---
Subjective Progress Note Date: 03/31/23 82-year-old female who presents to the emergency department for generalized weakness. Patient states that she feels generally ill and unwell, and has so for the last 1-2 days. Describes generalized body aches and weakness as being her most prominent symptoms. When asked about chest pain, she states that she does have chest pain, however she has pain everywhere and does not believe that this is specific to her chest. She does report associated coughing and congestion as well. Unsure if there have been any sick contacts. Her family states that she is usually unhappy about going to the hospital, but was willing to this time. She is somewhat slow to respond, but is alert and oriented 4. After her family arrived, they said that she's been having frequent falls over the last couple of weeks as well. They also state that she seems to have declined by about 25% just from yesterday to today, which greatly concerned them. Patient has been continuing to refuse to go to the hospital until today, at which time she put up less of a fight and her son subsequently called EMS. Her son does note that she was recently treated for a UTI, but cannot recall which antibiotic she was on. She did require 2 antibiotics, as the first one was not shown to be strong enough, and the patient refused to go in for a recheck after completion of the second antibiotic. EKG interpreted by me demonstrating the following: Sinus rhythm. Ventricular rate 83 beats per minute, OK interval 201 ms, QRS duration 98 ms, QTC 392 ms. EKG was repeated at 1455 due to the clinical research monitor reading possible atrial fibrillation, this revealed sinus tachycardia with frequent PVCs. Ventricular rate 100 beats per minute, OK interval 181 ms, QRS duration 87 ms, QTC 380 ms. Chest x-ray obtained- no localized consolidations or infiltrates. Lab work obtained revealing leukocytosis and multiple electrolyte irregularities including hyperkalemia with a potassium of 6.3, Na of 124, and a CO2 <5. Patient is also in acute renal failure with a creatinine of 5.72. Troponin is also elevated, likely secondary to the findings above. CK and serum osmolality were found to be only mildly elevated. Harper catheter was also initiated and urinalysis was suggestive of infection. 1g of Ceftriaxone was administered. Urine and blood cultures were obtained. Per nursing staff, her urine had the appearance of "pea soup". Patient initially given a hyperkalemia cocktail consisting of insulin, sodium bicarb, and Lokelma; nephrology, also advised 1gm of calcium gluconate, an additional ampule of bicarb, and starting her on a D5 drip with 150 mL of sodium bicarb at a rate of 150 mL/hr, with plan to repeat her BMP 2 hours after medication is administered. 03/29. Patient seen and examined. Patient complaining of lethargy. Potassium 3.2, magnesium 1.5, replacement ordered 03/30. Patient seen and examined. Blood work labs showed WBC 12.4, hemoglobin 11.4, platelet count 194, sodium 139, BUN 43, creatinine 1.04. Vital signs stable 03/31: Patient seen and evaluated bedside, continue patient on antibiotics. Continue to monitor renal function Objective - Vital Signs Vital signs: Vital Signs Temp 98.0 F 03/31/23 08:26 Pulse 91 03/31/23 11:57 Resp 18 03/31/23 11:57 BP 128/62 03/31/23 11:57 Pulse Ox 97 03/31/23 11:57 FiO2 Intake & Output 03/30/23 03/31/23 03/31/23 18:59 06:59 18:59 Intake Total 240 180 Output Total 250 400 650 Balance -10 -400 -470 Intake: Oral 240 180 Output: Urine 250 400 650 Other: Voiding Method Indwelling Catheter Indwelling Catheter Indwelling Catheter - Exam REVIEW OF SYSTEMS: CONSTITUTIONAL: No fever, no malaise,. Complaining of lethargy and weakness CARDIOVASCULAR: No chest pain, no palpitations, no syncope. PULMONARY: No shortness of breath, no cough, GASTROINTESTINAL: No diarrhea, no nausea, no vomiting, no abdominal pain. NEUROLOGICAL: No headaches, no weakness, PHYSICAL EXAMINATION: GENERAL: The patient is alert and oriented x3, not in any acute distress. Ill- looking HEENT: Pupils are round and equally reacting to light. EOMI. No scleral icterus. No conjunctival pallor. Normocephalic, atraumatic. No pharyngeal erythema. No thyromegaly. CARDIOVASCULAR: S1 and S2 present. No murmurs, rubs, or gallops. PULMONARY: Chest is clear to auscultation, no wheezing or crackles. ABDOMEN: Soft, nontender, nondistended, normoactive bowel sounds. No palpable organomegaly. MUSCULOSKELETAL: No joint swelling or deformity. EXTREMITIES: No cyanosis, clubbing, or pedal edema. NEUROLOGICAL: Gross neurological examination did not reveal any focal deficits. SKIN: No rashes. - Labs CBC & Chem 7: 03/31/23 08:00 03/31/23 08:00 Labs: Abnormal Lab Results - Last 24 Hours (Table) 03/30/23 03/30/23 03/31/23 Range/Units 16:42 20:40 08:00 WBC 13.3 H (3.8-10.6) k/uL Sodium (137-145) mmol/L Carbon Dioxide (22-30) mmol/L BUN (7-17) mg/dL Glucose (74-99) mg/dL POC Glucose (mg/dL) 121 H 142 H (70-110) mg/dL Total Protein (6.3-8.2) g/dL Albumin (3.5-5.0) g/dL 03/31/23 03/31/23 Range/Units 08:00 11:28 WBC (3.8-10.6) k/uL Sodium 135 L (137-145) mmol/L Carbon Dioxide 21 L (22-30) mmol/L BUN 31 H (7-17) mg/dL Glucose 119 H (74-99) mg/dL POC Glucose (mg/dL) 203 H (70-110) mg/dL Total Protein 5.6 L (6.3-8.2) g/dL Albumin 2.6 L (3.5-5.0) g/dL Microbiology - Last 24 Hours (Table) 03/30/23 10:55 Urine Culture - Final Urine,Voided 03/27/23 16:40 Blood Culture - Preliminary Blood 03/27/23 16:55 Blood Culture - Preliminary Blood Assessment and Plan Assessment: Assessment and plan Acute renal failure Critical hyperkalemia Urinary tract infection Metabolic acidosis Elevated troponin Diabetes mellitus type 2 Hypertension * Continue patient on IV antibioticsr Rocephin day 4 * CBC and basic metabolic panel * Blood cultures and urine cultures negative * Consultation obtained from cardiology, infectious disease and nephrology * In regards to diabetes mellitus continue patient on NovoLog
[2023-03-31 13:28] VITALS: BMI 19.7
--- NOTE | 2023-03-31 13:28 | P.PN ---
Subjective Progress Note Date: 03/30/23 Principal diagnosis: UTI Patient is a 82-year-old female with a past medical history significant for diabetes mellitus reflux hypertension history of skin cancer and UTI presenting to the hospital for evaluation of generalized weakness, patient also have a positive UA urinary symptoms concerning for symptomatic aortic infection. On today's evaluation that is 03/30/2023, patient remains to be afebrile, the patient is breathing comfortably on room air , the patient denies any chest pain shortness of breath cough abdominal pain or diarrhea feeling slightly better. PaWhite count is slightly up at 12.4 today, creatinine has normalized to 1.04 abdominal ultrasound was negative for obstructive uropathy blood cultures pending unfortunately no urine culture ordered. Objective - Vital Signs Vital signs: Vital Signs Temp 97.3 F L 03/30/23 11:14 Pulse 51 L 03/30/23 11:14 Resp 18 03/30/23 11:14 BP 111/49 03/30/23 11:14 Pulse Ox 96 03/30/23 11:14 FiO2 Intake & Output 03/29/23 03/30/23 03/30/23 18:59 06:59 18:59 Intake Total 1523.727 240 Output Total 450 475 250 Balance 1073.727 -475 -10 Intake: Intake, IV Titration 43.727 Amount Heparin Sod,Pork in 0.45% 43.727 NaCl 25,000 unit In 0.45 % NaCl 1 250ml.bag @ 12 UNITS/KG/HR 6.26 mls/hr IV .Q24H [facility] Rx#: [id number] Oral 1480 240 Output: Urine 450 475 250 Other: Voiding Method Indwelling Catheter Indwelling Catheter Indwelling Catheter - Exam GENERAL DESCRIPTION: Elderly female lying in bed in no distress RESPIRATORY SYSTEM: Unlabored breathing , decreased breath sounds at bases HEART: S1 S2 regular rate and rhythm ,no loud murmurs ABDOMEN: Soft , no tenderness EXTREMITIES: No edema feet - Labs CBC & Chem 7: 03/31/23 08:00 03/31/23 08:00 Labs: Abnormal Lab Results - Last 24 Hours (Table) 03/29/23 03/29/23 03/30/23 Range/Units 11:32 16:09 06:02 WBC (3.8-10.6) k/uL APTT 83.2 H (22.0-30.0) sec Sodium (137-145) mmol/L Carbon Dioxide (22-30) mmol/L BUN (7-17) mg/dL Glucose (74-99) mg/dL POC Glucose (mg/dL) 172 H 113 H (70-110) mg/dL Calcium (8.4-10.2) mg/dL Total Protein (6.3-8.2) g/dL Albumin (3.5-5.0) g/dL Urine Appearance (Clear) Urine Protein (Negative) Urine Glucose (UA) (Negative) Urine Ketones (Negative) Urine Blood (Negative) Ur Leukocyte Esterase (Negative) Urine RBC (0-5) /hpf Urine WBC (0-5) /hpf Urine WBC Clumps (None) /hpf Hyaline Casts (0-2) /lpf 03/30/23 03/30/23 03/30/23 Range/Units 08:16 08:16 10:55 WBC 12.4 H (3.8-10.6) k/uL APTT (22.0-30.0) sec Sodium 131 L (137-145) mmol/L Carbon Dioxide 21 L (22-30) mmol/L BUN 43 H (7-17) mg/dL Glucose 111 H (74-99) mg/dL POC Glucose (mg/dL) (70-110) mg/dL Calcium 8.3 L (8.4-10.2) mg/dL Total Protein 5.9 L (6.3-8.2) g/dL Albumin 2.7 L (3.5-5.0) g/dL Urine Appearance Turbid H (Clear) Urine Protein 2+ H (Negative) Urine Glucose (UA) Trace H (Negative) Urine Ketones 1+ H (Negative) Urine Blood Large H (Negative) Ur Leukocyte Esterase Large H (Negative) Urine RBC 165 H (0-5) /hpf Urine WBC >182 H (0-5) /hpf Urine WBC Clumps Many H (None) /hpf Hyaline Casts 60 H (0-2) /lpf 03/30/23 Range/Units 11:24 WBC (3.8-10.6) k/uL APTT (22.0-30.0) sec Sodium (137-145) mmol/L Carbon Dioxide (22-30) mmol/L BUN (7-17) mg/dL Glucose (74-99) mg/dL POC Glucose (mg/dL) 120 H (70-110) mg/dL Calcium (8.4-10.2) mg/dL Total Protein (6.3-8.2) g/dL Albumin (3.5-5.0) g/dL Urine Appearance (Clear) Urine Protein (Negative) Urine Glucose (UA) (Negative) Urine Ketones (Negative) Urine Blood (Negative) Ur Leukocyte Esterase (Negative) Urine RBC (0-5) /hpf Urine WBC (0-5) /hpf Urine WBC Clumps (None) /hpf Hyaline Casts (0-2) /lpf Microbiology - Last 24 Hours (Table) 03/27/23 16:40 Blood Culture - Preliminary Blood 03/27/23 16:55 Blood Culture - Preliminary Blood Assessment and Plan (1) UTI (urinary tract infection) Current Visit: Yes Status: Acute Code(s): N39.0 - URINARY TRACT INFECTION, SITE NOT SPECIFIED SNOMED Code(s): 63382493 Plan: 1patient present hospitalized weakness no energy did have some urinary symptoms of decreased urine output along with some burning positive UA concerning for symptomatic UTI likely from middle gram-negative pathogen. 2patient with renal insufficiency and high risk of nephrotoxicity ultrasound was negative for any obstructive uropathy. 3 repeat a UA is positive and culture are currently pending. 4patient to continue with the Rocephin 1 g daily and will waiting for repeat urine culture to be finalize Dictation was produced using [employer] dictation software. please excuse any grammatical, word or spelling errors. Time with Patient: Less than 30
--- NOTE | 2023-03-31 13:31 | P.PN ---
Subjective Progress Note Date: 03/31/23 Principal diagnosis: UTI Patient is a 82-year-old female with a past medical history significant for diabetes mellitus reflux hypertension history of skin cancer and UTI presenting to the hospital for evaluation of generalized weakness, patient also have a positive UA urinary symptoms concerning for symptomatic aortic infection. On today's evaluation that is 03/31/2023, patient continues to be afebrile, the patient is breathing comfortably on room air , the patient denies any chest pain shortness of breath and no cough, the patient denies abdominal pain or diarrhea, no new symptoms Patient white count is slightly up at 13.3 today, creatinine has normalized to 0 .76, abdominal ultrasound was negative for obstructive uropathy blood cultures negative, repeat urine was positive cultures are pending Objective - Vital Signs Vital signs: Vital Signs Temp 98.0 F 03/31/23 08:26 Pulse 91 03/31/23 11:57 Resp 18 03/31/23 11:57 BP 128/62 03/31/23 11:57 Pulse Ox 97 03/31/23 11:57 FiO2 Intake & Output 03/30/23 03/31/23 03/31/23 18:59 06:59 18:59 Intake Total 240 180 Output Total 250 400 650 Balance -10 -400 -664 Intake: Oral 240 180 Output: Urine 250 400 650 Other: Voiding Method Indwelling Catheter Indwelling Catheter Indwelling Catheter - Exam GENERAL DESCRIPTION: Elderly female lying in bed in no distress RESPIRATORY SYSTEM: Unlabored breathing , decreased breath sounds at bases HEART: S1 S2 regular rate and rhythm ,no loud murmurs ABDOMEN: Soft , no tenderness EXTREMITIES: No edema feet - Labs CBC & Chem 7: 03/31/23 08:00 03/31/23 08:00 Labs: Abnormal Lab Results - Last 24 Hours (Table) 03/30/23 03/30/23 03/31/23 Range/Units 16:42 20:40 08:00 WBC 13.3 H (3.8-10.6) k/uL Sodium (137-145) mmol/L Carbon Dioxide (22-30) mmol/L BUN (7-17) mg/dL Glucose (74-99) mg/dL POC Glucose (mg/dL) 121 H 142 H (70-110) mg/dL Total Protein (6.3-8.2) g/dL Albumin (3.5-5.0) g/dL 03/31/23 03/31/23 Range/Units 08:00 11:28 WBC (3.8-10.6) k/uL Sodium 135 L (137-145) mmol/L Carbon Dioxide 21 L (22-30) mmol/L BUN 31 H (7-17) mg/dL Glucose 119 H (74-99) mg/dL POC Glucose (mg/dL) 203 H (70-110) mg/dL Total Protein 5.6 L (6.3-8.2) g/dL Albumin 2.6 L (3.5-5.0) g/dL Microbiology - Last 24 Hours (Table) 03/30/23 10:55 Urine Culture - Final Urine,Voided 03/27/23 16:40 Blood Culture - Preliminary Blood 03/27/23 16:55 Blood Culture - Preliminary Blood Assessment and Plan (1) UTI (urinary tract infection) Current Visit: Yes Status: Acute Code(s): N39.0 - URINARY TRACT INFECTION, SITE NOT SPECIFIED SNOMED Code(s): 04918997 Plan: 1patient present hospitalized weakness no energy did have some urinary symptoms of decreased urine output along with some burning positive UA concerning for symptomatic UTI likely from middle gram-negative pathogen. 2patient with renal insufficiency and high risk of nephrotoxicity ultrasound was negative for any obstructive uropathy. 3 repeat a UA is positive and culture are currently pending. 4patient to continue with the Rocephin 1 g daily with slight worsening of the white count will add Diflucan and repeat a CBC with a.m. lab Dictation was produced using [employer] dictation software. please excuse any grammatical, word or spelling errors. Time with Patient: Less than 30
[2023-03-31 16:47] LABS: Glucose,Whole Blood 195 mg/dL (70-110)
--- NOTE | 2023-03-31 17:44 | XR ---
EXAMINATION TYPE: XR chest 1V DATE OF EXAM: 03/31/2023 COMPARISON: 03/27/2023 HISTORY: 82 year-old female shortness of breath TECHNIQUE: Single frontal view of the chest is obtained. FINDINGS: Heart upper limits of normal in size. Hyperinflation. There is redemonstration of a sizable hiatal he rnia with gastric lucency at the left base. There is adjacent opacity present. IMPRESSION: COPD with known large hiatal hernia projecting at the left base. There is new atelectasis or airspace disease at the left base just adjacent.
[2023-03-31 20:35] LABS: Glucose,Whole Blood 143 mg/dL (70-110)
[2023-04-01 06:14] LABS: Glucose,Whole Blood 127 mg/dL (70-110)
[2023-04-01] MEDS: INSULIN ASPART (NovoLOG) 100 UNIT/ML VIAL SQ SCH ×4 (06:17→20:55)
[2023-04-01] MEDS: AMIODARONE 200 MG TAB PO SCH ×2 (08:40→20:55)
[2023-04-01] MEDS: MAGNESIUM OXIDE 400 MG TAB PO SCH (08:40)
[2023-04-01] MEDS: APIXABAN 2.5 MG TABLET PO SCH ×2 (08:40→20:54)
[2023-04-01] MEDS: LORATADINE 10 MG TAB PO SCH (08:40)
[2023-04-01] MEDS: METOPROLOL TARTRATE 25 MG TAB PO SCH ×2 (08:40→20:54)
[2023-04-01 09:19] LABS: HGB 10.6 gm/dL (11.4-16.0); MCH 29.3 pg (25.0-35.0); MCV 86.1 fL (80.0-100.0); Mean Platelet Volume 8.6; Platelet Count 197 k/uL (150-450); RBC 3.61 m/uL (3.80-5.40); WBC 12.9 k/uL (3.8-10.6)
[2023-04-01 09:49] LABS: African American GFR (CKD) >90 (>60 ml/min/1.73 sqM); Anion Gap 6 mmol/L; Blood Urea Nitrogen 20 mg/dL (7-17); Calcium 7.9 mg/dL (8.4-10.2); Carbon Dioxide 20 mmol/L (22-30); Chloride 105 mmol/L (98-107); Glucose 133 mg/dL (74-99); Non-African American GFR(CKD) 84 (>60 ml/min/1.73 sqM); Potassium 3.2 mmol/L (3.5-5.1); Sodium 131 mmol/L (137-145)
[2023-04-01] MEDS ORDERED: POTASSIUM CHLORIDE ER 20 MEQ TAB.ER PO STA (10:29)
--- NOTE | 2023-04-01 10:31 | P.PN ---
Subjective Patient is seen in follow-up for acute kidney injury. Renal function is back to baseline. Off IV fluids. Oral intake fair. No vomiting or diarrhea. Hemodynamically stable. On room air. Family present at bedside. Vital signs are stable. General: No acute distress. HEENT: Head exam is unremarkable. LUNGS: No rhonchi or wheezes. HEART: Rate and Rhythm are regular. ABDOMEN: Nontender. EXTREMITITES: No edema. Objective - Vital Signs Vital signs: Vital Signs Temp 98 F 03/31/23 20:00 Pulse 84 04/01/23 04:00 Resp 16 04/01/23 04:00 BP 128/57 04/01/23 04:00 Pulse Ox 97 04/01/23 04:00 FiO2 Intake & Output 03/31/23 04/01/23 04/01/23 18:59 06:59 18:59 Intake Total 720 200 Output Total 650 725 Balance 70 -725 200 Weight 52.163 kg Intake: Oral 720 200 Output: Urine 650 725 Other: Voiding Method Indwelling Catheter Indwelling Catheter - Labs CBC & Chem 7: 04/01/23 08:35 04/01/23 08:35 Labs: Abnormal Lab Results - Last 24 Hours (Table) 03/31/23 03/31/23 03/31/23 Range/Units 11:28 16:44 20:34 WBC (3.8-10.6) k/uL RBC (3.80-5.40) m/uL Hgb (11.4-16.0) gm/dL Hct (34.0-46.0) % Sodium (137-145) mmol/L Potassium (3.5-5.1) mmol/L Carbon Dioxide (22-30) mmol/L BUN (7-17) mg/dL Glucose (74-99) mg/dL POC Glucose (mg/dL) 203 H 195 H 143 H (70-110) mg/dL Calcium (8.4-10.2) mg/dL 04/01/23 04/01/23 04/01/23 Range/Units 06:13 08:35 08:35 WBC 12.9 H (3.8-10.6) k/uL RBC 3.61 L (3.80-5.40) m/uL Hgb 10.6 L (11.4-16.0) gm/dL Hct 31.0 L (34.0-46.0) % Sodium 131 L (137-145) mmol/L Potassium 3.2 L (3.5-5.1) mmol/L Carbon Dioxide 20 L (22-30) mmol/L BUN 20 H (7-17) mg/dL Glucose 133 H (74-99) mg/dL POC Glucose (mg/dL) 127 H (70-110) mg/dL Calcium 7.9 L (8.4-10.2) mg/dL Microbiology - Last 24 Hours (Table) 03/30/23 10:55 Urine Culture - Final Urine,Voided Assessment and Plan Plan: Assessment: 1. Acute kidney injury secondary to ATN secondary to hypovolemia, further worse kaur with the use of NSAIDs and MICHELLE inhibitor. Creatinine 5.72 admission and is 0.6 today. No hydronephrosis noted on kidney ultrasound. 2. Metabolic acidosis secondary to acute kidney injury and metformin. Also from IVFs. 3. Hyponatremia, hypovolemic and also component of poor solute intake. 4. Hyperkalemia secondary to acute kidney injury, acidosis, NSAIDs and MICHELLE inhibitor. Resolved. Became hypokalemic and potassium was replaced. 5. Diabetes mellitus. 6. UTI on antibiotics. 7. A. fib with RVR. On anticoagulation and metoprolol. Cardiology following. 8. Hypokalemia from poor intake. Plan: Maintain free water restriction. Encouraged oral intake. Avoid nephrotoxins. Continue to monitor renal function and urine output. Preserved EF noted on Echo. Replace potassium.
[2023-04-01 10:37] LABS: C Reactive Protein 15.8 mg/dL (<1.0)
[2023-04-01 11:32] LABS: Glucose,Whole Blood 127 mg/dL (70-110)
--- NOTE | 2023-04-01 12:39 | P.PN ---
Subjective Progress Note Date: 04/01/23 82-year-old female who presents to the emergency department for generalized weakness. Patient states that she feels generally ill and unwell, and has so for the last 1-2 days. Describes generalized body aches and weakness as being her most prominent symptoms. When asked about chest pain, she states that she does have chest pain, however she has pain everywhere and does not believe that this is specific to her chest. She does report associated coughing and congestion as well. Unsure if there have been any sick contacts. Her family states that she is usually unhappy about going to the hospital, but was willing to this time. She is somewhat slow to respond, but is alert and oriented 4. After her family arrived, they said that she's been having frequent falls over the last couple of weeks as well. They also state that she seems to have declined by about 25% just from yesterday to today, which greatly concerned them. Patient has been continuing to refuse to go to the hospital until today, at which time she put up less of a fight and her son subsequently called EMS. Her son does note that she was recently treated for a UTI, but cannot recall which antibiotic she was on. She did require 2 antibiotics, as the first one was not shown to be strong enough, and the patient refused to go in for a recheck after completion of the second antibiotic. EKG interpreted by me demonstrating the following: Sinus rhythm. Ventricular rate 83 beats per minute, SD interval 201 ms, QRS duration 98 ms, QTC 392 ms. EKG was repeated at 1455 due to the air conditioning technician reading possible atrial fibrillation, this revealed sinus tachycardia with frequent PVCs. Ventricular rate 100 beats per minute, SD interval 181 ms, QRS duration 87 ms, QTC 380 ms. Chest x-ray obtained- no localized consolidations or infiltrates. Lab work obtained revealing leukocytosis and multiple electrolyte irregularities including hyperkalemia with a potassium of 6.3, Na of 124, and a CO2 <5. Patient is also in acute renal failure with a creatinine of 5.72. Troponin is also elevated, likely secondary to the findings above. CK and serum osmolality were found to be only mildly elevated. Harper catheter was also initiated and urinalysis was suggestive of infection. 1g of Ceftriaxone was administered. Urine and blood cultures were obtained. Per nursing staff, her urine had the appearance of "pea soup". Patient initially given a hyperkalemia cocktail consisting of insulin, sodium bicarb, and Lokelma; nephrology, also advised 1gm of calcium gluconate, an additional ampule of bicarb, and starting her on a D5 drip with 150 mL of sodium bicarb at a rate of 150 mL/hr, with plan to repeat her BMP 2 hours after medication is administered. 03/29. Patient seen and examined. Patient complaining of lethargy. Potassium 3.2, magnesium 1.5, replacement ordered 03/30. Patient seen and examined. Blood work labs showed WBC 12.4, hemoglobin 11.4, platelet count 194, sodium 139, BUN 43, creatinine 1.04. Vital signs stable 03/31: Patient seen and evaluated bedside, continue patient on antibiotics. Continue to monitor renal function 04/01: Patient seen and evaluated bedside, she complains of lethargic, tachycardia noted earlier today heart rate better after metoprolol white cell count trending down Objective - Vital Signs Vital signs: Vital Signs Temp 97.6 F 04/01/23 08:00 Pulse 144 H 04/01/23 08:00 Resp 18 04/01/23 08:00 BP 101/65 04/01/23 08:00 Pulse Ox 95 04/01/23 08:00 FiO2 Intake & Output 03/31/23 04/01/23 04/01/23 18:59 06:59 18:59 Intake Total 720 200 Output Total 650 725 Balance 70 -725 200 Weight 52.163 kg Intake: Oral 720 200 Output: Urine 650 725 Other: Voiding Method Indwelling Catheter Indwelling Catheter Indwelling Catheter - Exam REVIEW OF SYSTEMS: CONSTITUTIONAL: No fever, no malaise,. Complaining of lethargy and weakness CARDIOVASCULAR: No chest pain, no palpitations, no syncope. PULMONARY: No shortness of breath, no cough, GASTROINTESTINAL: No diarrhea, no nausea, no vomiting, no abdominal pain. NEUROLOGICAL: No headaches, no weakness, PHYSICAL EXAMINATION: GENERAL: The patient is alert and oriented x3, not in any acute distress. Ill- looking HEENT: Pupils are round and equally reacting to light. EOMI. No scleral icterus. No conjunctival pallor. Normocephalic, atraumatic. No pharyngeal erythema. No thyromegaly. CARDIOVASCULAR: S1 and S2 present. Irregular rhythm tachycardia noted PULMONARY: Chest is clear to auscultation, no wheezing or crackles. ABDOMEN: Soft, nontender, nondistended, normoactive bowel sounds. No palpable organomegaly. MUSCULOSKELETAL: No joint swelling or deformity. EXTREMITIES: No cyanosis, clubbing, or pedal edema. NEUROLOGICAL: Gross neurological examination did not reveal any focal deficits. SKIN: No rashes. - Labs CBC & Chem 7: 04/01/23 08:35 04/01/23 08:35 Labs: Abnormal Lab Results - Last 24 Hours (Table) 03/31/23 03/31/23 04/01/23 Range/Units 16:44 20:34 06:13 WBC (3.8-10.6) k/uL RBC (3.80-5.40) m/uL Hgb (11.4-16.0) gm/dL Hct (34.0-46.0) % Sodium (137-145) mmol/L Potassium (3.5-5.1) mmol/L Carbon Dioxide (22-30) mmol/L BUN (7-17) mg/dL Glucose (74-99) mg/dL POC Glucose (mg/dL) 195 H 143 H 127 H (70-110) mg/dL Calcium (8.4-10.2) mg/dL C-Reactive Protein (<1.0) mg/dL 04/01/23 04/01/23 04/01/23 Range/Units 08:35 08:35 11:30 WBC 12.9 H (3.8-10.6) k/uL RBC 3.61 L (3.80-5.40) m/uL Hgb 10.6 L (11.4-16.0) gm/dL Hct 31.0 L (34.0-46.0) % Sodium 131 L (137-145) mmol/L Potassium 3.2 L (3.5-5.1) mmol/L Carbon Dioxide 20 L (22-30) mmol/L BUN 20 H (7-17) mg/dL Glucose 133 H (74-99) mg/dL POC Glucose (mg/dL) 127 H (70-110) mg/dL Calcium 7.9 L (8.4-10.2) mg/dL C-Reactive Protein 15.8 H (<1.0) mg/dL Microbiology - Last 24 Hours (Table) 03/30/23 10:55 Urine Culture - Final Urine,Voided Assessment and Plan Assessment: Assessment and plan Acute renal failure New-onset atrial fibrillation Critical hyperkalemia corrected Urinary tract infection Metabolic acidosis Elevated troponin Diabetes mellitus type 2 Hypertension * Continue patient on IV antibioticsr Rocephin day 5 * In regards to rate of progression continue metoprolol and Eliquis, continue Benadryl * CBC and basic metabolic panel * Blood cultures and urine cultures negative * Consultation obtained from cardiology, infectious disease and nephrology * In regards to diabetes mellitus continue patient on NovoLog
[2023-04-01] MEDS: POTASSIUM CHLORIDE 10 MEQ in WATER FOR INJECTION 1 100ML.BAG IVPB SCH (13:06)
--- NOTE | 2023-04-01 14:40 | P.PN ---
Subjective HISTORY OF PRESENT ILLNESS: The patient is an 82-year-old female who presented with symptoms of progressive weakness, nausea and vomiting and not feeling well. Cardiology consultation was requested for evidence of atrial fibrillation. I am not able to the dictated history from the patient but she says that she's feeling ill. She has some vague symptoms of chest discomfort as well as dyspnea. She has occasional palpi tation. On presentation she was noted to have significant worsening of her renal function. Apparently she has not been doing well for the last few weeks until she came into the hospital. On presentation she was in sinus mechanism subsequently sinus mechanism with PACs and now in atrial fibrillation with rapid ventricle response. She had mild troponin elevation. She has a prior history of hypertension and diabetes. During an admission in March [id number] she was in sinus mechanism with multifocal atrial tachycardia but not atrial fibrillation. On admission her potassium was 6.3, creatinine 5.72 and her troponin 0.067. Her peak troponin is 0.088 and her most recent creatinine is 3.83. Medications: Ramipril 10 mg daily, metformin 1 g twice a day, ibuprofen, iron 03/29/2023 Patient examined this morning at the bedside. Patient denies chest pain or pressure. She denies shortness of breath. She still continues to report weakness. Telemetry reveals sinus mechanism with a heart rate in the 50s. She remains on IV heparin. Blood pressure is stable. Creatinine today 2.29. 03/30/2023 Patient examined this morning at the bedside. Patient states she is feeling unwell this morning. She reports having some epigastric pain. Patient also reports generalized weakness. She has not been out of bed yet. She continues to have an indwelling urinary catheter. Telemetry reveals sinus mechanism with a rate in the 60s. Dr. Bernal looked at preliminary echo which revealed preserved LV systolic function. 03/31/2023 Cardiology was reconsulted secondary to patient going into A. fib with RVR this morning. Patient was given a one-time dose of oral Cardizem. She has converted to sinus mechanism this morning. The patient denies feeling any palpitations. She denies chest pain or pressure. She denies shortness of breath. She states that she feels "blah" today. 04/01 Pt seen and examined. Patient denies any chest pain or pressure. She is still feeling fatigued. He still has been having frequent runs of atrial fibrillation with RVR however less events since been on amiodarone. PHYSICAL EXAM: VITAL SIGNS: Reviewed. GENERAL: Well-developed in no acute distress. NECK: Supple. No JVD or thyromegaly LUNGS: Respirations even and unlabored. Lungs essentially clear to auscultation bilaterally. HEART: Regular rate and rhythm. S1 and S2 heard. EXTREMITIES: Normal range of motion. No clubbing or cyanosis. Peripheral pulses intact. No lower extremity edema ASSESSMENT: Generalized weakness, nausea, and vomiting New-onset paroxysmal atrial fibrillation, currently maintaining sinus mechanism Abnormal troponins, likely secondary to acute kidney injury, no evidence of acute coronary syndrome Hypertension Diabetes PLAN: Continue current cardiac medications Continue current dose of metoprolol as patient is mildly bradycardic when she is in sinus mechanism Continue amiodarone 400 mg twice a day. Decrease to 200 mg twice a day after 1 week. Further recommendations pending patient's course Objective - Vital Signs Vital signs: Vital Signs Temp 97.6 F 04/01/23 12:00 Pulse 86 04/01/23 12:00 Resp 16 04/01/23 12:00 BP 117/71 04/01/23 12:00 Pulse Ox 97 04/01/23 12:00 FiO2 Intake & Output 03/31/23 04/01/23 04/01/23 18:59 06:59 18:59 Intake Total 720 440 Output Total 650 725 300 Balance 70 -725 140 Weight 52.163 kg Intake: Oral 720 440 Output: Urine 650 725 300 Other: Voiding Method Indwelling Catheter Indwelling Catheter Indwelling Catheter - Labs CBC & Chem 7: 04/01/23 08:35 04/01/23 08:35 Labs: Abnormal Lab Results - Last 24 Hours (Table) 03/31/23 03/31/23 04/01/23 Range/Units 16:44 20:34 06:13 WBC (3.8-10.6) k/uL RBC (3.80-5.40) m/uL Hgb (11.4-16.0) gm/dL Hct (34.0-46.0) % Sodium (137-145) mmol/L Potassium (3.5-5.1) mmol/L Carbon Dioxide (22-30) mmol/L BUN (7-17) mg/dL Glucose (74-99) mg/dL POC Glucose (mg/dL) 195 H 143 H 127 H (70-110) mg/dL Calcium (8.4-10.2) mg/dL C-Reactive Protein (<1.0) mg/dL 04/01/23 04/01/23 04/01/23 Range/Units 08:35 08:35 11:30 WBC 12.9 H (3.8-10.6) k/uL RBC 3.61 L (3.80-5.40) m/uL Hgb 10.6 L (11.4-16.0) gm/dL Hct 31.0 L (34.0-46.0) % Sodium 131 L (137-145) mmol/L Potassium 3.2 L (3.5-5.1) mmol/L Carbon Dioxide 20 L (22-30) mmol/L BUN 20 H (7-17) mg/dL Glucose 133 H (74-99) mg/dL POC Glucose (mg/dL) 127 H (70-110) mg/dL Calcium 7.9 L (8.4-10.2) mg/dL C-Reactive Protein 15.8 H (<1.0) mg/dL Microbiology - Last 24 Hours (Table) 03/30/23 10:55 Urine Culture - Final Urine,Voided
--- NOTE | 2023-04-01 16:09 | P.PN ---
Subjective Progress Note Date: 04/01/23 Principal diagnosis: UTI Patient is a 82-year-old female with a past medical history significant for diabetes mellitus reflux hypertension history of skin cancer and UTI presenting to the hospital for evaluation of generalized weakness, patient also have a positive UA urinary symptoms concerning for symptomatic aortic infection. On today's evaluation that is 04/01/2023, the patient denies having any fever or any chills, the patient is breathing comfortably on room air, the patient denies having any chest pain, no nausea no vomiting no abdominal pain and no diarrhea has been reported. Patient white count is down to 12.9 today, creatinine is normal at 0.60, abdo chantal ultrasound was negative for obstructive uropathy blood cultures negative, repeat urine was positive cultures are pending Objective - Vital Signs Vital signs: Vital Signs Temp 97.6 F 04/01/23 08:00 Pulse 144 H 04/01/23 08:00 Resp 18 04/01/23 08:00 BP 101/65 04/01/23 08:00 Pulse Ox 95 04/01/23 08:00 FiO2 Intake & Output 03/31/23 04/01/23 04/01/23 18:59 06:59 18:59 Intake Total 720 200 Output Total 650 725 Balance 70 -725 200 Weight 52.163 kg Intake: Oral 720 200 Output: Urine 650 725 Other: Voiding Method Indwelling Catheter Indwelling Catheter Indwelling Catheter - Exam GENERAL DESCRIPTION: Elderly female lying in bed in no distress RESPIRATORY SYSTEM: Unlabored breathing , decreased breath sounds at bases HEART: S1 S2 regular rate and rhythm ,no loud murmurs ABDOMEN: Soft , no tenderness EXTREMITIES: No edema feet - Labs CBC & Chem 7: 04/01/23 08:35 04/01/23 08:35 Labs: Abnormal Lab Results - Last 24 Hours (Table) 03/31/23 03/31/23 04/01/23 Range/Units 16:44 20:34 06:13 WBC (3.8-10.6) k/uL RBC (3.80-5.40) m/uL Hgb (11.4-16.0) gm/dL Hct (34.0-46.0) % Sodium (137-145) mmol/L Potassium (3.5-5.1) mmol/L Carbon Dioxide (22-30) mmol/L BUN (7-17) mg/dL Glucose (74-99) mg/dL POC Glucose (mg/dL) 195 H 143 H 127 H (70-110) mg/dL Calcium (8.4-10.2) mg/dL C-Reactive Protein (<1.0) mg/dL 04/01/23 04/01/23 04/01/23 Range/Units 08:35 08:35 11:30 WBC 12.9 H (3.8-10.6) k/uL RBC 3.61 L (3.80-5.40) m/uL Hgb 10.6 L (11.4-16.0) gm/dL Hct 31.0 L (34.0-46.0) % Sodium 131 L (137-145) mmol/L Potassium 3.2 L (3.5-5.1) mmol/L Carbon Dioxide 20 L (22-30) mmol/L BUN 20 H (7-17) mg/dL Glucose 133 H (74-99) mg/dL POC Glucose (mg/dL) 127 H (70-110) mg/dL Calcium 7.9 L (8.4-10.2) mg/dL C-Reactive Protein 15.8 H (<1.0) mg/dL Microbiology - Last 24 Hours (Table) 03/30/23 10:55 Urine Culture - Final Urine,Voided Assessment and Plan (1) UTI (urinary tract infection) Current Visit: Yes Status: Acute Code(s): N39.0 - URINARY TRACT INFECTION, SITE NOT SPECIFIED SNOMED Code(s): 25683330 Plan: 1patient present hospitalized weakness no energy did have some urinary symptoms of decreased urine output along with some burning positive UA concerning for sy mptomatic UTI likely from middle gram-negative pathogen. 2patient with renal insufficiency and high risk of nephrotoxicity ultrasound was negative for any obstructive uropathy. 3 repeat a UA is positive and culture are currently pending. 4patient to continue with the Rocephin 1 g daily was unable to add Diflucan as the patient was on amiodarone however the patient white count is trending down a nd will be monitored closely Dictation was produced using smartclip dictation software. please excuse any grammatical, word or spelling errors. Time with Patient: Less than 30
[2023-04-01 16:27] LABS: Glucose,Whole Blood 219 mg/dL (70-110)
[2023-04-01 19:32] LABS: Glucose,Whole Blood 192 mg/dL (70-110)
[2023-04-01] MEDS: HYDROcodone/APAP 5-325MG 1 EACH TAB PO PRN (20:55)
[2023-04-02 06:03] LABS: Glucose,Whole Blood 110 mg/dL (70-110)
[2023-04-02] MEDS: INSULIN ASPART (NovoLOG) 100 UNIT/ML VIAL SQ SCH ×4 (06:47→20:37)
[2023-04-02] MEDS ORDERED: METOPROLOL TARTRATE 50 MG TAB PO SCH (09:00)
[2023-04-02 09:13] LABS: HCT 31.9 % (34.0-46.0); HGB 10.6 gm/dL (11.4-16.0); MCH 28.8 pg (25.0-35.0); MCHC 33.1 g/dL (31.0-37.0); MCV 87.2 fL (80.0-100.0); Mean Platelet Volume 8.4; Platelet Count 235 k/uL (150-450); RBC 3.66 m/uL (3.80-5.40); RDW 12.9 % (11.5-15.5); WBC 8.9 k/uL (3.8-10.6)
[2023-04-02] MEDS: LORATADINE 10 MG TAB PO SCH (09:21)
[2023-04-02] MEDS: MAGNESIUM OXIDE 400 MG TAB PO SCH ×4 (09:21→20:39)
[2023-04-02] MEDS: APIXABAN 2.5 MG TABLET PO SCH ×2 (09:21→20:36)
[2023-04-02] MEDS: AMIODARONE 200 MG TAB PO SCH ×2 (09:21→20:36)
[2023-04-02 09:37] LABS: African American GFR (CKD) >90 (>60 ml/min/1.73 sqM); Anion Gap 5 mmol/L; Blood Urea Nitrogen 19 mg/dL (7-17); Carbon Dioxide 22 mmol/L (22-30); Chloride 106 mmol/L (98-107); Glucose 123 mg/dL (74-99); Magnesium 1.2 mg/dL (1.6-2.3); Non-African American GFR(CKD) 84 (>60 ml/min/1.73 sqM); Potassium 3.4 mmol/L (3.5-5.1); Sodium 133 mmol/L (137-145)
[2023-04-02 11:38] LABS: Glucose,Whole Blood 205 mg/dL (70-110)
[2023-04-02] MEDS: CEFDINIR 300 MG CAP PO SCH ×2 (12:02→20:39)
[2023-04-02] MEDS ORDERED: POTASSIUM CHLORIDE ER 20 MEQ TAB.ER PO STA (12:03)
--- NOTE | 2023-04-02 12:03 | P.PN ---
Subjective Progress Note Date: 04/02/23 82-year-old female who presents to the emergency department for generalized weakness. Patient states that she feels generally ill and unwell, and has so for the last 1-2 days. Describes generalized body aches and weakness as being her most prominent symptoms. When asked about chest pain, she states that she does have chest pain, however she has pain everywhere and does not believe that this is specific to her chest. She does report associated coughing and congestion as well. Unsure if there have been any sick contacts. Her family states that she is usually unhappy about going to the hospital, but was willing to this time. She is somewhat slow to respond, but is alert and oriented 4. After her family arrived, they said that she's been having frequent falls over the last couple of weeks as well. They also state that she seems to have declined by about 25% just from yesterday to today, which greatly concerned them. Patient has been continuing to refuse to go to the hospital until today, at which time she put up less of a fight and her son subsequently called EMS. Her son does note that she was recently treated for a UTI, but cannot recall which antibiotic she was on. She did require 2 antibiotics, as the first one was not shown to be strong enough, and the patient refused to go in for a recheck after completion of the second antibiotic. EKG interpreted by me demonstrating the following: Sinus rhythm. Ventricular rate 83 beats per minute, HI interval 201 ms, QRS duration 98 ms, QTC 392 ms. EKG was repeated at 1455 due to the awake overnight monitor reading possible atrial fibrillation, this revealed sinus tachycardia with frequent PVCs. Ventricular rate 100 beats per minute, HI interval 181 ms, QRS duration 87 ms, QTC 380 ms. Chest x-ray obtained- no localized consolidations or infiltrates. Lab work obtained revealing leukocytosis and multiple electrolyte irregularities including hyperkalemia with a potassium of 6.3, Na of 124, and a CO2 <5. Patient is also in acute renal failure with a creatinine of 5.72. Troponin is also elevated, likely secondary to the findings above. CK and serum osmolality were found to be only mildly elevated. Harper catheter was also initiated and urinalysis was suggestive of infection. 1g of Ceftriaxone was administered. Urine and blood cultures were obtained. Per nursing staff, her urine had the appearance of "pea soup". Patient initially given a hyperkalemia cocktail consisting of insulin, sodium bicarb, and Lokelma; nephrology, also advised 1gm of calcium gluconate, an additional ampule of bicarb, and starting her on a D5 drip with 150 mL of sodium bicarb at a rate of 150 mL/hr, with plan to repeat her BMP 2 hours after medication is administered. 03/29. Patient seen and examined. Patient complaining of lethargy. Potassium 3.2, magnesium 1.5, replacement ordered 03/30. Patient seen and examined. Blood work labs showed WBC 12.4, hemoglobin 11.4, platelet count 194, sodium 139, BUN 43, creatinine 1.04. Vital signs stable 03/31: Patient seen and evaluated bedside, continue patient on antibiotics. Continue to monitor renal function 04/01: Patient seen and evaluated bedside, she complains of lethargic, tachycardia noted earlier today heart rate better after metoprolol white cell count trending down 04/02: Patient seen and evaluated bedside, antibiotic changed to oral. Noted to have tachycardia given metoprolol 50 mg however patient was hypertensive and stays back to 25 mg twice a day we'll continue to follow up on CBC will replace magnesium and potassium Objective - Vital Signs Vital signs: Vital Signs Temp 97.9 F 04/02/23 11:57 Pulse 56 L 04/02/23 11:57 Resp 16 04/02/23 11:57 BP 96/57 04/02/23 11:57 Pulse Ox 94 L 04/02/23 11:57 FiO2 Intake & Output 04/01/23 04/02/23 04/02/23 18:59 06:59 18:59 Intake Total 1160 240 Output Total 500 300 Balance 660 -300 240 Intake: Intake, IV Titration 0 Amount cefTRIAXone 1 gm In 0 Sodium Chloride 0.9% 50 ml @ 100 mls/hr IVPB Q24HR [facility] Rx#:[id number] Oral 1160 240 Output: Urine 500 300 Other: Voiding Method Indwelling Catheter Indwelling Catheter Indwelling Catheter - Exam REVIEW OF SYSTEMS: CONSTITUTIONAL: No fever, no malaise,. Complaining of lethargy and weakness CARDIOVASCULAR: No chest pain, no palpitations, no syncope. PULMONARY: No shortness of breath, no cough, GASTROINTESTINAL: No diarrhea, no nausea, no vomiting, no abdominal pain. NEUROLOGICAL: No headaches, no weakness, PHYSICAL EXAMINATION: GENERAL: The patient is alert and oriented x3, not in any acute distress. Ill- looking HEENT: Pupils are round and equally reacting to light. EOMI. No scleral icterus. No conjunctival pallor. Normocephalic, atraumatic. No pharyngeal erythema. No thyromegaly. CARDIOVASCULAR: S1 and S2 present. Irregular rhythm tachycardia noted PULMONARY: Chest is clear to auscultation, no wheezing or crackles. ABDOMEN: Soft, nontender, nondistended, normoactive bowel sounds. No palpable organomegaly. MUSCULOSKELETAL: No joint swelling or deformity. EXTREMITIES: No cyanosis, clubbing, or pedal edema. NEUROLOGICAL: Gross neurological examination did not reveal any focal deficits. SKIN: No rashes. - Labs CBC & Chem 7: 04/02/23 08:13 04/02/23 08:13 Labs: Abnormal Lab Results - Last 24 Hours (Table) 04/01/23 04/01/23 04/02/23 Range/Units 16:26 19:31 08:13 RBC 3.66 L (3.80-5.40) m/uL Hgb 10.6 L (11.4-16.0) gm/dL Hct 31.9 L (34.0-46.0) % Sodium (137-145) mmol/L Potassium (3.5-5.1) mmol/L BUN (7-17) mg/dL Glucose (74-99) mg/dL POC Glucose (mg/dL) 219 H 192 H (70-110) mg/dL Calcium (8.4-10.2) mg/dL Magnesium (1.6-2.3) mg/dL 04/02/23 04/02/23 Range/Units 08:13 11:36 RBC (3.80-5.40) m/uL Hgb (11.4-16.0) gm/dL Hct (34.0-46.0) % Sodium 133 L (137-145) mmol/L Potassium 3.4 L (3.5-5.1) mmol/L BUN 19 H (7-17) mg/dL Glucose 123 H (74-99) mg/dL POC Glucose (mg/dL) 205 H (70-110) mg/dL Calcium 8.0 L (8.4-10.2) mg/dL Magnesium 1.2 L (1.6-2.3) mg/dL Microbiology - Last 24 Hours (Table) 03/27/23 16:40 Blood Culture - Final Blood 03/27/23 16:55 Blood Culture - Final Blood Assessment and Plan Assessment: Assessment and plan Acute renal failure RESOLVED New-onset atrial fibrillation Critical hyperkalemia corrected Urinary tract infection Metabolic acidosis Elevated troponin Diabetes mellitus type 2 Hypertension * Continue patient on IV antibioticsr Rocephin day 5>> switched to cefdinir * In regards to rate of progression continue metoprolol and Eliquis, continue amiodarone * CBC and basic metabolic panel * Blood cultures and urine cultures negative * Consultation obtained from cardiology, infectious disease and nephrology * In regards to diabetes mellitus continue patient on NovoLog
--- NOTE | 2023-04-02 12:24 | P.PN ---
Subjective Progress Note Date: 04/02/23 Follow-up for acute kidney injury. Objective - Vital Signs Vital signs: Vital Signs Temp 97.9 F 04/02/23 11:57 Pulse 56 L 04/02/23 11:57 Resp 16 04/02/23 11:57 BP 96/57 04/02/23 11:57 Pulse Ox 94 L 04/02/23 11:57 FiO2 Intake & Output 04/01/23 04/02/23 04/02/23 18:59 06:59 18:59 Intake Total 1160 240 Output Total 500 300 Balance 660 -300 240 Intake: Intake, IV Titration 0 Amount cefTRIAXone 1 gm In 0 Sodium Chloride 0.9% 50 ml @ 100 mls/hr IVPB Q24HR [facility] Rx#:[id number] Oral 1160 240 Output: Urine 500 300 Other: Voiding Method Indwelling Catheter Indwelling Catheter Indwelling Catheter - Exam No acute distress S1-S2 heard Lungs clear No edema - Labs CBC & Chem 7: 04/02/23 08:13 04/02/23 08:13 Labs: Abnormal Lab Results - Last 24 Hours (Table) 04/01/23 04/01/23 04/02/23 Range/Units 16:26 19:31 08:13 RBC 3.66 L (3.80-5.40) m/uL Hgb 10.6 L (11.4-16.0) gm/dL Hct 31.9 L (34.0-46.0) % Sodium (137-145) mmol/L Potassium (3.5-5.1) mmol/L BUN (7-17) mg/dL Glucose (74-99) mg/dL POC Glucose (mg/dL) 219 H 192 H (70-110) mg/dL Calcium (8.4-10.2) mg/dL Magnesium (1.6-2.3) mg/dL 04/02/23 04/02/23 Range/Units 08:13 11:36 RBC (3.80-5.40) m/uL Hgb (11.4-16.0) gm/dL Hct (34.0-46.0) % Sodium 133 L (137-145) mmol/L Potassium 3.4 L (3.5-5.1) mmol/L BUN 19 H (7-17) mg/dL Glucose 123 H (74-99) mg/dL POC Glucose (mg/dL) 205 H (70-110) mg/dL Calcium 8.0 L (8.4-10.2) mg/dL Magnesium 1.2 L (1.6-2.3) mg/dL Microbiology - Last 24 Hours (Table) 03/27/23 16:40 Blood Culture - Final Blood 03/27/23 16:55 Blood Culture - Final Blood Assessment and Plan Assessment: #1 acute kidney injury secondary to hemodynamic ATN. -Baseline creatinine 0.6 MG per DL. Peak creatinine of 5.7 MG per DL. #2 hypokalemia #3 urinary tract infection #4 atrial fibrillation Plan: #1 renal function back to baseline #2 replace KCl, continue to hold antihypertensive medications at this time blood pressures stable without medications #3 avoid nephrotoxic agents and hypotensive episodes
[2023-04-02 16:32] LABS: Glucose,Whole Blood 189 mg/dL (70-110)
--- NOTE | 2023-04-02 16:39 | P.PN ---
Subjective HISTORY OF PRESENT ILLNESS: The patient is an 82-year-old female who presented with symptoms of progressive weakness, nausea and vomiting and not feeling well. Cardiology consultation was requested for evidence of atrial fibrillation. I am not able to the dictated history from the patient but she says that she's feeling ill. She has some vag ue symptoms of chest discomfort as well as dyspnea. She has occasional palpitation. On presentation she was noted to have significant worsening of her renal function. Apparently she has not been doing well for the last few weeks until she came into the hospital. On presentation she was in sinus mechanism subsequently sinus mechanism with PACs and now in atrial fibrillation with rapid ventricle response. She had mild troponin elevation. She has a prior history of hypertension and diabetes. During an admission in March [id number] she was in sinus mechanism with multifocal atrial tachycardia but not atrial fibrillation. On admission her potassium was 6.3, creatinine 5.72 and her trop onin 0.067. Her peak troponin is 0.088 and her most recent creatinine is 3.83. Medications: Ramipril 10 mg daily, metformin 1 g twice a day, ibuprofen, iron 03/29/2023 Patient examined this morning at the bedside. Patient denies chest pain or pressure. She denies shortness of breath. She still continues to report weakness. Telemetry reveals sinus mechanism with a heart rate in the 50s. She remains on IV heparin. Blood pressure is stable. Creatinine today 2.29. 03/30/2023 Patient examined this morning at the bedside. Patient states she is feeling unwell this morning. She reports having some epigastric pain. Patient also reports generalized weakness. She has not been out of bed yet. She continues to have an indwelling urinary catheter. Telemetry reveals sinus mechanism with a rate in the 60s. Dr. Bernal looked at preliminary echo which revealed preserved LV systolic function. 03/31/2023 Cardiology was reconsulted secondary to patient going into A. fib with RVR this morning. Patient was given a one-time dose of oral Cardizem. She has converted to sinus mechanism this morning. The patient denies feeling any palpitations. She denies chest pain or pressure. She denies shortness of breath. She states that she feels "blah" today. 04/01 Pt seen and examined. Patient denies any chest pain or pressure. She is still feeling fatigued. He still has been having frequent runs of atrial fibrillation with RVR however less events since been on amiodarone. 04/02 Patient seen and examined. Patient states she feels "blah". Denies any chest pain or pressure. Has been maintained on amiodarone and no further significant episodes of A. fib since yesterday morning. PHYSICAL EXAM: VITAL SIGNS: Reviewed. GENERAL: Well-developed in no acute distress. NECK: Supple. No JVD or thyromegaly LUNGS: Respirations even and unlabored. Lungs essentially clear to auscultation bilaterally. HEART: Regular rate and rhythm. S1 and S2 heard. EXTREMITIES: Normal range of motion. No clubbing or cyanosis. Peripheral pulses intact. No lower extremity edema ASSESSMENT: Generalized weakness, nausea, and vomiting New-onset paroxysmal atrial fibrillation, currently maintaining sinus mechanism Abnormal troponins, likely secondary to acute kidney injury, no evidence of acute coronary syndrome Hypertension Diabetes PLAN: Continue current cardiac medications Continue current dose of metoprolol as patient is mildly bradycardic when she is in sinus mechanism Continue amiodarone 400 mg twice a day. Decrease to 200 mg twice a day after 1 week. His to be having decreased A. fib burden on the amiodarone and we will continue. Objective - Vital Signs Vital signs: Vital Signs Temp 97.9 F 04/02/23 11:57 Pulse 56 L 04/02/23 11:57 Resp 16 04/02/23 11:57 BP 96/57 04/02/23 11:57 Pulse Ox 94 L 04/02/23 11:57 FiO2 Intake & Output 04/01/23 04/02/23 04/02/23 18:59 06:59 18:59 Intake Total 1160 480 Output Total 500 300 Balance 660 -300 480 Intake: Intake, IV Titration 0 Amount cefTRIAXone 1 gm In 0 Sodium Chloride 0.9% 50 ml @ 100 mls/hr IVPB Q24HR [facility] Rx#:[id number] Oral 1160 480 Output: Urine 500 300 Other: Voiding Method Indwelling Catheter Indwelling Catheter Indwelling Catheter - Labs CBC & Chem 7: 04/02/23 08:13 04/02/23 08:13 Labs: Abnormal Lab Results - Last 24 Hours (Table) 04/01/23 04/02/23 04/02/23 Range/Units 19:31 08:13 08:13 RBC 3.66 L (3.80-5.40) m/uL Hgb 10.6 L (11.4-16.0) gm/dL Hct 31.9 L (34.0-46.0) % Sodium 133 L (137-145) mmol/L Potassium 3.4 L (3.5-5.1) mmol/L BUN 19 H (7-17) mg/dL Glucose 123 H (74-99) mg/dL POC Glucose (mg/dL) 192 H (70-110) mg/dL Calcium 8.0 L (8.4-10.2) mg/dL Magnesium 1.2 L (1.6-2.3) mg/dL 04/02/23 04/02/23 Range/Units 11:36 16:31 RBC (3.80-5.40) m/uL Hgb (11.4-16.0) gm/dL Hct (34.0-46.0) % Sodium (137-145) mmol/L Potassium (3.5-5.1) mmol/L BUN (7-17) mg/dL Glucose (74-99) mg/dL POC Glucose (mg/dL) 205 H 189 H (70-110) mg/dL Calcium (8.4-10.2) mg/dL Magnesium (1.6-2.3) mg/dL Microbiology - Last 24 Hours (Table) 03/27/23 16:40 Blood Culture - Final Blood 03/27/23 16:55 Blood Culture - Final Blood
--- NOTE | 2023-04-02 17:23 | P.PN ---
Subjective Progress Note Date: 04/02/23 Principal diagnosis: UTI Patient is a 82-year-old female with a past medical history significant for diabetes mellitus reflux hypertension history of skin cancer and UTI presenting to the hospital for evaluation of generalized weakness, patient also have a positive UA urinary symptoms concerning for symptomatic aortic infection. On today's evaluation that is 04/02/2023, the patient remains to be afebrile, the patient is breathing comfortably, the patient denies chest pain, no cough, no nausea no vomiting no abdominal pain and no diarrhea has been reported. Patient white count is normalized to 8.9, creatinine is normal at 0.61, abdominal ultrasound was negative for obstructive uropathy blood cultures negative, repeat urine was positive cultures negative Objective - Vital Signs Vital signs: Vital Signs Temp 97.9 F 04/02/23 11:57 Pulse 56 L 04/02/23 11:57 Resp 16 04/02/23 11:57 BP 96/57 04/02/23 11:57 Pulse Ox 94 L 04/02/23 11:57 FiO2 Intake & Output 04/01/23 04/02/23 04/02/23 18:59 06:59 18:59 Intake Total 1160 480 Output Total 500 300 Balance 660 -300 480 Intake: Intake, IV Titration 0 Amount cefTRIAXone 1 gm In 0 Sodium Chloride 0.9% 50 ml @ 100 mls/hr IVPB Q24HR [facility] Rx#:[id number] Oral 1160 480 Output: Urine 500 300 Other: Voiding Method Indwelling Catheter Indwelling Catheter Indwelling Catheter - Exam GENERAL DESCRIPTION: Elderly female lying in bed in no distress RESPIRATORY SYSTEM: Unlabored breathing , decreased breath sounds at bases HEART: S1 S2 regular rate and rhythm ,no loud murmurs ABDOMEN: Soft , no tenderness EXTREMITIES: No edema feet - Labs CBC & Chem 7: 04/02/23 08:13 04/02/23 08:13 Labs: Abnormal Lab Results - Last 24 Hours (Table) 04/01/23 04/01/23 04/02/23 Range/Units 16:26 19:31 08:13 RBC 3.66 L (3.80-5.40) m/uL Hgb 10.6 L (11.4-16.0) gm/dL Hct 31.9 L (34.0-46.0) % Sodium (137-145) mmol/L Potassium (3.5-5.1) mmol/L BUN (7-17) mg/dL Glucose (74-99) mg/dL POC Glucose (mg/dL) 219 H 192 H (70-110) mg/dL Calcium (8.4-10.2) mg/dL Magnesium (1.6-2.3) mg/dL 04/02/23 04/02/23 Range/Units 08:13 11:36 RBC (3.80-5.40) m/uL Hgb (11.4-16.0) gm/dL Hct (34.0-46.0) % Sodium 133 L (137-145) mmol/L Potassium 3.4 L (3.5-5.1) mmol/L BUN 19 H (7-17) mg/dL Glucose 123 H (74-99) mg/dL POC Glucose (mg/dL) 205 H (70-110) mg/dL Calcium 8.0 L (8.4-10.2) mg/dL Magnesium 1.2 L (1.6-2.3) mg/dL Microbiology - Last 24 Hours (Table) 03/27/23 16:40 Blood Culture - Final Blood 03/27/23 16:55 Blood Culture - Final Blood Assessment and Plan (1) UTI (urinary tract infection) Current Visit: Yes Status: Acute Code(s): N39.0 - URINARY TRACT INFECTION, SITE NOT SPECIFIED SNOMED Code(s): 77631089 Plan: 1patient present hospitalized weakness no energy did have some urinary symptoms of decreased urine output along with some burning positive UA concerning for symptomatic UTI likely from middle gram-negative pathogen. 2patient with renal insufficiency and high risk of nephrotoxicity ultrasound was negative for any obstructive uropathy. 3 repeat a UA is positive and culture are so far negative 4patient has lost her IV site we will discontinue Rocephin and start the patient on Omnicef Dictation was produced using [employer] dictation software. please excuse any grammatical, word or spelling errors. Time with Patient: Less than 30
[2023-04-02] MEDS: HYDROcodone/APAP 5-325MG 1 EACH TAB PO PRN (19:07)
[2023-04-02 19:40] LABS: Glucose,Whole Blood 172 mg/dL (70-110)
[2023-04-02] MEDS: METOPROLOL TARTRATE 25 MG TAB PO SCH (20:36)
--- NOTE | 2023-04-03 01:32 | P.PN ---
Subjective Progress Note Date: 04/03/23 82-year-old female who presents to the emergency department for generalized weakness. Patient states that she feels generally ill and unwell, and has so for the last 1-2 days. Describes generalized body aches and weakness as being her most prominent symptoms. When asked about chest pain, she states that she does have chest pain, however she has pain everywhere and does not believe that this is specific to her chest. She does report associated coughing and congestion as well. Unsure if there have been any sick contacts. Her family states that she is usually unhappy about going to the hospital, but was willing to this time. She is somewhat slow to respond, but is alert and oriented 4. After her family arrived, they said that she's been having frequent falls over the last couple of weeks as well. They also state that she seems to have declined by about 25% just from yesterday to today, which greatly concerned them. Patient has been continuing to refuse to go to the hospital until today, at which time she put up less of a fight and her son subsequently called EMS. Her son does note that she was recently treated for a UTI, but cannot recall which antibiotic she was on. She did require 2 antibiotics, as the first one was not shown to be strong enough, and the patient refused to go in for a recheck after completion of the second antibiotic. EKG interpreted by me demonstrating the following: Sinus rhythm. Ventricular rate 83 beats per minute, IN interval 201 ms, QRS duration 98 ms, QTC 392 ms. EKG was repeated at 1455 due to the air and water tester reading possible atrial fibrillation, this revealed sinus tachycardia with frequent PVCs. Ventricular rate 100 beats per minute, IN interval 181 ms, QRS duration 87 ms, QTC 380 ms. Chest x-ray obtained- no localized consolidations or infiltrates. Lab work obtained revealing leukocytosis and multiple electrolyte irregularities including hyperkalemia with a potassium of 6.3, Na of 124, and a CO2 <5. Patient is also in acute renal failure with a creatinine of 5.72. Troponin is also elevated, likely secondary to the findings above. CK and serum osmolality were found to be only mildly elevated. Harper catheter was also initiated and urinalysis was suggestive of infection. 1g of Ceftriaxone was administered. Urine and blood cultures were obtained. Per nursing staff, her urine had the appearance of "pea soup". Patient initially given a hyperkalemia cocktail consisting of insulin, sodium bicarb, and Lokelma; nephrology, also advised 1gm of calcium gluconate, an additional ampule of bicarb, and starting her on a D5 drip with 150 mL of sodium bicarb at a rate of 150 mL/hr, with plan to repeat her BMP 2 hours after medication is administered. 03/29. Patient seen and examined. Patient complaining of lethargy. Potassium 3.2, magnesium 1.5, replacement ordered 03/30. Patient seen and examined. Blood work labs showed WBC 12.4, hemoglobin 11.4, platelet count 194, sodium 139, BUN 43, creatinine 1.04. Vital signs stable 03/31: Patient seen and evaluated bedside, continue patient on antibiotics. Continue to monitor renal function 04/01: Patient seen and evaluated bedside, she complains of lethargic, tachycardia noted earlier today heart rate better after metoprolol white cell count trending down 04/02: Patient seen and evaluated bedside, antibiotic changed to oral. Noted to have tachycardia given metoprolol 50 mg however patient was hypertensive and stays back to 25 mg twice a day we'll continue to follow up on CBC will replace magnesium and potassium 04/03: Patient seen and evaluated bedside, electrolyte abnormality noted noted to have hypomagnesemia. Patient has lost her IV will request another IV placement 2 g of magnesium ordered. Continue patient on oral antibiotic receiving Ceftin Objective - Vital Signs Vital signs: Vital Signs Temp 99.2 F 04/02/23 16:00 Pulse 67 04/02/23 16:00 Resp 15 04/02/23 16:00 BP 126/78 04/02/23 16:00 Pulse Ox 96 04/02/23 16:00 FiO2 Intake & Output 04/02/23 04/02/23 04/03/23 06:59 18:59 06:59 Intake Total 960 Output Total 300 300 Balance -300 660 Intake: Intake, IV Titration 0 Amount cefTRIAXone 1 gm In 0 Sodium Chloride 0.9% 50 ml @ 100 mls/hr IVPB Q24HR [facility] Rx#:[id number] Oral 960 Output: Urine 300 300 Other: Voiding Method Indwelling Catheter Indwelling Catheter - Exam REVIEW OF SYSTEMS: CONSTITUTIONAL: No fever, no malaise,. Complaining of lethargy and weakness CARDIOVASCULAR: No chest pain, no palpitations, no syncope. PULMONARY: No shortness of breath, no cough, GASTROINTESTINAL: No diarrhea, no nausea, no vomiting, no abdominal pain. NEUROLOGICAL: No headaches, no weakness, PHYSICAL EXAMINATION: GENERAL: The patient is alert and oriented x3, not in any acute distress. Ill- looking HEENT: Pupils are round and equally reacting to light. EOMI. No scleral icterus. No conjunctival pallor. Normocephalic, atraumatic. No pharyngeal erythema. No thyromegaly. CARDIOVASCULAR: S1 and S2 present. Irregular rhythm tachycardia noted PULMONARY: Chest is clear to auscultation, no wheezing or crackles. ABDOMEN: Soft, nontender, nondistended, normoactive bowel sounds. No palpable organomegaly. MUSCULOSKELETAL: No joint swelling or deformity. EXTREMITIES: No cyanosis, clubbing, or pedal edema. NEUROLOGICAL: Gross neurological examination did not reveal any focal deficits. SKIN: No rashes. - Labs CBC & Chem 7: 04/03/23 09:28 04/03/23 09:28 Labs: Abnormal Lab Results - Last 24 Hours (Table) 04/02/23 04/02/23 04/02/23 Range/Units 08:13 08:13 11:36 RBC 3.66 L (3.80-5.40) m/uL Hgb 10.6 L (11.4-16.0) gm/dL Hct 31.9 L (34.0-46.0) % Sodium 133 L (137-145) mmol/L Potassium 3.4 L (3.5-5.1) mmol/L BUN 19 H (7-17) mg/dL Glucose 123 H (74-99) mg/dL POC Glucose (mg/dL) 205 H (70-110) mg/dL Calcium 8.0 L (8.4-10.2) mg/dL Magnesium 1.2 L (1.6-2.3) mg/dL 04/02/23 04/02/23 Range/Units 16:31 19:39 RBC (3.80-5.40) m/uL Hgb (11.4-16.0) gm/dL Hct (34.0-46.0) % Sodium (137-145) mmol/L Potassium (3.5-5.1) mmol/L BUN (7-17) mg/dL Glucose (74-99) mg/dL POC Glucose (mg/dL) 189 H 172 H (70-110) mg/dL Calcium (8.4-10.2) mg/dL Magnesium (1.6-2.3) mg/dL Microbiology - Last 24 Hours (Table) 03/27/23 16:40 Blood Culture - Final Blood 03/27/23 16:55 Blood Culture - Final Blood Assessment and Plan Assessment: Assessment and plan * New-onset atrial fibrillation * Acute renal failure RESOLVED * Critical hyperkalemia corrected * Urinary tract infection * Metabolic acidosis * Elevated troponin Type 2 WV * Diabetes mellitus type 2 * Hypertension * For UTI patient was on IV antibiotics Rocephin day 5>> switched to cefdinir day 7, ended per infectious disease recommendation * In regards to rate of progression continue metoprolol and Eliquis, continue amiodarone 400mg BID x 7 days then 200mg daily, Day 4/7 * CBC and basic metabolic panel * Blood cultures and urine cultures negative * Consultation obtained from cardiology, infectious disease and nephrology * In regards to diabetes mellitus continue patient on NovoLog * Will need HENRY
[2023-04-03] MEDS: HYDROcodone/APAP 5-325MG 1 EACH TAB PO PRN (04:23)
[2023-04-03 05:57] LABS: Glucose,Whole Blood 133 mg/dL (70-110)
[2023-04-03] MEDS: INSULIN ASPART (NovoLOG) 100 UNIT/ML VIAL SQ SCH ×4 (06:06→20:49)
[2023-04-03] MEDS: METOPROLOL TARTRATE 25 MG TAB PO SCH ×2 (08:29→20:49)
[2023-04-03] MEDS: CEFDINIR 300 MG CAP PO SCH ×2 (08:29→20:51)
[2023-04-03] MEDS: AMIODARONE 200 MG TAB PO SCH ×2 (08:29→20:49)
[2023-04-03] MEDS: MAGNESIUM OXIDE 400 MG TAB PO SCH ×3 (08:29→20:49)
[2023-04-03] MEDS: APIXABAN 2.5 MG TABLET PO SCH ×2 (08:30→20:49)
[2023-04-03] MEDS: LORATADINE 10 MG TAB PO SCH (08:30)
[2023-04-03 10:17] LABS: HCT 30.8 % (34.0-46.0); HGB 10.1 gm/dL (11.4-16.0); MCH 28.7 pg (25.0-35.0); MCHC 32.8 g/dL (31.0-37.0); MCV 87.6 fL (80.0-100.0); Mean Platelet Volume 7.9; Platelet Count 258 k/uL (150-450); RBC 3.51 m/uL (3.80-5.40); RDW 13.1 % (11.5-15.5); WBC 7.6 k/uL (3.8-10.6)
[2023-04-03 10:51] LABS: African American GFR (CKD) >90 (>60 ml/min/1.73 sqM); Anion Gap 4 mmol/L; Blood Urea Nitrogen 17 mg/dL (7-17); Calcium 8.1 mg/dL (8.4-10.2); Carbon Dioxide 22 mmol/L (22-30); Chloride 104 mmol/L (98-107); Glucose 114 mg/dL (74-99); Magnesium 1.3 mg/dL (1.6-2.3); Non-African American GFR(CKD) 85 (>60 ml/min/1.73 sqM); Potassium 4.2 mmol/L (3.5-5.1); Sodium 130 mmol/L (137-145)
[2023-04-03 11:55] LABS: Glucose,Whole Blood 256 mg/dL (70-110)
[2023-04-03] MEDS ORDERED: MAGNESIUM OXIDE 400 MG TAB PO STA (11:55)
[2023-04-03] MEDS ORDERED: MAGNESIUM SULFATE-D5W PMX 1 GM in DEXTROSE/WATER 1 100ML.BAG IVPB SCH (12:00)
--- NOTE | 2023-04-03 12:59 | P.PN ---
Subjective Progress Note Date: 04/03/23 Follow-up for acute kidney injury. Objective - Vital Signs Vital signs: Vital Signs Temp 98.1 F 04/03/23 11:47 Pulse 58 L 04/03/23 11:47 Resp 16 04/03/23 11:47 BP 108/44 04/03/23 11:47 Pulse Ox 94 L 04/03/23 11:47 FiO2 Intake & Output 04/02/23 04/03/23 04/03/23 18:59 06:59 18:59 Intake Total 960 240 Output Total 300 400 Balance 660 -400 240 Intake: Intake, IV Titration 0 Amount cefTRIAXone 1 gm In 0 Sodium Chloride 0.9% 50 ml @ 100 mls/hr IVPB Q24HR [facility] Rx#:[id number] Oral 960 240 Output: Urine 300 400 Other: Voiding Method Indwelling Catheter Indwelling Catheter Indwelling Catheter - Exam No acute distress S1-S2 heard Lungs clear No edema - Labs CBC & Chem 7: 04/03/23 09:28 04/03/23 09:28 Labs: Abnormal Lab Results - Last 24 Hours (Table) 04/02/23 04/02/23 04/03/23 Range/Units 16:31 19:39 05:52 RBC (3.80-5.40) m/uL Hgb (11.4-16.0) gm/dL Hct (34.0-46.0) % Sodium (137-145) mmol/L Glucose (74-99) mg/dL POC Glucose (mg/dL) 189 H 172 H 133 H (70-110) mg/dL Calcium (8.4-10.2) mg/dL Magnesium (1.6-2.3) mg/dL 04/03/23 04/03/23 04/03/23 Range/Units 09:28 09:28 11:52 RBC 3.51 L (3.80-5.40) m/uL Hgb 10.1 L (11.4-16.0) gm/dL Hct 30.8 L (34.0-46.0) % Sodium 130 L (137-145) mmol/L Glucose 114 H (74-99) mg/dL POC Glucose (mg/dL) 256 H (70-110) mg/dL Calcium 8.1 L (8.4-10.2) mg/dL Magnesium 1.3 L (1.6-2.3) mg/dL Assessment and Plan Assessment: #1 acute kidney injury secondary to hemodynamic ATN. -Baseline creatinine 0.6 MG per DL. Peak creatinine of 5.7 MG per DL. #2 hypokalemia #3 urinary tract infection #4 atrial fibrillation #5 hyponatremia Plan: #1 renal function back to baseline #2 continue to hold antihypertensive medications at this time blood pressures stable without medications #3 avoid nephrotoxic agents and hypotensive episodes #4 check urine electrolytes and urine osmolality, serum osmolality and uric acid in the morning. #5 normal saline 50 ML's an hour overnight.
--- NOTE | 2023-04-03 13:06 | P.PN ---
Subjective HISTORY OF PRESENT ILLNESS: The patient is an 82-year-old female who presented with symptoms of progressive weakness, nausea and vomiting and not feeling well. Cardiology consultation was requested for evidence of atrial fibrillation. I am not able to the dictated history from the patient but she says that she's feeling ill. She has some vag ue symptoms of chest discomfort as well as dyspnea. She has occasional palpitation. On presentation she was noted to have significant worsening of her renal function. Apparently she has not been doing well for the last few weeks until she came into the hospital. On presentation she was in sinus mechanism subsequently sinus mechanism with PACs and now in atrial fibrillation with rapid ventricle response. She had mild troponin elevation. She has a prior history of hypertension and diabetes. During an admission in March [id number] she was in sinus mechanism with multifocal atrial tachycardia but not atrial fibrillation. On admission her potassium was 6.3, creatinine 5.72 and her trop onin 0.067. Her peak troponin is 0.088 and her most recent creatinine is 3.83. Medications: Ramipril 10 mg daily, metformin 1 g twice a day, ibuprofen, iron 03/29/2023 Patient examined this morning at the bedside. Patient denies chest pain or pressure. She denies shortness of breath. She still continues to report weakness. Telemetry reveals sinus mechanism with a heart rate in the 50s. She remains on IV heparin. Blood pressure is stable. Creatinine today 2.29. 03/30/2023 Patient examined this morning at the bedside. Patient states she is feeling unwell this morning. She reports having some epigastric pain. Patient also reports generalized weakness. She has not been out of bed yet. She continues to have an indwelling urinary catheter. Telemetry reveals sinus mechanism with a rate in the 60s. Dr. Bernal looked at preliminary echo which revealed preserved LV systolic function. 03/31/2023 Cardiology was reconsulted secondary to patient going into A. fib with RVR this morning. Patient was given a one-time dose of oral Cardizem. She has converted to sinus mechanism this morning. The patient denies feeling any palpitations. She denies chest pain or pressure. She denies shortness of breath. She states that she feels "blah" today. 04/01 Pt seen and examined. Patient denies any chest pain or pressure. She is still feeling fatigued. He still has been having frequent runs of atrial fibrillation with RVR however less events since been on amiodarone. 04/02 Patient seen and examined. Patient states she feels "blah". Denies any chest pain or pressure. Has been maintained on amiodarone and no further significant episodes of A. fib since yesterday morning. 04/03 Patient seen and examined. Patient has been maintained on amiodarone. No further atrial fibrillation or last 24 hours. Still feels fatigued. PHYSICAL EXAM: VITAL SIGNS: Reviewed. GENERAL: Well-developed in no acute distress. NECK: Supple. No JVD or thyromegaly LUNGS: Respirations even and unlabored. Lungs essentially clear to auscultation bilaterally. HEART: Regular rate and rhythm. S1 and S2 heard. EXTREMITIES: Normal range of motion. No clubbing or cyanosis. Peripheral pulses intact. No lower extremity edema ASSESSMENT: Generalized weakness, nausea, and vomiting New-onset paroxysmal atrial fibrillation, currently maintaining sinus mechanism Abnormal troponins, likely secondary to acute kidney injury, no evidence of acute coronary syndrome Hypertension Diabetes PLAN: Continue current cardiac medications Continue current dose of metoprolol as patient is mildly bradycardic when she is in sinus mechanism Continue amiodarone 400 mg twice a day. Decrease to 200 mg twice a day after 1 week. Appears to be stable from a cardiology standpoint. Please call with any questions. Outpatient follow-up within 1 week. Objective - Vital Signs Vital signs: Vital Signs Temp 98.1 F 04/03/23 11:47 Pulse 58 L 04/03/23 11:47 Resp 16 04/03/23 11:47 BP 108/44 04/03/23 11:47 Pulse Ox 94 L 04/03/23 11:47 FiO2 Intake & Output 04/02/23 04/03/23 04/03/23 18:59 06:59 18:59 Intake Total 960 240 Output Total 300 400 Balance 660 -400 240 Intake: Intake, IV Titration 0 Amount cefTRIAXone 1 gm In 0 Sodium Chloride 0.9% 50 ml @ 100 mls/hr IVPB Q24HR [facility] Rx#:[id number] Oral 960 240 Output: Urine 300 400 Other: Voiding Method Indwelling Catheter Indwelling Catheter Indwelling Catheter - Labs CBC & Chem 7: 04/03/23 09:28 04/03/23 09:28 Labs: Abnormal Lab Results - Last 24 Hours (Table) 04/02/23 04/02/23 04/03/23 Range/Units 16:31 19:39 05:52 RBC (3.80-5.40) m/uL Hgb (11.4-16.0) gm/dL Hct (34.0-46.0) % Sodium (137-145) mmol/L Glucose (74-99) mg/dL POC Glucose (mg/dL) 189 H 172 H 133 H (70-110) mg/dL Calcium (8.4-10.2) mg/dL Magnesium (1.6-2.3) mg/dL 04/03/23 04/03/23 04/03/23 Range/Units 09:28 09:28 11:52 RBC 3.51 L (3.80-5.40) m/uL Hgb 10.1 L (11.4-16.0) gm/dL Hct 30.8 L (34.0-46.0) % Sodium 130 L (137-145) mmol/L Glucose 114 H (74-99) mg/dL POC Glucose (mg/dL) 256 H (70-110) mg/dL Calcium 8.1 L (8.4-10.2) mg/dL Magnesium 1.3 L (1.6-2.3) mg/dL
[2023-04-03] MEDS: SODIUM CHLORIDE 0.9% 1,000 ML IV SCH (14:53)
[2023-04-03 15:54] LABS: Appearance,Urine Clear (Clear); Bilirubin,Urine Negative (Negative); Blood,Urine Large (Negative); Color,Urine Light Yellow; Glucose,Urine (UA) 1+ (Negative); Hyaline Casts,Urine 1 /lpf (0-2); Ketones,Urine Negative (Negative); Leukocyte Esterase,Urine Moderate (Negative); Mucus,Urine Rare /hpf; Nitrite,Urine Negative (Negative); Protein,Urine Trace (Negative); RBC,Urine >182 /hpf (0-5); Specific Gravity,Urine 1.015 (1.001-1.035); Squamous Epithelial Cell,Urine <1 /hpf (0-4); Urobilinogen,Urine <2.0 mg/dL (<2.0); WBC,Urine 28 /hpf (0-5)
[2023-04-03 16:35] LABS: Glucose,Whole Blood 146 mg/dL (70-110)
--- NOTE | 2023-04-03 16:40 | P.PN ---
Subjective Progress Note Date: 04/03/23 Principal diagnosis: UTI Patient is a 82-year-old female with a past medical history significant for diabetes mellitus reflux hypertension history of skin cancer and UTI presenting to the hospital for evaluation of generalized weakness, patient also have a positive UA urinary symptoms concerning for symptomatic aortic infection. On today's evaluation that is 04/03/2023, the patient continues to be afebrile, the patient is breathing comfortably and denies any shortness of breath no chest pain or cough, the patient denies having any nausea and vomiting no abdominal pain and no diarrhea Patient white count is 7.6, creatinine is normal at 0.59, abdominal ultrasound was negative for obstructive uropathy blood cultures negative, repeat urine was positive cultures negative Objective - Vital Signs Vital signs: Vital Signs Temp 98.7 F 04/03/23 15:04 Pulse 65 04/03/23 15:04 Resp 16 04/03/23 15:04 BP 137/66 04/03/23 15:04 Pulse Ox 96 04/03/23 15:04 FiO2 Intake & Output 04/02/23 04/03/23 04/03/23 18:59 06:59 18:59 Intake Total 960 250 Output Total 300 400 325 Balance 660 -400 -75 Intake: IV 10 Invasive Line 6 10 Intake, IV Titration 0 Amount cefTRIAXone 1 gm In 0 Sodium Chloride 0.9% 50 ml @ 100 mls/hr IVPB Q24HR [facility] Rx#:[id number] Oral 960 240 Output: Urine 300 400 325 Other: Voiding Method Indwelling Catheter Indwelling Catheter Indwelling Catheter - Exam GENERAL DESCRIPTION: Elderly female lying in bed in no distress RESPIRATORY SYSTEM: Unlabored breathing , decreased breath sounds at bases HEART: S1 S2 regular rate and rhythm ,no loud murmurs ABDOMEN: Soft , no tenderness EXTREMITIES: No edema feet - Labs CBC & Chem 7: 04/03/23 09:28 04/03/23 09:28 Labs: Abnormal Lab Results - Last 24 Hours (Table) 04/02/23 04/02/23 04/03/23 Range/Units 16:31 19:39 05:52 RBC (3.80-5.40) m/uL Hgb (11.4-16.0) gm/dL Hct (34.0-46.0) % Sodium (137-145) mmol/L Glucose (74-99) mg/dL POC Glucose (mg/dL) 189 H 172 H 133 H (70-110) mg/dL Calcium (8.4-10.2) mg/dL Magnesium (1.6-2.3) mg/dL 04/03/23 04/03/23 04/03/23 Range/Units 09:28 09:28 11:52 RBC 3.51 L (3.80-5.40) m/uL Hgb 10.1 L (11.4-16.0) gm/dL Hct 30.8 L (34.0-46.0) % Sodium 130 L (137-145) mmol/L Glucose 114 H (74-99) mg/dL POC Glucose (mg/dL) 256 H (70-110) mg/dL Calcium 8.1 L (8.4-10.2) mg/dL Magnesium 1.3 L (1.6-2.3) mg/dL Assessment and Plan (1) UTI (urinary tract infection) Current Visit: Yes Status: Acute Code(s): N39.0 - URINARY TRACT INFECTION, SITE NOT SPECIFIED SNOMED Code(s): 34877920 Plan: 1patient present hospitalized weakness no energy did have some urinary symptoms of decreased urine output along with some burning positive UA concerning for symptomatic UTI likely from middle gram-negative pathogen. 2patient with renal insufficiency and high risk of nephrotoxicity ultrasound was negative for any obstructive uropathy. 3 repeat a UA is positive and culture are so far negative 4patient has received adequate antibiotic therapy for underlying UTI and Omnicef can be discontinued on discharge Dictation was produced using [employer] dictation software. please excuse any gramma tical, word or spelling errors. Time with Patient: Less than 30
[2023-04-03 20:23] LABS: Glucose,Whole Blood 161 mg/dL (70-110)
[2023-04-04 06:09] LABS: Glucose,Whole Blood 163 mg/dL (70-110)
[2023-04-04 07:32] LABS: HCT 32.1 % (34.0-46.0); HGB 10.6 gm/dL (11.4-16.0); MCH 28.9 pg (25.0-35.0); MCHC 33.1 g/dL (31.0-37.0); MCV 87.2 fL (80.0-100.0); Mean Platelet Volume 7.7; Platelet Count 288 k/uL (150-450); RBC 3.69 m/uL (3.80-5.40); RDW 13.1 % (11.5-15.5); WBC 8.2 k/uL (3.8-10.6)
[2023-04-04 07:55] LABS: African American GFR (CKD) >90 (>60 ml/min/1.73 sqM); Anion Gap 4 mmol/L; Blood Urea Nitrogen 15 mg/dL (7-17); Calcium 8.1 mg/dL (8.4-10.2); Carbon Dioxide 23 mmol/L (22-30); Chloride 103 mmol/L (98-107); Glucose 190 mg/dL (74-99); Magnesium 1.3 mg/dL (1.6-2.3); Non-African American GFR(CKD) 86 (>60 ml/min/1.73 sqM); Potassium 3.9 mmol/L (3.5-5.1); Sodium 130 mmol/L (137-145); Uric Acid 2.6 mg/dL (3.7-7.4)
[2023-04-04 08:01] LABS: Potassium,Urine Random 62.3 mmol/L (25.0-125.0)
[2023-04-04] MEDS: CEFDINIR 300 MG CAP PO SCH ×2 (08:26→20:34)
[2023-04-04] MEDS: APIXABAN 2.5 MG TABLET PO SCH ×2 (08:27→20:27)
[2023-04-04] MEDS: METOPROLOL TARTRATE 25 MG TAB PO SCH ×2 (08:27→20:27)
[2023-04-04] MEDS: AMIODARONE 200 MG TAB PO SCH ×2 (08:27→20:27)
[2023-04-04] MEDS: LORATADINE 10 MG TAB PO SCH (08:27)
[2023-04-04] MEDS: MAGNESIUM OXIDE 400 MG TAB PO SCH ×3 (08:27→20:28)
[2023-04-04] MEDS ORDERED: Magnesium Replacement Protocol 1 EACH MISC MISCELLANE PRN (09:09)
[2023-04-04 11:14] LABS: Glucose,Whole Blood 171 mg/dL (70-110)
--- NOTE | 2023-04-04 12:41 | P.PN ---
Subjective Progress Note Date: 04/04/23 82-year-old female who presents to the emergency department for generalized weakness. Patient states that she feels generally ill and unwell, and has so for the last 1-2 days. Describes generalized body aches and weakness as being her most prominent symptoms. When asked about chest pain, she states that she does have chest pain, however she has pain everywhere and does not believe that this is specific to her chest. She does report associated coughing and congestion as well. Unsure if there have been any sick contacts. Her family states that she is usually unhappy about going to the hospital, but was willing to this time. She is somewhat slow to respond, but is alert and oriented 4. After her family arrived, they said that she's been having frequent falls over the last couple of weeks as well. They also state that she seems to have declined by about 25% just from yesterday to today, which greatly concerned them. Patient has been continuing to refuse to go to the hospital until today, at which time she put up less of a fight and her son subsequently called EMS. Her son does note that she was recently treated for a UTI, but cannot recall which antibiotic she was on. She did require 2 antibiotics, as the first one was not shown to be strong enough, and the patient refused to go in for a recheck after completion of the second antibiotic. EKG interpreted by me demonstrating the following: Sinus rhythm. Ventricular rate 83 beats per minute, NC interval 201 ms, QRS duration 98 ms, QTC 392 ms. EKG was repeated at 1455 due to the applied psychology professor reading possible atrial fibrillation, this revealed sinus tachycardia with frequent PVCs. Ventricular rate 100 beats per minute, NC interval 181 ms, QRS duration 87 ms, QTC 380 ms. Chest x-ray obtained- no localized consolidations or infiltrates. Lab work obtained revealing leukocytosis and multiple electrolyte irregularities including hyperkalemia with a potassium of 6.3, Na of 124, and a CO2 <5. Patient is also in acute renal failure with a creatinine of 5.72. Troponin is also elevated, likely secondary to the findings above. CK and serum osmolality were found to be only mildly elevated. Harper catheter was also initiated and urinalysis was suggestive of infection. 1g of Ceftriaxone was administered. Urine and blood cultures were obtained. Per nursing staff, her urine had the appearance of "pea soup". Patient initially given a hyperkalemia cocktail consisting of insulin, sodium bicarb, and Lokelma; nephrology, also advised 1gm of calcium gluconate, an additional ampule of bicarb, and starting her on a D5 drip with 150 mL of sodium bicarb at a rate of 150 mL/hr, with plan to repeat her BMP 2 hours after medication is administered. 03/29. Patient seen and examined. Patient complaining of lethargy. Potassium 3.2, magnesium 1.5, replacement ordered 03/30. Patient seen and examined. Blood work labs showed WBC 12.4, hemoglobin 11.4, platelet count 194, sodium 139, BUN 43, creatinine 1.04. Vital signs stable 03/31: Patient seen and evaluated bedside, continue patient on antibiotics. Continue to monitor renal function 04/01: Patient seen and evaluated bedside, she complains of lethargic, tachycardia noted earlier today heart rate better after metoprolol white cell count trending down 04/02: Patient seen and evaluated bedside, antibiotic changed to oral. Noted to have tachycardia given metoprolol 50 mg however patient was hypertensive and stays back to 25 mg twice a day we'll continue to follow up on CBC will replace magnesium and potassium 04/03: Patient seen and evaluated bedside, electrolyte abnormality noted noted to have hypomagnesemia. Patient has lost her IV will request another IV placement 2 g of magnesium ordered. Continue patient on oral antibiotic receiving Ceftin 04/04. Patient seen and examined. Magnesium level was 1.3, replacement ordered. Patient was sitting upright in the chair. Discussed with case management, [facility] on placement and insurance authorization REVIEW OF SYSTEMS: CONSTITUTIONAL: No fever, no malaise,. Complaining of lethargy and weakness CARDIOVASCULAR: No chest pain, no palpitations, no syncope. PULMONARY: No shortness of breath, no cough, GASTROINTESTINAL: No diarrhea, no nausea, no vomiting, no abdominal pain. NEUROLOGICAL: No headaches, no weakness, PHYSICAL EXAMINATION: GENERAL: The patient is alert and oriented x3, not in any acute distress. Ill-looking HEENT: Pupils are round and equally reacting to light. EOMI. No scleral icterus. No conjunctival pallor. Normocephalic, atraumatic. No pharyngeal erythema. No thyromegaly. CARDIOVASCULAR: S1 and S2 present. No murmurs, rubs, or gallops. PULMONARY: Chest is clear to auscultation, no wheezing or crackles. ABDOMEN: Soft, nontender, nondistended, normoactive bowel sounds. No palpable organomegaly. MUSCULOSKELETAL: No joint swelling or deformity. EXTREMITIES: No cyanosis, clubbing, or pedal edema. NEUROLOGICAL: Gross neurological examination did not reveal any focal deficits. SKIN: No rashes. Assessment and plan New-onset atrial fibrillation * Acute renal failure RESOLVED * Critical hyperkalemia corrected * Urinary tract infection * Metabolic acidosis * Elevated troponin Type 2 AR * Diabetes mellitus type 2 * Hypertension Monitor vital signs Monitor CBC Monitor CMP For UTI patient was on IV antibiotics Rocephin day 5>> switched to cefdinir , per infectious disease recommendation Magnesium level was 1.3, replacement ordered Continue amiodarone and Eliquis ID following Nephrology following Cardiology signed off PT and OT recommended rehab, waiting on placement Labs and medication were reviewed.. Continue same treatment. Continue with symptomatic treatment. Resume home medication. Monitor labs and vitals. DVT and GI prophylaxis. Further recommendations as per clinical course of the patient Dictation was produced using [employer] dictation software. please excuse any grammatical, word or spelling errors. Objective - Vital Signs Vital signs: Vital Signs Temp 97.9 F 04/04/23 08:24 Pulse 78 04/04/23 08:24 Resp 18 04/04/23 08:24 BP 122/65 04/04/23 08:24 Pulse Ox 95 04/04/23 08:24 FiO2 Intake & Output 04/03/23 04/04/23 04/04/23 18:59 06:59 18:59 Intake Total 250 120 Output Total 325 575 200 Balance -75 -455 -200 Intake: IV 10 Invasive Line 6 10 Oral 240 120 Output: Urine 325 575 200 Other: Voiding Method Indwelling Catheter Indwelling Catheter - Labs CBC & Chem 7: 04/04/23 07:04 04/04/23 07:04 Labs: Abnormal Lab Results - Last 24 Hours (Table) 04/03/23 04/03/23 04/03/23 Range/Units 09:28 09:28 11:52 RBC 3.51 L (3.80-5.40) m/uL Hgb 10.1 L (11.4-16.0) gm/dL Hct 30.8 L (34.0-46.0) % Sodium 130 L (137-145) mmol/L Glucose 114 H (74-99) mg/dL POC Glucose (mg/dL) 256 H (70-110) mg/dL Uric Acid (3.7-7.4) mg/dL Calcium 8.1 L (8.4-10.2) mg/dL Magnesium 1.3 L (1.6-2.3) mg/dL Urine Protein (Negative) Urine Glucose (UA) (Negative) Urine Blood (Negative) Ur Leukocyte Esterase (Negative) Urine RBC (0-5) /hpf Urine WBC (0-5) /hpf Urine Mucus (None) /hpf 04/03/23 04/03/23 04/03/23 Range/Units 15:02 16:32 20:22 RBC (3.80-5.40) m/uL Hgb (11.4-16.0) gm/dL Hct (34.0-46.0) % Sodium (137-145) mmol/L Glucose (74-99) mg/dL POC Glucose (mg/dL) 146 H 161 H (70-110) mg/dL Uric Acid (3.7-7.4) mg/dL Calcium (8.4-10.2) mg/dL Magnesium (1.6-2.3) mg/dL Urine Protein Trace H (Negative) Urine Glucose (UA) 1+ H (Negative) Urine Blood Large H (Negative) Ur Leukocyte Esterase Moderate H (Negative) Urine RBC >182 H (0-5) /hpf Urine WBC 28 H (0-5) /hpf Urine Mucus Rare H (None) /hpf 04/04/23 04/04/23 04/04/23 Range/Units 06:07 07:04 07:04 RBC 3.69 L (3.80-5.40) m/uL Hgb 10.6 L (11.4-16.0) gm/dL Hct 32.1 L (34.0-46.0) % Sodium 130 L (137-145) mmol/L Glucose 190 H (74-99) mg/dL POC Glucose (mg/dL) 163 H (70-110) mg/dL Uric Acid 2.6 L (3.7-7.4) mg/dL Calcium 8.1 L (8.4-10.2) mg/dL Magnesium 1.3 L (1.6-2.3) mg/dL Urine Protein (Negative) Urine Glucose (UA) (Negative) Urine Blood (Negative) Ur Leukocyte Esterase (Negative) Urine RBC (0-5) /hpf Urine WBC (0-5) /hpf Urine Mucus (None) /hpf
[2023-04-04] MEDS: MAGNESIUM SULFATE-D5W PMX 1 GM in DEXTROSE/WATER 1 100ML.BAG IVPB SCH ×4 (14:29→18:59)
[2023-04-04] MEDS: SODIUM CHLORIDE 0.9% 1,000 ML IV SCH (15:05)
[2023-04-04 16:37] LABS: Glucose,Whole Blood 180 mg/dL (70-110)
--- NOTE | 2023-04-04 17:30 | P.PN ---
Subjective Progress Note Date: 04/04/23 Principal diagnosis: UTI Patient is a 82-year-old female with a past medical history significant for diabetes mellitus reflux hypertension history of skin cancer and UTI presenting to the hospital for evaluation of generalized weakness, patient also have a positive UA urinary symptoms concerning for symptomatic aortic infection. On today's evaluation that is 04/04/2023, the patient remains to be afebrile, the patient is breathing comfortably , the patient denies having any chest pain or cough, the patient denies nausea and vomiting no abdominal pain and no diarrh ea Patient white count is 8.2, creatinine is normal at 0.56, abdominal ultrasound was negative for obstructive uropathy blood cultures negative, repeat urine was positive cultures negative Objective - Vital Signs Vital signs: Vital Signs Temp 97.9 F 04/04/23 08:24 Pulse 63 04/04/23 12:00 Resp 18 04/04/23 12:00 BP 146/76 04/04/23 12:00 Pulse Ox 95 04/04/23 12:00 FiO2 Intake & Output 04/03/23 04/04/23 04/04/23 18:59 06:59 18:59 Intake Total 250 120 Output Total 325 575 400 Balance -75 -455 -400 Intake: IV 10 Invasive Line 6 10 Oral 240 120 Output: Urine 325 575 400 Other: Voiding Method Indwelling Catheter Indwelling Catheter - Exam GENERAL DESCRIPTION: Elderly female lying in bed in no distress RESPIRATORY SYSTEM: Unlabored breathing , decreased breath sounds at bases HEART: S1 S2 regular rate and rhythm ,no loud murmurs ABDOMEN: Soft , no tenderness EXTREMITIES: No edema feet - Labs CBC & Chem 7: 04/04/23 07:04 04/04/23 07:04 Labs: Abnormal Lab Results - Last 24 Hours (Table) 04/03/23 04/03/23 04/03/23 Range/Units 15:02 16:32 20:22 RBC (3.80-5.40) m/uL Hgb (11.4-16.0) gm/dL Hct (34.0-46.0) % Sodium (137-145) mmol/L Glucose (74-99) mg/dL POC Glucose (mg/dL) 146 H 161 H (70-110) mg/dL Uric Acid (3.7-7.4) mg/dL Calcium (8.4-10.2) mg/dL Magnesium (1.6-2.3) mg/dL Urine Protein Trace H (Negative) Urine Glucose (UA) 1+ H (Negative) Urine Blood Large H (Negative) Ur Leukocyte Esterase Moderate H (Negative) Urine RBC >182 H (0-5) /hpf Urine WBC 28 H (0-5) /hpf Urine Mucus Rare H (None) /hpf 04/04/23 04/04/23 04/04/23 Range/Units 06:07 07:04 07:04 RBC 3.69 L (3.80-5.40) m/uL Hgb 10.6 L (11.4-16.0) gm/dL Hct 32.1 L (34.0-46.0) % Sodium 130 L (137-145) mmol/L Glucose 190 H (74-99) mg/dL POC Glucose (mg/dL) 163 H (70-110) mg/dL Uric Acid 2.6 L (3.7-7.4) mg/dL Calcium 8.1 L (8.4-10.2) mg/dL Magnesium 1.3 L (1.6-2.3) mg/dL Urine Protein (Negative) Urine Glucose (UA) (Negative) Urine Blood (Negative) Ur Leukocyte Esterase (Negative) Urine RBC (0-5) /hpf Urine WBC (0-5) /hpf Urine Mucus (None) /hpf 04/04/23 Range/Units 11:12 RBC (3.80-5.40) m/uL Hgb (11.4-16.0) gm/dL Hct (34.0-46.0) % Sodium (137-145) mmol/L Glucose (74-99) mg/dL POC Glucose (mg/dL) 171 H (70-110) mg/dL Uric Acid (3.7-7.4) mg/dL Calcium (8.4-10.2) mg/dL Magnesium (1.6-2.3) mg/dL Urine Protein (Negative) Urine Glucose (UA) (Negative) Urine Blood (Negative) Ur Leukocyte Esterase (Negative) Urine RBC (0-5) /hpf Urine WBC (0-5) /hpf Urine Mucus (None) /hpf Assessment and Plan (1) UTI (urinary tract infection) Current Visit: Yes Status: Acute Code(s): N39.0 - URINARY TRACT INFECTION, SITE NOT SPECIFIED SNOMED Code(s): 60158166 Plan: 1patient present hospitalized weakness no energy did have some urinary symptoms of decreased urine output along with some burning positive UA concerning for symptomatic UTI likely from middle gram-negative pathogen. 2patient with renal insufficiency and high risk of nephrotoxicity ultrasound was negative for any obstructive uropathy. 3 repeat a UA is positive and culture are so far negative 4patient has received adequate antibiotic therapy for underlying UTI: The patient is currently on Omnicef , which can be discontinued on discharge Dictation was produced using [employer] dictation software. please excuse any grammatical, word or spelling errors. Time with Patient: Less than 30
[2023-04-04] MEDS: HYDROcodone/APAP 5-325MG 1 EACH TAB PO PRN (18:58)
[2023-04-04 20:09] LABS: Glucose,Whole Blood 236 mg/dL (70-110)
[2023-04-05 06:11] LABS: Glucose,Whole Blood 143 mg/dL (70-110)
[2023-04-05] MEDS: SODIUM CHLORIDE 0.9% 1,000 ML IV SCH (06:26)
[2023-04-05] MEDS: CEFDINIR 300 MG CAP PO SCH (10:32)
[2023-04-05] MEDS: METOPROLOL TARTRATE 25 MG TAB PO SCH ×2 (10:32→20:39)
[2023-04-05] MEDS: AMIODARONE 200 MG TAB PO SCH ×2 (10:32→20:39)
[2023-04-05] MEDS: APIXABAN 2.5 MG TABLET PO SCH ×2 (10:32→20:39)
[2023-04-05] MEDS: MAGNESIUM OXIDE 400 MG TAB PO SCH ×3 (10:32→20:39)
--- NOTE | 2023-04-05 11:23 | P.PN ---
Subjective Patient is seen for follow-up for acute kidney injury. She is currently comfortable and sleeping. Patient is arousable. Renal function has improved. Serum creatinine 0.5 yesterday. Creatinine was 5.7 on initial admission. Maintained on IV fluids at 50 ML per hour. Objective - Vital Signs Vital signs: Vital Signs Temp 98.1 F 04/05/23 04:00 Pulse 75 04/05/23 10:36 Resp 18 04/05/23 10:36 BP 143/66 04/05/23 10:21 Pulse Ox 95 04/05/23 10:21 FiO2 Intake & Output 04/04/23 04/05/23 04/05/23 18:59 06:59 18:59 Output Total 550 350 Balance -550 -350 Weight 52.163 kg Output: Urine 550 350 Other: Voiding Method Indwelling Catheter Indwelling Catheter Indwelling Catheter # Voids 1 - Exam Patient is comfortable Sleeping but Arousable Examination of the heart S1 and S2 Examination lungs bilateral breath sounds are heard Abdomen is soft nontender Examination of lower extremity shows no significant edema - Labs CBC & Chem 7: 04/04/23 07:04 04/04/23 07:04 Labs: Abnormal Lab Results - Last 24 Hours (Table) 04/04/23 04/04/23 04/05/23 Range/Units 16:36 20:08 06:10 POC Glucose (mg/dL) 180 H 236 H 143 H (70-110) mg/dL Assessment and Plan Assessment: #1 acute kidney injury secondary to hemodynamic ATN. -Baseline creatinine 0.6 MG per DL. Peak creatinine of 5.7 MG per DL. #2 hypokalemia #3 urinary tract infection #4 atrial fibrillation #5 hyponatremia. Currently euvolemic. Tolerating oral intake. I will DC normal saline. Plan: Discontinue IV fluids Encourage increased oral intake Repeat labs in a.m.
[2023-04-05 11:48] LABS: Glucose,Whole Blood 115 mg/dL (70-110)
--- NOTE | 2023-04-05 11:54 | P.PN ---
Subjective Progress Note Date: 04/05/23 82-year-old female who presents to the emergency department for generalized weakness. Patient states that she feels generally ill and unwell, and has so for the last 1-2 days. Describes generalized body aches and weakness as being her most prominent symptoms. When asked about chest pain, she states that she does have chest pain, however she has pain everywhere and does not believe that this is specific to her chest. She does report associated coughing and congestion as well. Unsure if there have been any sick contacts. Her family states that she is usually unhappy about going to the hospital, but was willing to this time. She is somewhat slow to respond, but is alert and oriented 4. After her family arrived, they said that she's been having frequent falls over the last couple of weeks as well. They also state that she seems to have declined by about 25% just from yesterday to today, which greatly concerned them. Patient has been continuing to refuse to go to the hospital until today, at which time she put up less of a fight and her son subsequently called EMS. Her son does note that she was recently treated for a UTI, but cannot recall which antibiotic she was on. She did require 2 antibiotics, as the first one was not shown to be strong enough, and the patient refused to go in for a recheck after completion of the second antibiotic. EKG interpreted by me demonstrating the following: Sinus rhythm. Ventricular rate 83 beats per minute, OK interval 201 ms, QRS duration 98 ms, QTC 392 ms. EKG was repeated at 1455 due to the monitoring tech reading possible atrial fibrillation, this revealed sinus tachycardia with frequent PVCs. Ventricular rate 100 beats per minute, OK interval 181 ms, QRS duration 87 ms, QTC 380 ms. Chest x-ray obtained- no localized consolidations or infiltrates. Lab work obtained revealing leukocytosis and multiple electrolyte irregularities including hyperkalemia with a potassium of 6.3, Na of 124, and a CO2 <5. Patient is also in acute renal failure with a creatinine of 5.72. Troponin is also elevated, likely secondary to the findings above. CK and serum osmolality were found to be only mildly elevated. Harper catheter was also initiated and urinalysis was suggestive of infection. 1g of Ceftriaxone was administered. Urine and blood cultures were obtained. Per nursing staff, her urine had the appearance of "pea soup". Patient initially given a hyperkalemia cocktail consisting of insulin, sodium bicarb, and Lokelma; nephrology, also advised 1gm of calcium gluconate, an additional ampule of bicarb, and starting her on a D5 drip with 150 mL of sodium bicarb at a rate of 150 mL/hr, with plan to repeat her BMP 2 hours after medication is administered. 03/29. Patient seen and examined. Patient complaining of lethargy. Potassium 3.2, magnesium 1.5, replacement ordered 03/30. Patient seen and examined. Blood work labs showed WBC 12.4, hemoglobin 11.4, platelet count 194, sodium 139, BUN 43, creatinine 1.04. Vital signs stable 03/31: Patient seen and evaluated bedside, continue patient on antibiotics. Continue to monitor renal function 04/01: Patient seen and evaluated bedside, she complains of lethargic, tachycardia noted earlier today heart rate better after metoprolol white cell count trending down 04/02: Patient seen and evaluated bedside, antibiotic changed to oral. Noted to have tachycardia given metoprolol 50 mg however patient was hypertensive and stays back to 25 mg twice a day we'll continue to follow up on CBC will replace magnesium and potassium 04/03: Patient seen and evaluated bedside, electrolyte abnormality noted noted to have hypomagnesemia. Patient has lost her IV will request another IV placement 2 g of magnesium ordered. Continue patient on oral antibiotic receiving Ceftin 04/05: Patient seen and evaluated and bedside, patient appears confused today patient was up all night. Patient is easily arousable. Stat blood work ordered including CBC ammonia, basic metabolic panel venous blood gas Objective - Vital Signs Vital signs: Vital Signs Temp 98.1 F 04/05/23 04:00 Pulse 75 04/05/23 10:36 Resp 18 04/05/23 10:36 BP 143/66 04/05/23 10:21 Pulse Ox 95 04/05/23 10:21 FiO2 Intake & Output 04/04/23 04/05/23 04/05/23 18:59 06:59 18:59 Output Total 550 350 Balance -550 -350 Weight 52.163 kg Output: Urine 550 350 Other: Voiding Method Indwelling Catheter Indwelling Catheter Indwelling Catheter # Voids 1 - Exam REVIEW OF SYSTEMS: Limited secondary to mentation PHYSICAL EXAMINATION: GENERAL: The patient is alert and oriented x1 , not in any acute distress. Ill- looking HEENT: Pupils are round and equally reacting to light. EOMI. CARDIOVASCULAR: S1 and S2 present. Irregular rhythm tachycardia noted PULMONARY: Chest is clear to auscultation, no wheezing or crackles. ABDOMEN: Soft, nontender, nondistended, normoactive bowel sounds. No palpable organomegaly. MUSCULOSKELETAL: No joint swelling or deformity. EXTREMITIES: No cyanosis, clubbing, or pedal edema. NEUROLOGICAL: Lethargic however easily arousable goes back to sleep SKIN: No rashes. - Labs CBC & Chem 7: 04/04/23 07:04 04/04/23 07:04 Labs: Abnormal Lab Results - Last 24 Hours (Table) 04/04/23 04/04/23 04/05/23 Range/Units 16:36 20:08 06:10 POC Glucose (mg/dL) 180 H 236 H 143 H (70-110) mg/dL 04/05/23 Range/Units 11:46 POC Glucose (mg/dL) 115 H (70-110) mg/dL Assessment and Plan Assessment: Assessment and plan * Acute metabolic encephalopathy * New-onset atrial fibrillation * Acute renal failure RESOLVED * Critical hyperkalemia corrected * Urinary tract infection * Metabolic acidosis * Elevated troponin Type 2 MN * Diabetes mellitus type 2 * Hypertension * For UTI patient was on IV antibiotics Rocephin day 5>> switched to cefdinir day 9, ended per infectious disease recommendation * In regards to rate of progression continue metoprolol and Eliquis, continue amiodarone 400mg BID x 7 days then 200mg daily, Day 6/7 * Regards to metabolic encephalopathy staff blood work ordered. Will discontinue Novinger if mentation does not improve we'll give Narcan * CBC and basic metabolic panel * Blood cultures and urine cultures negative * Consultation obtained from cardiology, infectious disease and nephrology * In regards to diabetes mellitus continue patient on NovoLog * Will need HENRY
[2023-04-05] MEDS: LORATADINE 10 MG TAB PO SCH (12:39)
[2023-04-05] MEDS ORDERED: NALOXONE 0.4 MG/ML 1 ML VIAL IVP STA (12:45)
--- NOTE | 2023-04-05 13:27 | CT ---
EXAMINATION TYPE: CT brain wo con DATE OF EXAM: 04/05/2023 COMPARISON: 04/25/2022 HISTORY: AMS CT DLP: 1114.[address] of the brain was performed. The ventricles, basal cisterns and sulci overlying the cerebral convexities demonstrate mild enlargem ent. There is no evidence for intracranial hemorrhage or sulcal effacement. There is decreased attenuation about the periventricular white matter and deep white matter of both c erebral hemispheres, compatible with chronic small vessel ischemia. Differential diagnosis does inclu de demyelination. No mass effects are seen.No midline shift. Osseous calvarium is intact. If symptoms persist consider MRI. IMPRESSION: 1. Age related atrophic and chronic small vessel ischemic change without acute intracranial process s een at this time.
[2023-04-05 15:14] LABS: African American GFR (CKD) >90 (>60 ml/min/1.73 sqM); Anion Gap 5 mmol/L; Blood Urea Nitrogen 10 mg/dL (7-17); Calcium 8.2 mg/dL (8.4-10.2); Carbon Dioxide 27 mmol/L (22-30); Chloride 101 mmol/L (98-107); Glucose 155 mg/dL (74-99); Non-African American GFR(CKD) 87 (>60 ml/min/1.73 sqM); Potassium 3.7 mmol/L (3.5-5.1); Sodium 133 mmol/L (137-145)
[2023-04-05] MEDS ORDERED: TAMSULOSIN 0.4 MG CAP.ER.24H PO STA (15:26)
[2023-04-05 15:59] LABS: Basophils % (A) 0 %; Eosinophils # (A) 0.2 k/uL (0-0.7); Eosinophils % (A) 2 %; HCT 34.4 % (34.0-46.0); HGB 11.5 gm/dL (11.4-16.0); Lymphocytes # (A) 1.8 k/uL (1.0-4.8); Lymphocytes % (A) 18 %; MCH 28.7 pg (25.0-35.0); MCHC 33.4 g/dL (31.0-37.0); MCV 85.9 fL (80.0-100.0); Mean Platelet Volume 8.8; Monocytes % (A) 10 %; Neutrophils # (A) 6.4 k/uL (1.3-7.7); Neutrophils % (A) 66 %; Platelet Count 310 k/uL (150-450); RDW 13.3 % (11.5-15.5); WBC 9.8 k/uL (3.8-10.6)
--- NOTE | 2023-04-05 16:29 | P.PN ---
Subjective Progress Note Date: 04/05/23 Principal diagnosis: UTI Patient is a 82-year-old female with a past medical history significant for diabetes mellitus reflux hypertension history of skin cancer and UTI presenting to the hospital for evaluation of generalized weakness, patient also have a positive UA urinary symptoms concerning for symptomatic aortic infection. On today's evaluation that is 04/05/2023, the patient continues to be afebrile, the patient is breathing comfortably on room air , the patient slightly sleepy today and not a very good historian Patient white count is 9.8, creatinine is normal at 0.54, abdominal ultrasound was negative for obstructive uropathy blood cultures negative, repeat urine was positive cultures negative Objective - Vital Signs Vital signs: Vital Signs Temp 98.1 F 04/05/23 04:00 Pulse 68 04/05/23 12:31 Resp 18 04/05/23 12:51 BP 165/63 04/05/23 12:31 Pulse Ox 95 04/05/23 12:31 FiO2 Intake & Output 04/04/23 04/05/23 04/05/23 18:59 06:59 18:59 Output Total 550 350 Balance -550 -350 Weight 52.163 kg Output: Urine 550 350 Other: Voiding Method Indwelling Catheter Indwelling Catheter Indwelling Catheter # Voids 1 - Exam GENERAL DESCRIPTION: Elderly female lying in bed in no distress RESPIRATORY SYSTEM: Unlabored breathing , decreased breath sounds at bases HEART: S1 S2 regular rate and rhythm ,no loud murmurs ABDOMEN: Soft , no tenderness EXTREMITIES: No edema feet - Labs CBC & Chem 7: 04/05/23 14:23 04/05/23 14:23 Labs: Abnormal Lab Results - Last 24 Hours (Table) 04/04/23 04/04/23 04/05/23 Range/Units 16:36 20:08 06:10 POC Glucose (mg/dL) 180 H 236 H 143 H (70-110) mg/dL 04/05/23 Range/Units 11:46 POC Glucose (mg/dL) 115 H (70-110) mg/dL Assessment and Plan (1) UTI (urinary tract infection) Current Visit: Yes Status: Acute Code(s): N39.0 - URINARY TRACT INFECTION, SITE NOT SPECIFIED SNOMED Code(s): 82784587 Plan: 1patient present hospitalized weakness no energy did have some urinary symptoms of decreased urine output along with some burning positive UA concerning for symptomatic UTI likely from middle gram-negative pathogen. 2patient with renal insufficiency and high risk of nephrotoxicity ultrasound was negative for any obstructive uropathy. 3 repeat a UA is positive and culture are so far negative 4patient has received adequate antibiotic therapy for underlying UTI , we will go ahead and discontinue Omnicef and monitor the patient closely off antibiotic therapy Dictation was produced using [employer] dictation software. please excuse any grammatical, word or spelling errors. Time with Patient: Less than 30
[2023-04-05 16:33] LABS: Glucose,Whole Blood 171 mg/dL (70-110)
--- NOTE | 2023-04-05 18:15 | CDI ---
Documentation Clarification Form Date: 04/05/2023 01:04:46 PM From: Johana Ken RN CCDS Phone: [phone] Admit Date: 03/27/2023 05:42:00 PM Patient Name: Lindsay Bernal Visit Number: [id number] Discharge Date: ATTENTION: The Clinical Documentation Specialists (CDI) and [facility] Coding Staff appreciate your assistance in clarifying documentation. Please respond to the clarification below the line at the bottom and electronically sign. The CDI & [facility] Coding staff will review the response and follow-up if needed. Please note: Queries are made part of the Legal Health Record. If you have any questions, please contact the author of this message via ITS. Dr. Bernarda Flores A Coccyx stage 2 pressure ulcer POA is documented by Nursing in the Pressure injury assessment, 03/30. A Buttock stage 2 pressure ulcer POA is documented by Nursing in the Physical assessment, 03/27. Based on this information and the findings below, is there an additional diagnosis that is clinically appropriate for this patient? History/Risk Factors: 82- year-old female presents to the ED feeling generally ill and unwell for one to two days. Medical history: DM, GERD, HTN and UTIs. 03/27, H&P. Clinical Indicators: Location: Buttock Wound description: Stage II picture taken Location: Coccyx Wound description: Stage II Treatment: Turn Q2H, Zinc, paste Is there an additional diagnosis that is clinically appropriate for this patient? [ ] A Coccyx stage 2 pressure ulcer POA [ ] A Buttock stage 2 pressure ulcer POA [y ] A Coccyx stage 2 and A Buttock stage 2 pressure ulcers POA [ ] Other condition, please specify [ ] Unable to determine Clinical Definitions: Stage 1 Pressure Ulcer: intact skin, non-blanching redness of local area Stage 2 Pressure Ulcer: Partial thickness, loss of dermis, pink wound bed Stage 3 Pressure Ulcer: Full thickness tissue loss Stage 4 Pressure Ulcer: Full thickness tissue loss with exposed bone, tendon, or muscle. Unstageable pressure ulcer: Full thickness tissue loss in which the base of the ulcer is covered by slough (yellow, gonzalez, cruz, green or brown) and/or eschar (gonzalez, brown or black) in the wound bed. (Template Last Revised: September 2020) MTDD
[2023-04-05 18:52] LABS: VBG PH 7.46 (7.31-7.41)
[2023-04-05 20:10] LABS: Glucose,Whole Blood 227 mg/dL (70-110)
[2023-04-06 06:13] LABS: Glucose,Whole Blood 163 mg/dL (70-110)
[2023-04-06] MEDS: APIXABAN 2.5 MG TABLET PO SCH ×2 (08:50→20:00)
[2023-04-06] MEDS: METOPROLOL TARTRATE 25 MG TAB PO SCH ×2 (08:50→20:00)
[2023-04-06] MEDS: MAGNESIUM OXIDE 400 MG TAB PO SCH ×3 (08:50→20:00)
[2023-04-06] MEDS: LORATADINE 10 MG TAB PO SCH (08:50)
[2023-04-06] MEDS: AMIODARONE 200 MG TAB PO SCH ×2 (08:51→20:00)
[2023-04-06] MEDS: TAMSULOSIN 0.4 MG CAP.ER.24H PO SCH (09:06)
--- NOTE | 2023-04-06 11:20 | MR ---
EXAMINATION TYPE: MR brain wo con DATE OF EXAM: 04/06/2023 COMPARISON: 04/05/2023 HISTORY: Altered mental status. TECHNIQUE: T1-weighted sagittal, T2, FLAIR, and diffusion axial, and T2 coronal coronal views of the brain are submitted. FINDINGS: There is no evidence of acute ischemia. Moderate generalized degenerative change. Diffuse focal areas of abnormal signal white matter nonspecific but most of a remote white matter ischemia. There is no mass effect. Craniocervical junction maintained. Partially empty sella turcica. Orbits are symmetric. There is abnormal signal on suggestive of remote ischemia. No significant martínez es of sinusitis. IMPRESSION: 1. No acute intracranial process or acute degenerative remote ischemic change. Component of normal pr essure hydrocephalus in the differential diagnosis correlate clinically.
[2023-04-06 11:37] LABS: Glucose,Whole Blood 268 mg/dL (70-110)
--- NOTE | 2023-04-06 12:24 | P.PN ---
Subjective Progress Note Date: 04/06/23 82-year-old female who presents to the emergency department for generalized weakness. Patient states that she feels generally ill and unwell, and has so for the last 1-2 days. Describes generalized body aches and weakness as being her most prominent symptoms. When asked about chest pain, she states that she does have chest pain, however she has pain everywhere and does not believe that this is specific to her chest. She does report associated coughing and congestion as well. Unsure if there have been any sick contacts. Her family states that she is usually unhappy about going to the hospital, but was willing to this time. She is somewhat slow to respond, but is alert and oriented 4. After her family arrived, they said that she's been having frequent falls over the last couple of weeks as well. They also state that she seems to have declined by about 25% just from yesterday to today, which greatly concerned them. Patient has been continuing to refuse to go to the hospital until today, at which time she put up less of a fight and her son subsequently called EMS. Her son does note that she was recently treated for a UTI, but cannot recall which antibiotic she was on. She did require 2 antibiotics, as the first one was not shown to be strong enough, and the patient refused to go in for a recheck after completion of the second antibiotic. EKG interpreted by me demonstrating the following: Sinus rhythm. Ventricular rate 83 beats per minute, [place] interval 201 ms, QRS duration 98 ms, QTC 392 ms. EKG was repeated at 1455 due to the case monitor reading possible atrial fibrillation, this revealed sinus tachycardia with frequent PVCs. Ventricular rate 100 beats per minute, W[place] interval 181 ms, QRS duration 87 ms, QTC 380 ms. Chest x-ray obtained- no localized consolidations or infiltrates. Lab work obtained revealing leukocytosis and multiple electrolyte irregularities including hyperkalemia with a potassium of 6.3, Na of 124, and a CO2 <5. Patient is also in acute renal failure with a creatinine of 5.72. Troponin is also elevated, likely secondary to the findings above. CK and serum osmolality were found to be only mildly elevated. Harper catheter was also initiated and urinalysis was suggestive of infection. 1g of Ceftriaxone was administered. Urine and blood cultures were obtained. Per nursing staff, her urine had the appearance of "pea soup". Patient initially given a hyperkalemia cocktail consisting of insulin, sodium bicarb, and Lokelma; nephrology, also advised 1gm of calcium gluconate, an additional ampule of bicarb, and starting her on a D5 drip with 150 mL of sodium bicarb at a rate of 150 mL/hr, with plan to repeat her BMP 2 hours after medication is administered. 03/29. Patient seen and examined. Patient complaining of lethargy. Potassium 3.2, magnesium 1.5, replacement ordered 03/30. Patient seen and examined. Blood work labs showed WBC 12.4, hemoglobin 11.4, platelet count 194, sodium 139, BUN 43, creatinine 1.04. Vital signs stable 03/31: Patient seen and evaluated bedside, continue patient on antibiotics. Continue to monitor renal function 04/01: Patient seen and evaluated bedside, she complains of lethargic, tachycardia noted earlier today heart rate better after metoprolol white cell count trending down 04/02: Patient seen and evaluated bedside, antibiotic changed to oral. Noted to have tachycardia given metoprolol 50 mg however patient was hypertensive and stays back to 25 mg twice a day we'll continue to follow up on CBC will replace magnesium and potassium 04/03: Patient seen and evaluated bedside, electrolyte abnormality noted noted to have hypomagnesemia. Patient has lost her IV will request another IV placement 2 g of magnesium ordered. Continue patient on oral antibiotic receiving Ceftin 04/05: Patient seen and evaluated and bedside, patient appears confused today patient was up all night. Patient is easily arousable. Stat blood work ordered including CBC ammonia, basic metabolic panel venous blood gas 04/06: Patient seen and evaluated bedside. Mentation has improved patient is alert and oriented 3. MRI negative for acute intracranial process. Objective - Vital Signs Vital signs: Vital Signs Temp 98.1 F 04/06/23 11:53 Pulse 68 04/06/23 11:53 Resp 20 04/06/23 11:53 BP 110/57 04/06/23 11:53 Pulse Ox 94 L 04/06/23 11:53 FiO2 Intake & Output 04/05/23 04/06/23 04/06/23 18:59 06:59 18:59 Intake Total 180 240 Output Total 970 Balance -790 240 Intake: Oral 180 240 Output: Urine 970 Straight 650 Other: Voiding Method Indwelling Catheter Indwelling Catheter Indwelling Catheter # Voids 1 # Bowel Movements 1 - Exam REVIEW OF SYSTEMS: Generalized weakness nonfocal CONSTITUTIONAL: No fever, no malaise, no fatigue. HEENT: No recent visual problems or hearing problems. Denied any sore throat. CARDIOVASCULAR: No chest pain, orthopnea, PND, no palpitations, no syncope. PULMONARY: No shortness of breath, no cough, no hemoptysis. GASTROINTESTINAL: No diarrhea, no nausea, no vomiting, no abdominal pain. NEUROLOGICAL: No headaches, no weakness, no numbness. HEMATOLOGICAL: Denies any bleeding or petechiae. GENITOURINARY: Denies any burning micturition, frequency, or urgency. MUSCULOSKELETAL/RHEUMATOLOGICAL: Denies any joint pain, swelling, or any muscle pain. ENDOCRINE: Denies any polyuria or polydipsia. PHYSICAL EXAMINATION: GENERAL: The patient is alert and oriented x 3 , not in any acute distress. Ill-looking HEENT: Pupils are round and equally reacting to light. EOMI. CARDIOVASCULAR: S1 and S2 present. Irregular rhythm tachycardia noted PULMONARY: Chest is clear to auscultation, no wheezing or crackles. ABDOMEN: Soft, nontender, nondistended, normoactive bowel sounds. No palpable organomegaly. MUSCULOSKELETAL: No joint swelling or deformity. EXTREMITIES: No cyanosis, clubbing, or pedal edema. NEUROLOGICAL: Alert and oriented 3 SKIN: No rashes. - Labs CBC & Chem 7: 04/05/23 14:23 04/05/23 14:23 Labs: Abnormal Lab Results - Last 24 Hours (Table) 04/05/23 04/05/23 04/05/23 Range/Units 14:23 16:31 18:35 VBG pH 7.46 H (7.31-7.41) VBG HCO3 29 H (24-28) mmol/L Sodium 133 L (137-145) mmol/L Glucose 155 H (74-99) mg/dL POC Glucose (mg/dL) 171 H (70-110) mg/dL Calcium 8.2 L (8.4-10.2) mg/dL 04/05/23 04/06/23 04/06/23 Range/Units 20:08 06:11 11:35 VBG pH (7.31-7.41) VBG HCO3 (24-28) mmol/L Sodium (137-145) mmol/L Glucose (74-99) mg/dL POC Glucose (mg/dL) 227 H 163 H 268 H (70-110) mg/dL Calcium (8.4-10.2) mg/dL Assessment and Plan Assessment: Assessment and plan * Acute metabolic encephalopathy * New-onset atrial fibrillation * Acute renal failure RESOLVED * Critical hyperkalemia corrected * Urinary tract infection * Metabolic acidosis * Elevated troponin Type 2 [place] * Diabetes mellitus type 2 * Hypertension * For UTI patient was on IV antibiotics Rocephin day 5>> switched to cefdinir day 10 , end date per infectious disease recommendation * In regards to rate of progression continue metoprolol and Eliquis, continue amiodarone 400mg BID x 7 days then 200mg daily, Day 01/28 * Regards to metabolic encephalopathy staff blood work ordered. Will discontinue [place] if mentation does not improve we'll give Narcan * CBC and basic metabolic panel * Blood cultures and urine cultures negative * Consultation obtained from cardiology, infectious disease and nephrology * In regards to diabetes mellitus continue patient on NovoLog * Will need HENRY
[2023-04-06] MEDS: INSULIN ASPART (NovoLOG) 100 UNIT/ML VIAL SQ SCH ×3 (12:39→20:48)
[2023-04-06 16:17] LABS: Glucose,Whole Blood 137 mg/dL (70-110)
[2023-04-06 20:37] LABS: Glucose,Whole Blood 155 mg/dL (70-110)
[2023-04-07 06:01] LABS: Glucose,Whole Blood 157 mg/dL (70-110)
[2023-04-07] MEDS: INSULIN ASPART (NovoLOG) 100 UNIT/ML VIAL SQ SCH ×2 (06:38→11:53)
--- NOTE | 2023-04-07 06:45 | P.PN ---
Subjective Progress Note Date: 04/06/23 Principal diagnosis: UTI Patient is a 82-year-old female with a past medical history significant for diabetes mellitus reflux hypertension history of skin cancer and UTI presenting to the hospital for evaluation of generalized weakness, patient also have a positive UA urinary symptoms concerning for symptomatic aortic infection. On today's evaluation that is 04/06/2023, the patient denies having any fever or any chills, the patient is breathing comfortably, the patient denies having any chest pain shortness of breath or cough no nausea vomiting no abdominal pain or diarrhea. Patient did have a white count of 9.8 creatinine 0.54 as of yesterday no blood draw today. Objective - Vital Signs Vital signs: Vital Signs Temp 98 F 04/06/23 08:00 Pulse 79 04/06/23 08:00 Resp 20 04/06/23 08:00 BP 111/53 04/06/23 08:00 Pulse Ox 94 L 04/06/23 08:00 FiO2 Intake & Output 04/05/23 04/06/23 04/06/23 18:59 06:59 18:59 Intake Total 180 240 Output Total 970 Balance -790 240 Intake: Oral 180 240 Output: Urine 970 Straight 650 Other: Voiding Method Indwelling Catheter Indwelling Catheter Indwelling Catheter # Voids 1 # Bowel Movements 1 - Exam GENERAL DESCRIPTION: Elderly female lying in bed in no distress RESPIRATORY SYSTEM: Unlabored breathing , decreased breath sounds at bases HEART: S1 S2 regular rate and rhythm ,no loud murmurs ABDOMEN: Soft , no tenderness EXTREMITIES: No edema feet - Labs CBC & Chem 7: 04/05/23 14:23 04/05/23 14:23 Labs: Abnormal Lab Results - Last 24 Hours (Table) 04/05/23 04/05/23 04/05/23 Range/Units 11:46 14:23 16:31 VBG pH (7.31-7.41) VBG HCO3 (24-28) mmol/L Sodium 133 L (137-145) mmol/L Glucose 155 H (74-99) mg/dL POC Glucose (mg/dL) 115 H 171 H (70-110) mg/dL Calcium 8.2 L (8.4-10.2) mg/dL 04/05/23 04/05/23 04/06/23 Range/Units 18:35 20:08 06:11 VBG pH 7.46 H (7.31-7.41) VBG HCO3 29 H (24-28) mmol/L Sodium (137-145) mmol/L Glucose (74-99) mg/dL POC Glucose (mg/dL) 227 H 163 H (70-110) mg/dL Calcium (8.4-10.2) mg/dL Assessment and Plan (1) UTI (urinary tract infection) Current Visit: Yes Status: Acute Code(s): N39.0 - URINARY TRACT INFECTION, SITE NOT SPECIFIED SNOMED Code(s): 34167613 Plan: 1patient present hospitalized weakness no energy did have some urinary symptoms of decreased urine output along with some burning positive UA concerning for symptomatic UTI likely from middle gram-negative pathogen. 2patient with renal insufficiency and high risk of nephrotoxicity ultrasound was negative for any obstructive uropathy. 3 repeat a UA is positive and culture are so far negative 4Patient has completed antibiotic for her episode of UTI. Patient is currently being monitored closely off antibiotic therapy and continue with supportive care Dictation was produced using [employer] dictation software. please excuse any grammatical, word or spelling errors.
[2023-04-07 08:32] LABS: HCT 28.3 % (34.0-46.0); MCV 87.9 fL (80.0-100.0); Platelet Count 341 k/uL (150-450); RBC 3.21 m/uL (3.80-5.40); RDW 13.5 % (11.5-15.5); WBC 8.3 k/uL (3.8-10.6)
[2023-04-07 08:48] LABS: African American GFR (CKD) >90 (>60 ml/min/1.73 sqM); Anion Gap 6 mmol/L; Blood Urea Nitrogen 11 mg/dL (7-17); C Reactive Protein 6.5 mg/dL (<1.0); Carbon Dioxide 26 mmol/L (22-30); Chloride 98 mmol/L (98-107); Glucose 124 mg/dL (74-99); HGB 9.3 gm/dL (11.4-16.0); Non-African American GFR(CKD) 84 (>60 ml/min/1.73 sqM); Potassium 3.7 mmol/L (3.5-5.1); Sodium 130 mmol/L (137-145)
[2023-04-07] MEDS ORDERED: AMIODARONE 200 MG TAB PO SCH (09:00)
[2023-04-07] MEDS: TAMSULOSIN 0.4 MG CAP.ER.24H PO SCH (09:19)
[2023-04-07] MEDS: MAGNESIUM OXIDE 400 MG TAB PO SCH (09:20)
[2023-04-07] MEDS: METOPROLOL TARTRATE 25 MG TAB PO SCH (09:20)
[2023-04-07] MEDS: APIXABAN 2.5 MG TABLET PO SCH (09:20)
[2023-04-07] MEDS: LORATADINE 10 MG TAB PO SCH (09:20)
--- NOTE | 2023-04-07 10:48 | P.PN ---
Subjective Patient is seen for follow-up for acute kidney injury. Renal function has improved. Patient is comfortable denies any significant complaints Serum creatinine is 0.6 and sodium is 1:30 today. IV fluids were discontinued. Objective - Vital Signs Vital signs: Vital Signs Temp 96.6 F L 04/07/23 08:04 Pulse 64 04/07/23 08:04 Resp 16 04/07/23 08:04 BP 124/58 04/07/23 08:04 Pulse Ox 94 L 04/07/23 08:04 FiO2 Intake & Output 04/06/23 04/07/23 04/07/23 18:59 06:59 18:59 Intake Total 540 Output Total 400 1100 300 Balance 140 -1100 -300 Intake: Oral 540 Output: Urine 400 1100 300 Straight 300 Other: Voiding Method Indwelling Catheter Indwelling Catheter Indwelling Catheter # Bowel Movements 1 - Exam Patient is comfortable No acute distress Examination of the heart S1 and S2 Examination lungs bilateral breath sounds are heard Abdomen is soft nontender Examination of lower extremity shows no significant edema 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 - Labs CBC & Chem 7: 04/07/23 07:29 04/07/23 07:29 Labs: Abnormal Lab Results - Last 24 Hours (Table) 04/06/23 04/06/23 04/06/23 Range/Units 11:35 16:16 20:36 RBC (3.80-5.40) m/uL Hgb (11.4-16.0) gm/dL Hct (34.0-46.0) % Sodium (137-145) mmol/L Glucose (74-99) mg/dL POC Glucose (mg/dL) 268 H 137 H 155 H (70-110) mg/dL Calcium (8.4-10.2) mg/dL C-Reactive Protein (<1.0) mg/dL 04/07/23 04/07/23 04/07/23 Range/Units 05:59 07:29 07:29 RBC 3.21 L (3.80-5.40) m/uL Hgb 9.3 L D (11.4-16.0) gm/dL Hct 28.3 L (34.0-46.0) % Sodium 130 L (137-145) mmol/L Glucose 124 H (74-99) mg/dL POC Glucose (mg/dL) 157 H (70-110) mg/dL Calcium 8.0 L (8.4-10.2) mg/dL C-Reactive Protein 6.5 H (<1.0) mg/dL Assessment and Plan Assessment: #1 acute kidney injury secondary to hemodynamic ATN. -Baseline creatinine 0.6 MG per DL. Peak creatinine of 5.7 MG per DL. #2 hypokalemia #3 urinary tract infection #4 atrial fibrillation #5 hyponatremia. Currently euvolemic. Tolerating oral intake. Saline has been discontinued. Plan: Continue off of IV fluids Encourage increased oral intake
[2023-04-07 11:01] LABS: Glucose,Whole Blood 223 mg/dL (70-110)
--- NOTE | 2023-04-07 11:57 | P.DS ---
Providers Date of admission: 03/27/23 17:42 Expected date of discharge: 04/07/23 Attending physician: Neil Cadet MD Consults: 03/27/23 14:15 Consult Physician Urgent Consulting Provider: Lio Barreto Consult Reason/Comments: Renal failure, hyperkalemia, hypocarbia Do you want consulting provider notified?: Already Contacted 03/28/23 14:59 Consult Physician Routine Consulting Provider: Leigh Yang Consult Reason/Comments: Urosepsis Do you want consulting provider notified?: Yes Primary care physician: [facility] Course: 82-year-old female who presents to the emergency department for generalized weakness. Patient states that she feels generally ill and unwell, and has so for the last 1-2 days. Describes generalized body aches and weakness as being her most prominent symptoms. When asked about chest pain, she states that she does have chest pain, however she has pain everywhere and does not believe that this is specific to her chest. She does report associated coughing and congestion as well. Unsure if there have been any sick contacts. Her family states that she is usually unhappy about going to the hospital, but was willing to this time. She is somewhat slow to respond, but is alert and oriented 4. After her family arrived, they said that she's been having frequent falls over the last couple of weeks as well. They also state that she seems to have declined by about 25% just from yesterday to today, which greatly concerned them. Patient has been continuing to refuse to go to the hospital until today, at which time she put up less of a fight and her son subsequently called EMS. Her son does note that she was recently treated for a UTI, but cannot recall which antibiotic she was on. She did require 2 antibiotics, as the first one was not shown to be strong enough, and the patient refused to go in for a recheck after completion of the second antibiotic. EKG interpreted by me demonstrating the following: Sinus rhythm. Ventricular rate 83 beats per minute, [place] interval 201 ms, QRS duration 98 ms, QTC 392 ms. 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 Ventricular rate 100 beats per minute, [place] interval 181 ms, QRS duration 87 ms, QTC 380 ms. Chest x-ray obtained- no localized consolidations or infiltrates. Lab work obtained revealing leukocytosis and multiple electrolyte irregularities including hyperkalemia with a potassium of 6.3, Na of 124, and a CO2 <5. Patient is also in acute renal failure with a creatinine of 5.72. Troponin is also elevated, likely secondary to the findings above. CK and serum osmolality were found to be only mildly elevated. Harper catheter was also initiated and urinalysis was suggestive of infection. 1g of Ceftriaxone was administered. Urine and blood cultures were obtained. Per nursing staff, her urine had the appearance of "pea soup". Patient initially given a hyperkalemia cocktail consisting of insulin, sodium bicarb, and Lokelma; nephrology, also advised 1gm of calcium gluconate, an additional ampule of bicarb, and starting her on a D5 drip with 150 mL of sodium bicarb at a rate of 150 mL/hr, with plan to repeat her BMP 2 hours after medication is administered. 03/29. Patient seen and examined. Patient complaining of lethargy. Potassium 3.2, magnesium 1.5, replacement ordered 03/30. Patient seen and examined. Blood work labs showed WBC 12.4, hemoglobin 11.4, platelet count 194, sodium 139, BUN 43, creatinine 1.04. Vital signs stable 03/31: Patient seen and evaluated bedside, continue patient on antibiotics. Continue to monitor renal function 04/01: Patient seen and evaluated bedside, she complains of lethargic, tachycardia noted earlier today heart rate better after metoprolol white cell count trending down 04/02: Patient seen and evaluated bedside, antibiotic changed to oral. Noted to have tachycardia given metoprolol 50 mg however patient was hypertensive and stays back to 25 mg twice a day we'll continue to follow up on CBC will replace magnesium and potassium 04/03: Patient seen and evaluated bedside, electrolyte abnormality noted noted to have hypomagnesemia. Patient has lost her IV will request another IV placement 2 g of magnesium ordered. Continue patient on oral antibiotic receiving Ceftin 04/05: Patient seen and evaluated and bedside, patient appears confused today patient was up all night. Patient is easily arousable. Stat blood work ordered including CBC ammonia, basic metabolic panel venous blood gas 04/06: Patient seen and evaluated bedside. Mentation has improved patient is alert and oriented 3. MRI negative for acute intracranial process. 04/07; she seen and evaluated bedside, patient alert and oriented 3. Plan to discharge to rehab facility. Patient to go for the Harper catheter with outpatient follow-up with urology information provided PHYSICAL EXAMINATION: GENERAL: The patient is alert and oriented x 3 , not in any acute distress. Ill-looking HEENT: Pupils are round and equally reacting to light. EOMI. CARDIOVASCULAR: S1 and S2 present. Irregular rhythm , heart rate controlled PULMONARY: Chest is clear to auscultation, no wheezing or crackles. ABDOMEN: Soft, nontender, nondistended, normoactive bowel sounds. No palpable organomegaly. Harper cath in place MUSCULOSKELETAL: No joint swelling or deformity. EXTREMITIES: No cyanosis, clubbing, or pedal edema. NEUROLOGICAL: Alert and oriented 3 SKIN: No rashes. Assessment: Assessment and plan * Acute metabolic encephalopathy * New-onset atrial fibrillation * Acute renal failure RESOLVED * Critical hyperkalemia corrected * Urinary tract infection * Metabolic acidosis * Elevated troponin Type 2 [place] * Diabetes mellitus type 2 * Hypertension * For UTI patient was on IV antibiotics Rocephin day 5>> switched to cefdinir day 10 , end date per infectious disease recommendation, completed course of antibiotic * In regards to rate of progression continue metoprolol and Eliquis, continue amiodarone 400mg BID x 7 days then 200mg daily, Day 01/28, transition to amiodarone oral * Regards to metabolic encephalopathy staff blood work ordered. Will discontinue [place] if mentation does not improve we'll give Narcan * CBC and basic metabolic panel * Blood cultures and urine cultures negative * Consultation obtained from cardiology, infectious disease and nephrology * In regards to diabetes mellitus continue patient on NovoLog * Discharged to rehab Patient Condition at Discharge: Good Plan - Discharge Summary Discharge Rx Participant: No New Discharge Prescriptions: New Metoprolol Tartrate [Lopressor] 25 mg PO BID tab Acetaminophen Tab [Tylenol] 650 mg PO Q6HR PRN tab PRN Reason: Mild Pain Or Fever > 100.5 Amiodarone [Cordarone] 200 mg PO DAILY tab Apixaban [Eliquis] 2.5 mg PO BID tab Tamsulosin [Flomax] 0.4 mg PO PC-BRKFST cap Magnesium Oxide [Mag-Ox] 400 mg PO TID tab Continue Ferrous Sulfate [Iron (65 MG Elemental)] 325 mg PO DAILY metFORMIN HCL [Glucophage] 1,000 mg PO BID Cholecalciferol [Vitamin D3 (25 Mcg = 1000 Iu)] 25 mcg PO DAILY Discontinued Ibuprofen [Motrin] 600 mg PO BID PRN PRN Reason: Fever And/ Or Pain ramipriL 10 mg PO DAILY Discharge Medication List metFORMIN HCL [Glucophage] 1,000 mg PO BID 03/15/21 [History] Cholecalciferol [Vitamin D3 (25 Mcg = 1000 Iu)] 25 mcg PO DAILY 05/20/22 [History] Ferrous Sulfate [Iron (65 MG Elemental)] 325 mg PO DAILY 05/20/22 [History] Acetaminophen Tab [Tylenol] 650 mg PO Q6HR PRN tab 04/07/23 [Rx] Amiodarone [Cordarone] 200 mg PO DAILY tab 04/07/23 [Rx] Apixaban [Eliquis] 2.5 mg PO BID tab 04/07/23 [Rx] Magnesium Oxide [Mag-Ox] 400 mg PO TID tab 04/07/23 [Rx] Metoprolol Tartrate [Lopressor] 25 mg PO BID tab 04/07/23 [Rx] Tamsulosin [Flomax] 0.4 mg PO PC-BRKFST cap 04/07/23 [Rx] Follow up Appointment(s)/Referral(s): Grey Morrison MD [Primary Care Provider] - 1-2 days Bert Rhodes MD [STAFF PHYSICIAN] - 1 Week Activity/Diet/Wound Care/Special Instructions: Follow-up with urology outpatient for urinary retention trial of voiding Continue diabetic diet post discharge Course of antibiotic completed during this hospital stay Started on new medications by cardiology for A. fib Discharge Disposition: TRANSFER TO SNF/ECF
--- NOTE | 2023-04-07 14:19 | P.PN ---
Subjective Progress Note Date: 04/07/23 Principal diagnosis: UTI Patient is a 82-year-old female with a past medical history significant for diabetes mellitus reflux hypertension history of skin cancer and UTI presenting to the hospital for evaluation of generalized weakness, patient also have a positive UA urinary symptoms concerning for symptomatic aortic infection. On today's evaluation that is 04/07/2023, the patient is afebrile, the patient is breathing comfortably , the patient denies chest pain and no significant cough, the patient denies nausea and vomiting no abdominal pain and no diarrhea,. Patient did have a white count of 8.3, creatinine 0.61 Objective - Vital Signs Vital signs: Vital Signs Temp 96.6 F L 04/07/23 08:04 Pulse 64 04/07/23 08:04 Resp 16 04/07/23 08:04 BP 124/58 04/07/23 08:04 Pulse Ox 94 L 04/07/23 08:04 FiO2 Intake & Output 04/06/23 04/07/23 04/07/23 18:59 06:59 18:59 Intake Total 540 Output Total 400 1100 300 Balance 140 -1100 -300 Intake: Oral 540 Output: Urine 400 1100 300 Straight 300 Other: Voiding Method Indwelling Catheter Indwelling Catheter Indwelling Catheter # Bowel Movements 1 - Exam GENERAL DESCRIPTION: Elderly female lying in bed in no distress RESPIRATORY SYSTEM: Unlabored breathing , decreased breath sounds at bases HEART: S1 S2 regular rate and rhythm ,no loud murmurs ABDOMEN: Soft , no tenderness EXTREMITIES: No edema feet - Labs CBC & Chem 7: 04/07/23 07:29 04/07/23 07:29 Labs: Abnormal Lab Results - Last 24 Hours (Table) 04/06/23 04/06/23 04/07/23 Range/Units 16:16 20:36 05:59 RBC (3.80-5.40) m/uL Hgb (11.4-16.0) gm/dL Hct (34.0-46.0) % Sodium (137-145) mmol/L Glucose (74-99) mg/dL POC Glucose (mg/dL) 137 H 155 H 157 H (70-110) mg/dL Calcium (8.4-10.2) mg/dL C-Reactive Protein (<1.0) mg/dL 04/07/23 04/07/23 04/07/23 Range/Units 07:29 07:29 10:58 RBC 3.21 L (3.80-5.40) m/uL Hgb 9.3 L D (11.4-16.0) gm/dL Hct 28.3 L (34.0-46.0) % Sodium 130 L (137-145) mmol/L Glucose 124 H (74-99) mg/dL POC Glucose (mg/dL) 223 H (70-110) mg/dL Calcium 8.0 L (8.4-10.2) mg/dL C-Reactive Protein 6.5 H (<1.0) mg/dL Assessment and Plan (1) UTI (urinary tract infection) Current Visit: Yes Status: Acute Code(s): N39.0 - URINARY TRACT INFECTION, SITE NOT SPECIFIED SNOMED Code(s): 22049655 Plan: 1patient present hospitalized weakness no energy did have some urinary symptoms of decreased urine output along with some burning positive UA concerning for symptomatic UTI likely from middle gram-negative pathogen. 2patient with renal insufficiency and high risk of nephrotoxicity ultrasound was negative for any obstructive uropathy. 3 repeat a UA is positive and culture are so far negative 4Patient has completed antibiotic for her episode of UTI. Patient Seems to be doing well off antibiotic therapy there is no need for any antibiotics on discharge Dictation was produced using [employer] dictation software. please excuse any grammatical, word or spelling errors. Time with Patient: Less than 30
[2023-04-07 15:45] VITALS: BP 124/58; RESP 16; TEMP 97.6
[2023-04-07 15:48] VITALS: PULSE 64
== END 2023-04-07 15:10 | DRG 871 ==
LOC: EC 12:17 → 3SCARD 17:42
PROVIDERS: ADMIT Internal Medicine; ATTEND Internal Medicine
PROC: 05H933Z Insertion of Infusion Device into Right Brachial Vein, Percutaneous Approach (ICD-10-PCS; principal; 2023-03-31 14:30)
PROC: 05HA33Z Insertion of Infusion Device into Left Brachial Vein, Percutaneous Approach (ICD-10-PCS; 2023-04-04 13:20)
DX: A41.9 Sepsis, unspecified organism (principal); G93.41 Metabolic encephalopathy; I21.A1 Myocardial infarction type 2; N17.0 Acute kidney failure with tubular necrosis; E87.20 Acidosis, unspecified; E87.1 Hypo-osmolality and hyponatremia; N39.0 Urinary tract infection, site not specified; L89.152 Pressure ulcer of sacral region, stage 2; E11.649 Type 2 diabetes mellitus with hypoglycemia without coma; L89.302 Pressure ulcer of unspecified buttock, stage 2; E86.1 Hypovolemia; I48.0 Paroxysmal atrial fibrillation; J44.9 Chronic obstructive pulmonary disease, unspecified; Z20.822 Contact with and (suspected) exposure to COVID-19; E83.42 Hypomagnesemia; E87.5 Hyperkalemia; E87.6 Hypokalemia; I10 Essential (primary) hypertension; T39.315A Adverse effect of propionic acid derivatives, initial encounter; T46.4X5A Adverse effect of angiotensin-converting-enzyme inhibitors, initial encounter; I49.3 Ventricular premature depolarization; K44.9 Diaphragmatic hernia without obstruction or gangrene; K21.9 Gastro-esophageal reflux disease without esophagitis; R29.6 Repeated falls; Z79.84 Long term (current) use of oral hypoglycemic drugs; Z79.899 Other long term (current) drug therapy; Z87.440 Personal history of urinary (tract) infections; Z85.828 Personal history of other malignant neoplasm of skin; Z88.0 Allergy status to penicillin; Y92.099 Unspecified place in other non-institutional residence as the place of occurrence of the external cause; Z71.3 Dietary counseling and surveillance
CPT/HCPCS: 36410; 36415; 70450; 70551; 71045; 71046; 72125; 76770; 76937; 80048; 80053; 81001; 82140; 82550; 82803; 83605; 83735; 83930; 83935; 84132; 84133; 84145; 84300; 84443; 84484; 84550; 85025; 85027; 85610; 85730; 86140; 87040; 87086; 87636; 93005; 93306; 96361; 96374; 96375; 96376; 99285

== ENCOUNTER 2023-05-06 11:32 | Inpatient (IN) | payer MEDICARE ==
[2023-05-06] MEDS ORDERED: SODIUM CHLORIDE 0.9% 500 ML 500 ML IV STA (11:54)
[2023-05-06] MEDS ORDERED: ONDANSETRON 4 MG/2 ML VIAL IVP STA (11:57)
[2023-05-06] MEDS ORDERED: HYDROcodone/APAP 5-325MG 1 EACH TAB PO STA (11:57)
--- NOTE | 2023-05-06 12:00 | ED ---
Altered Mental Status HPI - General Chief Complaint: Altered Mental Status Stated Complaint: DIZZY Time Seen by Provider: 05/06/23 11:45 Source: patient, EMS Mode of arrival: EMS Limitations: altered mental status - History of Present Illness Initial Comments: Patient is an 82-year-old female who presents to the emergency department for lightheadedness. Patient presents from her fdc who state patient has been more tired and weak over the past couple days. Patient states she started to feel lightheaded this morning. She denies chest pain, shortness of breath, palpitations. Patient did have a fall on Tuesday she has bruising around the right eye. She did not lose consciousness. She is on Eliquis for atrial fibrillation. She reports significant headache. She does have mild nausea without vomiting. No numbness or tingling. No focal weakness. Does admit to intermittent dry cough. Denies fever, chills, other upper respiratory symptoms. Patient did have a catheter in for 6 weeks which was removed yesterday by primary care provider according to son. States patient was in better spirits yesterday at her primary care visit. Patient denies burning with urination since getting the catheter out. Denies abdominal pain, changes in bowel habits. - Related Data Home Medications Medication Instructions Recorded Confirmed Cholecalciferol [Vitamin D3 (25 25 mcg PO DAILY@0700 05/20/22 05/06/23 Mcg = 1000 Iu)] Ferrous Sulfate [Iron (65 MG 325 mg PO BID@0700,1900 05/20/22 05/06/23 Elemental)] Amiodarone [Cordarone] 200 mg PO DAILY@0700 05/06/23 05/06/23 Apixaban [Eliquis] 2.5 mg PO BID@0700,1900 05/06/23 05/06/23 Magnesium Oxide [Mag-Ox] 400 mg PO TID@06,,05/06/23 05/06/23 Metoprolol Tartrate [Lopressor] 25 mg PO BID@0700,1900 05/06/23 05/06/23 Sertraline [Zoloft] 25 mg PO DAILY@0700 05/06/23 05/06/23 Tamsulosin [Flomax] 0.4 mg PO HS@1900 05/06/23 05/06/23 metFORMIN HCL ER [Glucophage XR] 500 mg PO BID@0700,1900 05/06/23 05/06/23 Previous Rx's Medication Instructions Recorded Acetaminophen Tab [Tylenol] 650 mg PO Q6HR PRN tab 04/07/23 Allergies Allergy/AdvReac Type Severity Reaction Status Date / Time Penicillins Allergy Unknown Verified 05/06/23 13:43 Childhood Review of Systems ROS Statement: Those systems with pertinent positive or pertinent negative responses have been documented in the HPI. ROS Other: All systems not noted in ROS Statement are negative. Past Medical History Past Medical History: Cancer, Diabetes Mellitus, GERD/Reflux, Hypertension Additional Past Medical History / Comment(s): NIDDM type II, skin cancer with removal, UTIs. History of Any Multi-Drug Resistant Organisms: None Reported Past Surgical History: Appendectomy, Cholecystectomy, Orthopedic Surgery Additional Past Surgical History / Comment(s): R ankle ORIF, removal of skin can cer Past Anesthesia/Blood Transfusion Reactions: No Reported Reaction Past Psychological History: No Psychological Hx Reported Smoking Status: Never smoker - Past Family History Father Family Medical History: Cancer Additional Family Medical History / Comment(s): Myasthenia gravis Mother History Unknown: Yes Family Medical History: No Reported History Additional Family Medical History / Comment(s): Mother was healthy General Exam Limitations: altered mental status General appearance: alert Eye exam: Present: PERRL, EOMI, other. Absent: normal appearance (periorbital ecchymosis right), scleral icterus, conjunctival injection, periorbital swelling ENT exam: Present: mucous membranes dry Respiratory exam: Present: normal lung sounds bilaterally. Absent: respiratory distress, wheezes, rales, rhonchi, stridor Cardiovascular Exam: Present: normal heart sounds. Absent: regular rate (Patien t has history of atrial fibrillation), normal rhythm, systolic murmur, diastolic murmur, rubs, gallop, clicks GI/Abdominal exam: Present: soft, normal bowel sounds. Absent: distended, tenderness, guarding, rebound, rigid Extremities exam: Present: normal inspection, full ROM, normal capillary refill. Absent: tenderness, pedal edema, joint swelling, calf tenderness Neurological exam: Present: alert Expanded Speech: Present: fluid speech Cranial nerves: EOM's Intact: Normal, Facial Sensation: Normal, Facial Palsy with Forehead Movement: Normal, Facial Palsy without Forehead Movement: Normal Cerebellar function: Finger to Nose: Normal, Heel to Leach: Normal Upper motor neuron: Haroon Neglect: Normal Sensory exam: Upper Extremity Light Touch: Normal, Lower Extremity Light Touch: Normal Motor strength exam: RUE: 5, LUE: 5, RLE: 5, LLE: 5 Psychiatric exam: Present: normal affect, normal mood Skin exam: Present: warm, dry, intact, normal color. Absent: rash Course Vital Signs 05/06/23 05/06/23 11:33 12:42 Temperature 97.4 F L Pulse Rate 117 H 62 Respiratory 16 16 Rate Blood Pressure 116/69 88/43 O2 Sat by Pulse 99 98 Oximetry Medical Decision Making - Medical Decision Making EKG taken at 12:00, interpreted by myself Atrial fibrillation, minimal ST depression, no ST elevation Ventricular rate 96, QRS duration 98, QTc 440 Was pt. sent in by a medical professional or institution (, PA, [facility], urgent care, hospital, or [facility]...) When possible be specific @ -nursing home today Did you speak to anyone other than the patient for history (EMS, parent, family, police, friend...)? What history was obtained from this source @ -No Did you review nursing and triage notes (agree or disagree)? Why? @ -I reviewed and agree with nursing and triage notes Were old charts reviewed (outside hosp., previous admission, EMS record, old EKG, old radiological studies, urgent care reports/EKG's, [facility] records)? Report findings @ -No old charts were reviewed Differential Diagnosis (chest pain, altered mental status, abdominal pain women, abdominal pain men, vaginal bleeding, weakness, fever, dyspnea, syncope, headache, dizziness, GI bleed, back pain, seizure, CVA, palpatations, mental health)? @ -Differential Weakness: Hypoglycemia, shock, sepsis, hyponatremia, anemia, infection, CA, ETOH, adverse medicine reaction, overdose, stroke, this is not meant to be an all-inclusive list. EKG interpreted by me (3pts min.). @ -As above X-rays interpreted by me (1pt min.). @ -Small bilateral pleural effusions with right greater than left, left basilar patchy airspace opacity, large lateral hernia CT interpreted by me @ -CT no acute facial fracture, no acute intracranial process. No cervical fracture or dislocation U/S interpreted by me (1pt. min.). @ -None done What testing was considered but not performed or refused? (CT, X-rays, U/S, labs)? Why? @ -None What meds were considered but not given or refused? Why? @ -None Did you discuss the management of the patient with other professionals (professionals i.e. , PA, [employer], lab, RT, psych nurse, certified social workers in health care, doubler helper, teacher, first officer, correctional casework specialist)? Give summary @ -No Was smoking cessation discussed for >3mins.? @ -No Was critical care preformed (if so, how long)? @ -No Were there social determinants of health that impacted care today? How? (Homelessness, low income, unemployed, alcoholism, drug addiction, transportation, low edu. Level, literacy, decrease access to med. care, half-way, rehab)? @ -No Was there de-escalation of care discussed even if they declined (Discuss DNR or withdrawal of care, Hospice)? DNR status @ -No What co-morbidities impacted this encounter? (DM, HTN, Smoking, COPD, CAD, Cancer, CVA, ARF, Chemo, Hep., AIDS, mental health diagnosis, sleep apnea, morbid obesity)? @ -None Was patient admitted / discharged? Hospital course, mention meds given and route, prescriptions, significant lab abnormalities, going to OR and other pertinent info. @ -82-year-old presenting with weakness, headache after fall. Patient alert and oriented 4. No neurological deficit on exam.EKG shows atrial fibrillation patient has known history on Eliquis. Laboratory studies significant for hypokalemia at 3.4 and hyponatremia at 120. Troponin within normal limits. CT interpreted by myself showing no acute intracranial process, no cervical fracture or dislocation, no acute facial fracture. X-ray interpreted by myself showing small bilateral pleural effusions, left basilar patchy airspace opacity concerning for pneumonia. Patient given IV fluid bolus and pain medication improvement of symptoms. IV antibiotics initiated. Patient unable to give a urine bladder scan was performed showing 350 mL of urine. Straight cath performed urine pending patient to have repeat bladder scan. Patient to be admitted for hyponatremia and pneumonia. Dr. Cadet accepts admission nephrology pulm on consult Undiagnosed new problem with uncertain prognosis? @ -No Drug Therapy requiring intensive monitoring for toxicity (Heparin, Nitro, Insulin, Cardizem)? @ -No Were any procedures done? @ -No Diagnosis/symptom? @ -Pneumonia, hyponatremia, urinary retention Acute, or Chronic, or Acute on Chronic? @ -Acute Uncomplicated (without systemic symptoms) or Complicated (systemic symptoms)? @ -Uncomplicated Side effects of treatment? @ -No Exacerbation, Progression, or Severe Exacerbation? @ -No Poses a threat to life or bodily function? How? (Chest pain, USA, CA, pneumonia, PE, COPD, DKA, ARF, appy, cholecystitis, CVA, Diverticulitis, Homicidal, Suicidal, threat to staff... and all critical care pts) @ -No Dr. Kang is my attending - Lab Data Result diagrams: 05/06/23 11:45 05/06/23 11:45 Lab Results 05/06/23 05/06/23 05/06/23 Range/Units 11:45 11:45 11:45 WBC 8.3 (3.8-10.6) k/uL RBC 4.18 (3.80-5.40) m/uL Hgb 12.2 (11.4-16.0) gm/dL Hct 35.7 (34.0-46.0) % MCV 85.3 (80.0-100.0) fL MCH 29.1 (25.0-35.0) pg MCHC 34.2 (31.0-37.0) g/dL RDW 14.5 (11.5-15.5) % Plt Count 376 (150-450) k/uL MPV 7.0 Neutrophils % 70 % Lymphocytes % 19 % Monocytes % 6 % Eosinophils % 1 % Basophils % 0 % Neutrophils # 5.8 (1.3-7.7) k/uL Lymphocytes # 1.6 (1.0-4.8) k/uL Monocytes # 0.5 (0-1.0) k/uL Eosinophils # 0.1 (0-0.7) k/uL Basophils # 0.0 (0-0.2) k/uL PT 11.4 (9.0-12.0) sec INR 1.1 (<1.2) APTT 36.7 H (22.0-30.0) sec Sodium 120 L (137-145) mmol/L Potassium 3.4 L (3.5-5.1) mmol/L Chloride 92 L (98-107) mmol/L Carbon Dioxide 20 L (22-30) mmol/L Anion Gap 8 mmol/L BUN 21 H (7-17) mg/dL Creatinine 0.53 (0.52-1.04) mg/dL Est GFR (CKD-EPI)AfAm >90 (>60 ml/min/1.73 sqM) Est GFR (CKD-EPI)NonAf 88 (>60 ml/min/1.73 sqM) Glucose 144 H (74-99) mg/dL Osmolality (280-301) mosm/kg Plasma Lactic Acid Hair (0.7-2.0) mmol/L Calcium 8.3 L (8.4-10.2) mg/dL Total Bilirubin 0.6 (0.2-1.3) mg/dL AST 21 (14-36) U/L ALT 14 (4-34) U/L Alkaline Phosphatase 81 (38-126) U/L Ammonia (<30) umol/L Troponin I (0.000-0.034) ng/mL Total Protein 5.6 L (6.3-8.2) g/dL Albumin 2.6 L (3.5-5.0) g/dL Urine Color Urine Appearance (Clear) Urine pH (5.0-8.0) Ur Specific Remer (1.001-1.035) Urine Protein (Negative) Urine Glucose (UA) (Negative) Urine Ketones (Negative) Urine Blood (Negative) Urine Nitrite (Negative) Urine Bilirubin (Negative) Urine Urobilinogen (<2.0) mg/dL Ur Leukocyte Esterase (Negative) Urine RBC (0-5) /hpf Urine WBC (0-5) /hpf Urine Bacteria (None) /hpf Urine Mucus (None) /hpf Urine Osmolality (50-1400) mosm/kg Urine Opiates Screen (NotDetected) Ur Oxycodone Screen (NotDetected) Urine Methadone Screen (NotDetected) Ur Propoxyphene Screen (NotDetected) Ur Barbiturates Screen (NotDetected) U Tricyclic Antidepress (NotDetected) Ur Phencyclidine Scrn (NotDetected) Ur Amphetamines Screen (NotDetected) U Methamphetamines Scrn (NotDetected) U Benzodiazepines Scrn (NotDetected) Urine Cocaine Screen (NotDetected) U Marijuana (THC) Screen (NotDetected) Serum Alcohol <10 mg/dL Influenza Type A (PCR) (Not Detectd) Influenza Type B (PCR) (Not Detectd) RSV (PCR) (Not Detectd) SARS-CoV-2 (PCR) (Not Detectd) 05/06/23 05/06/23 05/06/23 Range/Units 11:45 11:45 11:51 WBC (3.8-10.6) k/uL RBC (3.80-5.40) m/uL Hgb (11.4-16.0) gm/dL Hct (34.0-46.0) % MCV (80.0-100.0) fL MCH (25.0-35.0) pg MCHC (31.0-37.0) g/dL RDW (11.5-15.5) % Plt Count (150-450) k/uL MPV Neutrophils % % Lymphocytes % % Monocytes % % Eosinophils % % Basophils % % Neutrophils # (1.3-7.7) k/uL Lymphocytes # (1.0-4.8) k/uL Monocytes # (0-1.0) k/uL Eosinophils # (0-0.7) k/uL Basophils # (0-0.2) k/uL PT (9.0-12.0) sec INR (<1.2) APTT (22.0-30.0) sec Sodium (137-145) mmol/L Potassium (3.5-5.1) mmol/L Chloride (98-107) mmol/L Carbon Dioxide (22-30) mmol/L Anion Gap mmol/L BUN (7-17) mg/dL Creatinine (0.52-1.04) mg/dL Est GFR (CKD-EPI)AfAm (>60 ml/min/1.73 sqM) Est GFR (CKD-EPI)NonAf (>60 ml/min/1.73 sqM) Glucose (74-99) mg/dL Osmolality (280-301) mosm/kg Plasma Lactic Acid Hair (0.7-2.0) mmol/L Calcium (8.4-10.2) mg/dL Total Bilirubin (0.2-1.3) mg/dL AST (14-36) U/L ALT (4-34) U/L Alkaline Phosphatase (38-126) U/L Ammonia <9 (<30) umol/L Troponin I <0.012 (0.000-0.034) ng/mL Total Protein (6.3-8.2) g/dL Albumin (3.5-5.0) g/dL Urine Color Light Yellow Urine Appearance Cloudy H (Clear) Urine pH 6.5 (5.0-8.0) Ur Specific Remer 1.014 (1.001-1.035) Urine Protein Negative (Negative) Urine Glucose (UA) Negative (Negative) Urine Ketones Negative (Negative) Urine Blood Negative (Negative) Urine Nitrite Negative (Negative) Urine Bilirubin Negative (Negative) Urine Urobilinogen <2.0 (<2.0) mg/dL Ur Leukocyte Esterase Large H (Negative) Urine RBC 2 (0-5) /hpf Urine WBC >182 H (0-5) /hpf Urine Bacteria Occasional H (None) /hpf Urine Mucus Rare H (None) /hpf Urine Osmolality (50-1400) mosm/kg Urine Opiates Screen Not Detected (NotDetected) Ur Oxycodone Screen Not Detected (NotDetected) Urine Methadone Screen Not Detected (NotDetected) Ur Propoxyphene Screen Not Detected (NotDetected) Ur Barbiturates Screen Not Detected (NotDetected) U Tricyclic Antidepress Not Detected (NotDetected) Ur Phencyclidine Scrn Not Detected (NotDetected) Ur Amphetamines Screen Not Detected (NotDetected) U Methamphetamines Scrn Not Detected (NotDetected) U Benzodiazepines Scrn Not Detected (NotDetected) Urine Cocaine Screen Not Detected (NotDetected) U Marijuana (THC) Screen Not Detected (NotDetected) Serum Alcohol mg/dL Influenza Type A (PCR) (Not Detectd) Influenza Type B (PCR) (Not Detectd) RSV (PCR) (Not Detectd) SARS-CoV-2 (PCR) (Not Detectd) 05/06/23 05/06/23 05/06/23 Range/Units 11:58 14:17 14:41 WBC (3.8-10.6) k/uL RBC (3.80-5.40) m/uL Hgb (11.4-16.0) gm/dL Hct (34.0-46.0) % MCV (80.0-100.0) fL MCH (25.0-35.0) pg MCHC (31.0-37.0) g/dL RDW (11.5-15.5) % Plt Count (150-450) k/uL MPV Neutrophils % % Lymphocytes % % Monocytes % % Eosinophils % % Basophils % % Neutrophils # (1.3-7.7) k/uL Lymphocytes # (1.0-4.8) k/uL Monocytes # (0-1.0) k/uL Eosinophils # (0-0.7) k/uL Basophils # (0-0.2) k/uL PT (9.0-12.0) sec INR (<1.2) APTT (22.0-30.0) sec Sodium (137-145) mmol/L Potassium (3.5-5.1) mmol/L Chloride (98-107) mmol/L Carbon Dioxide (22-30) mmol/L Anion Gap mmol/L BUN (7-17) mg/dL Creatinine (0.52-1.04) mg/dL Est GFR (CKD-EPI)AfAm (>60 ml/min/1.73 sqM) Est GFR (CKD-EPI)NonAf (>60 ml/min/1.73 sqM) Glucose (74-99) mg/dL Osmolality (280-301) mosm/kg Plasma Lactic Acid Hair 1.3 (0.7-2.0) mmol/L Calcium (8.4-10.2) mg/dL Total Bilirubin (0.2-1.3) mg/dL AST (14-36) U/L ALT (4-34) U/L Alkaline Phosphatase (38-126) U/L Ammonia (<30) umol/L Troponin I (0.000-0.034) ng/mL Total Protein (6.3-8.2) g/dL Albumin (3.5-5.0) g/dL Urine Color Urine Appearance (Clear) Urine pH (5.0-8.0) Ur Specific Remer (1.001-1.035) Urine Protein (Negative) Urine Glucose (UA) (Negative) Urine Ketones (Negative) Urine Blood (Negative) Urine Nitrite (Negative) Urine Bilirubin (Negative) Urine Urobilinogen (<2.0) mg/dL Ur Leukocyte Esterase (Negative) Urine RBC (0-5) /hpf Urine WBC (0-5) /hpf Urine Bacteria (None) /hpf Urine Mucus (None) /hpf Urine Osmolality 392 (50-1400) mosm/kg Urine Opiates Screen (NotDetected) Ur Oxycodone Screen (NotDetected) Urine Methadone Screen (NotDetected) Ur Propoxyphene Screen (NotDetected) Ur Barbiturates Screen (NotDetected) U Tricyclic Antidepress (NotDetected) Ur Phencyclidine Scrn (NotDetected) Ur Amphetamines Screen (NotDetected) U Methamphetamines Scrn (NotDetected) U Benzodiazepines Scrn (NotDetected) Urine Cocaine Screen (NotDetected) U Marijuana (THC) Screen (NotDetected) Serum Alcohol mg/dL Influenza Type A (PCR) Not Detected (Not Detectd) Influenza Type B (PCR) Not Detected (Not Detectd) RSV (PCR) Not Detected (Not Detectd) SARS-CoV-2 (PCR) Not Detected (Not Detectd) 05/06/23 Range/Units 14:41 WBC (3.8-10.6) k/uL RBC (3.80-5.40) m/uL Hgb (11.4-16.0) gm/dL Hct (34.0-46.0) % MCV (80.0-100.0) fL MCH (25.0-35.0) pg MCHC (31.0-37.0) g/dL RDW (11.5-15.5) % Plt Count (150-450) k/uL MPV Neutrophils % % Lymphocytes % % Monocytes % % Eosinophils % % Basophils % % Neutrophils # (1.3-7.7) k/uL Lymphocytes # (1.0-4.8) k/uL Monocytes # (0-1.0) k/uL Eosinophils # (0-0.7) k/uL Basophils # (0-0.2) k/uL PT (9.0-12.0) sec INR (<1.2) APTT (22.0-30.0) sec Sodium (137-145) mmol/L Potassium (3.5-5.1) mmol/L Chloride (98-107) mmol/L Carbon Dioxide (22-30) mmol/L Anion Gap mmol/L BUN (7-17) mg/dL Creatinine (0.52-1.04) mg/dL Est GFR (CKD-EPI)AfAm (>60 ml/min/1.73 sqM) Est GFR (CKD-EPI)NonAf (>60 ml/min/1.73 sqM) Glucose (74-99) mg/dL Osmolality 259 L (280-301) mosm/kg Plasma Lactic Acid Hair (0.7-2.0) mmol/L Calcium (8.4-10.2) mg/dL Total Bilirubin (0.2-1.3) mg/dL AST (14-36) U/L ALT (4-34) U/L Alkaline Phosphatase (38-126) U/L Ammonia (<30) umol/L Troponin I (0.000-0.034) ng/mL Total Protein (6.3-8.2) g/dL Albumin (3.5-5.0) g/dL Urine Color Urine Appearance (Clear) Urine pH (5.0-8.0) Ur Specific Remer (1.001-1.035) Urine Protein (Negative) Urine Glucose (UA) (Negative) Urine Ketones (Negative) Urine Blood (Negative) Urine Nitrite (Negative) Urine Bilirubin (Negative) Urine Urobilinogen (<2.0) mg/dL Ur Leukocyte Esterase (Negative) Urine RBC (0-5) /hpf Urine WBC (0-5) /hpf Urine Bacteria (None) /hpf Urine Mucus (None) /hpf Urine Osmolality (50-1400) mosm/kg Urine Opiates Screen (NotDetected) Ur Oxycodone Screen (NotDetected) Urine Methadone Screen (NotDetected) Ur Propoxyphene Screen (NotDetected) Ur Barbiturates Screen (NotDetected) U Tricyclic Antidepress (NotDetected) Ur Phencyclidine Scrn (NotDetected) Ur Amphetamines Screen (NotDetected) U Methamphetamines Scrn (NotDetected) U Benzodiazepines Scrn (NotDetected) Urine Cocaine Screen (NotDetected) U Marijuana (THC) Screen (NotDetected) Serum Alcohol mg/dL Influenza Type A (PCR) (Not Detectd) Influenza Type B (PCR) (Not Detectd) RSV (PCR) (Not Detectd) SARS-CoV-2 (PCR) (Not Detectd) Disposition Clinical Impression: Pneumonia, Hyponatremia, Urinary retention Disposition: ADMITTED IP TO THIS HOSP Condition: Fair Referrals: Grey Morrison MD [Primary Care Provider] - 1-2 days
[2023-05-06 12:36] LABS: Basophils % (A) 0 %; Eosinophils # (A) 0.1 k/uL (0-0.7); Eosinophils % (A) 1 %; HCT 35.7 % (34.0-46.0); HGB 12.2 gm/dL (11.4-16.0); Lymphocytes # (A) 1.6 k/uL (1.0-4.8); Lymphocytes % (A) 19 %; MCH 29.1 pg (25.0-35.0); MCHC 34.2 g/dL (31.0-37.0); MCV 85.3 fL (80.0-100.0); Monocytes # (A) 0.5 k/uL (0-1.0); Monocytes % (A) 6 %; Neutrophils # (A) 5.8 k/uL (1.3-7.7); Neutrophils % (A) 70 %; Platelet Count 376 k/uL (150-450); RBC 4.18 m/uL (3.80-5.40); RDW 14.5 % (11.5-15.5); WBC 8.3 k/uL (3.8-10.6)
[2023-05-06 12:52] LABS: ALT 14 U/L (4-34); AST 21 U/L (14-36); African American GFR (CKD) >90 (>60 ml/min/1.73 sqM); Albumin 2.6 g/dL (3.5-5.0); Alcohol <10 mg/dL; Alkaline Phosphatase 81 U/L (38-126); Anion Gap 8 mmol/L; Blood Urea Nitrogen 21 mg/dL (7-17); Calcium 8.3 mg/dL (8.4-10.2); Carbon Dioxide 20 mmol/L (22-30); Chloride 92 mmol/L (98-107); Glucose 144 mg/dL (74-99); Non-African American GFR(CKD) 88 (>60 ml/min/1.73 sqM); Potassium 3.4 mmol/L (3.5-5.1); Sodium 120 mmol/L (137-145); Total Bilirubin 0.6 mg/dL (0.2-1.3); Total Protein 5.6 g/dL (6.3-8.2)
[2023-05-06] MEDS ORDERED: POTASSIUM CHLORIDE ER 20 MEQ TAB.ER PO STA (12:54)
[2023-05-06 13:02] LABS: INR 1.1 (<1.2); Partial Thromboplastin Time 36.7 sec (22.0-30.0); Prothrombin Time 11.4 sec (9.0-12.0)
--- NOTE | 2023-05-06 13:09 | XR ---
EXAMINATION TYPE: XR chest 2V DATE OF EXAM: 05/06/2023 12:51 PM COMPARISON: Chest radiographs from 03/31/2023 TECHNIQUE: XR chest 2V Frontal and lateral views of the chest. CLINICAL INDICATION:Female, 82 years old with history of altered mental status; FINDINGS: Lungs/Pleura: Blunting of both costal angles with right greater the left. Left basilar patchy airspac e opacity. Chronic senescent parenchyma change. Pulmonary vascularity: Unremarkable. Heart/mediastinum: Cardiomediastinal silhouette is prominent in size. Atherosclerotic calcifications are seen in the aorta. Musculoskeletal: No acute osseous pathology. Other: Redemonstration of large lateral hernia. IMPRESSION: 1. Small bilateral pleural effusions with right greater than left. 2. Left basilar patchy airspace opacity which may represent atelectasis versus infiltrate. 3. Large lateral hernia.
--- NOTE | 2023-05-06 13:17 | CT ---
EXAMINATION TYPE: CT brain cspine wo con DATE OF EXAM: 05/06/2023 COMPARISON: 04/25/2022 HISTORY: Fall CT DLP: 1028.7 mGycm Automated exposure control for dose reduction was used. TECHNIQUE: CT scan of the head and cervical spine are performed without contrast. FINDINGS: EXAMINATION TYPE: CT brain cspine wo con DATE OF EXAM: 05/06/2023 COMPARISON: HISTORY: Fall CT DLP: 1028.7 mGycm Automated exposure control for dose reduction was used. TECHNIQUE: CT scan of the head and cervical spine are performed without contrast. FINDINGS: Head CT: Ventricles, basal cisterns and sulci over convexities are markedly enlarged consistent with marked ge neralized atrophy. There is no mass effect or shift of the midline structures. There is mild ischemic white matter demyelination There is no acute intra or extra-axial hemorrhage. Posterior fossa including the brainstem, fourth ventricle and cerebellar pontine angles are grossly n ormal. The intraorbital contents appear normal and symmetric. Visualized paranasal sinuses and mastoid air c ells are well aerated. There is mild focal soft tissue swelling over the right frontal bone. CT cervical spine: Craniovertebral junction relationships and prevertebral soft tissues are normal. The cervical vertebral segments are normal in height and alignment and there is no fracture subluxati on. The disc spaces are well-maintained in height and there is no significant degenerative disc disease. The bony cervical canal is widely patent and there is no bony encroachment of the neural foramina. The paraspinal soft tissues unremarkable. IMPRESSION: 1. Head CT: No acute bleed or mass effect. 2. CT cervical spine: No acute trauma.
--- NOTE | 2023-05-06 13:19 | CT ---
EXAMINATION TYPE: CT facial bones wo con DATE OF EXAM: 05/06/2023 COMPARISON: None HISTORY: Fall CT DLP: 1028.7 mGycm Automated exposure control for dose reduction was used. TECHNIQUE: CT scan of the sinuses is performed without contrast, axial images are obtained, coronal r eformatted images are also reviewed. FINDINGS: The paranasal sinuses including the frontal, ethmoid, sphenoid, and maxillary sinuses bila terally are well-aerated without abnormal opacification. The ostiomeatal complex is patent bilateral ly on the coronal images. There is no evidence of mandibular, maxillary bone or orbital fracture. The TMJs are normal and symmetric. Visualized portion of mastoid air cells show no abnormal opacification. The globes are intact bilate rally. IMPRESSION: 1. No evidence of acute trauma to the facial bones. 2. The sinuses are clear and the ostiomeatal complex is patent bilaterally.
[2023-05-06] MEDS ORDERED: AZITHROMYCIN 500 MG in SODIUM CHLORIDE 0.9% 250 ML IVPB STA (13:40)
[2023-05-06] MEDS ORDERED: HYDROmorphone 0.5 MG/0.5 ML SYRINGE IVP PRN (14:03)
[2023-05-06] MEDS ORDERED: NALOXONE 0.4 MG/ML 1 ML VIAL IV PRN (14:03)
[2023-05-06] MEDS ORDERED: KETOROLAC 15 MG/ML 1 ML VIAL IVP PRN (14:03)
[2023-05-06] MEDS: SODIUM CHLORIDE 0.9% 1,000 ML IV SCH (14:49)
[2023-05-06 14:51] LABS: Appearance,Urine Cloudy (Clear); Bacteria,Urine Occasional /hpf; Bilirubin,Urine Negative (Negative); Blood,Urine Negative (Negative); Color,Urine Light Yellow; Glucose,Urine (UA) Negative (Negative); Ketones,Urine Negative (Negative); Leukocyte Esterase,Urine Large (Negative); Mucus,Urine Rare /hpf; Nitrite,Urine Negative (Negative); PH, Urine 6.5 (5.0-8.0); Protein,Urine Negative (Negative); RBC,Urine 2 /hpf (0-5); Specific Gravity,Urine 1.014 (1.001-1.035); Urobilinogen,Urine <2.0 mg/dL (<2.0); WBC,Urine >182 /hpf (0-5)
[2023-05-06 14:56] LABS: Amphetamine Screen,Urine Not Detected (NotDetected); Benzodiazepines Screen,Urine Not Detected (NotDetected); Cocaine Screen,Urine Not Detected (NotDetected); Methadone Screen, Urine Not Detected (NotDetected); Opiate Screen,Urine Not Detected (NotDetected); Phencyclidine Screen,Urine Not Detected (NotDetected); Tricyclic Antidepressant,Urine Not Detected (NotDetected); Urn Cannabinoid Scrn Not Detected (NotDetected)
[2023-05-06 14:57] LABS: Barbiturate Screen,Urine Not Detected (NotDetected); Oxycodone Screen, Urine Not Detected (NotDetected)
[2023-05-06] MEDS ORDERED: ACETAMINOPHEN TAB 325 MG TAB PO PRN (16:01)
[2023-05-06 20:01] LABS: Glucose,Whole Blood 115 mg/dL (70-110)
[2023-05-06] MEDS: TAMSULOSIN 0.4 MG CAP.ER.24H PO SCH (20:47)
[2023-05-06] MEDS: metFORMIN 500 MG TAB PO SCH (20:47)
[2023-05-06] MEDS: FERROUS SULFATE 325 MG TAB PO SCH (20:47)
[2023-05-06] MEDS: APIXABAN 2.5 MG TABLET PO SCH (20:47)
[2023-05-06] MEDS: METOPROLOL TARTRATE 25 MG TAB PO SCH (20:47)
[2023-05-06] MEDS: MAGNESIUM OXIDE 400 MG TAB PO SCH (20:47)
--- NOTE | 2023-05-06 20:50 | P.HPIM ---
History of Present Illness H&P Date: 05/06/23 Chief Complaint: Altered mental status 82-year-old female who presents to the emergency department for lightheadedness. Patient presents from her shelter who state patient has been more tired and weak over the past couple days. Patient states she started to feel lightheaded this morning. She denies chest pain, shortness of breath, palpitations. Patient did have a fall on Tuesday she has bruising around the right eye. She did not lose consciousness. She is on Eliquis for atrial fibrillation. She reports significant headache. She does have mild nausea without vomiting. No numbness or tingling. No focal weakness. Does admit to intermittent dry cough. Denies fever, chills, other upper respiratory symptoms. Patient did have a catheter in for 6 weeks which was removed yesterday by primary care provider according to son. States patient was in better spirits yesterday at her primary care visit. Patient denies burning with urination since getting the catheter out. Denies abdominal pain, changes in bowel habits. EKG shows atrial fibrillation patient has known history on Eliquis. Laboratory studies significant for hypokalemia at 3.4 and hyponatremia at 120. Troponin within normal limits. CT interpreted by myself showing no acute intracranial process, no cervical fracture or dislocation, no acute facial fracture. CX-ray interpreted by myself showing small bilateral pleural effusions, left basilar patchy airspace opacity concerning for pneumonia. Review of Systems REVIEW OF SYSTEMS: CONSTITUTIONAL: No fever, no malaise, no fatigue. HEENT: No recent visual problems or hearing problems. Denied any sore throat. CARDIOVASCULAR: No chest pain, orthopnea, PND, no palpitations, no syncope. PULMONARY: No shortness of breath, no cough, no hemoptysis. GASTROINTESTINAL: No diarrhea, no nausea, no vomiting, no abdominal pain. NEUROLOGICAL: No headaches, no weakness, no numbness. HEMATOLOGICAL: Denies any bleeding or petechiae. GENITOURINARY: Denies any burning micturition, frequency, or urgency. MUSCULOSKELETAL/RHEUMATOLOGICAL: Denies any joint pain, swelling, or any muscle pain. ENDOCRINE: Denies any polyuria or polydipsia. The rest of the 14-point review of systems is negative. Past Medical History Past Medical History: Cancer, Diabetes Mellitus, GERD/Reflux, Hypertension Additional Past Medical History / Comment(s): NIDDM type II, skin cancer with removal, UTIs. History of Any Multi-Drug Resistant Organisms: None Reported Past Surgical History: Appendectomy, Cholecystectomy, Orthopedic Surgery Additional Past Surgical History / Comment(s): R ankle ORIF, removal of skin cancer Past Anesthesia/Blood Transfusion Reactions: No Reported Reaction Past Psychological History: No Psychological Hx Reported Smoking Status: Never smoker - Past Family History Father Family Medical History: Cancer Additional Family Medical History / Comment(s): Myasthenia gravis Mother History Unknown: Yes Family Medical History: No Reported History Additional Family Medical History / Comment(s): Mother was healthy Medications and Allergies Home Medications Medication Instructions Recorded Confirmed Type Cholecalciferol [Vitamin D3 (25 25 mcg PO DAILY@0700 05/20/22 05/06/23 History Mcg = 1000 Iu)] Ferrous Sulfate [Iron (65 MG 325 mg PO BID@0700,1900 05/20/22 05/06/23 History Elemental)] Acetaminophen Tab [Tylenol] 650 mg PO Q6HR PRN tab 04/07/23 05/06/23 Rx Amiodarone [Cordarone] 200 mg PO DAILY@0700 05/06/23 05/06/23 History Apixaban [Eliquis] 2.5 mg PO BID@0700,1900 05/06/23 05/06/23 History Magnesium Oxide [Mag-Ox] 400 mg PO TID@,,05/06/23 05/06/23 History Metoprolol Tartrate [Lopressor] 25 mg PO BID@0700,1900 05/06/23 05/06/23 History Sertraline [Zoloft] 25 mg PO DAILY@0700 05/06/23 05/06/23 History Tamsulosin [Flomax] 0.4 mg PO HS@1900 05/06/23 05/06/23 History metFORMIN HCL ER [Glucophage XR] 500 mg PO BID@0700,1900 05/06/23 05/06/23 History Allergies Allergy/AdvReac Type Severity Reaction Status Date / Time Penicillins Allergy Unknown Verified 05/06/23 13:43 Childhood Physical Exam Vitals: Vital Signs Temp Pulse Resp BP Pulse Ox 05/06/23 15:09 58 L 18 98/45 99 05/06/23 12:42 62 16 88/43 98 05/06/23 11:33 97.4 F L 117 H 16 116/69 99 Intake and Output 05/06/23 05/06/23 05/06/23 06:59 14:59 22:59 Other: Weight 51.71 kg PHYSICAL EXAMINATION: GENERAL: The patient is alert and oriented x3, not in any acute distress. Well developed, well nourished. HEENT: Pupils are round and equally reacting to light. EOMI. No scleral icterus. No conjunctival pallor. Normocephalic, atraumatic. No pharyngeal erythema. No thyromegaly. CARDIOVASCULAR: S1 and S2 present. Irregularly irregular. PULMONARY: Chest is clear to auscultation, no wheezing or crackles. ABDOMEN: Soft, nontender, nondistended, normoactive bowel sounds. No palpable organomegaly. MUSCULOSKELETAL: No joint swelling or deformity. EXTREMITIES: No cyanosis, clubbing, or pedal edema. NEUROLOGICAL: Gross neurological examination did not reveal any focal deficits. SKIN: No rashes. Results CBC & Chem 7: 05/06/23 11:45 05/06/23 11:45 Labs: Abnormal Lab Results - Last 24 Hours (Table) 05/06/23 05/06/23 05/06/23 Range/Units 11:45 11:45 11:51 APTT 36.7 H (22.0-30.0) sec Sodium 120 L (137-145) mmol/L Potassium 3.4 L (3.5-5.1) mmol/L Chloride 92 L (98-107) mmol/L Carbon Dioxide 20 L (22-30) mmol/L BUN 21 H (7-17) mg/dL Glucose 144 H (74-99) mg/dL Osmolality (280-301) mosm/kg Calcium 8.3 L (8.4-10.2) mg/dL Total Protein 5.6 L (6.3-8.2) g/dL Albumin 2.6 L (3.5-5.0) g/dL Urine Appearance Cloudy H (Clear) Ur Leukocyte Esterase Large H (Negative) Urine WBC >182 H (0-5) /hpf Urine Bacteria Occasional H (None) /hpf Urine Mucus Rare H (None) /hpf 05/06/23 Range/Units 14:41 APTT (22.0-30.0) sec Sodium (137-145) mmol/L Potassium (3.5-5.1) mmol/L Chloride (98-107) mmol/L Carbon Dioxide (22-30) mmol/L BUN (7-17) mg/dL Glucose (74-99) mg/dL Osmolality 259 L (280-301) mosm/kg Calcium (8.4-10.2) mg/dL Total Protein (6.3-8.2) g/dL Albumin (3.5-5.0) g/dL Urine Appearance (Clear) Ur Leukocyte Esterase (Negative) Urine WBC (0-5) /hpf Urine Bacteria (None) /hpf Urine Mucus (None) /hpf Assessment and Plan Assessment: 1. Left basilar pneumonia; patient is placed on IV antibiotics in form of Rocephin and azithromycin - We will add bronchodilator nebulizer treatments as needed; monitor CBC, CMP and pro-calcitonin - Consult pulmonary for further recommendations 2. Acute exacerbation CHF/fluid overload; patient has been placed on Lasix 40 mg IV every 12 hours; monitor strict MISAEL's, daily weights, low salt and fluid restricted diet 3. Hyponatremia; patient is placed on IV fluid in form of normal saline; we will monitor sodium levels every 4 hours; consult nephrology 4. Hypokalemia; commended in ED; we will monitor electrolytes and make further recommendations 5. UTI; UA is positive for leukocyte esterase, WBCs and bacteria - Patient has been placed on IV Rocephin; we will make further recommendations once culture results are available 6. Atrial fibrillation; patient remains rate controlled on amiodarone 200 mg daily; Ahlquist 2.5 mg twice a day 7. Diabetes mellitus type 2; metformin 500 mg twice a day; monitor Accu-Cheks before meals and at bedtime with insulin sliding scale 8. Hypertension; metoprolol 25 mg twice a day DVT prophylaxis; SCDs/systemic anticoagulation CODE STATUS; DO NOT RESUSCITATE
[2023-05-06] MEDS: FUROSEMIDE 10 MG/ML 4 ML VIAL IV SCH (22:55)
[2023-05-07] MEDS: SODIUM CHLORIDE 0.9% 1,000 ML IV SCH ×2 (03:17→11:11)
[2023-05-07 06:09] LABS: Glucose,Whole Blood 102 mg/dL (70-110)
[2023-05-07] MEDS: METOPROLOL TARTRATE 25 MG TAB PO SCH (06:16)
[2023-05-07] MEDS: FERROUS SULFATE 325 MG TAB PO SCH ×2 (06:16→20:54)
[2023-05-07] MEDS: APIXABAN 2.5 MG TABLET PO SCH ×2 (06:16→20:55)
[2023-05-07] MEDS: metFORMIN 500 MG TAB PO SCH ×2 (06:16→20:55)
[2023-05-07] MEDS: AMIODARONE 200 MG TAB PO SCH (06:16)
[2023-05-07] MEDS: MAGNESIUM OXIDE 400 MG TAB PO SCH ×3 (06:16→20:55)
[2023-05-07] MEDS: CHOLECALCIFEROL 25 MCG (1000 IU) TABLET PO SCH (06:16)
[2023-05-07] MEDS: SERTRALINE 25 MG TAB PO SCH (06:18)
[2023-05-07 07:49] LABS: Basophils % (A) 0 %; Eosinophils # (A) 0.1 k/uL (0-0.7); Eosinophils % (A) 2 %; HCT 29.1 % (34.0-46.0); HGB 10.2 gm/dL (11.4-16.0); Lymphocytes # (A) 1.6 k/uL (1.0-4.8); Lymphocytes % (A) 23 %; MCH 30.1 pg (25.0-35.0); MCHC 35.1 g/dL (31.0-37.0); MCV 85.8 fL (80.0-100.0); Mean Platelet Volume 7.7; Monocytes # (A) 0.7 k/uL (0-1.0); Monocytes % (A) 9 %; Neutrophils # (A) 4.5 k/uL (1.3-7.7); Neutrophils % (A) 62 %; Platelet Count 337 k/uL (150-450); RBC 3.39 m/uL (3.80-5.40); RDW 15.1 % (11.5-15.5); WBC 7.2 k/uL (3.8-10.6)
[2023-05-07] MEDS: FUROSEMIDE 10 MG/ML 4 ML VIAL IV SCH (08:31)
[2023-05-07 09:57] LABS: BUN/Creat Ratio 24.86 Ratio (12.00-20.00); Blood Urea Nitrogen 17.4 mg/dL (9.0-27.0); Calcium 8.4 mg/dL (8.7-10.3); Carbon Dioxide 21.3 mmol/L (21.6-31.8); Chloride 94 mmol/L (96-109); Glucose 88 mg/dL (70-110); Potassium 3.5 mmol/L (3.5-5.5); Sodium 126 mmol/L (135-145)
--- NOTE | 2023-05-07 10:05 | P.NPCON ---
History of Present Illness - Reason for Consult hyponatremia - History of Present Illness Patient is an 82-year-old female who was admitted to the hospital with complaints of increased weakness and lightheadedness. Patient lives at a retirement. She did have a fall earlier this week. Patient is maintained on liquids for chronic A. fib. Noted to have serum sodium of 1 22 mg/L. Serum creatinine 0.53. Patient is currently being diuresed and serum sodium is at 126 today. Urine osmolality 392 and random urine sodium at 45. Patient has an indwelling Harper catheter with urine output documented at 1300 mL. UA is suggestive of UTI Blood pressure has been low with systolic in the 80s and 90s Review of Systems As per HPI patient is not able to give detailed history Past Medical History Past Medical History: Cancer, Diabetes Mellitus, GERD/Reflux, Hypertension Additional Past Medical History / Comment(s): NIDDM type II, skin cancer with removal, UTIs. History of Any Multi-Drug Resistant Organisms: None Reported Past Surgical History: Appendectomy, Cholecystectomy, Orthopedic Surgery Additional Past Surgical History / Comment(s): R ankle ORIF, removal of skin cancer Past Anesthesia/Blood Transfusion Reactions: No Reported Reaction Past Psychological History: No Psychological Hx Reported Smoking Status: Never smoker - Past Family History Father Family Medical History: Cancer Additional Family Medical History / Comment(s): Myasthenia gravis Mother History Unknown: Yes Family Medical History: No Reported History Additional Family Medical History / Comment(s): Mother was healthy Medications and Allergies Home Medications Medication Instructions Recorded Confirmed Type Cholecalciferol [Vitamin D3 (25 25 mcg PO DAILY@0700 05/20/22 05/06/23 History Mcg = 1000 Iu)] Ferrous Sulfate [Iron (65 MG 325 mg PO BID@0700,1900 05/20/22 05/06/23 History Elemental)] Acetaminophen Tab [Tylenol] 650 mg PO Q6HR PRN tab 04/07/23 05/06/23 Rx Amiodarone [Cordarone] 200 mg PO DAILY@0700 05/06/23 05/06/23 History Apixaban [Eliquis] 2.5 mg PO BID@0700,1900 05/06/23 05/06/23 History Magnesium Oxide [Mag-Ox] 400 mg PO TID@,,05/06/23 05/06/23 History Metoprolol Tartrate [Lopressor] 25 mg PO BID@0700,1900 05/06/23 05/06/23 History Sertraline [Zoloft] 25 mg PO DAILY@0700 05/06/23 05/06/23 History Tamsulosin [Flomax] 0.4 mg PO HS@1900 05/06/23 05/06/23 History metFORMIN HCL ER [Glucophage XR] 500 mg PO BID@0700,1900 05/06/23 05/06/23 History Allergies Allergy/AdvReac Type Severity Reaction Status Date / Time Penicillins Allergy Unknown Verified 05/06/23 13:43 Childhood Physical Exam Vitals: Vital Signs Temp Pulse Pulse Resp BP BP Pulse Ox 05/07/23 07:30 97.8 F 47 L 20 84/49 95 05/07/23 04:10 122/62 05/07/23 01:47 98.2 F 55 L 18 91/51 96 05/06/23 22:48 122/62 05/06/23 19:24 97.5 F L 61 18 94/51 98 05/06/23 18:07 97.8 F 60 16 111/46 98 05/06/23 17:46 98.5 F 58 L 18 122/66 99 05/06/23 16:28 58 L 17 102/44 97 05/06/23 15:09 58 L 18 98/45 99 05/06/23 12:42 62 16 88/43 98 05/06/23 11:33 97.4 F L 117 H 16 116/69 99 Intake and Output 05/06/23 05/07/23 05/07/23 22:59 06:59 14:59 Output Total 1300 Balance -1300 Output: Urine 1300 Other: Voiding Method Indwelling Catheter Indwelling Catheter # Bowel Movements 1 Weight 51.71 kg Patient is awake, comfortable, no acute distress Right side of the face not noted to have bruising around the eye area Examination of the heart S1 and S2 Examination of the lungs bilateral breath sounds are heard with decreased breath sounds at the bases Abdomen is soft nontender Examination of lower extremity shows trace edema bilaterally ENVIRONMENT ARTIST exam shows patient is moving all 4 extremities. Results - Lab Results Most recent lab results Calcium 8.4 mg/dL (8.7-10.3) L 05/07/23 06:11 05/07/23 06:11 05/07/23 06:11 Assessment and Plan Assessment: 1. Hyponatremia hypervolemic and currently improved with IV Lasix. I will decrease the Lasix and discontinue the IV fluids. Patient is encouraged to increase oral intake 2. Bradycardia, metoprolol will be decreased. Patient is also maintained on amiodarone for A. fib 3. Chronic A. fib maintained on a liquid is amiodarone and metoprolol 4. Hypokalemia associated with decreased oral intake status post replacement Plan: Discontinue saline Decrease/hold metoprolol as heart rate is low Decrease Lasix Repeat labs in a.m. Increase oral protein intake Check urine culture Thank you for the consultation. We will continue to follow the patient with you during her hospitalization.
[2023-05-07 11:26] LABS: Glucose,Whole Blood 98 mg/dL (70-110)
--- NOTE | 2023-05-07 14:07 | P.CNPUL ---
History of Present Illness Consult date: 05/07/23 Requesting physician: Neil Cadet Reason for consult: pleural effusion, abnormal CXR/CT Chief complaint: Altered mental status, dizziness, fall History of present illness: This is an 82-year-old female patient who resides in an assisted living facility. She has a history of atrial fibrillation anticoagulated with Eliquis, diabetes mellitus, hypertension. She had fallen at the home earlier in the week while getting herself out of the bathroom. She has significant ecchymosis over the right eye. She was brought into the emergency room yesterday with dizziness, lightheadedness and weakness. Computed tomography scan of the head and neck revealed no acute mass or bleed. No acute trauma. Computed tomography scan of the face revealed no acute trauma to the facial bones. Chest x-ray revealed small bilateral pleural effusions right greater than left. Left basilar patchy opacity/atelectasis. Large hiatal hernia. White count 7.2. Hemoglobin 10.2. Platelets 337. Sodium 126. Potassium 3.5. Bicarb 21. BUN 17. Creatinine 0.7. Glucose 88. She is seen today in consultation due to the bilateral pleural effusions. She is currently sitting up in bed. Awake and alert in no acute distress. She is maintaining good O2 saturations in the 90s on room air. She has been afebrile. Review of Systems REVIEW OF SYSTEMS: CONSTITUTIONAL: Positive for dizziness, weakness. Denies any recent significant weight loss or weight gain. EYES: Denies change in vision. EARS, NOSE, MOUTH, THROAT: Denies headaches, denies sore throat. CARDIOVASCULAR: Denies chest pain, palpitations or syncopal episodes. RESPIRATORY: Denies shortness of breath, cough, congestion or hemoptysis. GASTROINTESTINAL: Denies change in appetite, denies abdominal pain GENITOURINARY: Denies hematuria, denies infections. MUSKULOSKELETAL: Denies pain, denies swelling. INTEGUMENTARY: Denies rash, denies eczema. NEUROLOGICAL: Denies recent memory loss, no recent seizure activity. PSYCHIATRIC: Denies anxiety, denies depression. HEMATOLOGIC/LYMPHATIC: Denies anemia, denies enlarged lymph nodes. Past Medical History Past Medical History: Cancer, Diabetes Mellitus, GERD/Reflux, Hypertension Additional Past Medical History / Comment(s): NIDDM type II, skin cancer with removal, UTIs. History of Any Multi-Drug Resistant Organisms: None Reported Past Surgical History: Appendectomy, Cholecystectomy, Orthopedic Surgery Additional Past Surgical History / Comment(s): R ankle ORIF, removal of skin cancer Past Anesthesia/Blood Transfusion Reactions: No Reported Reaction Past Psychological History: No Psychological Hx Reported Smoking Status: Never smoker - Past Family History Father Family Medical History: Cancer Additional Family Medical History / Comment(s): Myasthenia gravis Mother History Unknown: Yes Family Medical History: No Reported History Additional Family Medical History / Comment(s): Mother was healthy Medications and Allergies Home Medications Medication Instructions Recorded Confirmed Type Cholecalciferol [Vitamin D3 (25 25 mcg PO DAILY@0700 05/20/22 05/06/23 History Mcg = 1000 Iu)] Ferrous Sulfate [Iron (65 MG 325 mg PO BID@0700,19005/20/22 05/06/23 History Elemental)] Acetaminophen Tab [Tylenol] 650 mg PO Q6HR PRN tab 04/07/23 05/06/23 Rx Amiodarone [Cordarone] 200 mg PO DAILY@0700 05/06/23 05/06/23 History Apixaban [Eliquis] 2.5 mg PO BID@0700,1900 05/06/23 05/06/23 History Magnesium Oxide [Mag-Ox] 400 mg PO TID@,,05/06/23 05/06/23 History Metoprolol Tartrate [Lopressor] 25 mg PO BID@0700,1900 05/06/23 05/06/23 History Sertraline [Zoloft] 25 mg PO DAILY@0700 05/06/23 05/06/23 History Tamsulosin [Flomax] 0.4 mg PO HS@1900 05/06/23 05/06/23 History metFORMIN HCL ER [Glucophage XR] 500 mg PO BID@0700,1900 05/06/23 05/06/23 History Allergies Allergy/AdvReac Type Severity Reaction Status Date / Time Penicillins Allergy Unknown Verified 05/06/23 13:43 Childhood Physical Exam Vitals: Vital Signs Temp Pulse Pulse Resp BP BP Pulse Ox 05/07/23 07:30 97.8 F 47 L 20 84/49 95 05/07/23 04:10 122/62 05/07/23 01:47 98.2 F 55 L 18 91/51 96 05/06/23 22:48 122/62 05/06/23 19:24 97.5 F L 61 18 94/51 98 05/06/23 18:07 97.8 F 60 16 111/46 98 05/06/23 17:46 98.5 F 58 L 18 122/66 99 05/06/23 16:28 58 L 17 102/44 97 05/06/23 15:09 58 L 18 98/45 99 Intake and Output 05/06/23 05/07/23 05/07/23 22:59 06:59 14:59 Output Total 1300 Balance -1300 Output: Urine 1300 Other: Voiding Method Indwelling Catheter Indwelling Catheter # Bowel Movements 1 Weight 51.71 kg GENERAL EXAM: Alert, pleasant 82-year-old female, on room air, comfortable in no apparent distress. HEAD: Normocephalic. There is significant ecchymosis around the right eye and face EYES: Normal reaction of pupils, equal size. NOSE: Clear with pink turbinates. THROAT: No erythema or exudates. NECK: No masses, no JVD. CHEST: No chest wall deformity. LUNGS: Equal air entry with crackles in the bilateral bases right greater than left. CVS: S1 and S2 normal with no audible murmur, regular rhythm. ABDOMEN: No hepatosplenomegaly, normal bowel sounds, no guarding or rigidity. SPINE: No scoliosis or deformity SKIN: No rashes CENTRAL NERVOUS SYSTEM: No focal deficits, tone is normal in all 4 extremities. EXTREMITIES: There is no peripheral edema. No clubbing, no cyanosis. Peripheral pulses are intact. Results - Laboratory Findings CBC and BMP: 05/07/23 06:11 05/07/23 06:11 PT/INR, D-dimer PT 11.4 sec (9.0-12.0) 05/06/23 11:45 INR 1.1 (<1.2) 05/06/23 11:45 Abnormal lab findings: Abnormal Labs 05/06/23 05/06/23 05/06/23 11:45 11:45 11:51 RBC Hgb Hct APTT 36.7 H Sodium 120 L Potassium 3.4 L Chloride 92 L Carbon Dioxide 20 L BUN 21 H BUN/Creatinine Ratio Glucose 144 H POC Glucose (mg/dL) Osmolality Calcium 8.3 L Total Protein 5.6 L Albumin 2.6 L Urine Appearance Cloudy H Ur Leukocyte Esterase Large H Urine WBC >182 H Urine Bacteria Occasional H Urine Mucus Rare H 05/06/23 05/06/23 05/07/23 14:41 19:59 06:11 RBC Hgb Hct APTT Sodium 126 L Potassium Chloride 94 L Carbon Dioxide 21.3 L BUN BUN/Creatinine Ratio 24.86 H Glucose POC Glucose (mg/dL) 115 H Osmolality 259 L Calcium 8.4 L Total Protein Albumin Urine Appearance Ur Leukocyte Esterase Urine WBC Urine Bacteria Urine Mucus 05/07/23 06:11 RBC 3.39 L Hgb 10.2 L Hct 29.1 L APTT Sodium Potassium Chloride Carbon Dioxide BUN BUN/Creatinine Ratio Glucose POC Glucose (mg/dL) Osmolality Calcium Total Protein Albumin Urine Appearance Ur Leukocyte Esterase Urine WBC Urine Bacteria Urine Mucus - Diagnostic Findings Chest x-ray: image reviewed Assessment and Plan Assessment: Generalized weakness, status post fall with trauma to the right face and right eye Small bilateral pleural effusions right greater than left, stable and on room air History of atrial fibrillation, anticoagulated with Eliquis Diabetes mellitus, type II Plan: The patient was seen and evaluated Chest x-ray, labs and medications reviewed Currently stable and on room air No plans for thoracentesis at this time Continue diuretics Cardiology consult Echocardiogram Decrease IV fluids to KVO We will continue to follow and make further recommendations based on her clinical status I have personally seen and examined the patient, performed the documentation and the assessment and plan as written. Number of minutes spent on the visit: 20.
--- NOTE | 2023-05-07 15:32 | US ---
EXAMINATION TYPE: US chest DATE OF EXAM: 05/06/2023 COMPARISON: XR 05/06/2023 CLINICAL INDICATION: Female, 82 years old with history of Markings for thoracentesis by pulmonary sta ff; Markings. TECHNIQUE: Targeted ultrasound of the posterior lower bilateral hemithoraces EXAM MEASUREMENTS: Right Pleural Effusion pocket size: 9.1 cm Right skin surface to fluid distance: 2.2 cm Lung tissue seen at 6.0 cm Left Pleural Effusion pocket size: 2.1 cm Not marked due to small pocket size. Right side marked for possible thoracentesis outside the dept. Left side NOT marked for possible thoracentesis outside the dept. Pulmonologists are able to review the images in the patient?s EMR. IMPRESSIONS: Moderate right pleural effusion. 1. Smaller left pleural effusion.
[2023-05-07 16:39] LABS: Glucose,Whole Blood 112 mg/dL (70-110)
--- NOTE | 2023-05-07 17:01 | P.CRDCN ---
History of Present Illness Consult date: 05/07/23 History of present illness: HISTORY OF PRESENTING ILLNESS Patient is a 82-year-old female with past medical history of type 2 diabetes, hypertension, persistent atrial fibrillation. She is not established with any workforce consultant. She was last in the hospital in March when she was treated for Coumadin by pneumonia and Gris. fib RVR. At that time she was discharged home on amiodarone and Eliquis 2.5 mg twice a day This time she was referred to the hospital by her primary care physician based of her labs showing a sodium level of 119. On admission she has been complaining of increased weakness lightheadedness and confusion. He also had a fall earlier this week with a trauma workup being negative so far including CT face and CT head. Her chest x-ray does show small pleural effusion which was confirmed by ultrasound of chest Her ECG shows rate-controlled atrial fibrillation with no significant ST-T wave changes Her lab shows a sodium of 122, creatinine of 0.53, urine osmolarity 392, random urine sodium 45 It is also possible concern for urinary tract infection Cardiology was consulted for management for atrial fibrillation Echocardiogram from March 2023 showed a preserved LVEF with no major valvular abnormality REVIEW OF SYSTEMS 14 point review of system is negative except what is mentioned above in HPI. PHYSICAL EXAMINATION Vital signs reviewed. Head: Normocephalic. Eyes: Sclerae nonicteric. Neck: Brisk carotid upstroke, no jugular venous distention. Lungs: Crackles and rhonchi audible in bilateral lower lung field Heart: Irregularly irregular pulse, no murmur. Abdomen: Soft nontender, positive bowel sounds no organomegaly. Extremities: No edema, intact distal pulses. Awake and alert but not oriented to time . Oriented to place and person. No focal neurological deficit ASSESSMENT Altered mental status and metabolic encephalopathy, multifactorial from UTI and hyponatremia Hypovolemic hyponatremia History of HFpEF. Currently euvolemic to hypovolemic Persistent atrial fibrillation UTI Small pleural effusion, resolving pneumonia Hypertension Type II Diabetes PLAN Continue amiodarone 200 mg daily, metoprolol 12.5 mg twice a day, Eliquis 2.5 mg twice a day Discontinue Lasix as patient is euvolemic to hypovolemic Check TSH levels, liver function, magnesium levels, phosphorus levels Nephrology to manage hyponatremia Other comorbidities to be managed by primary care team Past Medical History Past Medical History: Cancer, Diabetes Mellitus, GERD/Reflux, Hypertension Additional Past Medical History / Comment(s): NIDDM type II, skin cancer with removal, UTIs. History of Any Multi-Drug Resistant Organisms: None Reported Past Surgical History: Appendectomy, Cholecystectomy, Orthopedic Surgery Additional Past Surgical History / Comment(s): R ankle ORIF, removal of skin cancer Past Anesthesia/Blood Transfusion Reactions: No Reported Reaction Past Psychological History: No Psychological Hx Reported Smoking Status: Never smoker - Past Family History Father Family Medical History: Cancer Additional Family Medical History / Comment(s): Myasthenia gravis Mother History Unknown: Yes Family Medical History: No Reported History Additional Family Medical History / Comment(s): Mother was healthy Medications and Allergies Home Medications Medication Instructions Recorded Confirmed Type Cholecalciferol [Vitamin D3 (25 25 mcg PO DAILY@0700 05/20/22 05/06/23 History Mcg = 1000 Iu)] Ferrous Sulfate [Iron (65 MG 325 mg PO BID@0700,1900 05/20/22 05/06/23 History Elemental)] Acetaminophen Tab [Tylenol] 650 mg PO Q6HR PRN tab 04/07/23 05/06/23 Rx Amiodarone [Cordarone] 200 mg PO DAILY@0700 05/06/23 05/06/23 History Apixaban [Eliquis] 2.5 mg PO BID@0700,1900 05/06/23 05/06/23 History Magnesium Oxide [Mag-Ox] 400 mg PO TID@,,05/06/23 05/06/23 History Metoprolol Tartrate [Lopressor] 25 mg PO BID@0700,1900 05/06/23 05/06/23 History Sertraline [Zoloft] 25 mg PO DAILY@0700 05/06/23 05/06/23 History Tamsulosin [Flomax] 0.4 mg PO HS@0 05/06/23 05/06/23 History metFORMIN HCL ER [Glucophage XR] 500 mg PO BID@0700,1900 05/06/23 05/06/23 History Allergies Allergy/AdvReac Type Severity Reaction Status Date / Time Penicillins Allergy Unknown Verified 05/06/23 13:43 Childhood Physical Exam Vitals: Vital Signs Temp Pulse Pulse Resp BP BP Pulse Ox 05/07/23 14:20 97.8 F 51 L 18 103/59 96 05/07/23 07:30 97.8 F 47 L 20 84/49 95 05/07/23 04:10 122/62 05/07/23 01:47 98.2 F 55 L 18 91/51 96 05/06/23 22:48 122/62 05/06/23 19:24 97.5 F L 61 18 94/51 98 05/06/23 18:07 97.8 F 60 16 111/46 98 05/06/23 17:46 98.5 F 58 L 18 122/66 99 Intake and Output 05/07/23 05/07/23 05/07/23 06:59 14:59 22:59 Output Total 1300 Balance -1300 Output: Urine 1300 Other: Voiding Method Indwelling Catheter # Bowel Movements 1 Results 05/07/23 06:11 05/07/23 06:11 CBC 05/07/23 Range/Units 06:11 WBC 7.2 (3.8-10.6) k/uL RBC 3.39 L (3.80-5.40) m/uL Hgb 10.2 L (11.4-16.0) gm/dL Hct 29.1 L (34.0-46.0) % Plt Count 337 (150-450) k/uL Comprehensive Metabolic Panel 05/07/23 Range/Units 06:11 Sodium 126 L (135-145) mmol/L Potassium 3.5 (3.5-5.5) mmol/L Chloride 94 L (96-109) mmol/L Carbon Dioxide 21.3 L (21.6-31.8) mmol/L BUN 17.4 (9.0-27.0) mg/dL Creatinine 0.7 (0.6-1.5) mg/dL Glucose 88 (70-110) mg/dL Calcium 8.4 L (8.7-10.3) mg/dL Current Medications Generic Name Dose Route Start Last Admin Trade Name Freq PRN Reason Stop Dose Admin Acetaminophen 650 mg 05/06/23 16:01 Acetaminophen Tab 325 Mg Tab PO Q6HR PRN Mild Pain or Fever > 100.5 Amiodarone HCl 200 mg 05/07/23 07:00 05/07/23 06:16 Amiodarone 200 Mg Tab PO 200 mg DAILY@0700 JUAN CARLOS Administration Apixaban 2.5 mg 05/06/23 19:00 05/07/23 06:16 Apixaban 2.5 Mg Tablet PO 2.5 mg BID@0700,1900 [facility] Administration Protocol Cholecalciferol 25 mcg 05/07/23 07:00 05/07/23 06:16 Cholecalciferol 25 Mcg (1000 Iu) Tablet PO 25 mcg DAILY@0700 JUAN CARLOS Administration Ferrous Sulfate 325 mg 05/06/23 19:00 05/07/23 06:16 Ferrous Sulfate 325 Mg Tab PO 325 mg BID@0700,1900 [facility] Administration Furosemide 40 mg 05/08/23 09:00 Furosemide 40 Mg Tab PO DAILY JUAN CARLOS Hydromorphone HCl 0.5 mg 05/06/23 14:03 Hydromorphone 0.5 Mg/0.5 Ml Syringe IVP Q3HR PRN Moderate Pain (Scale 4 to 6) Sodium Chloride 1,000 mls @ 20 mls/hr 05/07/23 10:15 05/07/23 11:11 Saline 0.9% IV 20 mls/hr .Q24H JUAN CARLOS Administration Ceftriaxone Sodium 1 gm/ 50 mls @ 100 mls/hr 05/07/23 13:45 05/07/23 15:00 Sodium Chloride IVPB 100 mls/hr Q24HR [facility] Administration Protocol Magnesium Oxide 400 mg 05/06/23 22:00 05/07/23 14:59 Magnesium Oxide 400 Mg Tab PO Not Given TID@ [facility] Metformin HCl 500 mg 05/06/23 19:00 05/07/23 06:16 Metformin 500 Mg Tab PO 500 mg BID@0700,1900 [facility] Administration Metoprolol Tartrate 12.5 mg 05/07/23 21:00 Metoprolol Tartrate 12.5 Mg Tab PO BID [facility] Naloxone HCl 0.2 mg 05/06/23 14:03 Naloxone 0.4 Mg/Ml 1 Ml Vial IV Q2M PRN Opioid Reversal Sertraline HCl 25 mg 05/07/23 07:00 05/07/23 06:18 Sertraline 25 Mg Tab PO 25 mg DAILY@0700 [facility] Administration Tamsulosin HCl 0.4 mg 05/06/23 19:00 05/06/23 20:47 Tamsulosin 0.4 Mg Cap.Er.24h PO 0.4 mg HS@1900 [facility] Administration Intake and Output 1005/07/23 05/07/23 06:59 14:59 22:59 Output Total 1300 Balance -1300 Output: Urine 1300 Other: Voiding Method Indwelling Catheter # Bowel Movements 1 05/07/23 06:11 05/07/23 06:11
[2023-05-07] MEDS ORDERED: QUEtiapine 25 MG TAB PO PRN (17:30)
[2023-05-07 19:18] LABS: Glucose,Whole Blood 148 mg/dL (70-110)
--- NOTE | 2023-05-07 20:00 | P.PN ---
Subjective Progress Note Date: 05/07/23 82-year-old female who presents to the emergency department for lightheadedness. Patient presents from her care home who state patient has been more tired and weak over the past couple days. Patient states she started to feel lightheaded this morning. She denies chest pain, shortness of breath, palpitations. Patient did have a fall on Tuesday she has bruising around the right eye. She did not lose consciousness. She is on Eliquis for atrial fibrillation. She reports significant headache. She does have mild nausea without vomiting. No numbness or tingling. No focal weakness. Does admit to intermittent dry cough. Denies fever, chills, other upper respiratory symptoms. Patient did have a catheter in for 6 weeks which was removed yesterday by primary care provider according to son. States patient was in better spirits yesterday at her primary care visit. Patient denies burning with urination since getting the catheter out. Denies abdominal pain, changes in bowel habits. EKG shows atrial fibrillation patient has known history on Eliquis. Laboratory studies significant for hypokalemia at 3.4 and hyponatremia at 120. Troponin within normal limits. CT interpreted by myself showing no acute intracranial process, no cervical fracture or dislocation, no acute facial fracture. CX-ray interpreted by myself showing small bilateral pleural effusions, left basilar patchy airspace opacity concerning for pneumonia. Objective - Vital Signs Vital signs: Vital Signs Temp 97.8 F 05/07/23 07:30 Pulse 47 L 05/07/23 07:30 Resp 20 05/07/23 07:30 BP 84/49 05/07/23 07:30 Pulse Ox 95 05/07/23 07:30 FiO2 Intake & Output 05/06/23 05/07/23 05/07/23 18:59 06:59 18:59 Output Total 1300 Balance -1300 Weight 51.71 kg 51.71 kg Output: Urine 1300 Other: Voiding Method Indwelling Catheter Indwelling Catheter # Bowel Movements 1 - Exam GENERAL: The patient is alert and oriented x3, not in any acute distress. Well developed, well nourished. HEENT: Pupils are round and equally reacting to light. EOMI. No scleral icterus. No conjunctival pallor. Normocephalic, atraumatic. No pharyngeal erythema. No thyromegaly. CARDIOVASCULAR: S1 and S2 present. Irregularly irregular. PULMONARY: Chest is clear to auscultation, no wheezing or crackles. ABDOMEN: Soft, nontender, nondistended, normoactive bowel sounds. No palpable organomegaly. MUSCULOSKELETAL: No joint swelling or deformity. EXTREMITIES: No cyanosis, clubbing, or pedal edema. NEUROLOGICAL: Gross neurological examination did not reveal any focal deficits. SKIN: No rashes. - Labs CBC & Chem 7: 05/07/23 06:11 05/07/23 06:11 Labs: Abnormal Lab Results - Last 24 Hours (Table) 05/06/23 05/06/23 05/06/23 Range/Units 11:51 14:41 19:59 RBC (3.80-5.40) m/uL Hgb (11.4-16.0) gm/dL Hct (34.0-46.0) % Sodium (135-145) mmol/L Chloride (96-109) mmol/L Carbon Dioxide (21.6-31.8) mmol/L BUN/Creatinine Ratio (12.00-20.00) Ratio POC Glucose (mg/dL) 115 H (70-110) mg/dL Osmolality 259 L (280-301) mosm/kg Calcium (8.7-10.3) mg/dL Urine Appearance Cloudy H (Clear) Ur Leukocyte Esterase Large H (Negative) Urine WBC >182 H (0-5) /hpf Urine Bacteria Occasional H (None) /hpf Urine Mucus Rare H (None) /hpf 05/07/23 05/07/23 Range/Units 06:11 06:11 RBC 3.39 L (3.80-5.40) m/uL Hgb 10.2 L (11.4-16.0) gm/dL Hct 29.1 L (34.0-46.0) % Sodium 126 L (135-145) mmol/L Chloride 94 L (96-109) mmol/L Carbon Dioxide 21.3 L (21.6-31.8) mmol/L BUN/Creatinine Ratio 24.86 H (12.00-20.00) Ratio POC Glucose (mg/dL) (70-110) mg/dL Osmolality (280-301) mosm/kg Calcium 8.4 L (8.7-10.3) mg/dL Urine Appearance (Clear) Ur Leukocyte Esterase (Negative) Urine WBC (0-5) /hpf Urine Bacteria (None) /hpf Urine Mucus (None) /hpf Assessment and Plan Assessment: 1. Left basilar pneumonia; patient is placed on IV antibiotics in form of Rocephin and azithromycin - We will add bronchodilator nebulizer treatments as needed; monitor CBC, CMP and pro-calcitonin - Consult pulmonary for further recommendations 2. Acute exacerbation CHF/fluid overload; patient has been placed on Lasix 40 mg IV every 12 hours; monitor strict MISAEL's, daily weights, low salt and fluid restricted diet 3. Hyponatremia; patient is placed on IV fluid in form of normal saline; we will monitor sodium levels every 4 hours; consult nephrology 4. Hypokalemia; commended in ED; we will monitor electrolytes and make further recommendations 5. UTI; UA is positive for leukocyte esterase, WBCs and bacteria - Patient has been placed on IV Rocephin; we will make further recommendations once culture results are available 6. Atrial fibrillation; patient remains rate controlled on amiodarone 200 mg daily; Ahlquist 2.5 mg twice a day 7. Diabetes mellitus type 2; metformin 500 mg twice a day; monitor Accu-Cheks before meals and at bedtime with insulin sliding scale 8. Hypertension; metoprolol 25 mg twice a day DVT prophylaxis; SCDs/systemic anticoagulation CODE STATUS; DO NOT RESUSCITATE
[2023-05-07] MEDS: METOPROLOL TARTRATE 12.5 MG TAB PO SCH (20:54)
[2023-05-07] MEDS: TAMSULOSIN 0.4 MG CAP.ER.24H PO SCH (20:55)
[2023-05-08 06:14] LABS: Glucose,Whole Blood 121 mg/dL (70-110)
[2023-05-08] MEDS: SERTRALINE 25 MG TAB PO SCH (06:38)
[2023-05-08] MEDS: FERROUS SULFATE 325 MG TAB PO SCH ×2 (06:38→18:04)
[2023-05-08] MEDS: MAGNESIUM OXIDE 400 MG TAB PO SCH ×3 (06:38→20:40)
[2023-05-08] MEDS: CHOLECALCIFEROL 25 MCG (1000 IU) TABLET PO SCH (06:38)
[2023-05-08] MEDS: AMIODARONE 200 MG TAB PO SCH (06:39)
[2023-05-08] MEDS: APIXABAN 2.5 MG TABLET PO SCH ×2 (06:39→18:04)
[2023-05-08] MEDS: metFORMIN 500 MG TAB PO SCH ×2 (06:40→18:04)
[2023-05-08] MEDS ORDERED: FUROSEMIDE 40 MG TAB PO SCH (09:00)
[2023-05-08 09:08] LABS: Basophils # (A) 0.11 X 10*3/uL (0.00-0.10); Eosinophils # (A) 0.09 X 10*3/uL (0.04-0.35); Eosinophils % (A) 0.9 %; HCT 34.4 % (37.2-46.3); HGB 11.3 d/dL (12.0-15.0); Lymphocytes # (A) 1.59 X 10*3/uL (0.90-5.00); Lymphocytes % (A) 15.1 %; MCH 27.5 pg (27.0-32.0); MCHC 32.8 d/dL (32.0-37.0); MCV 83.7 FL (80.0-97.0); Mean Platelet Volume 9.1 FL (9.5-12.2); Monocytes # (A) 0.63 X 10*3/uL (0.20-1.00); NRBC Per 100 WBC 0 X 10*3/uL (0.00-0.01); Neutrophils # (A) 8.04 X 10*3/uL (1.80-7.70); Neutrophils % (A) 76.4 %; Platelet Count 375 X 10*3/uL (140-440); RBC 4.11 X 10*6/uL (4.10-5.20); WBC 10.52 X 10*3/uL (4.50-10.00)
[2023-05-08] MEDS: METOPROLOL TARTRATE 12.5 MG TAB PO SCH ×2 (09:17→20:40)
[2023-05-08 09:18] LABS: BUN/Creat Ratio 29.67 Ratio (12.00-20.00); Blood Urea Nitrogen 17.8 mg/dL (9.0-27.0); Chloride 91 mmol/L (96-109); Glucose 120 mg/dL (70-110); Magnesium 1.5 mg/dL (1.5-2.4); Phosphorus 2.1 mg/dL (2.4-5.1); Potassium 3.2 mmol/L (3.5-5.5); Sodium 124 mmol/L (135-145)
[2023-05-08 09:19] LABS: ALT 14 U/L (8-44); AST 23 U/L (13-35); Albumin 3.2 d/dL (3.8-4.9); Calcium 8.8 mg/dL (8.7-10.3); Carbon Dioxide 21.3 mmol/L (21.6-31.8)
[2023-05-08 09:46] LABS: INR 1.03 sec (0.93-1.11); Prothrombin Time 11.6 sec (9.9-11.9)
[2023-05-08 10:04] LABS: African American GFR (CKD) >90 (>60 ml/min/1.73 sqM); Anion Gap 9 mmol/L; Blood Urea Nitrogen 19 mg/dL (7-17); Calcium 8.4 mg/dL (8.4-10.2); Carbon Dioxide 22 mmol/L (22-30); Chloride 92 mmol/L (98-107); Glucose 104 mg/dL (74-99); Non-African American GFR(CKD) 88 (>60 ml/min/1.73 sqM); Potassium 2.9 mmol/L (3.5-5.1); Sodium 123 mmol/L (137-145)
[2023-05-08] MEDS ORDERED: SODIUM CHLORIDE 0.9% 500 ML 500 ML IV ONE (11:15)
--- NOTE | 2023-05-08 11:15 | P.PN ---
Subjective patient is seen for follow-up for hyponatremia. She was started on IV fluids as well as IV Lasix yesterday. Lasix was subsequently decreased. Serum sodium improvedfrom 120-126 yesterday. However this morning it is back down to 123. No nausea or vomiting URINE OSMOLALITY 392 AND URINE SODIUM 45 ON ADMISSION. No complaints today. Objective - Vital Signs Vital signs: Vital Signs Temp 97.4 F L 05/08/23 06:45 Pulse 121 H 05/08/23 06:45 Resp 18 05/08/23 06:45 BP 97/63 05/08/23 06:45 Pulse Ox 98 05/08/23 06:45 FiO2 Intake & Output 05/07/23 05/08/23 05/08/23 18:59 06:59 18:59 Output Total 230 400 Balance -230 -400 Output: Urine 230 400 Other: Voiding Method Indwelling Catheter Indwelling Catheter Indwelling Catheter - Exam Patient is awake, comfortable, no acute distress Right side of the face not noted to have bruising around the eye area Examination of the heart S1 and S2 Examination of the lungs bilateral breath sounds are heard with decreased breath sounds at the bases Abdomen is soft nontender Examination of lower extremity shows no edema bilaterally 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 - Labs CBC & Chem 7: 05/08/23 05:40 05/08/23 09:35 Labs: Abnormal Lab Results - Last 24 Hours (Table) 05/07/23 05/07/23 05/08/23 Range/Units 16:37 19:16 05:40 WBC (4.50-10.00) X 10*3/uL Hgb (12.0-15.0) d/dL Hct (37.2-46.3) % RDW (11.5-14.5) % MPV (9.5-12.2) FL Neutrophils # (1.80-7.70) X 10*3/uL Basophils # (0.00-0.10) X 10*3/uL Sodium 124 L (135-145) mmol/L Potassium 3.2 L (3.5-5.5) mmol/L Chloride 91 L (96-109) mmol/L Carbon Dioxide 21.3 L (21.6-31.8) mmol/L BUN (7-17) mg/dL BUN/Creatinine Ratio 29.67 H (12.00-20.00) Ratio Glucose 120 H (70-110) mg/dL POC Glucose (mg/dL) 112 H 148 H (70-110) mg/dL Phosphorus 2.1 L (2.4-5.1) mg/dL Total Protein 6.0 L (6.2-8.2) d/dL Albumin 3.2 L (3.8-4.9) d/dL 05/08/23 05/08/23 05/08/23 Range/Units 05:40 06:12 09:35 WBC 10.52 H (4.50-10.00) X 10*3/uL Hgb 11.3 L (12.0-15.0) d/dL Hct 34.4 L (37.2-46.3) % RDW 15.0 H (11.5-14.5) % MPV 9.1 L (9.5-12.2) FL Neutrophils # 8.04 H (1.80-7.70) X 10*3/uL Basophils # 0.11 H (0.00-0.10) X 10*3/uL Sodium 123 L (135-145) mmol/L Potassium 2.9 L (3.5-5.5) mmol/L Chloride 92 L (96-109) mmol/L Carbon Dioxide (21.6-31.8) mmol/L BUN 19 H (7-17) mg/dL BUN/Creatinine Ratio (12.00-20.00) Ratio Glucose 104 H (70-110) mg/dL POC Glucose (mg/dL) 121 H (70-110) mg/dL Phosphorus (2.4-5.1) mg/dL Total Protein (6.2-8.2) d/dL Albumin (3.8-4.9) d/dL Microbiology - Last 24 Hours (Table) 05/06/23 14:17 Blood Culture - Preliminary Blood Assessment and Plan Assessment: 1. Hyponatremia hypervolemic, improved with IV Lasix. patient had also received normal saline. Saline was discontinued yesterday and Lasix was decreased. This morning serum sodium has dropped to again.123. I will challenge with IVF. Urine osmolality 392 and urine sodium 45 on admission. 2. Bradycardia, metoprolol will be decreased. Patient is also maintained on amiodarone for A. fib 3. Chronic A. fib maintained on a liquid is amiodarone and metoprolol 4. Hypokalemia associated with decreased oral intake and diuretics, status post replacement Plan: Challenge with Saline Repeat sodium in 4 hrs. Replace potassium. Repeat labs in a.m. Increase oral protein intake Check urine culture
[2023-05-08 11:25] LABS: Glucose,Whole Blood 111 mg/dL (70-110)
[2023-05-08] MEDS ORDERED: SODIUM CHLORIDE 0.9% 1,000 ML IV SCH (11:30)
[2023-05-08] MEDS: SODIUM CHLORIDE 0.9% 1,000 ML IV SCH (11:34)
[2023-05-08] MEDS: POTASSIUM CHLORIDE ER 20 MEQ TAB.ER PO SCH ×2 (11:37→14:17)
[2023-05-08] MEDS: MAGNESIUM SULFATE-D5W PMX 1 GM in DEXTROSE/WATER 1 100ML.BAG IVPB SCH ×2 (11:40→13:39)
--- NOTE | 2023-05-08 13:49 | P.PN ---
Subjective Progress Note Date: 05/08/23 This is an 82-year-old female patient who resides in an assisted living facility. She has a history of atrial fibrillation anticoagulated with Eliquis, diabetes mellitus, hypertension. She had fallen at the home earlier in the week while getting herself out of the bathroom. She has significant ecchymosis over the right eye. She was brought into the emergency room yesterday with dizziness, lightheadedness and weakness. Computed tomography scan of the head and neck revealed no acute mass or bleed. No acute trauma. Computed tomography scan of the face revealed no acute trauma to the facial bones. Chest x-ray revealed small bilateral pleural effusions right greater than left. Left basilar patchy opacity/atelectasis. Large hiatal hernia. White count 7.2. Hemoglobin 10.2. Platelets 337. Sodium 126. Potassium 3.5. Bicarb 21. BUN 17. Creatinine 0.7. Glucose 88. She is seen today in consultation due to the bilateral pleural effusions. She is currently sitting up in bed. Awake and alert in no acute distress. She is maintaining good O2 saturations in the 90s on room air. She has been afebrile. The patient is seen today 05/08/2023 and follow-up on the regular medical floor. She is currently resting comfortably in bed. Awake and alert in no acute distress. Currently maintaining good O2 saturations in the upper 90s on room air. Afebrile. Hemodynamically stable. Blood cultures reveal no growth. White count 10.5. Hemoglobin 11.3. Platelets 375. Sodium 123. Potassium 2.9. Bicarb 22. BUN 19. Creatinine 0.53. Glucose 104. Pro-calcitonin 0.04. She received 500 ML bolus of saline. Currently in normal saline at 75 ML's per hour. Electrolytes are being replaced. Remains on antibiotics in the form of ceftriaxone. Anticoagulated with Eliquis. Objective - Vital Signs Vital signs: Vital Signs Temp 97.4 F L 05/08/23 06:45 Pulse 121 H 05/08/23 06:45 Resp 18 05/08/23 06:45 BP 97/63 05/08/23 06:45 Pulse Ox 98 05/08/23 06:45 FiO2 Intake & Output 05/07/23 05/08/23 05/08/23 18:59 06:59 18:59 Output Total 230 400 Balance -230 -400 Output: Urine 230 400 Other: Voiding Method Indwelling Catheter Indwelling Catheter Indwelling Catheter - Exam GENERAL EXAM: Alert, 82-year-old female on room air, comfortable in no apparent distress. HEAD: Normocephalic. Ecchymosis around the right eye and face EYES: Normal reaction of pupils, equal size. NOSE: Clear with pink turbinates. THROAT: No erythema or exudates. NECK: No masses, no JVD. CHEST: No chest wall deformity. LUNGS: Equal air entry with crackles in the bilateral bases. CVS: S1 and S2 normal with no audible murmur, regular rhythm. ABDOMEN: No hepatosplenomegaly, normal bowel sounds, no guarding or rigidity. SPINE: No scoliosis or deformity SKIN: No rashes CENTRAL NERVOUS SYSTEM: No focal deficits, tone is normal in all 4 extremities. EXTREMITIES: There is no peripheral edema. No clubbing, no cyanosis. Peripheral pulses are intact. - Labs CBC & Chem 7: 05/08/23 05:40 05/08/23 09:35 Labs: Abnormal Lab Results - Last 24 Hours (Table) 05/07/23 05/07/23 05/08/23 Range/Units 16:37 19:16 05:40 WBC (4.50-10.00) X 10*3/uL Hgb (12.0-15.0) d/dL Hct (37.2-46.3) % RDW (11.5-14.5) % MPV (9.5-12.2) FL Neutrophils # (1.80-7.70) X 10*3/uL Basophils # (0.00-0.10) X 10*3/uL Sodium 124 L (135-145) mmol/L Potassium 3.2 L (3.5-5.5) mmol/L Chloride 91 L (96-109) mmol/L Carbon Dioxide 21.3 L (21.6-31.8) mmol/L BUN (7-17) mg/dL BUN/Creatinine Ratio 29.67 H (12.00-20.00) Ratio Glucose 120 H (70-110) mg/dL POC Glucose (mg/dL) 112 H 148 H (70-110) mg/dL Phosphorus 2.1 L (2.4-5.1) mg/dL Total Protein 6.0 L (6.2-8.2) d/dL Albumin 3.2 L (3.8-4.9) d/dL 05/08/23 05/08/23 05/08/23 Range/Units 05:40 06:12 09:35 WBC 10.52 H (4.50-10.00) X 10*3/uL Hgb 11.3 L (12.0-15.0) d/dL Hct 34.4 L (37.2-46.3) % RDW 15.0 H (11.5-14.5) % MPV 9.1 L (9.5-12.2) FL Neutrophils # 8.04 H (1.80-7.70) X 10*3/uL Basophils # 0.11 H (0.00-0.10) X 10*3/uL Sodium 123 L (135-145) mmol/L Potassium 2.9 L (3.5-5.5) mmol/L Chloride 92 L (96-109) mmol/L Carbon Dioxide (21.6-31.8) mmol/L BUN 19 H (7-17) mg/dL BUN/Creatinine Ratio (12.00-20.00) Ratio Glucose 104 H (70-110) mg/dL POC Glucose (mg/dL) 121 H (70-110) mg/dL Phosphorus (2.4-5.1) mg/dL Total Protein (6.2-8.2) d/dL Albumin (3.8-4.9) d/dL 05/08/23 Range/Units 11:17 WBC (4.50-10.00) X 10*3/uL Hgb (12.0-15.0) d/dL Hct (37.2-46.3) % RDW (11.5-14.5) % MPV (9.5-12.2) FL Neutrophils # (1.80-7.70) X 10*3/uL Basophils # (0.00-0.10) X 10*3/uL Sodium (135-145) mmol/L Potassium (3.5-5.5) mmol/L Chloride (96-109) mmol/L Carbon Dioxide (21.6-31.8) mmol/L BUN (7-17) mg/dL BUN/Creatinine Ratio (12.00-20.00) Ratio Glucose (70-110) mg/dL POC Glucose (mg/dL) 111 H (70-110) mg/dL Phosphorus (2.4-5.1) mg/dL Total Protein (6.2-8.2) d/dL Albumin (3.8-4.9) d/dL Microbiology - Last 24 Hours (Table) 05/06/23 14:17 Blood Culture - Preliminary Blood Assessment and Plan Assessment: Generalized weakness, status post fall with trauma to the right face and right eye Hyponatremia, being replaced Hypokalemia, being replaced Small bilateral pleural effusions right greater than left, stable and on room air History of atrial fibrillation, anticoagulated with Eliquis Diabetes mellitus, type II Plan: The patient was seen and evaluated Labs and medications reviewed Nephrology is following Currently stable and on room air No plans for thoracentesis at this time We will continue to follow I have personally seen and examined the patient, performed the documentation and the assessment and plan as written. Number of minutes spent on the visit: 10.
--- NOTE | 2023-05-08 15:05 | P.PN ---
Subjective Progress Note Date: 05/08/23 Progress note: On review of her labs her magnesium is 1.5, phosphorous is 2.1, sodium is improving. Her TSH is normal She is responding to the cardiac medications. HISTORY OF PRESENTING ILLNESS Patient is a 82-year-old female with past medical history of type 2 diabetes, hypertension, persistent atrial fibrillation. She is not established with any floor care technician. She was last in the hospital in March when she was treated for Coumadin by pneumonia and Finn schmid RVR. At that time she was discharged home on amiodarone and Eliquis 2.5 mg twice a day This time she was referred to the hospital by her primary care physician based of her labs showing a sodium level of 119. On admission she has been complaining of increased weakness lightheadedness and confusion. He also had a fall earlier this week with a trauma workup being negative so far including CT face and CT head. Her chest x-ray does show small pleural effusion which was confirmed by ultrasound of chest Her ECG shows rate-controlled atrial fibrillation with no significant ST-T wave changes Her lab shows a sodium of 122, creatinine of 0.53, urine osmolarity 392, random urine sodium 45 It is also possible concern for urinary tract infection Cardiology was consulted for management for atrial fibrillation Echocardiogram from March 2023 showed a preserved LVEF with no major valvular abnormality REVIEW OF SYSTEMS 14 point review of system is negative except what is mentioned above in HPI. PHYSICAL EXAMINATION Vital signs reviewed. Head: Normocephalic. Eyes: Sclerae nonicteric. Neck: Brisk carotid upstroke, no jugular venous distention. Lungs: Crackles and rhonchi audible in bilateral lower lung field Heart: Irregularly irregular pulse, no murmur. Abdomen: Soft nontender, positive bowel sounds no organomegaly. Extremities: No edema, intact distal pulses. Awake and alert but not oriented to time . Oriented to place and person. No focal neurological deficit ASSESSMENT Altered mental status and metabolic encephalopathy, multifactorial from UTI and hyponatremia Hypovolemic hyponatremia History of HFpEF. Currently euvolemic to hypovolemic Persistent atrial fibrillation UTI Small pleural effusion, resolving pneumonia Hypertension Type II Diabetes PLAN Continue amiodarone 200 mg daily, metoprolol 12.5 mg twice a day, Eliquis 2.5 mg twice a day No need for Lasix as patient is euvolemic to hypovolemic. Nephrology recommendations appreciated. Hypophosphatemia and hypomagnesemia. Replace magnesium and other electrolytes. Nephrology to manage hyponatremia Other comorbidities to be managed by primary care team Objective - Vital Signs Vital signs: Vital Signs Temp 97.4 F L 05/08/23 13:30 Pulse 56 L 05/08/23 13:30 Resp 17 05/08/23 13:30 BP 118/49 05/08/23 13:30 Pulse Ox 97 05/08/23 13:30 FiO2 Intake & Output 05/07/23 05/08/23 05/08/23 18:59 06:59 18:59 Output Total 230 400 Balance -230 -400 Output: Urine 230 400 Other: Voiding Method Indwelling Catheter Indwelling Catheter Indwelling Catheter - Labs CBC & Chem 7: 05/08/23 05:40 05/08/23 09:35 Labs: Abnormal Lab Results - Last 24 Hours (Table) 05/07/23 05/07/23 05/08/23 Range/Units 16:37 19:16 05:40 WBC (4.50-10.00) X 10*3/uL Hgb (12.0-15.0) d/dL Hct (37.2-46.3) % RDW (11.5-14.5) % MPV (9.5-12.2) FL Neutrophils # (1.80-7.70) X 10*3/uL Basophils # (0.00-0.10) X 10*3/uL Sodium 124 L (135-145) mmol/L Potassium 3.2 L (3.5-5.5) mmol/L Chloride 91 L (96-109) mmol/L Carbon Dioxide 21.3 L (21.6-31.8) mmol/L BUN (7-17) mg/dL BUN/Creatinine Ratio 29.67 H (12.00-20.00) Ratio Glucose 120 H (70-110) mg/dL POC Glucose (mg/dL) 112 H 148 H (70-110) mg/dL Phosphorus 2.1 L (2.4-5.1) mg/dL Total Protein 6.0 L (6.2-8.2) d/dL Albumin 3.2 L (3.8-4.9) d/dL 05/08/23 05/08/23 05/08/23 Range/Units 05:40 06:12 09:35 WBC 10.52 H (4.50-10.00) X 10*3/uL Hgb 11.3 L (12.0-15.0) d/dL Hct 34.4 L (37.2-46.3) % RDW 15.0 H (11.5-14.5) % MPV 9.1 L (9.5-12.2) FL Neutrophils # 8.04 H (1.80-7.70) X 10*3/uL Basophils # 0.11 H (0.00-0.10) X 10*3/uL Sodium 123 L (135-145) mmol/L Potassium 2.9 L (3.5-5.5) mmol/L Chloride 92 L (96-109) mmol/L Carbon Dioxide (21.6-31.8) mmol/L BUN 19 H (7-17) mg/dL BUN/Creatinine Ratio (12.00-20.00) Ratio Glucose 104 H (70-110) mg/dL POC Glucose (mg/dL) 121 H (70-110) mg/dL Phosphorus (2.4-5.1) mg/dL Total Protein (6.2-8.2) d/dL Albumin (3.8-4.9) d/dL 05/08/23 Range/Units 11:17 WBC (4.50-10.00) X 10*3/uL Hgb (12.0-15.0) d/dL Hct (37.2-46.3) % RDW (11.5-14.5) % MPV (9.5-12.2) FL Neutrophils # (1.80-7.70) X 10*3/uL Basophils # (0.00-0.10) X 10*3/uL Sodium (135-145) mmol/L Potassium (3.5-5.5) mmol/L Chloride (96-109) mmol/L Carbon Dioxide (21.6-31.8) mmol/L BUN (7-17) mg/dL BUN/Creatinine Ratio (12.00-20.00) Ratio Glucose (70-110) mg/dL POC Glucose (mg/dL) 111 H (70-110) mg/dL Phosphorus (2.4-5.1) mg/dL Total Protein (6.2-8.2) d/dL Albumin (3.8-4.9) d/dL Microbiology - Last 24 Hours (Table) 05/06/23 14:17 Blood Culture - Preliminary Blood
--- NOTE | 2023-05-08 16:13 | P.PN ---
Subjective Progress Note Date: 05/08/23 82-year-old female who presents to the emergency department for lightheadedness. Patient presents from her shelter who state patient has been more tired and weak over the past couple days. Patient states she started to feel lightheaded this morning. She denies chest pain, shortness of breath, palpitations. Patient did have a fall on Tuesday she has bruising around the right eye. She did not lose consciousness. She is on Eliquis for atrial fibrillation. She reports significant headache. She does have mild nausea without vomiting. No numbness or tingling. No focal weakness. Does admit to intermittent dry cough. Denies fever, chills, other upper respiratory symptoms. Patient did have a catheter in for 6 weeks which was removed yesterday by primary care provider according to son. States patient was in better spirits yesterday at her primary care visit. Patient denies burning with urination since getting the catheter out. Denies abdominal pain, changes in bowel habits. EKG shows atrial fibrillation patient has known history on Eliquis. Laboratory studies significant for hypokalemia at 3.4 and hyponatremia at 120. Troponin within normal limits. CT interpreted by myself showing no acute intracranial process, no cervical fracture or dislocation, no acute facial fracture. CX-ray interpreted by myself showing small bilateral pleural effusions, left basilar patchy airspace opacity concerning for pneumonia. 05/08/2023 Patient is seen and evaluated in follow-up on the regular medical floor. She is currently resting comfortably in bed. Awake and alert in no acute distress. Currently maintaining good O2 saturations in the upper 90s on room air. Blood cultures reveal no growth. White count 10.5. Hemoglobin 11.3. Platelets 375. Sodium 123. Potassium 2.9. Bicarb 22. BUN 19. Creatinine 0.53. Glucose 104. Pro-calcitonin 0.04. She received 500 ML bolus of saline. Currently in normal saline at 75 ML's per hour. Remains on antibiotics in the form of ceftriaxone. Anticoagulated with Eliquis. Patient has been evaluated by cardiology for possible CHF exacerbation; cardiology recommending to discontinue Lasix; nephrology on board for management of hyponatremia Objective - Vital Signs Vital signs: Vital Signs Temp 97.4 F L 05/08/23 06:45 Pulse 121 H 05/08/23 06:45 Resp 18 05/08/23 06:45 BP 97/63 05/08/23 06:45 Pulse Ox 98 05/08/23 06:45 FiO2 Intake & Output 05/07/23 05/08/23 05/08/23 18:59 06:59 18:59 Output Total 230 400 Balance -230 -400 Output: Urine 230 400 Other: Voiding Method Indwelling Catheter Indwelling Catheter Indwelling Catheter - Exam GENERAL: The patient is alert and oriented x3, not in any acute distress. Well developed, well nourished. HEENT: Pupils are round and equally reacting to light. EOMI. No scleral icterus. No conjunctival pallor. Normocephalic, atraumatic. No pharyngeal erythema. No thyromegaly. CARDIOVASCULAR: S1 and S2 present. Irregularly irregular. PULMONARY: Chest is clear to auscultation, no wheezing or crackles. ABDOMEN: Soft, nontender, nondistended, normoactive bowel sounds. No palpable organomegaly. MUSCULOSKELETAL: No joint swelling or deformity. EXTREMITIES: No cyanosis, clubbing, or pedal edema. NEUROLOGICAL: Gross neurological examination did not reveal any focal deficits. SKIN: No rashes. - Labs CBC & Chem 7: 05/08/23 05:40 05/08/23 15:35 Labs: Abnormal Lab Results - Last 24 Hours (Table) 05/07/23 05/07/23 05/08/23 Range/Units 16:37 19:16 05:40 WBC (4.50-10.00) X 10*3/uL Hgb (12.0-15.0) d/dL Hct (37.2-46.3) % RDW (11.5-14.5) % MPV (9.5-12.2) FL Neutrophils # (1.80-7.70) X 10*3/uL Basophils # (0.00-0.10) X 10*3/uL Sodium 124 L (135-145) mmol/L Potassium 3.2 L (3.5-5.5) mmol/L Chloride 91 L (96-109) mmol/L Carbon Dioxide 21.3 L (21.6-31.8) mmol/L BUN (7-17) mg/dL BUN/Creatinine Ratio 29.67 H (12.00-20.00) Ratio Glucose 120 H (70-110) mg/dL POC Glucose (mg/dL) 112 H 148 H (70-110) mg/dL Phosphorus 2.1 L (2.4-5.1) mg/dL Total Protein 6.0 L (6.2-8.2) d/dL Albumin 3.2 L (3.8-4.9) d/dL 05/08/23 05/08/23 05/08/23 Range/Units 05:40 06:12 09:35 WBC 10.52 H (4.50-10.00) X 10*3/uL Hgb 11.3 L (12.0-15.0) d/dL Hct 34.4 L (37.2-46.3) % RDW 15.0 H (11.5-14.5) % MPV 9.1 L (9.5-12.2) FL Neutrophils # 8.04 H (1.80-7.70) X 10*3/uL Basophils # 0.11 H (0.00-0.10) X 10*3/uL Sodium 123 L (135-145) mmol/L Potassium 2.9 L (3.5-5.5) mmol/L Chloride 92 L (96-109) mmol/L Carbon Dioxide (21.6-31.8) mmol/L BUN 19 H (7-17) mg/dL BUN/Creatinine Ratio (12.00-20.00) Ratio Glucose 104 H (70-110) mg/dL POC Glucose (mg/dL) 121 H (70-110) mg/dL Phosphorus (2.4-5.1) mg/dL Total Protein (6.2-8.2) d/dL Albumin (3.8-4.9) d/dL 05/08/23 Range/Units 11:17 WBC (4.50-10.00) X 10*3/uL Hgb (12.0-15.0) d/dL Hct (37.2-46.3) % RDW (11.5-14.5) % MPV (9.5-12.2) FL Neutrophils # (1.80-7.70) X 10*3/uL Basophils # (0.00-0.10) X 10*3/uL Sodium (135-145) mmol/L Potassium (3.5-5.5) mmol/L Chloride (96-109) mmol/L Carbon Dioxide (21.6-31.8) mmol/L BUN (7-17) mg/dL BUN/Creatinine Ratio (12.00-20.00) Ratio Glucose (70-110) mg/dL POC Glucose (mg/dL) 111 H (70-110) mg/dL Phosphorus (2.4-5.1) mg/dL Total Protein (6.2-8.2) d/dL Albumin (3.8-4.9) d/dL Microbiology - Last 24 Hours (Table) 05/06/23 14:17 Blood Culture - Preliminary Blood Assessment and Plan Assessment: 1. Left basilar pneumonia; patient is placed on IV antibiotics in form of Rocephin and azithromycin - We will add bronchodilator nebulizer treatments as needed; monitor CBC, CMP and pro-calcitonin - Consult pulmonary for further recommendations 2. Acute exacerbation CHF/fluid overload; patient has been placed on Lasix 40 mg IV every 12 hours; monitor strict MISAEL's, daily weights, low salt and fluid restricted diet 3. Hyponatremia; patient is placed on IV fluid in form of normal saline; we kayli l monitor sodium levels every 4 hours; consult nephrology 4. Hypokalemia; commended in ED; we will monitor electrolytes and make further recommendations 5. UTI; UA is positive for leukocyte esterase, WBCs and bacteria - Patient has been placed on IV Rocephin; we will make further recommendations once culture results are available 6. Atrial fibrillation; patient remains rate controlled on amiodarone 200 mg daily; Ahlquist 2.5 mg twice a day 7. Diabetes mellitus type 2; metformin 500 mg twice a day; monitor Accu-Cheks before meals and at bedtime with insulin sliding scale 8. Hypertension; metoprolol 25 mg twice a day DVT prophylaxis; SCDs/systemic anticoagulation CODE STATUS; DO NOT RESUSCITATE
[2023-05-08 16:41] LABS: Glucose,Whole Blood 141 mg/dL (70-110)
[2023-05-08] MEDS: TAMSULOSIN 0.4 MG CAP.ER.24H PO SCH (18:04)
[2023-05-08 20:42] LABS: Glucose,Whole Blood 166 mg/dL (70-110)
[2023-05-08] MEDS ORDERED: TOLVAPTAN 15 MG TABLET PO ONE (22:50)
[2023-05-09 06:17] LABS: Glucose,Whole Blood 107 mg/dL (70-110)
[2023-05-09] MEDS: MAGNESIUM OXIDE 400 MG TAB PO SCH ×3 (06:33→20:43)
[2023-05-09] MEDS: APIXABAN 2.5 MG TABLET PO SCH ×2 (06:33→18:21)
[2023-05-09] MEDS: CHOLECALCIFEROL 25 MCG (1000 IU) TABLET PO SCH (06:33)
[2023-05-09] MEDS: metFORMIN 500 MG TAB PO SCH ×2 (06:33→18:21)
[2023-05-09] MEDS: FERROUS SULFATE 325 MG TAB PO SCH ×2 (06:33→18:21)
[2023-05-09] MEDS: SERTRALINE 25 MG TAB PO SCH (06:33)
[2023-05-09] MEDS: AMIODARONE 200 MG TAB PO SCH (06:35)
--- NOTE | 2023-05-09 07:01 | XR ---
EXAMINATION TYPE: XR chest 1V portable DATE OF EXAM: 05/09/2023 6:55 AM COMPARISON: Chest radiographs from 05/06/2023 TECHNIQUE: XR chest 1V portable Portable AP radiograph of the chest. CLINICAL INDICATION:Female, 82 years old with history of Pleural effusions; FINDINGS: Lungs/Pleura: Blunting of both thoracic angles with fluid within the right fissure. Bibasilar atelect asis redemonstrated. No pneumothorax. Pulmonary vascularity: Mild pulmonary vascular congestion. Heart/mediastinum: Cardiomediastinal silhouette is prominent in size. Atherosclerotic calcifications are seen in the aorta. Musculoskeletal: No acute osseous pathology. IMPRESSION: Small to moderate right and small left pleural effusions with cardiomegaly and mild pulmonary vascula r congestion. Correlate for CHF exacerbation.
[2023-05-09] MEDS: METOPROLOL TARTRATE 12.5 MG TAB PO SCH ×2 (08:33→20:43)
[2023-05-09] MEDS: SODIUM CHLORIDE 0.9% 1,000 ML IV SCH (08:35)
[2023-05-09 08:56] LABS: Basophils # (A) 0.07 X 10*3/uL (0.00-0.10); Basophils % (A) 0.9 %; Eosinophils # (A) 0.15 X 10*3/uL (0.04-0.35); Eosinophils % (A) 1.9 %; HCT 27.1 % (37.2-46.3); HGB 9.1 d/dL (12.0-15.0); Lymphocytes # (A) 1.72 X 10*3/uL (0.90-5.00); Lymphocytes % (A) 22.1 %; MCH 28.2 pg (27.0-32.0); MCHC 33.6 d/dL (32.0-37.0); MCV 83.9 FL (80.0-97.0); Mean Platelet Volume 8.7 FL (9.5-12.2); Monocytes # (A) 0.67 X 10*3/uL (0.20-1.00); Monocytes % (A) 8.6 %; NRBC Per 100 WBC 0 X 10*3/uL (0.00-0.01); Neutrophils # (A) 5.14 X 10*3/uL (1.80-7.70); Platelet Count 308 X 10*3/uL (140-440); RBC 3.23 X 10*6/uL (4.10-5.20); RDW 15.2 % (11.5-14.5); WBC 7.79 X 10*3/uL (4.50-10.00)
[2023-05-09 09:25] LABS: Blood Urea Nitrogen 15.4 mg/dL (9.0-27.0); Calcium 8.3 mg/dL (8.7-10.3); Carbon Dioxide 20.4 mmol/L (21.6-31.8); Chloride 95 mmol/L (96-109); Glucose 96 mg/dL (70-110); Potassium 4.5 mmol/L (3.5-5.5); Sodium 124 mmol/L (135-145)
[2023-05-09 11:48] LABS: Glucose,Whole Blood 108 mg/dL (70-110)
--- NOTE | 2023-05-09 12:49 | P.PN ---
Subjective Patient is seen in follow-up for hyponatremia. Sodium level 124 today. Received Samsca last night. Resting in bed. States she's been eating. Denies vomiting or diarrhea. Vital signs are stable. General: No acute distress. HEENT: Right eye bruising noted. LUNGS: No audible rhonchi or wheezes. HEART: Rate and Rhythm are regular. ABDOMEN: Nontender. EXTREMITITES: No edema. Objective - Vital Signs Vital signs: Vital Signs Temp 97.5 F L 05/09/23 07:15 Pulse 55 L 05/09/23 07:15 Resp 19 05/09/23 07:15 BP 122/65 05/09/23 07:15 Pulse Ox 97 05/09/23 07:15 FiO2 Intake & Output 05/08/23 05/09/23 05/09/23 18:59 06:59 18:59 Output Total 470 200 Balance -470 -200 Output: Urine 470 200 Other: Voiding Method Indwelling Catheter Indwelling Catheter - Labs CBC & Chem 7: 05/09/23 06:12 05/09/23 06:12 Labs: Abnormal Lab Results - Last 24 Hours (Table) 05/08/23 05/08/23 05/08/23 Range/Units 15:35 16:39 20:40 RBC (4.10-5.20) X 10*6/uL Hgb (12.0-15.0) d/dL Hct (37.2-46.3) % RDW (11.5-14.5) % MPV (9.5-12.2) FL Sodium 121 L (137-145) mmol/L Chloride (96-109) mmol/L Carbon Dioxide (21.6-31.8) mmol/L Creatinine (0.6-1.5) mg/dL BUN/Creatinine Ratio (12.00-20.00) Ratio POC Glucose (mg/dL) 141 H 166 H (70-110) mg/dL Calcium (8.7-10.3) mg/dL 05/08/23 05/09/23 05/09/23 Range/Units 23:21 06:12 06:12 RBC 3.23 L (4.10-5.20) X 10*6/uL Hgb 9.1 L (12.0-15.0) d/dL Hct 27.1 L (37.2-46.3) % RDW 15.2 H (11.5-14.5) % MPV 8.7 L (9.5-12.2) FL Sodium 121 L 124 L (137-145) mmol/L Chloride 95 L (96-109) mmol/L Carbon Dioxide 20.4 L (21.6-31.8) mmol/L Creatinine 0.5 L (0.6-1.5) mg/dL BUN/Creatinine Ratio 30.80 H (12.00-20.00) Ratio POC Glucose (mg/dL) (70-110) mg/dL Calcium 8.3 L (8.7-10.3) mg/dL Microbiology - Last 24 Hours (Table) 05/06/23 14:17 Blood Culture - Preliminary Blood Assessment and Plan Plan: Assessment: 1. Hypervolemic hyponatremia. Status post diuresis. Also received Samsca distention. Sodium level 124 this morning. Urine sodium 45 and urine osmolality 392. TSH normal. 2. Bradycardia. Metoprolol decreased. On amiodarone for A. fib. 3. Hypomagnesemia from poor intake. Replaced. 4. Anemia. Rule out iron deficiency. Plan: Add 1200 mL fluid restriction. Encourage oral intake. Repeat Samsca today. Check iron studies. Repeat BMP in the morning. Check phosphorus level as well.
[2023-05-09 13:30] LABS: Phosphorus 2.5 mg/dL (2.5-4.5)
[2023-05-09] MEDS ORDERED: TOLVAPTAN 15 MG TABLET PO ONE (13:30)
[2023-05-09 13:48] VITALS: BMI 20.8
--- NOTE | 2023-05-09 14:41 | P.PN ---
Subjective Progress Note Date: 05/09/23 This is an 82-year-old female patient who resides in an assisted living facility. She has a history of atrial fibrillation anticoagulated with Eliquis, diabetes mellitus, hypertension. She had fallen at the home earlier in the week while getting herself out of the bathroom. She has significant ecchymosis over the right eye. She was brought into the emergency room yesterday with dizziness, lightheadedness and weakness. Computed tomography scan of the head and neck revealed no acute mass or bleed. No acute trauma. Computed tomography scan of the face revealed no acute trauma to the facial bones. Chest x-ray revealed small bilateral pleural effusions right greater than left. Left basilar patchy opacity/atelectasis. Large hiatal hernia. White count 7.2. Hemoglobin 10.2. Platelets 337. Sodium 126. Potassium 3.5. Bicarb 21. BUN 17. Creatinine 0.7. Glucose 88. She is seen today in consultation due to the bilateral pleural effusions. She is currently sitting up in bed. Awake and alert in no acute distress. She is maintaining good O2 saturations in the 90s on room air. She has been afebrile. The patient is seen today 05/08/2023 and follow-up on the regular medical floor. She is currently resting comfortably in bed. Awake and alert in no acute distress. Currently maintaining good O2 saturations in the upper 90s on room air. Afebrile. Hemodynamically stable. Blood cultures reveal no growth. White count 10.5. Hemoglobin 11.3. Platelets 375. Sodium 123. Potassium 2.9. Bicarb 22. BUN 19. Creatinine 0.53. Glucose 104. Pro-calcitonin 0.04. She received 500 ML bolus of saline. Currently in normal saline at 75 ML's per hour. Electrolytes are being replaced. Remains on antibiotics in the form of ceftriaxone. Anticoagulated with Eliquis. The patient is seen today 05/09/2023 in follow-up on the regular medical floor. She is awake and alert in no acute distress. Resting in bed. Currently on room air. Normal saline at 20 mg per hour. Pro-calcitonin level is 0.04. She is currently on ceftriaxone. She is anticoagulated with Eliquis. Chest x-ray reveals a moderate right and small left pleural effusion with cardiomegaly and mild pulmonary vascular congestion. White count 7.7. Hemoglobin 9.1. Platelets 308. Sodium 124. Bicarb 20. BUN 15. Creatinine 0.5. Glucose 96. Blood culture reveals no growth. Legionella antigen pending. Objective - Vital Signs Vital signs: Vital Signs Temp 97.5 F L 05/09/23 07:15 Pulse 55 L 05/09/23 07:15 Resp 19 05/09/23 07:15 BP 122/65 05/09/23 07:15 Pulse Ox 97 05/09/23 07:15 FiO2 Intake & Output 05/08/23 05/09/23 05/09/23 18:59 06:59 18:59 Output Total 470 200 Balance -470 -200 Weight 51.71 kg Output: Urine 470 200 Other: Voiding Method Indwelling Catheter Indwelling Catheter - Exam GENERAL EXAM: Alert, pleasant 82-year-old female, comfortable in no apparent distress. HEAD: Normocephalic. Ecchymosis around the right eye and face EYES: Normal reaction of pupils, equal size. NOSE: Clear with pink turbinates. THROAT: No erythema or exudates. NECK: No masses, no JVD. CHEST: No chest wall deformity. LUNGS: Equal air entry with crackles in the bilateral bases. On room air. CVS: S1 and S2 normal with no audible murmur, regular rhythm. ABDOMEN: No hepatosplenomegaly, normal bowel sounds, no guarding or rigidity. SPINE: No scoliosis or deformity SKIN: No rashes CENTRAL NERVOUS SYSTEM: No focal deficits, tone is normal in all 4 extremities. EXTREMITIES: There is no peripheral edema. No clubbing, no cyanosis. Periphera l pulses are intact. - Labs CBC & Chem 7: 05/09/23 06:12 05/09/23 06:12 Labs: Abnormal Lab Results - Last 24 Hours (Table) 05/08/23 05/08/23 05/08/23 Range/Units 15:35 16:39 20:40 RBC (4.10-5.20) X 10*6/uL Hgb (12.0-15.0) d/dL Hct (37.2-46.3) % RDW (11.5-14.5) % MPV (9.5-12.2) FL Sodium 121 L (137-145) mmol/L Chloride (96-109) mmol/L Carbon Dioxide (21.6-31.8) mmol/L Creatinine (0.6-1.5) mg/dL BUN/Creatinine Ratio (12.00-20.00) Ratio POC Glucose (mg/dL) 141 H 166 H (70-110) mg/dL Calcium (8.7-10.3) mg/dL 05/08/23 05/09/23 05/09/23 Range/Units 23:21 06:12 06:12 RBC 3.23 L (4.10-5.20) X 10*6/uL Hgb 9.1 L (12.0-15.0) d/dL Hct 27.1 L (37.2-46.3) % RDW 15.2 H (11.5-14.5) % MPV 8.7 L (9.5-12.2) FL Sodium 121 L 124 L (137-145) mmol/L Chloride 95 L (96-109) mmol/L Carbon Dioxide 20.4 L (21.6-31.8) mmol/L Creatinine 0.5 L (0.6-1.5) mg/dL BUN/Creatinine Ratio 30.80 H (12.00-20.00) Ratio POC Glucose (mg/dL) (70-110) mg/dL Calcium 8.3 L (8.7-10.3) mg/dL Microbiology - Last 24 Hours (Table) 05/06/23 14:17 Blood Culture - Preliminary Blood Assessment and Plan Assessment: Generalized weakness, status post fall with trauma to the right face and right eye Hyponatremia, being replaced Hypokalemia, being replaced Small bilateral pleural effusions right greater than left, stable and on room air History of atrial fibrillation, anticoagulated with Eliquis Diabetes mellitus, type II Plan: The patient was seen and evaluated Chest x-ray, labs and medications reviewed Check a legionella antigen Currently stable and on room air No plans for thoracentesis at this time We will continue to follow I have personally seen and examined the patient, performed the documentation and the assessment and plan as written. Number of minutes spent on the visit: 10.
[2023-05-09] MEDS ORDERED: QUEtiapine 25 MG TAB PO PRN (16:06)
[2023-05-09 16:55] LABS: Glucose,Whole Blood 118 mg/dL (70-110)
[2023-05-09] MEDS: TAMSULOSIN 0.4 MG CAP.ER.24H PO SCH (18:21)
[2023-05-09 19:31] LABS: Glucose,Whole Blood 125 mg/dL (70-110)
[2023-05-10 05:26] LABS: Glucose,Whole Blood 96 mg/dL (70-110)
--- NOTE | 2023-05-10 05:32 | P.PN ---
Subjective Progress Note Date: 05/09/23 82-year-old female who presents to the emergency department for lightheadedness. Patient presents from her skilled nursing who state patient has been more tired and weak over the past couple days. Patient states she started to feel lightheaded this morning. She denies chest pain, shortness of breath, palpitations. Patient did have a fall on Tuesday she has bruising around the right eye. She did not lose consciousness. She is on Eliquis for atrial fibrillation. She reports significant headache. She does have mild nausea without vomiting. No numbness or tingling. No focal weakness. Does admit to intermittent dry cough. Denies fever, chills, other upper respiratory symptoms. Patient did have a catheter in for 6 weeks which was removed yesterday by primary care provider according to son. States patient was in better spirits yesterday at her primary care visit. Patient denies burning with urination since getting the catheter out. Denies abdominal pain, changes in bowel habits. EKG shows atrial fibrillation patient has known history on Eliquis. Laboratory studies significant for hypokalemia at 3.4 and hyponatremia at 120. Troponin within normal limits. CT interpreted by myself showing no acute intracranial process, no cervical fracture or dislocation, no acute facial fracture. CX-ray interpreted by myself showing small bilateral pleural effusions, left basilar patchy airspace opacity concerning for pneumonia. 05/08/2023 Patient is seen and evaluated in follow-up on the regular medical floor. She is currently resting comfortably in bed. Awake and alert in no acute distress. Currently maintaining good O2 saturations in the upper 90s on room air. Blood cultures reveal no growth. White count 10.5. Hemoglobin 11.3. Platelets 375. Sodium 123. Potassium 2.9. Bicarb 22. BUN 19. Creatinine 0.53. Glucose 104. Pro-calcitonin 0.04. She received 500 ML bolus of saline. Currently in normal saline at 75 ML's per hour. Remains on antibiotics in the form of ceftriaxone. Anticoagulated with Eliquis. Patient has been evaluated by cardiology for possible CHF exacerbation; cardiology recommending to discontinue Lasix; nephrology on board for management of hyponatremia 05/09/2023 Patient is seen and evaluated in follow-up today extremely lethargic although arousable. Nursing staff reports she is minimally arousable. Patient not eating much with significant weakness being followed by nephrology, pulmonary, cardiology. Per nursing staff patient was given Seroquel 25 mg weekly last night and has been lethargic since. Patient maintained on ceftriaxone with concerns of pneumonia. Sodium remains low at 124 and is status post Samsca and awaiting repeat labs. Will have physical therapy evaluate patient and encouraged to increase activity as tolerated. Patient is currently afebrile with no reports of chest pain or shortness of breath. No reported nausea or vomiting. Reports not much of an appetite and not very hungry. Review of systems: Constitutional: reports of fatigue, no fever, or chills Cardiovascular: No reports of chest pain or palpitations Respiratory: No reports of shortness of breath or cough GI: No reports of nausea, vomiting, or diarrhea, reports not much of an appetite : No reports of dysuria or retention Neurovascular: reports of generalized weakness All medications have been reviewed Physical exam: GENERAL: The patient is lethargic but arousable alert and oriented x3, not in any acute distress. Well developed, thin built, elderly appearing HEENT: Pupils are round and equally reacting to light. EOMI. No scleral icterus. No conjunctival pallor. Normocephalic, atraumatic. No pharyngeal erythema. No thyromegaly. CARDIOVASCULAR: S1 and S2 present. Irregularly irregular. PULMONARY: Chest is clear to auscultation, no wheezing or crackles. ABDOMEN: Soft, nontender, nondistended, normoactive bowel sounds. No palpable organomegaly. MUSCULOSKELETAL: No joint swelling or deformity. EXTREMITIES: No cyanosis, clubbing, or pedal edema. NEUROLOGICAL: Gross neurological examination did not reveal any focal deficits. SKIN: No rashes. Healing ecchymosis noted around the right eye status post fall Assessment: Left basilar pneumonia present on admission Acute on chronic exacerbation CHF/fluid overload Hyponatremia secondary to poor oral intake Hypokalemia secondary to poor oral intake Acute UTI, present on admission History of Atrial fibrillation; patient remains rate controlled Diabetes mellitus type 2 Hypertension Gait dysfunction Recent fall with noted right eye orbit ecchymosis, no fractures noted GI prophylaxis DVT prophylaxis; SCDs/systemic anticoagulation No code Plan: Patient is currently continued on antibiotics with concerns of pneumonia with pulmonary following. Legionella ordered and pending. Pro-calcitonin was low Nephrology following his sodium remains low at 124 and will receive another dose of Samsca. Encouraged oral intake Will have physical therapy evaluate the patient Repeat labs ordered for a.m. Encouraged increased activity as tolerated Patient was given Seroquel 25 mg extremely lethargic, will adjust the dose and make as needed for agitation at night Will discuss further with case management/social work on discharge planning and we PT/OT therapy evaluation The impression and plan of care has been dictated by Audra Fontaine, Nurse Practitioner as directed. Dr. Mello MD I have performed a history and examination and MDM of this patient, discussed the same with the dictator, and agree with the dictator's assessment and plan as written ,documented as a scribe. Based on total visit time, I have performed more than 50% of the visit. Objective - Vital Signs Vital signs: Vital Signs Temp 97.5 F L 05/09/23 07:15 Pulse 55 L 05/09/23 07:15 Resp 19 05/09/23 07:15 BP 122/65 05/09/23 07:15 Pulse Ox 97 05/09/23 07:15 FiO2 Intake & Output 05/08/23 05/09/23 05/09/23 18:59 06:59 18:59 Output Total 470 200 Balance -470 -200 Output: Urine 470 200 Other: Voiding Method Indwelling Catheter Indwelling Catheter - Labs CBC & Chem 7: 05/09/23 06:12 05/09/23 06:12 Labs: Abnormal Lab Results - Last 24 Hours (Table) 05/08/23 05/08/23 05/08/23 Range/Units 11:17 15:35 16:39 RBC (4.10-5.20) X 10*6/uL Hgb (12.0-15.0) d/dL Hct (37.2-46.3) % RDW (11.5-14.5) % MPV (9.5-12.2) FL Sodium 121 L (137-145) mmol/L Chloride (96-109) mmol/L Carbon Dioxide (21.6-31.8) mmol/L Creatinine (0.6-1.5) mg/dL BUN/Creatinine Ratio (12.00-20.00) Ratio POC Glucose (mg/dL) 111 H 141 H (70-110) mg/dL Calcium (8.7-10.3) mg/dL 05/08/23 05/08/23 05/09/23 Range/Units 20:40 23:21 06:12 RBC 3.23 L (4.10-5.20) X 10*6/uL Hgb 9.1 L (12.0-15.0) d/dL Hct 27.1 L (37.2-46.3) % RDW 15.2 H (11.5-14.5) % MPV 8.7 L (9.5-12.2) FL Sodium 121 L (137-145) mmol/L Chloride (96-109) mmol/L Carbon Dioxide (21.6-31.8) mmol/L Creatinine (0.6-1.5) mg/dL BUN/Creatinine Ratio (12.00-20.00) Ratio POC Glucose (mg/dL) 166 H (70-110) mg/dL Calcium (8.7-10.3) mg/dL 05/09/23 Range/Units 06:12 RBC (4.10-5.20) X 10*6/uL Hgb (12.0-15.0) d/dL Hct (37.2-46.3) % RDW (11.5-14.5) % MPV (9.5-12.2) FL Sodium 124 L (137-145) mmol/L Chloride 95 L (96-109) mmol/L Carbon Dioxide 20.4 L (21.6-31.8) mmol/L Creatinine 0.5 L (0.6-1.5) mg/dL BUN/Creatinine Ratio 30.80 H (12.00-20.00) Ratio POC Glucose (mg/dL) (70-110) mg/dL Calcium 8.3 L (8.7-10.3) mg/dL Microbiology - Last 24 Hours (Table) 05/06/23 14:17 Blood Culture - Preliminary Blood
[2023-05-10] MEDS: MAGNESIUM OXIDE 400 MG TAB PO SCH ×3 (06:31→20:12)
[2023-05-10] MEDS: AMIODARONE 200 MG TAB PO SCH (06:31)
[2023-05-10] MEDS: FERROUS SULFATE 325 MG TAB PO SCH ×2 (06:31→17:40)
[2023-05-10] MEDS: SERTRALINE 25 MG TAB PO SCH (06:31)
[2023-05-10] MEDS: CHOLECALCIFEROL 25 MCG (1000 IU) TABLET PO SCH (06:31)
[2023-05-10] MEDS: APIXABAN 2.5 MG TABLET PO SCH ×2 (06:31→17:40)
[2023-05-10] MEDS: metFORMIN 500 MG TAB PO SCH ×2 (06:31→17:40)
[2023-05-10] MEDS: METOPROLOL TARTRATE 12.5 MG TAB PO SCH ×2 (07:54→20:12)
[2023-05-10 11:03] LABS: Blood Urea Nitrogen 11.7 mg/dL (9.0-27.0); Calcium 8.6 mg/dL (8.7-10.3); Carbon Dioxide 23.4 mmol/L (21.6-31.8); Chloride 99 mmol/L (96-109); Glucose 92 mg/dL (70-110); Magnesium 1.7 mg/dL (1.5-2.4); Phosphorus 2.3 mg/dL (2.4-5.1); Potassium 4.3 mmol/L (3.5-5.5); Sodium 131 mmol/L (135-145)
[2023-05-10 11:10] LABS: Glucose,Whole Blood 104 mg/dL (70-110)
--- NOTE | 2023-05-10 11:56 | P.PN ---
Subjective Patient is seen in follow-up for hyponatremia. Sodium level 131 today. Received Samsca yesterday. Sitting up in chair. States she's been eating. Denies vomiting or diarrhea. Nonoliguric. Vital signs are stable. General: No acute distress. HEENT: Right eye bruising noted. LUNGS: No audible rhonchi or wheezes. HEART: Rate and Rhythm are regular. ABDOMEN: Nontender. EXTREMITITES: No edema. Objective - Vital Signs Vital signs: Vital Signs Temp 98.7 F 05/10/23 07:26 Pulse 69 05/10/23 07:26 Resp 18 05/10/23 07:26 BP 119/56 05/10/23 07:26 Pulse Ox 95 05/10/23 07:26 FiO2 Intake & Output 05/09/23 05/10/23 05/10/23 18:59 06:59 18:59 Intake Total 300 Output Total 800 1000 Balance -500 -1000 Weight 51.71 kg Intake: Oral 300 Output: Urine 800 1000 Other: Voiding Method Indwelling Catheter Indwelling Catheter - Labs CBC & Chem 7: 05/09/23 06:12 05/10/23 05:10 Labs: Abnormal Lab Results - Last 24 Hours (Table) 05/09/23 05/09/23 05/10/23 Range/Units 16:54 19:30 05:10 Sodium 131 L (135-145) mmol/L POC Glucose (mg/dL) 118 H 125 H (70-110) mg/dL Calcium 8.6 L (8.7-10.3) mg/dL Phosphorus 2.3 L (2.4-5.1) mg/dL Microbiology - Last 24 Hours (Table) 05/06/23 14:17 Blood Culture - Preliminary Blood Assessment and Plan Plan: Assessment: 1. Hypervolemic hyponatremia. Status post diuresis. Also received Samsca distention. Sodium level 131 this morning. Urine sodium 45 and urine osmolality 392. TSH normal. 2. Bradycardia. Metoprolol decreased. On amiodarone for A. fib. 3. Hypomagnesemia from poor intake. Replaced. Better. On oral magnesium oxide. 4. Anemia. Rule out iron deficiency. 5. Hypophosphatemia from poor intake. Plan: Maintain fluid restriction. Encouraged oral intake. Follow-up iron studies. Replace phosphorus.
[2023-05-10] MEDS ORDERED: SODIUM PHOSPHATE 10 MMOL in SODIUM CHLORIDE 0.9% 250 ML IVPB ONE (12:00)
[2023-05-10] MEDS: SODIUM CHLORIDE 0.9% 1,000 ML IV SCH (12:48)
[2023-05-10 12:59] LABS: % Iron Saturation 10.97 (12.00-45.00)
--- NOTE | 2023-05-10 13:27 | P.PN ---
Subjective Progress Note Date: 05/10/23 This is an 82-year-old female patient who resides in an assisted living facility. She has a history of atrial fibrillation anticoagulated with Eliquis, diabetes mellitus, hypertension. She had fallen at the home earlier in the week while getting herself out of the bathroom. She has significant ecchymosis over the right eye. She was brought into the emergency room yesterday with dizziness, lightheadedness and weakness. Computed tomography scan of the head and neck revealed no acute mass or bleed. No acute trauma. Computed tomography scan of the face revealed no acute trauma to the facial bones. Chest x-ray revealed small bilateral pleural effusions right greater than left. Left basilar patchy opacity/atelectasis. Large hiatal hernia. White count 7.2. Hemoglobin 10.2. Platelets 337. Sodium 126. Potassium 3.5. Bicarb 21. BUN 17. Creatinine 0.7. Glucose 88. She is seen today in consultation due to the bilateral pleural effusions. She is currently sitting up in bed. Awake and alert in no acute distress. She is maintaining good O2 saturations in the 90s on room air. She has been afebrile. The patient is seen today 05/08/2023 and follow-up on the regular medical floor. She is currently resting comfortably in bed. Awake and alert in no acute distress. Currently maintaining good O2 saturations in the upper 90s on room air. Afebrile. Hemodynamically stable. Blood cultures reveal no growth. White count 10.5. Hemoglobin 11.3. Platelets 375. Sodium 123. Potassium 2.9. Bicarb 22. BUN 19. Creatinine 0.53. Glucose 104. Pro-calcitonin 0.04. She received 500 ML bolus of saline. Currently in normal saline at 75 ML's per hour. Electrolytes are being replaced. Remains on antibiotics in the form of ceftriaxone. Anticoagulated with Eliquis. The patient is seen today 05/09/2023 in follow-up on the regular medical floor. She is awake and alert in no acute distress. Resting in bed. Currently on room air. Normal saline at 20 mg per hour. Pro-calcitonin level is 0.04. She is currently on ceftriaxone. She is anticoagulated with Eliquis. Chest x-ray reveals a moderate right and small left pleural effusion with cardiomegaly and mild pulmonary vascular congestion. White count 7.7. Hemoglobin 9.1. Platelets 308. Sodium 124. Bicarb 20. BUN 15. Creatinine 0.5. Glucose 96. Blood culture reveals no growth. Legionella antigen pending. The patient is seen today 05/10/2023 in follow-up on the regular medical floor. She is currently resting comfortably in bed. Awake and alert in no acute distress. She is maintaining good O2 saturations in the 90s on room air. She has normal saline at KVO. OD on 131. Potassium 4.3. Bicarb 23. BUN 12. Creatinine 0.6. Glucose 104. She's been continued on Eliquis for anticoagulation. Objective - Vital Signs Vital signs: Vital Signs Temp 98.7 F 05/10/23 07:26 Pulse 69 05/10/23 07:26 Resp 18 05/10/23 07:26 BP 119/56 05/10/23 07:26 Pulse Ox 95 05/10/23 07:26 FiO2 Intake & Output 05/09/23 05/10/23 05/10/23 18:59 06:59 18:59 Intake Total 300 Output Total 800 1000 Balance -500 -1000 Weight 51.71 kg Intake: Oral 300 Output: Urine 800 1000 Other: Voiding Method Indwelling Catheter Indwelling Catheter - Exam GENERAL EXAM: Alert, pleasant 82-year-old female, on room air, resting in bed, comfortable in no apparent distress. HEAD: Normocephalic. Ecchymosis around the right eye and face EYES: Normal reaction of pupils, equal size. NOSE: Clear with pink turbinates. THROAT: No erythema or exudates. NECK: No masses, no JVD. CHEST: No chest wall deformity. LUNGS: Equal air entry with crackles in the bilateral bases. CVS: S1 and S2 normal with no audible murmur, regular rhythm. ABDOMEN: No hepatosplenomegaly, normal bowel sounds, no guarding or rigidity. SPINE: No scoliosis or deformity SKIN: No rashes CENTRAL NERVOUS SYSTEM: No focal deficits, tone is normal in all 4 extremities. EXTREMITIES: There is no peripheral edema. No clubbing, no cyanosis. Peripheral pulses are intact. - Labs CBC & Chem 7: 05/09/23 06:12 05/10/23 05:10 Labs: Abnormal Lab Results - Last 24 Hours (Table) 05/09/23 05/09/2323 Range/Units 06:12 12:56 16:54 Sodium 124 L (135-145) mmol/L Chloride 95 L (96-109) mmol/L Carbon Dioxide 20.4 L (21.6-31.8) mmol/L Creatinine 0.5 L (0.6-1.5) mg/dL BUN/Creatinine Ratio 30.80 H (12.00-20.00) Ratio POC Glucose (mg/dL) 118 H (70-110) mg/dL Calcium 8.3 L (8.7-10.3) mg/dL Phosphorus (2.4-5.1) mg/dL Iron 26 L (50-170) UG/DL % Saturation 10.97 L (12.00-45.00) Transferrin 169.0 L (204.0-354.0) mg/dL 05/09/23 05/10/23 Range/Units 19:30 05:10 Sodium 131 L (135-145) mmol/L Chloride (96-109) mmol/L Carbon Dioxide (21.6-31.8) mmol/L Creatinine (0.6-1.5) mg/dL BUN/Creatinine Ratio (12.00-20.00) Ratio POC Glucose (mg/dL) 125 H (70-110) mg/dL Calcium 8.6 L (8.7-10.3) mg/dL Phosphorus 2.3 L (2.4-5.1) mg/dL Iron (50-170) UG/DL % Saturation (12.00-45.00) Transferrin (204.0-354.0) mg/dL Microbiology - Last 24 Hours (Table) 05/06/23 14:17 Blood Culture - Preliminary Blood Assessment and Plan Assessment: Generalized weakness, status post fall with trauma to the right face and right eye Hyponatremia, improving Hypokalemia, improved Small bilateral pleural effusions right greater than left, stable and on room air History of atrial fibrillation, anticoagulated with Eliquis Diabetes mellitus, type II Plan: The patient was seen and evaluated Labs and medications reviewed Legionella antigen pending Currently stable and on room air We will continue to follow I have personally seen and examined the patient, performed the documentation and the assessment and plan as written. Number of minutes spent on the visit: 10.
[2023-05-10 16:38] LABS: Glucose,Whole Blood 97 mg/dL (70-110)
[2023-05-10] MEDS: TAMSULOSIN 0.4 MG CAP.ER.24H PO SCH (17:40)
[2023-05-10 19:13] LABS: Glucose,Whole Blood 116 mg/dL (70-110)
--- NOTE | 2023-05-10 21:14 | P.PN ---
Subjective Progress Note Date: 05/10/23 82-year-old female who presents to the emergency department for lightheadedness. Patient presents from her [facility] who state patient has been more tired and weak over the past couple days. Patient states she started to feel lightheaded this morning. She denies chest pain, shortness of breath, palpitations. Patient did have a fall on Tuesday she has bruising around the right eye. She did not lose consciousness. She is on Eliquis for atrial fibrillation. She reports significant headache. She does have mild nausea without vomiting. No numbness or tingling. No focal weakness. Does admit to intermittent dry cough. Denies fever, chills, other upper respiratory symptoms. Patient did have a catheter in for 6 weeks which was removed yesterday by primary care provider according to son. States patient was in better spirits yesterday at her primary care visit. Patient denies burning with urination since getting the catheter out. Denies abdominal pain, changes in bowel habits. EKG shows atrial fibrillation patient has known history on Eliquis. Laboratory studies significant for hypokalemia at 3.4 and hyponatremia at 120. Troponin within normal limits. CT interpreted by myself showing no acute intracranial process, no cervical fracture or dislocation, no acute facial fracture. CX-ray interpreted by myself showing small bilateral pleural effusions, left basilar patchy airspace opacity concerning for pneumonia. 05/08/2023 Patient is seen and evaluated in follow-up on the regular medical floor. She is currently resting comfortably in bed. Awake and alert in no acute distress. Currently maintaining good O2 saturations in the upper 90s on room air. Blood cultures reveal no growth. White count 10.5. Hemoglobin 11.3. Platelets 375. Sodium 123. Potassium 2.9. Bicarb 22. BUN 19. Creatinine 0.53. Glucose 104. Pro-calcitonin 0.04. She received 500 ML bolus of saline. Currently in normal saline at 75 ML's per hour. Remains on antibiotics in the form of ceftriaxone. Anticoagulated with Eliquis. Patient has been evaluated by cardiology for possible CHF exacerbation; cardiology recommending to discontinue Lasix; nephrology on board for management of hyponatremia 05/09/2023 Patient is seen and evaluated in follow-up today extremely lethargic although arousable. Nursing staff reports she is minimally arousable. Patient not eating much with significant weakness being followed by nephrology, pulmonary, cardiology. Per nursing staff patient was given Seroquel 25 mg weekly last night and has been lethargic since. Patient maintained on ceftriaxone with concerns of pneumonia. Sodium remains low at 124 and is status post Samsca and awaiting repeat labs. Will have physical therapy evaluate patient and encouraged to increase activity as tolerated. Patient is currently afebrile with no reports of chest pain or shortness of breath. No reported nausea or vomiting. Reports not much of an appetite and not very hungry. 05/10/2023 Patient is seen in follow-up today being followed by pulmonary along with nephrology. Legionella urine pending at this time and pulmonary recommending follow-up chest x-ray in the a.m. Patient's mentation is improved and more awake and alert today. Patient report she ate some more breakfast today and sodium is improved at 131. Patient is currently afebrile with no reports of [address] pain or shortness of breath. Patient with significant weakness was evaluated by physical therapy and almost max assist and per son patient resides at [facility] and is mostly wheelchair bound and has all the care there and will be returning on discharge. Nephrology recommended urology consultation for retention and patient currently with indwelling Harper catheter. Awaiting urology consult and appreciate input and recommendations Review of systems: Constitutional: reports of fatigue although much more awake today, no fever, or chills Cardiovascular: No reports of chest pain or palpitations Respiratory: No reports of shortness of breath or cough GI: No reports of nausea, vomiting, or diarrhea, reports not much of an appetite but was able to eat a little more for breakfast : No reports of dysuria or retention Neurovascular: reports of generalized weakness All medications have been reviewed Physical exam: GENERAL: The patient is more awake today, alert and oriented x2, not in any acute distress. Well developed, thin built, elderly appearing HEENT: Pupils are round and equally reacting to light. EOMI. No scleral icterus. No conjunctival pallor. Normocephalic, atraumatic. No pharyngeal erythema. No thyromegaly. CARDIOVASCULAR: S1 and S2 present. Irregularly irregular. PULMONARY: Chest is clear to auscultation, no wheezing or crackles. ABDOMEN: Soft, nontender, nondistended, normoactive bowel sounds. No palpable organomegaly. MUSCULOSKELETAL: No joint swelling or deformity. EXTREMITIES: No cyanosis, clubbing, or pedal edema. NEUROLOGICAL: Gross neurological examination did not reveal any focal deficits. SKIN: No rashes. Healing diffuse ecchymosis noted around the right eye status post fall Assessment: Left basilar pneumonia present on admission Acute on chronic exacerbation CHF/fluid overload, improving Hyponatremia secondary to poor oral intake, status post Samsca and is 131 today Hypokalemia secondary to poor oral intake Acute UTI, present on admission Urinary retention requiring indwelling Harper catheter History of Atrial fibrillation; patient remains rate controlled Diabetes mellitus type 2 Hypertension Gait dysfunction Recent fall with noted right eye orbit ecchymosis, no fractures noted GI prophylaxis DVT prophylaxis; SCDs/systemic anticoagulation No code Plan: Patient was currently continued on antibiotics with concerns of pneumonia with pulmonary following. Legionella ordered and pending. Pro-calcitonin was low and patient has received adequate antibiotic therapy and is being discontinued Nephrology following and sodium improved at 131 status post a dose of Samsca yesterday Patient having urinary retention requiring indwelling Harper catheter and nephrology has been consulted for urology Patient evaluated by physical therapy and almost max assist and son reports patient is mostly wheelchair bound at [facility] and will be returning there and has all the care that is needed for discharge case management following arranging discharge planning needs. Replace magnesium per protocol follow-up with repeat labs in the a.m.. Patient continue Seroquel as needed for agitation at night Urology consulted and pending at this time with possible discharge planning in the next 24 hours. The impression and plan of care has been dictated by Audra Fontaine, Nurse Practitioner as directed. Dr. Mello MD I have performed a history and examination and MDM of this patient, discussed the same with the dictator, and agree with the dictator's assessment and plan as written ,documented as a scribe. Based on total visit time, I have performed more than 50% of the visit. Objective - Vital Signs Vital signs: Vital Signs Temp 98.6 F 05/10/23 19:10 Pulse 67 05/10/23 19:10 Resp 16 05/10/23 19:10 BP 105/58 05/10/23 19:10 Pulse Ox 95 05/10/23 19:10 FiO2 Intake & Output 05/10/23 05/10/23 05/11/23 06:59 18:59 06:59 Intake Total 850 Output Total 1000 500 300 Balance -1000 -500 550 Intake: Oral 850 Output: Urine 1000 500 300 Other: Voiding Method Indwelling Catheter - Labs CBC & Chem 7: 05/09/23 06:12 05/10/23 05:10 Labs: Abnormal Lab Results - Last 24 Hours (Table) 05/09/23 05/09/23 05/10/23 Range/Units 06:12 12:56 05:10 Sodium 124 L 131 L (135-145) mmol/L Chloride 95 L (96-109) mmol/L Carbon Dioxide 20.4 L (21.6-31.8) mmol/L Creatinine 0.5 L (0.6-1.5) mg/dL BUN/Creatinine Ratio 30.80 H (12.00-20.00) Ratio POC Glucose (mg/dL) (70-110) mg/dL Calcium 8.3 L 8.6 L (8.7-10.3) mg/dL Phosphorus 2.3 L (2.4-5.1) mg/dL Iron 26 L (50-170) UG/DL % Saturation 10.97 L (12.00-45.00) Transferrin 169.0 L (204.0-354.0) mg/dL 05/10/23 Range/Units 19:12 Sodium (135-145) mmol/L Chloride (96-109) mmol/L Carbon Dioxide (21.6-31.8) mmol/L Creatinine (0.6-1.5) mg/dL BUN/Creatinine Ratio (12.00-20.00) Ratio POC Glucose (mg/dL) 116 H (70-110) mg/dL Calcium (8.7-10.3) mg/dL Phosphorus (2.4-5.1) mg/dL Iron (50-170) UG/DL % Saturation (12.00-45.00) Transferrin (204.0-354.0) mg/dL Microbiology - Last 24 Hours (Table) 05/06/23 14:17 Blood Culture - Preliminary Blood
[2023-05-10] MEDS: MAGNESIUM SULFATE-D5W PMX 1 GM in DEXTROSE/WATER 1 100ML.BAG IVPB SCH ×2 (22:05→23:09)
[2023-05-11 05:12] LABS: Glucose,Whole Blood 109 mg/dL (70-110)
[2023-05-11] MEDS: FERROUS SULFATE 325 MG TAB PO SCH ×2 (05:42→17:53)
[2023-05-11] MEDS: AMIODARONE 200 MG TAB PO SCH (05:42)
[2023-05-11] MEDS: MAGNESIUM OXIDE 400 MG TAB PO SCH ×3 (05:42→21:27)
[2023-05-11] MEDS: APIXABAN 2.5 MG TABLET PO SCH ×2 (05:42→17:44)
[2023-05-11] MEDS: CHOLECALCIFEROL 25 MCG (1000 IU) TABLET PO SCH (05:42)
[2023-05-11] MEDS: metFORMIN 500 MG TAB PO SCH ×2 (05:42→17:44)
[2023-05-11] MEDS: SERTRALINE 25 MG TAB PO SCH (05:59)
[2023-05-11] MEDS: METOPROLOL TARTRATE 12.5 MG TAB PO SCH ×2 (07:47→21:27)
--- NOTE | 2023-05-11 07:47 | XR ---
EXAMINATION TYPE: XR chest 1V portable DATE OF EXAM: 05/11/2023 HISTORY: Shortness of breath. COMPARISON: 05/09/2023 TECHNIQUE: Single view of the chest is submitted. FINDINGS: Demonstrated are scattered senescent parenchymal change. Pulmonary venous congestion with scattered interstitial edema and small effusions compatible with con gestive failure. Correlate clinically. The heart is stable. Hilar and mediastinal structures are within normal limits. Degenerative changes are seen of the dorsal spine. IMPRESSION: 1. Pulmonary venous congestion with scattered interstitial edema and small effusions compatible with congestive failure. Correlate clinically.
[2023-05-11 11:35] LABS: Glucose,Whole Blood 143 mg/dL (70-110)
--- NOTE | 2023-05-11 11:44 | P.PN ---
Subjective Patient is seen in follow-up for hyponatremia. Sodium level 131 yesterday. Oral intake fair. Denies vomiting or diarrhea. Nonoliguric. Vital signs are stable. General: No acute distress. HEENT: Right eye bruising noted. LUNGS: No audible rhonchi or wheezes. HEART: Rate and Rhythm are regular. ABDOMEN: Nontender. EXTREMITITES: No edema. Objective - Vital Signs Vital signs: Vital Signs Temp 98.7 F 05/11/23 07:20 Pulse 60 05/11/23 07:20 Resp 16 05/11/23 07:20 BP 119/66 05/11/23 07:20 Pulse Ox 95 05/11/23 07:20 FiO2 Intake & Output 05/10/23 05/11/23 05/11/23 18:59 06:59 18:59 Intake Total 850 Output Total 500 600 Balance -500 250 Intake: Oral 850 Output: Urine 500 600 Other: Voiding Method Indwelling Catheter - Labs CBC & Chem 7: 05/09/23 06:12 05/10/23 05:10 Labs: Abnormal Lab Results - Last 24 Hours (Table) 05/09/23 05/09/23 05/10/23 Range/Units 06:12 12:56 05:10 Sodium 124 L 131 L (135-145) mmol/L Chloride 95 L (96-109) mmol/L Carbon Dioxide 20.4 L (21.6-31.8) mmol/L Creatinine 0.5 L (0.6-1.5) mg/dL BUN/Creatinine Ratio 30.80 H (12.00-20.00) Ratio POC Glucose (mg/dL) (70-110) mg/dL Calcium 8.3 L 8.6 L (8.7-10.3) mg/dL Phosphorus 2.3 L (2.4-5.1) mg/dL Iron 26 L (50-170) UG/DL % Saturation 10.97 L (12.00-45.00) Transferrin 169.0 L (204.0-354.0) mg/dL 05/10/23 05/11/23 Range/Units 19:12 11:33 Sodium (135-145) mmol/L Chloride (96-109) mmol/L Carbon Dioxide (21.6-31.8) mmol/L Creatinine (0.6-1.5) mg/dL BUN/Creatinine Ratio (12.00-20.00) Ratio POC Glucose (mg/dL) 116 H 143 H (70-110) mg/dL Calcium (8.7-10.3) mg/dL Phosphorus (2.4-5.1) mg/dL Iron (50-170) UG/DL % Saturation (12.00-45.00) Transferrin (204.0-354.0) mg/dL Assessment and Plan Plan: Assessment: 1. Hypervolemic hyponatremia. Status post diuresis. Also received Samsca distention. Sodium level 131 yesterday. Urine sodium 45 and urine osmolality 392. TSH normal. 2. Bradycardia. Metoprolol decreased. On amiodarone for A. fib. 3. Hypomagnesemia from poor intake. Replaced. Better. On oral magnesium oxide. 4. Anemia. Iron deficiency noted. 5. Hypophosphatemia from poor intake. Replaced. Plan: Maintain fluid restriction. Encouraged oral intake. Add IV iron. Morning labs pending.
[2023-05-11] MEDS: SODIUM FERRIC GLUCONAT-SUCROSE 125 MG in SODIUM CHLORIDE 0.9% 100 ML IVPB SCH (12:30)
--- NOTE | 2023-05-11 12:41 | P.GSCN ---
History of Present Illness Consult date: 05/11/23 Reason for Consult: Urinary retention Requesting physician: Lio Barreto History of present illness: The patient is an 82-year-old white female who resides in a [facility]pc. She recently had an indwelling Harper catheter for 6 weeks, which was reportedly removed 1-2 days prior to admission by her PCP. The patient states that the Harper catheter was inserted because she experienced burning, and that the catheter relieved the burning. She is a vague historian. A renal ultrasound obtained on 03/28/2023 showed no evidence of hydronephrosis. The Harper catheter was in place at that time. Looking back, a CT scan in January 2022 showed what appeared to be at least moderate bladder distention. Review of Systems - Genitourinary Genitourinary: Reports as per HPI Past Medical History Past Medical History: Cancer, Diabetes Mellitus, GERD/Reflux, Hypertension Additional Past Medical History / Comment(s): NIDDM type II, skin cancer with removal, UTIs. History of Any Multi-Drug Resistant Organisms: None Reported Past Surgical History: Appendectomy, Cholecystectomy, Orthopedic Surgery Additional Past Surgical History / Comment(s): R ankle ORIF, removal of skin cancer Past Anesthesia/Blood Transfusion Reactions: No Reported Reaction Past Psychological History: No Psychological Hx Reported Smoking Status: Never smoker - Past Family History Father Family Medical History: Cancer Additional Family Medical History / Comment(s): Myasthenia gravis Mother History Unknown: Yes Family Medical History: No Reported History Additional Family Medical History / Comment(s): Mother was healthy Medications and Allergies Home Medications Medication Instructions Recorded Confirmed Type Cholecalciferol [Vitamin D3 (25 25 mcg PO DAILY@0700 05/20/22 05/06/23 History Mcg = 1000 Iu)] Ferrous Sulfate [Iron (65 MG 325 mg PO BID@0700,1900 05/20/22 05/06/23 History Elemental)] Acetaminophen Tab [Tylenol] 650 mg PO Q6HR PRN tab 04/07/23 05/06/23 Rx Amiodarone [Cordarone] 200 mg PO DAILY@0700 05/06/23 05/06/23 History Apixaban [Eliquis] 2.5 mg PO BID@0700,1900 05/06/23 05/06/23 History Magnesium Oxide [Mag-Ox] 400 mg PO TID@06,14,05/06/23 05/06/23 History Metoprolol Tartrate [Lopressor] 25 mg PO BID@0700,1900 05/06/23 05/06/23 History Sertraline [Zoloft] 25 mg PO DAILY@0700 05/06/23 05/06/23 History Tamsulosin [Flomax] 0.4 mg PO HS@1900 05/06/23 05/06/23 History metFORMIN HCL ER [Glucophage XR] 500 mg PO BID@0700,1900 05/06/23 05/06/23 History Allergies Allergy/AdvReac Type Severity Reaction Status Date / Time Penicillins Allergy Unknown Verified 05/06/23 13:43 Childhood Surgical - Exam Vital Signs Temp Pulse Resp BP Pulse Ox 97.4 F L 117 H 16 116/69 99 05/06/23 11:33 05/06/23 11:33 05/06/23 11:33 05/06/23 11:33 05/06/23 11:33 - General well developed, well nourished, no distress - Respiratory normal respiratory effort - Abdomen Abdomen: soft, non tender, no guarding, no rigid, no rebound - Genitourinary Harper catheter is in place, draining clear yellow urine. - Psychiatric oriented to time, oriented to person, oriented to place, speech is normal, memory intact Results - Labs 05/09/23 06:12 05/10/23 05:10 Abnormal Lab Results - Last 24 Hours (Table) 05/09/23 05/09/23 05/10/23 Range/Units 06:12 12:56 05:10 Sodium 124 L 131 L (135-145) mmol/L Chloride 95 L (96-109) mmol/L Carbon Dioxide 20.4 L (21.6-31.8) mmol/L Creatinine 0.5 L (0.6-1.5) mg/dL BUN/Creatinine Ratio 30.80 H (12.00-20.00) Ratio POC Glucose (mg/dL) (70-110) mg/dL Calcium 8.3 L 8.6 L (8.7-10.3) mg/dL Phosphorus 2.3 L (2.4-5.1) mg/dL Iron 26 L (50-170) UG/DL % Saturation 10.97 L (12.00-45.00) Transferrin 169.0 L (204.0-354.0) mg/dL 05/10/23 Range/Units 19:12 Sodium (135-145) mmol/L Chloride (96-109) mmol/L Carbon Dioxide (21.6-31.8) mmol/L Creatinine (0.6-1.5) mg/dL BUN/Creatinine Ratio (12.00-20.00) Ratio POC Glucose (mg/dL) 116 H (70-110) mg/dL Calcium (8.7-10.3) mg/dL Phosphorus (2.4-5.1) mg/dL Iron (50-170) UG/DL % Saturation (12.00-45.00) Transferrin (204.0-354.0) mg/dL Microbiology - Last 24 Hours (Table) 05/06/23 14:17 Blood Culture - Preliminary Blood Diabetes panel 05/09/23 05/10/23 Range/Units 06:12 05:10 Sodium 124 L 131 L (135-145) mmol/L Potassium 4.5 4.3 (3.5-5.5) mmol/L Chloride 95 L 99 (96-109) mmol/L Carbon Dioxide 20.4 L 23.4 (21.6-31.8) mmol/L BUN 15.4 11.7 (9.0-27.0) mg/dL Creatinine 0.5 L 0.6 (0.6-1.5) mg/dL Glucose 96 92 (70-110) mg/dL Calcium 8.3 L 8.6 L (8.7-10.3) mg/dL Calcium panel 05/09/23 05/09/23 05/10/23 Range/Units 06:12 12:56 05:10 Calcium 8.3 L 8.6 L (8.7-10.3) mg/dL Phosphorus 2.5 2.3 L (2.5-4.5) mg/dL Pituitary panel 05/09/23 05/10/23 Range/Units 06:12 05:10 Sodium 124 L 131 L (135-145) mmol/L Potassium 4.5 4.3 (3.5-5.5) mmol/L Chloride 95 L 99 (96-109) mmol/L Carbon Dioxide 20.4 L 23.4 (21.6-31.8) mmol/L BUN 15.4 11.7 (9.0-27.0) mg/dL Creatinine 0.5 L 0.6 (0.6-1.5) mg/dL Glucose 96 92 (70-110) mg/dL Calcium 8.3 L 8.6 L (8.7-10.3) mg/dL Adrenal panel 05/09/23 05/10/23 Range/Units 06:12 05:10 Sodium 124 L 131 L (135-145) mmol/L Potassium 4.5 4.3 (3.5-5.5) mmol/L Chloride 95 L 99 (96-109) mmol/L Carbon Dioxide 20.4 L 23.4 (21.6-31.8) mmol/L BUN 15.4 11.7 (9.0-27.0) mg/dL Creatinine 0.5 L 0.6 (0.6-1.5) mg/dL Glucose 96 92 (70-110) mg/dL Calcium 8.3 L 8.6 L (8.7-10.3) mg/dL - Imaging CT scan - abdomen: report reviewed, image reviewed US - kidney/bladder: report reviewed Assessment and Plan (1) Urinary retention Current Visit: Yes Status: Acute Code(s): R33.9 - RETENTION OF URINE, UNSPECIFIED SNOMED Code(s): 521718183 Plan: Harper catheter will be removed. Bladder Scan will be utilized to check postvoid residuals. If the retention persists, Harper catheter replacement will be required. Time with Patient: Greater than 30
[2023-05-11 12:50] LABS: Blood Urea Nitrogen 15.3 mg/dL (9.0-27.0); Calcium 8.1 mg/dL (8.7-10.3); Carbon Dioxide 21.7 mmol/L (21.6-31.8); Chloride 97 mmol/L (96-109); Glucose 97 mg/dL (70-110); Phosphorus 3.2 mg/dL (2.4-5.1); Potassium 4.3 mmol/L (3.5-5.5); Sodium 129 mmol/L (135-145)
[2023-05-11] MEDS: SODIUM CHLORIDE 0.9% 1,000 ML IV SCH (13:55)
--- NOTE | 2023-05-11 14:28 | P.PN ---
Subjective Progress Note Date: 05/11/23 This is an 82-year-old female patient who resides in an assisted living facility. She has a history of atrial fibrillation anticoagulated with Eliquis, diabetes mellitus, hypertension. She had fallen at the home earlier in the week while getting herself out of the bathroom. She has significant ecchymosis over the right eye. She was brought into the emergency room yesterday with dizziness, lightheadedness and weakness. Computed tomography scan of the head and neck revealed no acute mass or bleed. No acute trauma. Computed tomography scan of the face revealed no acute trauma to the facial bones. Chest x-ray revealed small bilateral pleural effusions right greater than left. Left basilar patchy opacity/atelectasis. Large hiatal hernia. White count 7.2. Hemoglobin 10.2. Platelets 337. Sodium 126. Potassium 3.5. Bicarb 21. BUN 17. Creatinine 0.7. Glucose 88. She is seen today in consultation due to the bilateral pleural effusions. She is currently sitting up in bed. Awake and alert in no acute distress. She is maintaining good O2 saturations in the 90s on room air. She has been afebrile. The patient is seen today 05/08/2023 and follow-up on the regular medical floor. She is currently resting comfortably in bed. Awake and alert in no acute distress. Currently maintaining good O2 saturations in the upper 90s on room air. Afebrile. Hemodynamically stable. Blood cultures reveal no growth. White count 10.5. Hemoglobin 11.3. Platelets 375. Sodium 123. Potassium 2.9. Bicarb 22. BUN 19. Creatinine 0.53. Glucose 104. Pro-calcitonin 0.04. She received 500 ML bolus of saline. Currently in normal saline at 75 ML's per hour. Electrolytes are being replaced. Remains on antibiotics in the form of ceftriaxone. Anticoagulated with Eliquis. The patient is seen today 05/09/2023 in follow-up on the regular medical floor. She is awake and alert in no acute distress. Resting in bed. Currently on room air. Normal saline at 20 mg per hour. Pro-calcitonin level is 0.04. She is currently on ceftriaxone. She is anticoagulated with Eliquis. Chest x-ray reveals a moderate right and small left pleural effusion with cardiomegaly and mild pulmonary vascular congestion. White count 7.7. Hemoglobin 9.1. Platelets 308. Sodium 124. Bicarb 20. BUN 15. Creatinine 0.5. Glucose 96. Blood culture reveals no growth. Legionella antigen pending. The patient is seen today 05/10/2023 in follow-up on the regular medical floor. She is currently resting comfortably in bed. Awake and alert in no acute distress. She is maintaining good O2 saturations in the 90s on room air. She has normal saline at KVO. OD on 131. Potassium 4.3. Bicarb 23. BUN 12. Creatinine 0.6. Glucose 104. She's been continued on Eliquis for anticoagulation. Patient is seen today 05/11/2023 in follow-up on the regular medical floor. She is currently resting comfortably in bed. Awake and alert in no acute distress. He is maintaining good O2 saturation in the mid 90s on room air. She's afebrile. Hemodynamically stable. His x-ray reveals pulmonary venous co ngestion and small effusions. Improving. Sodium 129 BUN 15. Creatinine 0.6. Glucose 97. Anticoagulated with Eliquis. Objective - Vital Signs Vital signs: Vital Signs Temp 98.0 F 05/11/23 13:32 Pulse 65 05/11/23 13:32 Resp 18 05/11/23 13:32 BP 97/57 05/11/23 13:32 Pulse Ox 97 05/11/23 13:32 FiO2 Intake & Output 05/10/23 05/11/23 05/11/23 18:59 06:59 18:59 Intake Total 850 Output Total 500 600 Balance -500 250 Intake: Oral 850 Output: Urine 500 600 Other: Voiding Method Indwelling Catheter - Exam GENERAL EXAM: Alert, 82-year-old female, on room air, comfortable in no apparent distress. HEAD: Normocephalic. Ecchymosis around the right eye and face EYES: Normal reaction of pupils, equal size. NOSE: Clear with pink turbinates. THROAT: No erythema or exudates. NECK: No masses, no JVD. CHEST: No chest wall deformity. LUNGS: Equal air entry with crackles in the bilateral bases. CVS: S1 and S2 normal with no audible murmur, regular rhythm. ABDOMEN: No hepatosplenomegaly, normal bowel sounds, no guarding or rigidity. SPINE: No scoliosis or deformity SKIN: No rashes CENTRAL NERVOUS SYSTEM: No focal deficits, tone is normal in all 4 extremities. EXTREMITIES: There is no peripheral edema. No clubbing, no cyanosis. Peripheral pulses are intact. - Labs CBC & Chem 7: 05/09/23 06:12 05/11/23 07:13 Labs: Abnormal Lab Results - Last 24 Hours (Table) 05/09/23 05/10/23 05/11/23 Range/Units 12:56 19:12 07:13 Sodium 129 L (135-145) mmol/L BUN/Creatinine Ratio 25.50 H (12.00-20.00) Ratio POC Glucose (mg/dL) 116 H (70-110) mg/dL Calcium 8.1 L (8.7-10.3) mg/dL Iron 26 L (50-170) UG/DL % Saturation 10.97 L (12.00-45.00) Transferrin 169.0 L (204.0-354.0) mg/dL 05/11/23 Range/Units 11:33 Sodium (135-145) mmol/L BUN/Creatinine Ratio (12.00-20.00) Ratio POC Glucose (mg/dL) 143 H (70-110) mg/dL Calcium (8.7-10.3) mg/dL Iron (50-170) UG/DL % Saturation (12.00-45.00) Transferrin (204.0-354.0) mg/dL Assessment and Plan Assessment: Generalized weakness, status post fall with trauma to the right face and right eye Hyponatremia, improving Hypokalemia, improved Small bilateral pleural effusions right greater than left, stable and on room air History of atrial fibrillation, anticoagulated with Eliquis Diabetes mellitus, type II Plan: The patient was seen and evaluated Checks x-ray, labs and medications reviewed Lasix 20 mg IVP 1 Legionella antigen negative Currently stable and on room air We will continue to follow I have personally seen and examined the patient, performed the documentation and the assessment and plan as written. Number of minutes spent on the visit: 10.
[2023-05-11] MEDS ORDERED: FUROSEMIDE 10 MG/ML 2 ML VIAL IV ONE (14:29)
--- NOTE | 2023-05-11 14:30 | P.PN ---
Subjective Progress Note Date: 05/11/23 82-year-old female who presents to the emergency department for lightheadedness. Patient presents from her alf who state patient has been more tired and weak over the past couple days. Patient states she started to feel lightheaded this morning. She denies chest pain, shortness of breath, palpitations. Patient did have a fall on Tuesday she has bruising around the right eye. She did not lose consciousness. She is on Eliquis for atrial fibrillation. She reports significant headache. She does have mild nausea without vomiting. No numbness or tingling. No focal weakness. Does admit to intermittent dry cough. Denies fever, chills, other upper respiratory symptoms. Patient did have a catheter in for 6 weeks which was removed yesterday by primary care provider according to son. States patient was in better spirits yesterday at her primary care visit. Patient denies burning with urination since getting the catheter out. Denies abdominal pain, changes in bowel habits. EKG shows atrial fibrillation patient has known history on Eliquis. Laboratory studies significant for hypokalemia at 3.4 and hyponatremia at 120. Troponin within normal limits. CT interpreted by myself showing no acute intracranial process, no cervical fracture or dislocation, no acute facial fracture. CX-ray interpreted by myself showing small bilateral pleural effusions, left basilar patchy airspace opacity concerning for pneumonia. 05/08/2023 Patient is seen and evaluated in follow-up on the regular medical floor. She is currently resting comfortably in bed. Awake and alert in no acute distress. Currently maintaining good O2 saturations in the upper 90s on room air. Blood cultures reveal no growth. White count 10.5. Hemoglobin 11.3. Platelets 375. Sodium 123. Potassium 2.9. Bicarb 22. BUN 19. Creatinine 0.53. Glucose 104. Pro-calcitonin 0.04. She received 500 ML bolus of saline. Currently in normal saline at 75 ML's per hour. Remains on antibiotics in the form of ceftriaxone. Anticoagulated with Eliquis. Patient has been evaluated by cardiology for possible CHF exacerbation; cardiology recommending to discontinue Lasix; nephrology on board for management of hyponatremia 05/09/2023 Patient is seen and evaluated in follow-up today extremely lethargic although arousable. Nursing staff reports she is minimally arousable. Patient not eating much with significant weakness being followed by nephrology, pulmonary, cardiology. Per nursing staff patient was given Seroquel 25 mg weekly last night and has been lethargic since. Patient maintained on ceftriaxone with concerns of pneumonia. Sodium remains low at 124 and is status post Samsca and awaiting repeat labs. Will have physical therapy evaluate patient and encouraged to increase activity as tolerated. Patient is currently afebrile with no reports of chest pain or shortness of breath. No reported nausea or vomiting. Reports not much of an appetite and not very hungry. 05/10/2023 Patient is seen in follow-up today being followed by pulmonary along with nephrology. Legionella urine pending at this time and pulmonary recommending follow-up chest x-ray in the a.m. Patient's mentation is improved and more awake and alert today. Patient report she ate some more breakfast today and sodium is improved at 131. Patient is currently afebrile with no reports of ros[address] st pain or shortness of breath. Patient with significant weakness was evaluated by physical therapy and almost max assist and per son patient resides at [facility] and is mostly wheelchair bound and has all the care there and will be returning on discharge. Nephrology recommended urology consultation for retention and patient currently with indwelling Harper catheter. Awaiting urology consult and appreciate input and recommendations 05/11/2023 Patient is seen in follow-up today and was evaluated by urology recommending trial voiding and removing Harper and monitoring for any retention. Sodium is 1 29 today and stable with nephrology following. Will DC Harper and monitor for retention and discussed with nursing staff about bladder scanning and if does retain again will insert indwelling Harper catheter and have outpatient follow-up with urology as scheduled for end of the month in May. Patient is currently afebrile with no reports of chest pain or shortness of breath. Chest x-ray did show some vascular congestion although oxygen saturations are 97% on room air. Patient denies feeling short of breath. Encouraged oral intake and will follow-up with repeat labs in the a.m. with possible discharge planning in 24 hours. Son was notified of treatment plan. Review of systems: Constitutional: reports of fatigue although much more awake today, no fever, or chills Cardiovascular: No reports of chest pain or palpitations Respiratory: No reports of shortness of breath or cough GI: No reports of nausea, vomiting, or diarrhea, reports not much of an appetite but was able to eat a little : No reports of dysuria or retention Neurovascular: reports of generalized weakness All medications have been reviewed Physical exam: GENERAL: The patient is more awake today, alert and oriented x2, not in any acute distress. Well developed, thin built, elderly appearing HEENT: Pupils are round and equally reacting to light. EOMI. No scleral icterus. No conjunctival pallor. Normocephalic, atraumatic. No pharyngeal erythema. No thyromegaly. CARDIOVASCULAR: S1 and S2 present. Irregularly irregular. PULMONARY: Chest is clear to auscultation, no wheezing or crackles. ABDOMEN: Soft, nontender, nondistended, normoactive bowel sounds. No palpable organomegaly. MUSCULOSKELETAL: No joint swelling or deformity. EXTREMITIES: No cyanosis, clubbing, or pedal edema. NEUROLOGICAL: Gross neurological examination did not reveal any focal deficits. SKIN: No rashes. Healing diffuse ecchymosis noted around the right eye status post fall Assessment: Left basilar pneumonia present on admission Acute on chronic exacerbation CHF/fluid overload, improving Hyponatremia secondary to poor oral intake, status post Samsca and is 131 today Hypokalemia secondary to poor oral intake Acute UTI, present on admission Urinary retention requiring indwelling Harper catheter History of Atrial fibrillation; patient remains rate controlled Diabetes mellitus type 2 Hypertension Gait dysfunction Recent fall with noted right eye orbit ecchymosis, no fractures noted GI prophylaxis DVT prophylaxis; SCDs/systemic anticoagulation No code Plan: Patient was currently continued on antibiotics with concerns of pneumonia as well as urinary tract infection, present on admission. Pro-calcitonin was low and patient has received adequate antibiotic therapy and was discontinued. Nephrology following and sodium is 129 today. Patient had some pulmonary venous congestion noted on chest x-ray and will give a dose of Lasix today and follow- up with repeat labs Patient having urinary retention requiring indwelling Harper catheter and nephrology has been consulted for urology. Urology evaluated the patient recommending trial void and removal of Harper and if retaining may reinsert indwelling Harper catheter. Patient evaluated by physical therapy and almost max assist and son reports patient is mostly wheelchair bound at [facility] and will be returning there and has all the care that is needed for discharge case management following arranging discharge planning needs. Patient continue Seroquel as needed for agitation at night Discharge planning in 24 hours The impression and plan of care has been dictated by Audra Fontaine, Nurse Practitioner as directed. Dr. Mello MD I have performed a history and examination and MDM of this patient, discussed the same with the dictator, and agree with the dictator's assessment and plan as written ,documented as a scribe. Based on total visit time, I have performed more than 50% of the visit. Objective - Vital Signs Vital signs: Vital Signs Temp 98.0 F 05/11/23 00:50 Pulse 56 L 05/11/23 00:50 Resp 16 05/11/23 00:50 BP 115/65 05/11/23 00:50 Pulse Ox 95 05/11/23 00:50 FiO2 Intake & Output 05/10/23 05/10/23 05/11/23 06:59 18:59 06:59 Intake Total 850 Output Total 1000 500 600 Balance -1000 -500 250 Intake: Oral 850 Output: Urine 1000 500 600 Other: Voiding Method Indwelling Catheter Indwelling Catheter - Labs CBC & Chem 7: 05/09/23 06:12 05/11/23 07:13 Labs: Abnormal Lab Results - Last 24 Hours (Table) 05/09/23 05/09/23 05/10/23 Range/Units 06:12 12:56 05:10 Sodium 124 L 131 L (135-145) mmol/L Chloride 95 L (96-109) mmol/L Carbon Dioxide 20.4 L (21.6-31.8) mmol/L Creatinine 0.5 L (0.6-1.5) mg/dL BUN/Creatinine Ratio 30.80 H (12.00-20.00) Ratio POC Glucose (mg/dL) (70-110) mg/dL Calcium 8.3 L 8.6 L (8.7-10.3) mg/dL Phosphorus 2.3 L (2.4-5.1) mg/dL Iron 26 L (50-170) UG/DL % Saturation 10.97 L (12.00-45.00) Transferrin 169.0 L (204.0-354.0) mg/dL 05/10/23 Range/Units 19:12 Sodium (135-145) mmol/L Chloride (96-109) mmol/L Carbon Dioxide (21.6-31.8) mmol/L Creatinine (0.6-1.5) mg/dL BUN/Creatinine Ratio (12.00-20.00) Ratio POC Glucose (mg/dL) 116 H (70-110) mg/dL Calcium (8.7-10.3) mg/dL Phosphorus (2.4-5.1) mg/dL Iron (50-170) UG/DL % Saturation (12.00-45.00) Transferrin (204.0-354.0) mg/dL Microbiology - Last 24 Hours (Table) 05/06/23 14:17 Blood Culture - Preliminary Blood
[2023-05-11] MEDS ORDERED: FUROSEMIDE 10 MG/ML 4 ML VIAL IV STA (14:49)
[2023-05-11 16:47] LABS: Glucose,Whole Blood 150 mg/dL (70-110)
[2023-05-11] MEDS: TAMSULOSIN 0.4 MG CAP.ER.24H PO SCH (17:44)
[2023-05-11 20:22] LABS: Glucose,Whole Blood 126 mg/dL (70-110)
[2023-05-12 05:48] LABS: Glucose,Whole Blood 113 mg/dL (70-110)
[2023-05-12] MEDS: metFORMIN 500 MG TAB PO SCH ×2 (06:46→18:18)
[2023-05-12] MEDS: APIXABAN 2.5 MG TABLET PO SCH ×2 (06:46→18:18)
[2023-05-12] MEDS: MAGNESIUM OXIDE 400 MG TAB PO SCH ×3 (06:46→21:19)
[2023-05-12] MEDS: SERTRALINE 25 MG TAB PO SCH (06:46)
[2023-05-12] MEDS: AMIODARONE 200 MG TAB PO SCH (06:46)
[2023-05-12] MEDS: FERROUS SULFATE 325 MG TAB PO SCH ×2 (06:46→18:18)
[2023-05-12] MEDS: CHOLECALCIFEROL 25 MCG (1000 IU) TABLET PO SCH (06:46)
[2023-05-12] MEDS: METOPROLOL TARTRATE 12.5 MG TAB PO SCH ×2 (07:54→21:19)
[2023-05-12] MEDS: SODIUM CHLORIDE 0.9% 1,000 ML IV SCH (07:57)
[2023-05-12 08:00] LABS: African American GFR (CKD) >90 (>60 ml/min/1.73 sqM); Anion Gap 5 mmol/L; Blood Urea Nitrogen 17 mg/dL (7-17); Calcium 8.1 mg/dL (8.4-10.2); Carbon Dioxide 25 mmol/L (22-30); Chloride 96 mmol/L (98-107); Glucose 88 mg/dL (74-99); Magnesium 1.7 mg/dL (1.6-2.3); Non-African American GFR(CKD) >90 (>60 ml/min/1.73 sqM); Phosphorus 3.8 mg/dL (2.5-4.5); Potassium 3.5 mmol/L (3.5-5.1); Sodium 126 mmol/L (137-145)
[2023-05-12] MEDS: SODIUM FERRIC GLUCONAT-SUCROSE 125 MG in SODIUM CHLORIDE 0.9% 100 ML IVPB SCH (08:54)
[2023-05-12] MEDS ORDERED: MAGNESIUM SULFATE-D5W PMX 1 GM in DEXTROSE/WATER 1 100ML.BAG IVPB ONE (10:25)
[2023-05-12] MEDS ORDERED: Potassium Replacement Protocol 1 EACH MISC MISCELLANE PRN (10:25)
[2023-05-12] MEDS ORDERED: Magnesium Replacement Protocol 1 EACH MISC MISCELLANE PRN (10:25)
[2023-05-12] MEDS: POTASSIUM CHLORIDE ER 20 MEQ TAB.ER PO SCH ×3 (10:59→13:31)
[2023-05-12 11:39] LABS: Glucose,Whole Blood 122 mg/dL (70-110)
--- NOTE | 2023-05-12 11:59 | P.PN ---
Subjective Patient is seen in follow-up for hyponatremia. Sodium level 126 today. Oral intake fair. Denies vomiting or diarrhea. Nonoliguric. Vital signs are stable. General: No acute distress. HEENT: Right eye bruising noted. LUNGS: No audible rhonchi or wheezes. HEART: Rate and Rhythm are regular. ABDOMEN: Nontender. EXTREMITITES: No edema. Objective - Vital Signs Vital signs: Vital Signs Temp 97.6 F 05/12/23 07:22 Pulse 56 L 05/12/23 08:00 Resp 18 05/12/23 08:00 BP 135/55 05/12/23 07:22 Pulse Ox 95 05/12/23 07:22 FiO2 Intake & Output 05/11/23 05/12/23 05/12/23 18:59 06:59 18:59 Intake Total 600 Output Total 702 250 2 Balance -102 -250 -2 Intake: Oral 600 Output: Urine 700 250 Stool 2 2 Other: Voiding Method Incontinent Incontinent External Catheter External Catheter # Voids 1 3 - Labs CBC & Chem 7: 05/09/23 06:12 05/12/23 06:27 Labs: Abnormal Lab Results - Last 24 Hours (Table) 05/11/23 05/11/23 05/11/23 Range/Units 07:13 16:47 20:20 Sodium 129 L (135-145) mmol/L Chloride (98-107) mmol/L Creatinine (0.52-1.04) mg/dL BUN/Creatinine Ratio 25.50 H (12.00-20.00) Ratio POC Glucose (mg/dL) 150 H 126 H (70-110) mg/dL Calcium 8.1 L (8.7-10.3) mg/dL 05/12/23 05/12/23 05/12/23 Range/Units 05:46 06:27 11:38 Sodium 126 L (135-145) mmol/L Chloride 96 L (98-107) mmol/L Creatinine 0.40 L (0.52-1.04) mg/dL BUN/Creatinine Ratio (12.00-20.00) Ratio POC Glucose (mg/dL) 113 H 122 H (70-110) mg/dL Calcium 8.1 L (8.7-10.3) mg/dL Microbiology - Last 24 Hours (Table) 05/06/23 14:17 Blood Culture - Final Blood Assessment and Plan Plan: Assessment: 1. Hypervolemic hyponatremia. Status post diuresis. Also received Samsca distention. Sodium level 126 today. Urine sodium 45 and urine osmolality 392. TSH normal. 2. Bradycardia. Metoprolol decreased. On amiodarone for A. fib. 3. Hypomagnesemia from poor intake. Replaced. Better. On oral magnesium oxide. 4. Anemia. Iron deficiency noted. 5. Hypophosphatemia from poor intake. Replaced. 6. Volume overload with vascular congestion noted on chest x-ray. Status post IV Lasix yesterday. 7. Hypokalemia from diuresis and poor intake. 8. Urinary retention. Urology following. Harper catheter removed. Plan: Maintain fluid restriction. Encouraged oral intake. Maintain IV iron. Replace potassium. Samsca 15 mg once today. Add oral Lasix 40 mg once daily. Repeat labs in the morning.
--- NOTE | 2023-05-12 12:44 | P.PN ---
Subjective Progress Note Date: 05/12/23 This is an 82-year-old female patient who resides in an assisted living facility. She has a history of atrial fibrillation anticoagulated with Eliquis, diabetes mellitus, hypertension. She had fallen at the home earlier in the week while getting herself out of the bathroom. She has significant ecchymosis over the right eye. She was brought into the emergency room yesterday with dizziness, lightheadedness and weakness. Computed tomography scan of the head and neck revealed no acute mass or bleed. No acute trauma. Computed tomography scan of the face revealed no acute trauma to the facial bones. Chest x-ray revealed small bilateral pleural effusions right greater than left. Left basilar patchy opacity/atelectasis. Large hiatal hernia. White count 7.2. Hemoglobin 10.2. Platelets 337. Sodium 126. Potassium 3.5. Bicarb 21. BUN 17. Creatinine 0.7. Glucose 88. She is seen today in consultation due to the bilateral pleural effusions. She is currently sitting up in bed. Awake and alert in no acute distress. She is maintaining good O2 saturations in the 90s on room air. She has been afebrile. The patient is seen today 05/08/2023 and follow-up on the regular medical floor. She is currently resting comfortably in bed. Awake and alert in no acute distress. Currently maintaining good O2 saturations in the upper 90s on room air. Afebrile. Hemodynamically stable. Blood cultures reveal no growth. White count 10.5. Hemoglobin 11.3. Platelets 375. Sodium 123. Potassium 2.9. Bicarb 22. BUN 19. Creatinine 0.53. Glucose 104. Pro-calcitonin 0.04. She received 500 ML bolus of saline. Currently in normal saline at 75 ML's per hour. Electrolytes are being replaced. Remains on antibiotics in the form of ceftriaxone. Anticoagulated with Eliquis. The patient is seen today 05/09/2023 in follow-up on the regular medical floor. She is awake and alert in no acute distress. Resting in bed. Currently on room air. Normal saline at 20 mg per hour. Pro-calcitonin level is 0.04. She is currently on ceftriaxone. She is anticoagulated with Eliquis. Chest x-ray reveals a moderate right and small left pleural effusion with cardiomegaly and mild pulmonary vascular congestion. White count 7.7. Hemoglobin 9.1. Platelets 308. Sodium 124. Bicarb 20. BUN 15. Creatinine 0.5. Glucose 96. Blood culture reveals no growth. Legionella antigen pending. The patient is seen today 05/10/2023 in follow-up on the regular medical floor. She is currently resting comfortably in bed. Awake and alert in no acute distress. She is maintaining good O2 saturations in the 90s on room air. She has normal saline at KVO. OD on 131. Potassium 4.3. Bicarb 23. BUN 12. Creatinine 0.6. Glucose 104. She's been continued on Eliquis for anticoagulation. Patient is seen today 05/11/2023 in follow-up on the regular medical floor. She is currently resting comfortably in bed. Awake and alert in no acute distress. He is maintaining good O2 saturation in the mid 90s on room air. She's afebrile. Hemodynamically stable. His x-ray reveals pulmonary venous co ngestion and small effusions. Improving. Sodium 129 BUN 15. Creatinine 0.6. Glucose 97. Anticoagulated with Eliquis. The patient is seen today 05/12/2023 in follow-up on the regular medical floor. She is currently resting comfortably in bed. Awake and alert in no acute distress. She is maintaining good O2 saturations in the 90s on room air. She's been afebrile. Hemodynamically stable. Blood cultures revealed no growth. Sodium 126. Potassium 3.5. Bicarb 25. BUN 17. Creatinine 0.40. Glucose 88. She remains on diuretics. Anticoagulated with Eliquis. Objective - Vital Signs Vital signs: Vital Signs Temp 97.6 F 05/12/23 07:22 Pulse 56 L 05/12/23 08:00 Resp 18 05/12/23 08:00 BP 135/55 05/12/23 07:22 Pulse Ox 95 05/12/23 07:22 FiO2 Intake & Output 05/11/23 05/12/23 05/12/23 18:59 06:59 18:59 Intake Total 600 Output Total 702 250 2 Balance -102 -250 -2 Intake: Oral 600 Output: Urine 700 250 Stool 2 2 Other: Voiding Method Incontinent Incontinent External Catheter External Catheter # Voids 1 3 - Exam GENERAL EXAM: Alert, 82-year-old female, resting in bed, comfortable in no apparent distress. HEAD: Normocephalic. Ecchymosis around the right eye and face EYES: Normal reaction of pupils, equal size. NOSE: Clear with pink turbinates. THROAT: No erythema or exudates. NECK: No masses, no JVD. CHEST: No chest wall deformity. LUNGS: Equal air entry with crackles in the bilateral bases. On room air. CVS: S1 and S2 normal with no audible murmur, regular rhythm. ABDOMEN: No hepatosplenomegaly, normal bowel sounds, no guarding or rigidity. SPINE: No scoliosis or deformity SKIN: No rashes CENTRAL NERVOUS SYSTEM: No focal deficits, tone is normal in all 4 extremities. EXTREMITIES: There is no peripheral edema. No clubbing, no cyanosis. Peripheral pulses are intact. - Labs CBC & Chem 7: 05/09/23 06:12 05/12/23 06:27 Labs: Abnormal Lab Results - Last 24 Hours (Table) 05/11/23 05/11/23 05/11/23 Range/Units 07:13 16:47 20:20 Sodium 129 L (135-145) mmol/L Chloride (98-107) mmol/L Creatinine (0.52-1.04) mg/dL BUN/Creatinine Ratio 25.50 H (12.00-20.00) Ratio POC Glucose (mg/dL) 150 H 126 H (70-110) mg/dL Calcium 8.1 L (8.7-10.3) mg/dL 05/12/23 05/12/23 05/12/23 Range/Units 05:46 06:27 11:38 Sodium 126 L (135-145) mmol/L Chloride 96 L (98-107) mmol/L Creatinine 0.40 L (0.52-1.04) mg/dL BUN/Creatinine Ratio (12.00-20.00) Ratio POC Glucose (mg/dL) 113 H 122 H (70-110) mg/dL Calcium 8.1 L (8.7-10.3) mg/dL Microbiology - Last 24 Hours (Table) 05/06/23 14:17 Blood Culture - Final Blood Assessment and Plan Assessment: Generalized weakness, status post fall with trauma to the right face and right eye Hyponatremia, improving Hypokalemia, improved Urinary retention requiring Harper catheter Small bilateral pleural effusions right greater than left, stable and on room air History of atrial fibrillation, anticoagulated with Eliquis Diabetes mellitus, type II Plan: The patient was seen and evaluated Labs and medications reviewed Currently stable and on room air Plan is to return to her AFC at discharge We will continue to follow I have personally seen and examined the patient, performed the documentation and the assessment and plan as written. Number of minutes spent on the visit: 10.
[2023-05-12] MEDS ORDERED: TOLVAPTAN 15 MG TABLET PO ONE (13:00)
[2023-05-12] MEDS: FUROSEMIDE 40 MG TAB PO SCH (13:31)
[2023-05-12 16:22] LABS: Glucose,Whole Blood 143 mg/dL (70-110)
[2023-05-12] MEDS: TAMSULOSIN 0.4 MG CAP.ER.24H PO SCH (18:18)
--- NOTE | 2023-05-12 19:10 | P.PN ---
Subjective Progress Note Date: 05/12/23 Principal diagnosis: Urinary retention The patient is voiding without difficulty but is incontinent of urine. Objective - Vital Signs Vital signs: Vital Signs Temp 97.6 F 05/12/23 14:00 Pulse 68 05/12/23 14:00 Resp 16 05/12/23 14:00 BP 118/65 05/12/23 14:00 Pulse Ox 94 L 05/12/23 14:00 FiO2 Intake & Output 05/12/23 05/12/23 05/13/23 06:59 18:59 06:59 Output Total 250 1202 Balance -250 -1202 Output: Urine 250 1200 Stool 2 Other: Voiding Method Incontinent Incontinent External Catheter External Catheter # Voids 3 1 - Constitutional General appearance: Present: average body habitus, no acute distress - Psychiatric Psychiatric: Present: A&O x's 3 - Labs CBC & Chem 7: 05/09/23 06:12 05/12/23 06:27 Labs: Abnormal Lab Results - Last 24 Hours (Table) 05/11/23 05/12/23 05/12/23 Range/Units 20:20 05:46 06:27 Sodium 126 L (137-145) mmol/L Chloride 96 L (98-107) mmol/L Creatinine 0.40 L (0.52-1.04) mg/dL POC Glucose (mg/dL) 126 H 113 H (70-110) mg/dL Calcium 8.1 L (8.4-10.2) mg/dL 05/12/23 05/12/23 Range/Units 11:38 16:20 Sodium (137-145) mmol/L Chloride (98-107) mmol/L Creatinine (0.52-1.04) mg/dL POC Glucose (mg/dL) 122 H 143 H (70-110) mg/dL Calcium (8.4-10.2) mg/dL Microbiology - Last 24 Hours (Table) 05/06/23 14:17 Blood Culture - Final Blood Assessment and Plan (1) Urinary retention Current Visit: Yes Status: Acute Code(s): R33.9 - RETENTION OF URINE, UNSPECIFIED SNOMED Code(s): 519794212 Plan: Harper catheter has been removed, but the postvoid residual has not been checked. She is incontinent of urine, making it difficult for the nursing staff to check a true postvoid residual. I have asked that they bladder scan the patient to obtain a random volume, as this should be sufficient to determine whether or not she is still in urinary retention.
--- NOTE | 2023-05-12 19:33 | P.PN ---
Subjective Progress Note Date: 05/12/23 82-year-old female who presents to the emergency department for lightheadedness. Patient presents from her assisted who state patient has been more tired and weak over the past couple days. Patient states she started to feel lightheaded this morning. She denies chest pain, shortness of breath, palpitations. Patient did have a fall on Tuesday she has bruising around the right eye. She did not lose consciousness. She is on Eliquis for atrial fibrillation. She reports significant headache. She does have mild nausea without vomiting. No numbness or tingling. No focal weakness. Does admit to intermittent dry cough. Denies fever, chills, other upper respiratory symptoms. Patient did have a catheter in for 6 weeks which was removed yesterday by primary care provider according to son. States patient was in better spirits yesterday at her primary care visit. Patient denies burning with urination since getting the catheter out. Denies abdominal pain, changes in bowel habits. EKG shows atrial fibrillation patient has known history on Eliquis. Laboratory studies significant for hypokalemia at 3.4 and hyponatremia at 120. Troponin within normal limits. CT interpreted by myself showing no acute intracranial process, no cervical fracture or dislocation, no acute facial fracture. CX-ray interpreted by myself showing small bilateral pleural effusions, left basilar patchy airspace opacity concerning for pneumonia. 05/08/2023 Patient is seen and evaluated in follow-up on the regular medical floor. She is currently resting comfortably in bed. Awake and alert in no acute distress. Currently maintaining good O2 saturations in the upper 90s on room air. Blood cultures reveal no growth. White count 10.5. Hemoglobin 11.3. Platelets 375. Sodium 123. Potassium 2.9. Bicarb 22. BUN 19. Creatinine 0.53. Glucose 104. Pro-calcitonin 0.04. She received 500 ML bolus of saline. Currently in normal saline at 75 ML's per hour. Remains on antibiotics in the form of ceftriaxone. Anticoagulated with Eliquis. Patient has been evaluated by cardiology for possible CHF exacerbation; cardiology recommending to discontinue Lasix; nephrology on board for management of hyponatremia 05/09/2023 Patient is seen and evaluated in follow-up today extremely lethargic although arousable. Nursing staff reports she is minimally arousable. Patient not eating much with significant weakness being followed by nephrology, pulmonary, cardiology. Per nursing staff patient was given Seroquel 25 mg weekly last night and has been lethargic since. Patient maintained on ceftriaxone with concerns of pneumonia. Sodium remains low at 124 and is status post Samsca and awaiting repeat labs. Will have physical therapy evaluate patient and encouraged to increase activity as tolerated. Patient is currently afebrile with no reports of chest pain or shortness of breath. No reported nausea or vomiting. Reports not much of an appetite and not very hungry. 05/10/2023 Patient is seen in follow-up today being followed by pulmonary along with nephrology. Legionella urine pending at this time and pulmonary recommending follow-up chest x-ray in the a.m. Patient's mentation is improved and more awake and alert today. Patient report she ate some more breakfast today and sodium is improved at 131. Patient is currently afebrile with no reports of ro[address] st pain or shortness of breath. Patient with significant weakness was evaluated by physical therapy and almost max assist and per son patient resides at [facility] and is mostly wheelchair bound and has all the care there and will be returning on discharge. Nephrology recommended urology consultation for retention and patient currently with indwelling Harper catheter. Awaiting urology consult and appreciate input and recommendations 05/11/2023 Patient is seen in follow-up today and was evaluated by urology recommending trial voiding and removing Harper and monitoring for any retention. Sodium is 1 29 today and stable with nephrology following. Will DC Harper and monitor for retention and discussed with nursing staff about bladder scanning and if does retain again will insert indwelling Harper catheter and have outpatient follow-up with urology as scheduled for end of the month in May. Patient is currently afebrile with no reports of chest pain or shortness of breath. Chest x-ray did show some vascular congestion although oxygen saturations are 97% on room air. Patient denies feeling short of breath. Encouraged oral intake and will follow-up with repeat labs in the a.m. with possible discharge planning in 24 hours. Son was notified of treatment plan. 05/12/2023 Patient is seen and evaluated in follow-up this morning extremely lethargic although arousable. Patient per nursing staff is not eating very much and reports not feeling very hungry and has no desire to eat. Patient is mostly bedbound and overall quality of life is poor. Patient has been declining and discussion was had with the son about overall health as well as CODE STATUS which was confirmed as no code and discussed possible hospice. Will consult hospice for informational. Patient sodium going back down and 126 with nephrology following and will be given a dose of Samsca and continued on fluid restrictions. Patient also with indwelling Harper catheter for retention which was removed yesterday and patient is voiding and is incontinent of urine per nursing staff. Patient is currently afebrile denies chest pain or shortness of breath. Review of systems: Constitutional: reports of fatigue , no fever, or chills Cardiovascular: No reports of chest pain or palpitations Respiratory: No reports of shortness of breath or cough GI: No reports of nausea, vomiting, or diarrhea, reports not much of an appetite and not eating very well : No reports of dysuria or retention Neurovascular: reports of generalized weakness All medications have been reviewed Physical exam: GENERAL: The patient is more lethargic, alert and oriented x2, not in any acute distress. Well developed, thin built, elderly appearing HEENT: Pupils are round and equally reacting to light. EOMI. No scleral icterus. No conjunctival pallor. Normocephalic, atraumatic. No pharyngeal erythema. No thyromegaly. CARDIOVASCULAR: S1 and S2 present. Irregularly irregular. PULMONARY: Chest is clear to auscultation, no wheezing or crackles. ABDOMEN: Soft, nontender, nondistended, normoactive bowel sounds. No palpable organomegaly. MUSCULOSKELETAL: No joint swelling or deformity. EXTREMITIES: No cyanosis, clubbing, or pedal edema. NEUROLOGICAL: Gross neurological examination did not reveal any focal deficits. SKIN: No rashes. Healing diffuse ecchymosis noted around the right eye status post fall Assessment: Left basilar pneumonia present on admission Acute on chronic exacerbation CHF/fluid overload, improving Hyponatremia secondary to poor oral intake, trending down again at 126 Hypokalemia secondary to poor oral intake Acute UTI, present on admission, treated and likely secondary to indwelling Harper catheter that was removed 1 day prior to admission Urinary retention requiring indwelling Harper catheter, removal of catheter on 05/11/2023 and is voiding History of Atrial fibrillation; patient remains rate controlled Diabetes mellitus type 2 Hypertension Stage II coccyx pressure ulcer, present on admission Bilateral stage II buttock ulcers, present on admission Gait dysfunction Recent fall with noted right eye orbit ecchymosis, no fractures noted GI prophylaxis DVT prophylaxis; SCDs/systemic anticoagulation No code Plan: Nephrology following and sodium is 126 today and being given a dose of Samsca. Electrolytes being replaced per protocol Patient was having urinary retention requiring indwelling Harper catheter and evaluated by urology recommending removal for trial void and patient had indwelling Harper catheter removed last night and is voiding and nursing staff also reporting she is incontinent of urine Patient evaluated by physical therapy and almost max assist and son reports p jatin is mostly wheelchair bound at [facility] and they provide all the care she needs there Patient's overall quality of life has declined and has had more frequent admissions and continues to clinically deteriorate as patient is not eating and CODE STATUS was confirmed patient is no code and other discussion was had with son about possible hospice and will arrange for hospice consult for informational and scheduled for tomorrow a.m. Case management was made aware and also confirm that [facility] where patient currently resides does provide hospice services as well. Will await informational meeting and discuss further with family and case management on discharge planning Encouraged oral intake Continue local wound care and offloading to the buttock area Overall poor prognosis Possible discharge in the next 24 hours The impression and plan of care has been dictated by Audra Fontaine, Nurse Practitioner as directed. Dr. Mello MD I have performed a history and examination and MDM of this patient, discussed the same with the dictator, and agree with the dictator's assessment and plan as written ,documented as a scribe. Based on total visit time, I have performed more than 50% of the visit. Objective - Vital Signs Vital signs: Vital Signs Temp 97.6 F 05/12/23 07:22 Pulse 56 L 05/12/23 08:00 Resp 18 05/12/23 08:00 BP 135/55 05/12/23 07:22 Pulse Ox 95 05/12/23 07:22 FiO2 Intake & Output 05/11/23 05/12/23 05/12/23 18:59 06:59 18:59 Intake Total 600 Output Total 702 250 2 Balance -102 -250 -2 Intake: Oral 600 Output: Urine 700 250 Stool 2 2 Other: Voiding Method Incontinent Incontinent External Catheter External Catheter # Voids 1 3 - Labs CBC & Chem 7: 05/09/23 06:12 05/12/23 06:27 Labs: Abnormal Lab Results - Last 24 Hours (Table) 05/11/23 05/11/23 05/11/23 Range/Units 07:13 11:33 16:47 Sodium 129 L (135-145) mmol/L Chloride (98-107) mmol/L Creatinine (0.52-1.04) mg/dL BUN/Creatinine Ratio 25.50 H (12.00-20.00) Ratio POC Glucose (mg/dL) 143 H 150 H (70-110) mg/dL Calcium 8.1 L (8.7-10.3) mg/dL 05/11/23 05/12/23 05/12/23 Range/Units 20:20 05:46 06:27 Sodium 126 L (135-145) mmol/L Chloride 96 L (98-107) mmol/L Creatinine 0.40 L (0.52-1.04) mg/dL BUN/Creatinine Ratio (12.00-20.00) Ratio POC Glucose (mg/dL) 126 H 113 H (70-110) mg/dL Calcium 8.1 L (8.7-10.3) mg/dL Microbiology - Last 24 Hours (Table) 05/06/23 14:17 Blood Culture - Final Blood
[2023-05-12 20:36] LABS: Glucose,Whole Blood 105 mg/dL (70-110)
[2023-05-13 05:33] LABS: Glucose,Whole Blood 98 mg/dL (70-110)
[2023-05-13] MEDS: metFORMIN 500 MG TAB PO SCH (06:37)
[2023-05-13] MEDS: MAGNESIUM OXIDE 400 MG TAB PO SCH (06:37)
[2023-05-13] MEDS: FERROUS SULFATE 325 MG TAB PO SCH (06:37)
[2023-05-13] MEDS: SERTRALINE 25 MG TAB PO SCH (06:38)
[2023-05-13] MEDS: APIXABAN 2.5 MG TABLET PO SCH (06:38)
[2023-05-13] MEDS: CHOLECALCIFEROL 25 MCG (1000 IU) TABLET PO SCH (06:38)
[2023-05-13] MEDS: AMIODARONE 200 MG TAB PO SCH (06:38)
[2023-05-13] MEDS: FUROSEMIDE 40 MG TAB PO SCH (08:10)
[2023-05-13] MEDS: SODIUM FERRIC GLUCONAT-SUCROSE 125 MG in SODIUM CHLORIDE 0.9% 100 ML IVPB SCH (08:10)
[2023-05-13] MEDS: METOPROLOL TARTRATE 12.5 MG TAB PO SCH (08:10)
--- NOTE | 2023-05-13 08:48 | P.PN ---
Subjective Progress Note Date: 05/13/23 Principal diagnosis: Urinary retention The patient is voiding without difficulty but is incontinent of urine. Bladder scan performed yesterday evening showed a volume of 477 mL. Objective - Vital Signs Vital signs: Vital Signs Temp 98.7 F 05/13/23 02:08 Pulse 61 05/13/23 02:08 Resp 18 05/13/23 02:08 BP 95/54 05/13/23 02:08 Pulse Ox 95 05/13/23 02:08 FiO2 Intake & Output 05/12/23 05/12/23 05/13/23 06:59 18:59 06:59 Intake Total 440 Output Total 250 1202 Balance -250 -1202 440 Intake: Intake, IV Titration 240 Amount Sodium Chloride 0.9% 1, 240 000 ml @ 20 mls/hr IV . Q24H JUAN CARLOS Rx#:[id number] Oral 200 Output: Urine 250 1200 Stool 2 Other: Voiding Method Incontinent Incontinent Incontinent External Catheter External Catheter External Catheter # Voids 3 1 - Constitutional General appearance: Present: average body habitus, no acute distress - Psychiatric Psychiatric: Present: A&O x's 3 - Labs CBC & Chem 7: 05/09/23 06:12 05/12/23 06:27 Labs: Abnormal Lab Results - Last 24 Hours (Table) 05/12/23 05/12/23 05/12/23 Range/Units 06:27 11:38 16:20 Sodium 126 L (137-145) mmol/L Chloride 96 L (98-107) mmol/L Creatinine 0.40 L (0.52-1.04) mg/dL POC Glucose (mg/dL) 122 H 143 H (70-110) mg/dL Calcium 8.1 L (8.4-10.2) mg/dL Microbiology - Last 24 Hours (Table) 05/06/23 14:17 Blood Culture - Final Blood Assessment and Plan Assessment: Bladder Scan confirms that the patient continues to empty her bladder incompletely. However, ultrasound last month showed no evidence of hydronephrosis, and her renal function is normal. She expressed a desire to have the Harper catheter replaced during this hospitalization, but she does not want to go home with a catheter. (1) Urinary retention Current Visit: Yes Status: Acute Code(s): R33.9 - RETENTION OF URINE, UNSPECIFIED SNOMED Code(s): 791439442 Plan: I explained to the patient that having a catheter during this hospitalization increases her risk of a nosocomial UTI. If she wished to manage her incomplete bladder emptying with a long-term catheter, it would be reasonable to place a catheter during this hospitalization. However, if it is her preference not to have a catheter long-term, but I see no benefit to placing a catheter for the remainder of this hospitalization and risking a nosocomial UTI. Therefore, the catheter will not be replaced at this time.
[2023-05-13 08:49] VITALS: RESP 17
--- NOTE | 2023-05-13 10:54 | P.PN ---
Subjective patient is seen for follow-up for hyponatremia. Sodium decreased to 126 yesterday. Patient received a dose of Samsca. Labs are pending from today. No significant complaints. Objective - Vital Signs Vital signs: Vital Signs Temp 98.0 F 05/13/23 06:45 Pulse 59 L 05/13/23 06:45 Resp 17 05/13/23 06:45 BP 110/57 05/13/23 06:45 Pulse Ox 96 05/13/23 06:45 FiO2 Intake & Output 05/12/23 05/13/23 05/13/23 18:59 06:59 18:59 Intake Total 440 Output Total 1202 700 Balance -1202 -260 Intake: Intake, IV Titration 240 Amount Sodium Chloride 0.9% 1, 240 000 ml @ 20 mls/hr IV . Q24H [facility] Rx#:[id number] Oral 200 Output: Urine 1200 700 Stool 2 Other: Voiding Method Incontinent Incontinent External Catheter External Catheter # Voids 1 - Exam Patient is awake, comfortable, no acute distress Right side of the face not noted to have bruising around the eye area Examination of the heart S1 and S2 Examination of the lungs bilateral breath sounds are heard with decreased breath sounds at the bases Abdomen is soft nontender Examination of lower extremity shows no edema bilaterally [facility] exam shows patient is moving all 4 extremities. - Labs CBC & Chem 7: 05/09/23 06:12 05/12/23 06:27 Labs: Abnormal Lab Results - Last 24 Hours (Table) 05/12/23 05/12/23 Range/Units 11:38 16:20 POC Glucose (mg/dL) 122 H 143 H (70-110) mg/dL Assessment and Plan Assessment: 1. Hypervolemic hyponatremia. Status post diuresis. Also received Samsca. Sodium level is pending from today. Urine sodium 45 and urine osmolality 392. TSH normal. 2. Bradycardia. Metoprolol decreased. On amiodarone for A. fib. 3. Hypomagnesemia from poor intake. Replaced. Better. On oral magnesium oxide. 4. Anemia. Iron deficiency noted. 5. Hypophosphatemia from poor intake. Replaced. 6. Volume overload with vascular congestion noted on chest x-ray. Status post IV Lasix 7. Hypokalemia from diuresis and poor intake. 8. Urinary retention. Urology following. Harper catheter removed. Plan: Follow-up on labs from today.
[2023-05-13] MEDS: SODIUM CHLORIDE 0.9% 1,000 ML IV SCH (11:11)
[2023-05-13 11:19] LABS: BUN/Creat Ratio 25.17 Ratio (12.00-20.00); Blood Urea Nitrogen 15.1 mg/dL (9.0-27.0); Calcium 8.4 mg/dL (8.7-10.3); Carbon Dioxide 25.8 mmol/L (21.6-31.8); Chloride 98 mmol/L (96-109); Glucose 87 mg/dL (70-110); Magnesium 1.9 mg/dL (1.5-2.4); Potassium 4.3 mmol/L (3.5-5.5); Sodium 132 mmol/L (135-145)
[2023-05-13 11:24] LABS: Glucose,Whole Blood 104 mg/dL (70-110)
[2023-05-13 14:04] VITALS: BP 110/54; PULSE 60; TEMP 97.8
--- NOTE | 2023-05-13 16:40 | P.PN ---
Subjective Progress Note Date: 05/13/23 This is an 82-year-old female patient who resides in an assisted living facility. She has a history of atrial fibrillation anticoagulated with Eliquis, diabetes mellitus, hypertension. She had fallen at the home earlier in the week while getting herself out of the bathroom. She has significant ecchymosis over the right eye. She was brought into the emergency room yesterday with dizziness, lightheadedness and weakness. Computed tomography scan of the head and neck revealed no acute mass or bleed. No acute trauma. Computed tomography scan of the face revealed no acute trauma to the facial bones. Chest x-ray revealed small bilateral pleural effusions right greater than left. Left basilar patchy opacity/atelectasis. Large hiatal hernia. White count 7.2. Hemoglobin 10.2. Platelets 337. Sodium 126. Potassium 3.5. Bicarb 21. BUN 17. Creatinine 0.7. Glucose 88. She is seen today in consultation due to the bilateral pleural effusions. She is currently sitting up in bed. Awake and alert in no acute distress. She is maintaining good O2 saturations in the 90s on room air. She has been afebrile. The patient is seen today 05/08/2023 and follow-up on the regular medical floor. She is currently resting comfortably in bed. Awake and alert in no acute distress. Currently maintaining good O2 saturations in the upper 90s on room air. Afebrile. Hemodynamically stable. Blood cultures reveal no growth. White count 10.5. Hemoglobin 11.3. Platelets 375. Sodium 123. Potassium 2.9. Bicarb 22. BUN 19. Creatinine 0.53. Glucose 104. Pro-calcitonin 0.04. She received 500 ML bolus of saline. Currently in normal saline at 75 ML's per hour. Electrolytes are being replaced. Remains on antibiotics in the form of ceftriaxone. Anticoagulated with Eliquis. The patient is seen today 05/09/2023 in follow-up on the regular medical floor. She is awake and alert in no acute distress. Resting in bed. Currently on room air. Normal saline at 20 mg per hour. Pro-calcitonin level is 0.04. She is currently on ceftriaxone. She is anticoagulated with Eliquis. Chest x-ray reveals a moderate right and small left pleural effusion with cardiomegaly and mild pulmonary vascular congestion. White count 7.7. Hemoglobin 9.1. Platelets 308. Sodium 124. Bicarb 20. BUN 15. Creatinine 0.5. Glucose 96. Blood culture reveals no growth. Legionella antigen pending. The patient is seen today 05/10/2023 in follow-up on the regular medical floor. She is currently resting comfortably in bed. Awake and alert in no acute distress. She is maintaining good O2 saturations in the 90s on room air. She has normal saline at KVO. OD on 131. Potassium 4.3. Bicarb 23. BUN 12. Creatinine 0.6. Glucose 104. She's been continued on Eliquis for anticoagulation. Patient is seen today 05/11/2023 in follow-up on the regular medical floor. She is currently resting comfortably in bed. Awake and alert in no acute distress. He is maintaining good O2 saturation in the mid 90s on room air. She's afebrile. Hemodynamically stable. His x-ray reveals pulmonary venous co ngestion and small effusions. Improving. Sodium 129 BUN 15. Creatinine 0.6. Glucose 97. Anticoagulated with Eliquis. The patient is seen today 05/12/2023 in follow-up on the regular medical floor. She is currently resting comfortably in bed. Awake and alert in no acute distress. She is maintaining good O2 saturations in the 90s on room air. She's been afebrile. Hemodynamically stable. Blood cultures revealed no growth. Sodium 126. Potassium 3.5. Bicarb 25. BUN 17. Creatinine 0.40. Glucose 88. She remains on diuretics. Anticoagulated with Eliquis. The patient is seen today 05/13/2023 in follow-up on the regular medical floor. She is currently sitting up in bed. Awake and alert in no acute distress. She continues to maintain good O2 saturations in the 90s on room air. Denies any worsening shortness of breath, cough or congestion. Blood cultures revealed no growth. Sodium 132. Potassium 4.3. Bicarb 26. BUN 15. Creatinine 0.6. Glucose 87. He is continued on diuretics. Anticoagulated with Eliquis. Objective - Vital Signs Vital signs: Vital Signs Temp 97.8 F 05/13/23 12:16 Pulse 60 05/13/23 12:16 Resp 17 05/13/23 12:16 BP 110/54 05/13/23 12:16 Pulse Ox 97 05/13/23 12:16 FiO2 Intake & Output 05/12/23 05/13/23 05/13/23 18:59 06:59 18:59 Intake Total 440 Output Total 1202 700 Balance -1202 -260 Weight 51.71 kg Intake: Intake, IV Titration 240 Amount Sodium Chloride 0.9% 1, 240 000 ml @ 20 mls/hr IV . Q24H [facility] Rx#:[id number] Oral 200 Output: Urine 1200 700 Stool 2 Other: Voiding Method Incontinent Incontinent External Catheter External Catheter # Voids 1 - Exam GENERAL EXAM: Alert, pleasant 82-year-old female, resting in bed, in no apparent distress. HEAD: Normocephalic. Ecchymosis around the right eye and face EYES: Normal reaction of pupils, equal size. NOSE: Clear with pink turbinates. THROAT: No erythema or exudates. NECK: No masses, no JVD. CHEST: No chest wall deformity. LUNGS: Equal air entry with crackles in the bilateral bases. On room air. CVS: S1 and S2 normal with no audible murmur, regular rhythm. ABDOMEN: No hepatosplenomegaly, normal bowel sounds, no guarding or rigidity. SPINE: No scoliosis or deformity SKIN: No rashes CENTRAL NERVOUS SYSTEM: No focal deficits, tone is normal in all 4 extremities. EXTREMITIES: There is no peripheral edema. No clubbing, no cyanosis. Peripheral pulses are intact. - Labs CBC & Chem 7: 05/09/23 06:12 05/13/23 06:36 Labs: Abnormal Lab Results - Last 24 Hours (Table) 05/13/23 Range/Units 06:36 Sodium 132 L (135-145) mmol/L BUN/Creatinine Ratio 25.17 H (12.00-20.00) Ratio Calcium 8.4 L (8.7-10.3) mg/dL Assessment and Plan Assessment: Generalized weakness, status post fall with trauma to the right face and right eye Hyponatremia, improving Hypokalemia, improved Urinary retention requiring Harper catheter Small bilateral pleural effusions right greater than left, stable and on room air History of atrial fibrillation, anticoagulated with Eliquis Diabetes mellitus, type II Plan: The patient was seen and evaluated Labs and medications reviewed Currently stable and on room air Plan is to return to her [facility] at discharge I have personally seen and examined the patient, performed the documentation and the assessment and plan as written. Number of minutes spent on the visit: 10.
--- NOTE | 2023-05-16 20:43 | P.DS ---
Providers Date of admission: 05/09/23 08:06 Expected date of discharge: 05/13/23 Attending physician: Neil Cadet MD Consults: 05/06/23 14:03 Consult Physician Routine Consulting Provider: Kenn Lazar Consult Reason/Comments: pneumonia Do you want consulting provider notified?: Yes Consult Physician Routine Consulting Provider: Laury Carter Consult Reason/Comments: hyponatremia Do you want consulting provider notified?: Yes 05/07/23 10:14 Consult Physician Routine Consulting Provider: Vazquez Jeffries Consult Reason/Comments: CHF, a fib Do you want consulting provider notified?: Yes 05/10/23 11:11 Consult Physician Routine Consulting Provider: Clayton Dalton Consult Reason/Comments: hoyt retention Do you want consulting provider notified?: Yes Primary care physician: Grey Morrison Hospital Course: Final diagnosis Left basilar pneumonia present on admission Acute on chronic exacerbation CHF/fluid overload, improving Hyponatremia secondary to poor oral intake Hypokalemia secondary to poor oral intake Acute UTI, present on admission, treated and likely secondary to indwelling Hoyt catheter that was removed 1 day prior to admission Urinary retention requiring indwelling Hoyt catheter, removal of catheter on 05/11/2023 and is voiding History of Atrial fibrillation; patient remains rate controlled Diabetes mellitus type 2 Hypertension Stage II coccyx pressure ulcer, present on admission Bilateral stage II buttock ulcers, present on admission Gait dysfunction Recent fall with noted right eye orbit ecchymosis, no fractures noted GI prophylaxis DVT prophylaxis; SCDs/systemic anticoagulation No code Discharge disposition Patient is being discharged in a stable condition with guarded prognosis to [facility] with hospice. Patient will follow-up with Dr. Morrison in the outpatient setting upon discharge. Patient is to continue with Lasix daily and close outpatient follow-up with nephrology outpatient and follow-up labs to monitor sodium level in the next few days. Patient to follow-up with urology outpatient . Total time taken is greater than 35 minutes. Hospital course This is a 82-year-old female who was recently admitted with more frequent falls and clinical decline. Patient having left basilar pneumonia along with acute urinary tract infection is most likely from indwelling Hoyt catheter. Patient has been having retention requiring indwelling Hoyt catheter and also clinical decline over the last few months. Patient has been falling more often becoming progressively more weak and having poor oral intake. Patient's sodium level has been corrected with nephrology following recommending outpatient follow-up. Most likely secondary to poor oral intake. Patient also with decubitus ulcers and will continue local wound care. Discussion was had with family as well as hospice about continued clinical decline and family is agreeable with [facility] on discharge and will receive hospice care at [facility]. Patient did have indwelling Hoyt catheter which was removed and voiding. Overall poor prognosis. Currently no reports of chest pain, shortness of breath, or palpitations. Patient is afebrile. No reports of nausea or vomiting and patient is tolerating diet. Needs strong encouragement with meals as patient is not eating very much at all. Patient will be going to [facility] with hospice services today. Physical exam: Gen: This is a 82-year-old female who is awake, alert and oriented 1-2, thin built, elderly appearing, cachectic, ill-appearing HEENT: Head is atraumatic, normocephalic. Pupils equal, round. Sclerae is anicteric. NECK: Supple. No JVD. No lymphadenopathy. No thyromegaly. LUNGS: Diminished breath sounds bilaterally, No wheezes or rhonchi. No intercostal retractions. HEART: Regular rate and rhythm. No murmur. ABDOMEN: Soft. Bowel sounds are present. No masses. No tenderness. EXTREMITIES: No pedal edema. No calf tenderness. NEUROLOGICAL: Patient is awake, alert and oriented x 1-2. Diffusely weak. Mostly wheelchair-bound Please refer to medication reconciliation sheet for a list of medications. The impression and plan of care has been dictated by Audra Fontaine, Nurse Practitioner as directed. Dr. Mello MD I have performed a history and examination and MDM of this patient, discussed the same with the dictator, and agree with the dictator's assessment and plan as written ,documented as a scribe. Based on total visit time, I have performed more than 50% of the visit. Patient Condition at Discharge: Fair Plan - Discharge Summary Discharge Rx Participant: Yes New Discharge Prescriptions: New Furosemide [Lasix] 40 mg PO DAILY #30 tab Metoprolol Tartrate [Lopressor] 12.5 mg PO BID #60 tab QUEtiapine [SEROquel] 12.5 mg PO HS PRN #30 tab PRN Reason: Agitation Continue Ferrous Sulfate [Iron (65 MG Elemental)] 325 mg PO BID@0700,1900 Acetaminophen Tab [Tylenol] 650 mg PO Q6HR PRN tab PRN Reason: Mild Pain Or Fever > 100.5 Sertraline [Zoloft] 25 mg PO DAILY@0700 Apixaban [Eliquis] 2.5 mg PO BID@0700,1900 Amiodarone [Cordarone] 200 mg PO DAILY@0700 Cholecalciferol [Vitamin D3 (25 Mcg = 1000 Iu)] 25 mcg PO DAILY@0700 metFORMIN HCL ER [Glucophage XR] 500 mg PO BID@0700,1900 Magnesium Oxide [Mag-Ox] 400 mg PO TID@ Tamsulosin [Flomax] 0.4 mg PO HS@190 Discontinued Metoprolol Tartrate [Lopressor] 25 mg PO BID@0700,1900 Discharge Medication List Cholecalciferol [Vitamin D3 (25 Mcg = 1000 Iu)] 25 mcg PO DAILY@0700 05/20/22 [History] Ferrous Sulfate [Iron (65 MG Elemental)] 325 mg PO BID@0700,1900 05/20/22 [History] Acetaminophen Tab [Tylenol] 650 mg PO Q6HR PRN tab 04/07/23 [Rx] Amiodarone [Cordarone] 200 mg PO DAILY@0700 05/06/23 [History] Apixaban [Eliquis] 2.5 mg PO BID@0700,1900 05/06/23 [History] Magnesium Oxide [Mag-Ox] 400 mg PO TID@05/06/23 [History] Sertraline [Zoloft] 25 mg PO DAILY@0700 05/06/23 [History] Tamsulosin [Flomax] 0.4 mg PO HS@19005/06/23 [History] metFORMIN HCL ER [Glucophage XR] 500 mg PO BID@0700,1900 05/06/23 [History] Furosemide [Lasix] 40 mg PO DAILY #30 tab 05/13/23 [Rx] Metoprolol Tartrate [Lopressor] 12.5 mg PO BID #60 tab 05/13/23 [Rx] QUEtiapine [SEROquel] 12.5 mg PO HS PRN #30 tab 05/13/23 [Rx] Follow up Appointment(s)/Referral(s): Grey Morrison MD [Primary Care Provider] - 1-2 days Activity/Diet/Wound Care/Special Instructions: Patient is returning to [facility] following Patient follow-up with primary care provider on discharge Continue to encourage oral intake and ensure supplements compact Follow-up with urology outpatient as needed Discharge Disposition: STILL PT- FOR INTERIM BILLING
== END 2023-05-13 15:04 | disposition still patient (30) | DRG 698 ==
LOC: EC 11:32 → 4SSUR 17:01 → OBSVTOIN 05-09 08:06
PROVIDERS: ADMIT Internal Medicine; ATTEND Internal Medicine
DX: T83.511A Infection and inflammatory reaction due to indwelling urethral catheter, initial encounter (principal); G93.41 Metabolic encephalopathy; J18.9 Pneumonia, unspecified organism; I50.33 Acute on chronic diastolic (congestive) heart failure; I48.19 Other persistent atrial fibrillation; E87.1 Hypo-osmolality and hyponatremia; J44.0 Chronic obstructive pulmonary disease with (acute) lower respiratory infection; N39.0 Urinary tract infection, site not specified; Z66 Do not resuscitate; K44.9 Diaphragmatic hernia without obstruction or gangrene; L89.152 Pressure ulcer of sacral region, stage 2; L98.419 Non-pressure chronic ulcer of buttock with unspecified severity; R32 Unspecified urinary incontinence; S00.11XA Contusion of right eyelid and periocular area, initial encounter; W19.XXXA Unspecified fall, initial encounter; I11.0 Hypertensive heart disease with heart failure; E87.6 Hypokalemia; E86.1 Hypovolemia; E83.42 Hypomagnesemia; E83.39 Other disorders of phosphorus metabolism; D50.9 Iron deficiency anemia, unspecified; Z20.822 Contact with and (suspected) exposure to COVID-19; E11.9 Type 2 diabetes mellitus without complications; Z79.01 Long term (current) use of anticoagulants; Z79.84 Long term (current) use of oral hypoglycemic drugs; Z79.899 Other long term (current) drug therapy; Z85.828 Personal history of other malignant neoplasm of skin; Z88.0 Allergy status to penicillin
CPT/HCPCS: 36415; 70450; 70486; 71045; 71046; 72125; 76604; 80048; 80053; 80306; 80320; 81001; 82040; 82140; 82570; 82728; 83540; 83550; 83605; 83735; 83880; 83930; 83935; 84100; 84145; 84155; 84295; 84300; 84443; 84450; 84460; 84484; 85025; 85610; 85730; 87040; 87449; 87636; 93005; 96365; 96366; 96368; 96375; 99285